=== PATIENT | male | born 1945 | race Caucasian/White ===

== ENCOUNTER 2017-11-26 07:38 | Emergency (ER) | payer MEDICAID, SELFPAY ==
[2017-11-26] VITALS (7 sets, daily range): BP systolic 154–179; BP diastolic 62–77; PULSE 60–69; RESP 18–24; TEMP 36.6; O2SAT 81–97; BMI 25.8
--- NOTE | 2017-11-26 07:47 | EKG12_ITS ---
Test Reason : SOB Blood Pressure : / mmHG Vent. Rate : 060 BPM Atrial Rate : 060 BPM P-R Int : 138 ms QRS Dur : 072 ms QT Int : 428 ms P-R-T Axes : 063 030 056 degrees QTc Int : 428 ms Normal sinus rhythm Poor R wave progression Confirmed by BRIAN SCHULTZ, BASSAM ([id number]), graphics editor GISELL NASH ([id number] on 11/29/2017 2:41:31 PM Referred By: CLEOPATRA Confirmed By:BASSAM TORRES MD
--- NOTE | 2017-11-26 07:47 | RAD_ITS ---
STUDY: X-RAY CHEST REASON FOR EXAM: Male, 72 years old. Shortness of breath TECHNIQUE: AP portable view of the chest. COMPARISON: May 03, 2016 FINDINGS: The lungs are hyperexpanded. There are bilateral lower lobe interstitial and groundglass increased opacities. Blunting of the costophrenic recesses pleural thickening or small effusions Normal size heart. Normal mediastinum and audi. Normal visualized pulmonary arteries. Normal visualized aortic arch and descending thoracic aorta. Normal visualized thoracic spine. Normal visualized ribs, clavicles, and shoulders. There is no demonstrated abnormality of the visualized soft tissue structures of the upper abdomen. RAD/Chest 1 View (Portable) IMPRESSION: COPD with lower lung edema or infiltrates. Electronically Signed: Leland Brantley MD at 8:27 EDT , Service support ,
--- NOTE | 2017-11-26 07:50 | ED.DCSUM_ITS ---
- ER Visit Summary Date of Service: 11/26/17 Chief Complaint: Shortness of breath History of Present Illness: The patient is a 72 M with a history of COPD and heavy tobacco use. Patient complains of shortness of breath that started this morning. He states I cannot catch my breath. He denies chest pain. He has had minimal cough with sputum production. He denies fever or chills. Patient does state he lost his inhaler 3 or 4 days ago. He had been using it 4 times a day. Physical Examination: Blood pressure is 179/77, temperature 98, heart rate 69, respiratory rate 24, pulse ox 81% on room air. At the time of my examination his sat is in the low 90s on 4 L nasal cannula. Head neck examination is grossly unremarkable. Heart is regular rate and rhythm. Lung sounds with in situ and expiratory wheezes throughout. He is speaking 4-5 word sentences. Abdomen is soft nontender. Lower exam examination was no significant calf tenderness or edema. Test Results: EKG is sinus at 60 with no sign of acute ischemia. Portable chest x-ray reveals COPD changes with lower lung edema or infiltrates. CBC was normal white count. Hemoglobin is concentrated at 17.3. Chemistry studies are normal. Troponin is negative. Emergency Department Course and Treatment: Patient was given Solu-Medrol and aerosols. Following aerosols his lungs have very minimal wheeze. His O2 sat is 90-92% on room air. 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 He did slowly return back to 90%. At the time of my repeat examination the patient had just returned from the restroom. After applying the pulse ox his sat was reading 84% after just a minute to allow it to equilibrate and get a good waveform climbed back to 92%. Patient states he feels well. He is refusing hospital admission. He will be given a prescription for albuterol nebulized solution along with prednisone and Levaquin. Treatment Plan: [] Disposition: Discharge Impression: COPD exacerbation This note was generated with [employer] dictation software. It may contain incorrect words, spelling, and punctuation that were not noted in review of the chart prior to signing ED Disposition - Plan for ED Patient: Chief Complaint: Shortness of Breath Referrals: Care Physician,No Primary [Primary Care Provider] -
[2017-11-26] MEDS: Albuterol 2.5 MG/3 ML VIAL.NEB. INHALATION ×2 (07:53)
[2017-11-26] MEDS: Ipratropium/Albuterol Sulfate 3 ML AMPUL.NEB INHALATION (07:53)
[2017-11-26] MEDS: MethylPREDNISolone 125 MG/2 ML Vial IV (07:55)
[2017-11-26 08:13] LABS: Absolute Lymphocyte Count 2.28 X10^3/ul (0.83-4.51); Absolute Neutrophil Count 6.6 X10^3/uL (2.0-7.7); Basophil# 0.04 X10^3/uL; Basophil% 0.4 % (0-1); Hematocrit 49.9 % (40-54); Hemoglobin 17.3 g/dl (13.0-16.5); Lymphocyte # 2.28 X10^3/ul (4.0); Mean Corp Hgb Conc 34.7 g/gl (32-36); Mean Corpuscular Hgb 34.7 pg (27.0-32.0); Mean Corpuscular Volume 100.2 fL (80-94); Mean Platelet Vol. 9.8 fl (6.2-12.0); Monocyte# 0.81 X10^3/uL; Monocyte% 8.2 % (0-10); Neutrophil # 6.59 X10^3/uL (2.7-7.7); Neutrophil % 66.3 % (47-70); Platelet Count 177 K/mm3 (150-450); RBC Distribution Width CV 12.6 % (11.6-14.6); RBC Distribution Width SD 46.2 fl (35.1-43.9); Red Blood Count 4.98 M/mm3 (4.6-6.2); White Blood Count 9.9 K/mm3 (4.4-11.0)
[2017-11-26 08:14] LABS: POSITIVE COUNT NO; POSITIVE DIFFERENTIAL NO; POSITIVE MORPHOLOGY NO
[2017-11-26 08:27] LABS: Anion Gap 4 (5-15); BUN 17 mg/dL (7-18); BUN/Creat Ratio 15.5 RATIO (10-20); Calcium,Total 8.7 mg/dL (8.5-10.1); Chloride 105 mmol/L (98-107); EST Glomerular Filtration Rate 70 mL/min (>60); Est Glom Filt Rate - Afr Amer 84 mL/min (>60); Estimated Creatinine Clearance 58.92 ml/min; Glucose 88 mg/dL (74-106); Potassium 4.6 mmol/L (3.5-5.1); Sodium Level 138 mmol/L (136-145)
--- NOTE | 2017-11-26 10:07 | DCINST.ED_ITS ---
ED Disposition - Plan for ED Patient: Disposition: Home or Assisted Living Chief Complaint: Shortness of Breath Instructions: ED COPD Flare Prescriptions: Albuterol Aerosols [Ventolin Aerosols] 2.5 mg INHALATION Q4H PRN #25 vial Levofloxacin [Levaquin] 750 mg PO DAILY #4 tablet Prednisone 10 mg PO UD #33 tablet Additional Instructions: Follow-up with your physician at [facility].
[2017-11-26] MEDS: levoFLOXacin 750 MG Tablet PO (10:31)
== END 2017-11-26 10:42 | disposition home or self-care (01) ==
PROVIDERS: Emergency Provider Emergency Medicine
DX: J44.1 Chronic obstructive pulmonary disease with (acute) exacerbation (principal); I10 Essential (primary) hypertension; Z72.0 Tobacco use; Z79.82 Long term (current) use of aspirin; Z79.891 Long term (current) use of opiate analgesic; Z79.899 Other long term (current) drug therapy
CPT/HCPCS: 71045; 80048; 84484; 85025; 93005; 94640; 96374; 99285; A4216

== ENCOUNTER 2017-12-31 21:36 | Inpatient (IN) | payer MEDICAID, SELFPAY ==
[2017-12-31 21:36] VITALS: BP 146/67; PULSE 122; RESP 26; TEMP 36.5; O2SAT 89; BMI 25.8
--- NOTE | 2017-12-31 21:49 | RAD_ITS ---
STUDY: X-RAY CHEST REASON FOR EXAM: Male, 72 years old. Dyspnea TECHNIQUE: Single AP portable view of the chest. COMPARISON: None. FINDINGS: There is hyperinflation of the lungs consistent with chronic obstructive lung disease (COPD). There is no demonstrated pleural abnormality. Normal size heart. Normal mediastinum and audi. Normal visualized pulmonary arteries. Normal visualized aortic arch and descending thoracic aorta. Normal visualized thoracic spine. There is degenerative osteoarthritis of the bilateral shoulders. There is no demonstrated abnormality of the visualized soft tissue structures of the upper abdomen. RAD/Chest 1 View (Portable) IMPRESSION: COPD. Electronically Signed: Kory Mike MD at 22:16 EDT Tel , Service support ,
--- NOTE | 2017-12-31 21:50 | EKG12_ITS ---
Test Reason : SOB Blood Pressure : / mmHG Vent. Rate : 109 BPM Atrial Rate : 109 BPM P-R Int : 142 ms QRS Dur : 070 ms QT Int : 326 ms P-R-T Axes : 065 047 080 degrees QTc Int : 439 ms Sinus tachycardia with Premature atrial complexes Otherwise normal ECG Confirmed by JUDE SCHULTZ, SUKUMAR ([id number]), editorial clerk GISELL NASH ([id number]) on 01/04/2018 3:49:52 PM Referred By: BEVERLY Confirmed By:SUKUMAR ROQUE MD
--- NOTE | 2017-12-31 21:50 | ED.VISSUMM ---
- ER Visit Summary Date of Service: 12/31/17 Chief Complaint: Shortness of breath History of Present Illness: The patient is a 72 M presenting with shortness of breath started today. He has been very short of breath at home. His breathing treatments at home were not helping. He does smoke cigarettes and states he has been smoking more cigarettes recently. He denies chest pain. Denies fever. He has a cough. He does not have home O2. Physical Examination: Vitals are stable. Patient is afebrile. 88% on room air HEENT exam is unremarkable. Neck is supple. Lungs are diminished with expiratory wheezing bilaterally. Heart is regular rate and rhythm. Abdomen is soft nontender nondistended. Extremities are unremarkable. Skin is warm and dry. No focal neurologic deficit. Remainder of exam is unremarkable. Emergency Department Course and Treatment: Patient is given albuterol, Atrovent aerosols. CBC, chemistries unremarkable. Troponin is negative. EKG sinus tachycardia rate of 109. Chest x-ray shows COPD. Patient was given Solu-Medrol IV. With ambulation, his pulse ox is 85% on room air. Discussed with the hospitalist for admission. Disposition: Admission Impression: COPD exacerbation, hypoxia This note was generated with [employer] dictation software. It may contain incorrect words, spelling, and punctuation that were not noted in review of the chart prior to signing ED Disposition - Plan for ED Patient: Chief Complaint: Shortness of Breath Referrals: Care Physician,No Primary [Primary Care Provider] -
[2017-12-31 21:59] VITALS: PULSE 110; RESP 26
[2017-12-31] MEDS: Ipratropium/Albuterol Sulfate 3 ML AMPUL.NEB INHALATION (21:59)
[2017-12-31] MEDS: Albuterol 2.5 MG/3 ML VIAL.NEB. INHALATION ×2 (21:59→22:22)
[2017-12-31 22:09] VITALS: O2SAT 92
[2017-12-31 22:22] VITALS: PULSE 116; RESP 26
[2017-12-31 22:22] LABS: Absolute Lymphocyte Count 2.27 X10^3/ul (0.83-4.51); Absolute Neutrophil Count 4.3 X10^3/uL (2.0-7.7); Basophil# 0.04 X10^3/uL; Basophil% 0.5 % (0-1); Eosinophil# 0.21 X10^3/uL; Eosinophils% 2.8 % (0-5); Hematocrit 48.2 % (40-54); Hemoglobin 16.4 g/dl (13.0-16.5); Lymphocyte # 2.27 X10^3/ul (4.0); Lymphocyte % 30.3 % (19-41); Mean Corpuscular Volume 99.8 fL (80-94); Mean Platelet Vol. 9.3 fl (6.2-12.0); Monocyte# 0.62 X10^3/uL; Monocyte% 8.3 % (0-10); Neutrophil # 4.33 X10^3/uL (2.7-7.7); Neutrophil % 57.8 % (47-70); Platelet Count 171 K/mm3 (150-450); RBC Distribution Width CV 12.1 % (11.6-14.6); RBC Distribution Width SD 44.5 fl (35.1-43.9); Red Blood Count 4.83 M/mm3 (4.6-6.2); White Blood Count 7.5 K/mm3 (4.4-11.0)
[2017-12-31 22:27] LABS: POSITIVE COUNT NO; POSITIVE DIFFERENTIAL NO; POSITIVE MORPHOLOGY NO
[2017-12-31 22:29] VITALS: O2SAT 93
[2017-12-31 22:35] LABS: Anion Gap 9 (5-15); BUN 13 mg/dL (7-18); BUN/Creat Ratio 12.1 RATIO (10-20); Calcium,Total 8.5 mg/dL (8.5-10.1); Chloride 103 mmol/L (98-107); Creatinine, Serum 1.07 mg/dL (0.70-1.30); EST Glomerular Filtration Rate 72 mL/min (>60); Est Glom Filt Rate - Afr Amer 87 mL/min (>60); Estimated Creatinine Clearance 60.57 ml/min; Glucose 107 mg/dL (74-106); Potassium 4.2 mmol/L (3.5-5.1); Sodium Level 137 mmol/L (136-145)
--- NOTE | 2017-12-31 23:53 | HP.PCM_ITS ---
Problem List (1) Shortness of breath Status: Acute History of Present Illness Date of Admission: 12/31/17 Chief Complaint: Shortness of breath The patient is a 72 year old M was seen in the emergency room at [facility] with complaints of shortness of breath which started today and worsened over the day. He stated he was short of breath on exertion and at rest. Patient was positive for cough with white sputum production, he denied any fevers or chills. Patient has a history of COPD and uses aerosol treatments as needed at home. He does not he does not have a film spooler. Patient states he smokes to 3 packs of cigarettes a day and has done so for the past 50 years Evaluation in the emergency room showed the patient's pulse ox to be 89% at rest on room air, emergency room physician stated that the patient had diffuse wheezes bilaterally with diminished breath sounds on admission to the ER, he did not appear to be in any respiratory distress however. Patient had a chest x -ray performed which showed COPD, lab work was unremarkable. Patient received 3 aerosol treatments in the emergency room and IV Solu-Medrol, breath sounds remain distant and he was walked on room air and his oxygen saturation was 85%. Patient will be admitted for hypoxia and acute exacerbation of COPD, [facility] Past Medical History Past Medical History (Chronic Problems): Chronic Problems Hypertension (Chronic) Alcohol abuse (Chronic) Tobacco abuse (Chronic) Allergies aspirin Adverse Reaction (Verified 12/31/17 21:38) Other Home Medications: Ambulatory Orders Medication Instructions Recorded Albuterol Aerosols [Ventolin 2.5 mg INHALATION Q4H PRN #25 vial 11/26/17 Aerosols] Albuterol Sulfate [Ventolin Hfa] 2 puff IH 4X/DAY PRN 11/26/17 Amlodipine [Norvasc] 5 mg PO DAILY 11/26/17 Levofloxacin [Levaquin] 750 mg PO DAILY #4 tablet 11/26/17 Lisinopril [Lisinopril] 20 mg PO BID 11/26/17 Metoprolol(XL)Succ [Toprol Xl 50 mg PO DAILY 11/26/17 (Beta Nichole)] Omeprazole [Omeprazole] 40 mg PO DAILY 11/26/17 Oxycodone [Oxyir] 10 mg PO Q6H PRN PRN 11/26/17 Tizanidine HCl [Tizanidine HCl] 2 mg PO BID 11/26/17 Surgical History: no surgical history Psychiatric History: No pertinent psych hx Lives: Spouse/ Significant Other Smoking Status: Heavy Smoker (>10/day) Tobacco Use: Cigarettes Alcohol: Heavy - he drinks anywhere from 6-8 beers per day Drugs: None - *Family History Maternal History Items: No pertinent history Paternal History Items: No pertinent history Review of Systems Constitutional: Denies: Anorexia, Chills, Fever, Night Sweats, Malaise, Weakness , Weight Change, Fatigue Eyes: Denies: Blurred vision, Cataracts, Conjunctivae Inflammation, Double vision, Drainage HEENT: Denies: Difficulty Swallowing, Dysphasia, Ear Pain, Eye Pain, Head Aches , Hearing Changes, Nasal bleeding, Nasal Congestion, Post Nasal Drip Cardiovascular: Denies: Chest Pain, Claudication, Chest Pressure, Chest Tightness, Edema, Heaviness, Light Headedness, Palpitations, Syncope Respiratory: Reports: Cough, Shortness of Breath, Shortness of breath at rest, Shortness of breath upon exertion, Sputum production - white. Denies: Hemoptysis Gastrointestinal: Denies: Abdominal Pain, Constipation, Diarrhea, Hematemesis, Hematochezia, Nausea, Melena, Vomiting Genitourinary: Denies: Dysuria, Frequency, Hematuria, Hesitancy, Incontinence, Nocturia, Retention, Urgency Musculoskeletal: Denies: Foot Pain, Hand Pain, Joint Pain, Joint stiffness, Joint swelling Skin: Denies: Dryness, Jaundice, Pruritis, Rash Neurological: Denies: Blurred vision, Double vision, Change in Speech, Slurred speech, Difficulty swallowing, Focal weakness, Headaches, Incoordination, Numbness, Tingling Psychiatric: Denies: Anxiety, Depression, Homicidal Ideations, Suicidal Ideations Endocrine: Denies: Change in Body Habitus, Heat/ Cold Intolerance, Polydipsia, Polyuria Hematologic/ Lymphatic: Denies: Adenopathy, Anemia, Easy Bruising, Easy Bleeding , Petechiae, Purpura VTE Information - Inpt Only VTE Present on Admission: No VTE Mechan Device Prophylaxis: None VTE Pharm Prophylaxis ordered?: Yes Patient Problems: Active and Suspected Problems Shortness of breath (Acute) - Physical Exam General: Alert, Oriented x3, Cooperative, No apparent distress, Well developed, Well nourished HEENT: Atraumatic, PERRLA, EOMI, Normocephalic Oral: Moist Mucosa Neck: Supple, No JVD, Negative Carotid Bruits, No Nuchal Rigidity, Trachea Midline, Thyroid Normal Size and Texture Lungs: Clear to auscultation, No rhonchi, No wheeze, No rales, Diminished Cardiovascular: Regular Rhythm, Normal S1, No murmurs, No Ectopic Activity, PMI Normal, No rub noted, Tachycardic Abdomen: Bowel Sounds Present, Soft, Non Tender, Non-Distended, No hernias noted Extremities: No clubbing, No cyanosis, No edema, Capillary Refill Less than 3 Seconds Skin: No rashes, No breakdown Musculoskeletal: No Tenderness to Palpation of Joints or Extremities Neurological: Cranial nerves II-XII grossly intact, Neuro grossly intact, Sensory exam intact to light touch and pain, Coordination normal Psych/Mental Status: Normal Affect, Appropriate, Alert and oriented to time, place, person, mood and affect Vital Signs Temp Pulse Resp BP Pulse Ox 97.7 F L 116 H 26 H 146/67 H 92 12/31/17 21:36 12/31/17 22:22 12/31/17 22:22 12/31/17 21:36 12/31/17 22:09 Oxygen Flow Rate (L/min) 3 Oxygen Delivery Method Nasal Cannula Weight: 79.379 kg Body Mass Index (BMI) 25.8 Laboratory Tests Past 24 Hrs 12/31/17 12/31/17 22:07 22:07 WBC 7.5 RBC 4.83 Hgb 16.4 Hct 48.2 MCV 99.8 H MCH 34.0 H MCHC 34.0 RDW 12.1 RDW Differential 44.5 H Plt Count 171 MPV 9.3 Immature Gran % (Auto) 0.300 Neut % (Auto) 57.8 Lymph % (Auto) 30.3 [place] % (Auto) 8.3 Eos % (Auto) 2.8 Baso % (Auto) 0.5 Absolute Neuts (auto) 4.3 Absolute Lymphs (auto) 2.27 Total Counted Not Reportable Sodium 137 Potassium 4.2 Chloride 103 Carbon Dioxide 25.0 Anion Gap 9 BUN 13 Creatinine 1.07 Estim Creat Clear Calc 60.57 Est GFR (MDRD) Af Amer 87 Est GFR (MDRD) Non-Af 72 BUN/Creatinine Ratio 12.1 Glucose 107 H Calcium 8.5 Troponin I < 0.015 Assessment/Plan All Active Problems Shortness of breath (Acute) Pseudomonas pneumonia (Resolved) #1 acute exacerbation of COPD-patient will be admitted to [facility], he will receive aerosol treatments, IV Solu-Medrol, and his pulse ox will be monitored, I do not hear any wheezing at the present time of my examination but the patient has received multiple breathing treatments as well as Solu-Medrol. #2 hypoxia secondary to #1-patient's O2 sat will be monitored, he is currently on 2 L of nasal cannula oxygen #3 probable alcohol abuse-patient states he drinks 6-8 beers per day #4 hypertension #5 GERD Code Visit Inpatient E&M: 56553 Init Hosp L3
[2017-12-31 23:55] VITALS: BP 139/70; PULSE 119; RESP 25; RESP 26; O2SAT 92; O2SAT 95
[2018-01-01] VITALS (14 sets, daily range): BP systolic 137–160; BP diastolic 73–91; PULSE 79–112; RESP 16–24; TEMP 36.5–36.8; O2SAT 91–96; BMI 25.4; BMI 25.5
[2018-01-01] MEDS: MethylPREDNISolone 125 MG/2 ML Vial IV (00:06)
[2018-01-01] MEDS: oxyCODONE 5 MG Tablet PO ×3 (04:26→19:02)
[2018-01-01] MEDS: 0.9% NaCl Peripheral Flush Adult/Peds IV ×2 (06:26→13:59)
[2018-01-01] MEDS: Heparin Injection (Vial) 5,000 UNIT/ML VIAL 5000 UNIT SC ×3 (06:26→21:27)
[2018-01-01] MEDS: Ipratropium/Albuterol Sulfate 3 ML AMPUL.NEB INHALATION ×4 (06:35→18:50)
[2018-01-01] MEDS: Metoprolol(XL)Succ 50 MG Tablet PO (08:22)
[2018-01-01] MEDS: Pantoprazole Sodium 40 MG Tablet PO (08:22)
[2018-01-01] MEDS: Lisinopril 20 MG Tablet PO ×2 (08:22→21:27)
[2018-01-01] MEDS: amLODIPine 5 MG Tablet PO (08:23)
--- NOTE | 2018-01-01 08:30 | NURSING ---
pt states he cannot read menu- assisted with ordering breakfast at this time. pt c/o of headache and states if he doesn't take b/p meds early that happens- requested at this time- same given. Pt states that he was smoking under shade tree yesterday and was smoking a lot in the heat/ humidity and started to feel poorly- came to ER.
--- NOTE | 2018-01-01 09:17 | PCM.PN.HOSP ---
Patient Problems: Active and Suspected Problems Shortness of breath (Acute) Subjective: The patient has long history of smoking, started in the teenage and was smoking 3 pack per day and cut down to about 1 pack per day. Patient is not on home oxygen. Chest x-ray is negative of acute infiltrate. Vitals/I&O's: Vital Signs Temp Pulse Resp BP Pulse Ox 98.3 F 110 H 18 150/91 H 96 01/01/18 08:10 01/01/18 08:22 01/01/18 08:10 01/01/18 08:10 01/01/18 08:10 Oxygen Flow Rate (L/min) 4 Oxygen Delivery Method Nasal Cannula Weight: 172 lb 6.424 oz Body Mass Index (BMI) 25.4 Intake and Output for Last 24 Hours 12/30/17 12/31/17 01/01/18 23:59 23:59 23:59 Intake Total 330 / 330 Balance 330 / 330 General: Alert, Oriented x3, Cooperative HEENT: Atraumatic, PERRLA, EOMI, Normocephalic Neck: Supple, No JVD, Negative Carotid Bruits Lungs: Diminished, Rhonchi, Short of Breath Cardiovascular: Regular rate, Regular Rhythm, Normal S1, Normal S2, No murmurs Abdomen: Bowel Sounds Present, Soft, Non Tender Extremities: No edema, Capillary Refill Less than 3 Seconds Skin: No rashes, No breakdown Musculoskeletal: No Tenderness to Palpation of Joints or Extremities, Muscle Wasting Neurological: Cranial nerves II-XII grossly intact Psych/Mental Status: Normal Affect, Appropriate Current Medications Albuterol Sulfate (Ventolin Aerosols) 2.5 mg INHALATION Q2H PRN PRN PRN Reason: DYSPNEA Albuterol/Ipratropium (Duoneb) 3 ml INHALATION Q6H.RT [facility] Last Admin: 01/01/18 06:35 Dose: 3 ml Amlodipine Besylate (Norvasc) 5 mg PO DAILY [facility] Last Admin: 01/01/18 08:23 Dose: 5 mg Heparin Sodium (Porcine) (Heparin Na) 5,000 unit SC Q8 [facility] Last Admin: 01/01/18 06:26 Dose: 5,000 unit Sodium Chloride () 250 mls @ 15 mls/hr IV .[id number] PRN PRN Reason: SALINE FLUSH Lisinopril (Zestril) 20 mg PO BID [facility] Last Admin: 01/01/18 08:22 Dose: 20 mg Magnesium Hydroxide (Milk Of Magnesia) 30 ml PO DAILY PRN PRN PRN Reason: Constipation Methylprednisolone (Solu-Medrol) 40 mg IV Q8 [facility] Last Admin: 01/01/18 06:26 Dose: 40 mg Metoprolol Succinate (Toprol Xl (Beta Nichole)) 50 mg PO DAILY [facility] Last Admin: 01/01/18 08:22 Dose: 50 mg Nicotine (Nicoderm Cq (Pbkc)) 21 mg TRANSDERM. DAILY [facility] Last Admin: 01/01/18 08:22 Dose: Not Given Oxycodone HCl (Oxyir) 5 - 10 mg PO Q4H PRN PRN PRN Reason: MOD-SEVERE PAIN (4-10/10) Last Admin: 01/01/18 04:26 Dose: 10 mg Pantoprazole Sodium (Protonix) 40 mg PO DAILY [facility] Last Admin: 01/01/18 08:22 Dose: 40 mg Sodium Chloride () 5 - 30 ml IV UD PRN PRN Reason: SALINE FLUSH Last Admin: 01/01/18 06:26 Dose: 10 ml Medical Necessity - Tobacco Use Smoking Status: Heavy Smoker (>10/day) Tobacco Use: Cigarettes Assessment/Plan All Active Problems Shortness of breath (Acute) Pseudomonas pneumonia (Resolved) This is a 72-year-old gentleman with history of about 60 pack years of smoking, COPD was admitted with shortness of breath. Patient has chronic dyspnea on exertion. In ER, his pulse ox recorded was 89% at rest on room air at 85% on ambulation at room air. Chest x-ray does not show any acute infiltrate but was more suggestive of COPD. #1 Acute exacerbation of COPD:-The patient is being admitted to [facility]. continue aerosol treatments, IV Solu-Medrol, and his pulse ox will be monitored. #2 hypoxia secondary to #1-patient's O2 sat will be monitored, he is currently on 2 L of nasal cannula oxygen #3 probable alcohol abuse-patient states he drinks 6-8 beers per day #4 hypertension: Blood pressure 150/91. #5 GERD: On Protonix. DVT prophylaxis: Heparin 500 subcutaneous 3 times daily. Code Visit Inpatient E&M: 50749 Subs Hosp L2
--- NOTE | 2018-01-01 10:55 | CASEMGMT ---
LANDEN ARMENTA Face to Face with patient for initial transition planning/care coordination assessment. RN CM introduced self and role at [facility]. Patient lying in bed, alert and oriented. Patient willing to participate in assessment and is able to answer all questions appropriately. Care providers, pharmacy, and demographics verified. See link attached. Patient wishes to discharge home, denies need for home health at this time. Patient states he has no further needs or concerns at this time. CM to follow for discharge planning needs that may arise. Disposition Plan: Patient to discharge home with family support and follow-up plans in place. LANDEN ARMENTA to monitor for need for home oxygen setup.
[2018-01-01] MEDS: Azithromycin 250 MG Tablet 500 MG PO (13:59)
[2018-01-02 02:05] VITALS: BP 152/73; PULSE 79; RESP 16; TEMP 36.6; O2SAT 95
[2018-01-02] MEDS: 0.9% NaCl Peripheral Flush Adult/Peds IV (05:38)
[2018-01-02] MEDS: Heparin Injection (Vial) 5,000 UNIT/ML VIAL 5000 UNIT SC (05:38)
[2018-01-02] MEDS: oxyCODONE 5 MG Tablet PO ×2 (05:40→10:53)
[2018-01-02 07:07] VITALS: PULSE 70; RESP 16; O2SAT 92
[2018-01-02] MEDS: Ipratropium/Albuterol Sulfate 3 ML AMPUL.NEB INHALATION (07:07)
[2018-01-02 08:05] VITALS: BP 148/75; PULSE 78; RESP 18; TEMP 36.6; O2SAT 93
[2018-01-02 08:38] VITALS: O2SAT 86; O2SAT 88; O2SAT 94
[2018-01-02 08:44] VITALS: O2SAT 93
[2018-01-02 08:49] VITALS: PULSE 88
[2018-01-02] MEDS: Lisinopril 20 MG Tablet PO (08:49)
[2018-01-02] MEDS: amLODIPine 5 MG Tablet PO (08:49)
[2018-01-02] MEDS: Metoprolol(XL)Succ 50 MG Tablet PO (08:49)
[2018-01-02] MEDS: Pantoprazole Sodium 40 MG Tablet PO (08:49)
--- NOTE | 2018-01-02 09:50 | PCM.DC ---
- Discharge Diagnoses Current Active Problems: Current Active and Chronic Problems Shortness of breath (Acute) You will use the following diet at home:: Cardiac Discharge Activity: May Not Drive Allergies/Adverse Reactions: Allergies aspirin Adverse Reaction (Verified 12/31/17 21:38) Other Medications to take at Discharge Albuterol Sulfate [Ventolin Hfa] 2 puff IH 4X/DAY PRN 11/26/17 Amlodipine [Norvasc] 5 mg PO DAILY 11/26/17 Lisinopril 20 mg PO BID 11/26/17 Metoprolol(XL)Succ [Toprol Xl (Beta Nichole)] 50 mg PO DAILY 11/26/17 Omeprazole 40 mg PO DAILY 11/26/17 Oxycodone [Oxyir] 10 mg PO Q6H PRN PRN 11/26/17 Tizanidine HCl 2 mg PO BID PRN PRN 11/26/17 Albuterol Aerosols [Ventolin Aerosols] 2.5 mg INHALATION Q4H PRN PRN 01/01/18 Azithromycin [Zithromax] 500 mg PO Q24 #1 tab 01/02/18 Budesonide/Formoterol 80-4.5 [Symbicort 80-4.5 Mcg Inhaler] 2 puff INHALATION BID #1 inhaler 01/02/18 Nicotine [Nicoderm Cq] 21 mg TRANSDERM. DAILY patch 01/02/18 Prednisone 10 mg PO UD #30 tab 01/02/18 The following prescriptions were given: Azithromycin [Zithromax] 500 mg PO Q24 #1 tab Prednisone 10 mg PO UD #30 tab Budesonide/Formoterol 80-4.5 [Symbicort 80-4.5 Mcg Inhaler] 2 puff INHALATION BID #1 inhaler Primary Care Physician: Care Physician,No Primary [Primary Care Provider] - Please follow up with your Primary Care Physician in: in 1-2 weeks Test Results: Please Follow Up With: Keny Hood DO When: in 3-4 weeks for outpatient PFT
--- NOTE | 2018-01-02 09:53 | DS.PCM_ITS ---
Discharge Date and Diagnosis Date of Admission: 12/31/17 Date of Discharge: 01/02/18 - Primary Discharge Diagnosis Active and Suspected Problems #1 Acute exacerbation of COPD:- Chronic smoker with nicotine dependence #2 Acute hypoxic respiratory failure secondary to COPD exacerbation - Secondary Discharge Diagnosis Chronic Problems Hypertension (Chronic) Alcohol abuse (Chronic) Tobacco abuse (Chronic) Hospital Course and Treatment Summary of Care Provided: [] This is a 72-year-old gentleman with history of about 60 pack years of smoking, COPD was admitted with shortness of breath. Patient has chronic dyspnea on exertion. In ER, his pulse ox recorded was 89% at rest on room air at 85% on ambulation at room air. Chest x-ray does not show any acute infiltrate but was more suggestive of COPD. #1 Acute exacerbation of COPD:-The patient is being admitted to [facility]. continue aerosol treatments, IV Solu-Medrol, and his pulse ox will be monitored. #2 Acute hypoxic respiratory failure secondary to COPD exacerbation patient is still requires 2 L of oxygen. Walking pulse oximetry test performed patient 88 % on room air at rest which dropped to 86% on ambulation. On 2 L of oxygen, pulse ox 94% with ambulation. #3 probable alcohol abuse-patient states he drinks 6-8 beers per day #4 hypertension: Blood pressure 150/91. #5 GERD: On Protonix. DVT prophylaxis: Heparin 500 subcutaneous 3 times daily. Patient does not want to stay further and wants to go home to celebrate January 03 with his grandkids. Patient is discharged on 2 L of oxygen. Patient requires home oxygen at rest and ambulation in home and community. Paperwork for oxygen sign. Discharge medication reconciliation done. Patient given a prescription of Symbicort, tapering dose of prednisone and Zithromax. Patient has albuterol inhaler and nebulization at home. Patient was offered nicotine patch but he refused. He reiterated that he would not to smoke. Discharge follow-up instructions discussed with the patient. Total time spent, exact 35 minutes on discharge meds reconciliation, examination , review of imaging and blood test and discussion with the patient on follow-up instructions. Discharge Activity: May Not Drive Home Medications: Medications to take at Discharge Albuterol Sulfate [Ventolin Hfa] 2 puff IH 4X/DAY PRN 11/26/17 Amlodipine [Norvasc] 5 mg PO DAILY 11/26/17 Lisinopril 20 mg PO BID 11/26/17 Metoprolol(XL)Succ [Toprol Xl (Beta Nichole)] 50 mg PO DAILY 11/26/17 Omeprazole 40 mg PO DAILY 11/26/17 Oxycodone [Oxyir] 10 mg PO Q6H PRN PRN 11/26/17 Tizanidine HCl 2 mg PO BID PRN PRN 11/26/17 Albuterol Aerosols [Ventolin Aerosols] 2.5 mg INHALATION Q4H PRN PRN 01/01/18 Azithromycin [Zithromax] 500 mg PO Q24 #1 tab 01/02/18 Budesonide/Formoterol 80-4.5 [Symbicort 80-4.5 Mcg Inhaler] 2 puff INHALATION BID #1 inhaler 01/02/18 Nicotine [Nicoderm Cq] 21 mg TRANSDERM. DAILY patch 01/02/18 Prednisone 10 mg PO UD #30 tab 01/02/18 Following Prescrptions Were Given to Patient: Azithromycin [Zithromax] 500 mg PO Q24 #1 tab Prednisone 10 mg PO UD #30 tab Budesonide/Formoterol 80-4.5 [Symbicort 80-4.5 Mcg Inhaler] 2 puff INHALATION BID #1 inhaler Primary Care Physician: Care Physician,No Primary [Primary Care Provider] - Please follow up with your Primary Care Physician in: in 1-2 weeks Please Follow Up With: Keny Hood DO When: in 3-4 weeks for outpatient PFT Medical Necessity - Tobacco Use Smoking Status: Heavy Smoker (>10/day) Tobacco Use: Cigarettes Meaningful Use Info Meaningful Use Diagnoses (Choose all that apply): None applicable Code Visit Inpatient E&M: 70774 Disch Hosp
[2018-01-02] MEDS: Azithromycin 250 MG Tablet 500 MG PO (10:53)
[2018-01-02] MEDS: Magnesium Hydroxide 30 ML UDC PO (10:53)
--- NOTE | 2018-01-05 17:02 | CASEMGMT ---
LANDEN ARMENTA Discharge Follow-up Phone Call: MARSHA: Kris Strata: 3 Call Date: 01/05/18 Discharge Date: 01/02/18 Time of Call: 1700 Duration: 5 min Admitting Diagnosis: Exacerbation of COPD LANDEN ARMENTA completed follow-up phone call after recent hospitalization. Patient states that he is doing great. Patient received his home oxygen setup through [employer]. Patient had no questions regarding discharge instructions or medications. Patient was able to get prescriptions without any problems. Patient states that he has a follow-up appt with PCP on Monday. LANDEN ARMENTA provided number for DR. Hood to schedule appt for 3 week for PFT. Patient stated he received great care at [facility].
== END 2018-01-02 11:13 | disposition home or self-care (01) | DRG 87 ==
LOC: ED 01-01 00:09 → MS3 01-01 00:16
PROVIDERS: Admitting Provider Internal Medicine; Emergency Provider Emergency Medicine; Visit Provider Internal Medicine
DX: J96.01 Acute respiratory failure with hypoxia (principal); J44.1 Chronic obstructive pulmonary disease with (acute) exacerbation; F10.10 Alcohol abuse, uncomplicated; F17.210 Nicotine dependence, cigarettes, uncomplicated; I10 Essential (primary) hypertension
CPT/HCPCS: 71045; 80048; 84484; 85025; 93005; 94640; 97802; 99283; 99406; A4216

== ENCOUNTER 2018-02-06 17:17 | Observation (INO) | payer MEDICAID, SELFPAY ==
[2018-02-06] VITALS (9 sets, daily range): BP systolic 120–163; BP diastolic 52–69; PULSE 63–76; RESP 10–30; TEMP 36.4–36.6; O2SAT 90–95; BMI 26.6; BMI 27.1
--- NOTE | 2018-02-06 18:33 | US_ITS ---
STUDY: VENOUS DOPPLER ULTRASOUND - BILATERAL LOWER EXTREMITIES REASON FOR EXAM: Male, 72 years old. Pain and swelling TECHNIQUE: Ultrasound evaluation of the deep vein system to include guerrero-scale imaging and compression was performed. Guerrero-scale imaging and Doppler sonographic evaluation, including duplex spectral analysis and qualitative color flow sonography, was performed. COMPARISON: None. FINDINGS: RIGHT LEG Common Femoral Vein: Normal compression, spontaneity and augmentation. Normal color Doppler. Common Femoral Vein/Greater Saphenous Junction: Normal compression, spontaneity and augmentation. Normal color Doppler. Superficial Femoral Proximal: Normal compression, spontaneity and augmentation. Normal color Doppler. Superficial Femoral Middle: Normal compression, spontaneity and augmentation. Normal color Doppler. Superficial Femoral Distal: Normal compression, spontaneity and augmentation. Normal color Doppler. Popliteal Vein: Normal compression, spontaneity and augmentation. Normal color Doppler. Posterior Tibial Vein: Normal compression, spontaneity and augmentation. Normal color Doppler. Peroneal Vein: Normal compression, spontaneity and augmentation. Normal color Doppler. The visualized soft tissues are unremarkable. LEFT LEG Common Femoral Vein: Normal compression, spontaneity and augmentation. Normal color Doppler. Common Femoral Vein/Greater Saphenous Junction: Normal compression, spontaneity and augmentation. Normal color Doppler. Superficial Femoral Proximal: Normal compression, spontaneity and augmentation. Normal color Doppler. Superficial Femoral Middle: Normal compression, spontaneity and augmentation. Normal color Doppler. Superficial Femoral Distal: Normal compression, spontaneity and augmentation. Normal color Doppler. Popliteal Vein: Normal compression, spontaneity and augmentation. Normal color Doppler. Posterior Tibial Vein: Normal compression, spontaneity and augmentation. Normal color Doppler. Peroneal Vein: Normal compression, spontaneity and augmentation. Normal color Doppler. The visualized soft tissues are unremarkable. US/Venous Duplex Imag/Beau Extrem IMPRESSION: Normal venous Doppler ultrasound of the bilateral lower extremities. Electronically Signed: Jerrell De La Rosa, at 19:51 EDT Tel , Service support ,
--- NOTE | 2018-02-06 18:42 | RAD_ITS ---
STUDY: X-RAY CHEST REASON FOR EXAM: Male, 72 years old. Edema TECHNIQUE: Single AP portable view of the chest. COMPARISON: 12/31/2017. FINDINGS: The lungs are hyper expanded. Basilar opacities right worse than left. There is no demonstrated pleural abnormality. Normal size heart. Normal mediastinum and audi. Normal visualized pulmonary arteries. Normal visualized aortic arch and descending thoracic aorta. Normal visualized thoracic spine. Normal visualized ribs, clavicles, and shoulders. There is no demonstrated abnormality of the visualized soft tissue structures of the upper abdomen. RAD/Chest 1 View (Portable) IMPRESSION: New basilar infiltrates right greater than left. COPD. Electronically Signed: Naveen Perez DO at 19:20 EDT , Service support ,
[2018-02-06 18:50] LABS: Absolute Lymphocyte Count 2.15 X10^3/ul (0.83-4.51); Absolute Neutrophil Count 5.3 X10^3/uL (2.0-7.7); Basophil# 0.03 X10^3/uL; Basophil% 0.3 % (0-1); Eosinophil# 0.34 X10^3/uL; Eosinophils% 3.9 % (0-5); Hematocrit 41.7 % (40-54); Hemoglobin 13.8 g/dl (13.0-16.5); Lymphocyte # 2.15 X10^3/ul (4.0); Lymphocyte % 24.7 % (19-41); Mean Corp Hgb Conc 33.1 g/gl (32-36); Mean Corpuscular Hgb 33.3 pg (27.0-32.0); Mean Corpuscular Volume 100.5 fL (80-94); Mean Platelet Vol. 9.2 fl (6.2-12.0); Monocyte# 0.82 X10^3/uL; Monocyte% 9.4 % (0-10); Neutrophil # 5.33 X10^3/uL (2.7-7.7); Neutrophil % 61.1 % (47-70); Platelet Count 297 K/mm3 (150-450); RBC Distribution Width CV 12.5 % (11.6-14.6); RBC Distribution Width SD 45.5 fl (35.1-43.9); Red Blood Count 4.15 M/mm3 (4.6-6.2); White Blood Count 8.7 K/mm3 (4.4-11.0)
[2018-02-06 18:51] LABS: POSITIVE COUNT NO; POSITIVE DIFFERENTIAL NO; POSITIVE MORPHOLOGY NO
[2018-02-06 19:04] LABS: Anion Gap 5 (5-15); BUN 21 mg/dL (7-18); BUN/Creat Ratio 12.8 RATIO (10-20); Calcium,Total 8.6 mg/dL (8.5-10.1); Chloride 105 mmol/L (98-107); Creatinine, Serum 1.64 mg/dL (0.70-1.30); EST Glomerular Filtration Rate 44 mL/min (>60); Est Glom Filt Rate - Afr Amer 53 mL/min (>60); Estimated Creatinine Clearance 38.23 ml/min; Glucose 98 mg/dL (74-106); Potassium 4.7 mmol/L (3.5-5.1); Sodium Level 138 mmol/L (136-145)
--- NOTE | 2018-02-06 19:59 | ED.VISSUMM ---
- ER Visit Summary Date of Service: 02/06/18 Chief Complaint: [Leg swelling] History of Present Illness: The patient is a 72 M presents to the emergency department complaint leg swelling for about a week and a half. Patient denies any pain in his legs. Patient states that the swelling is usually better when he wakes up in the morning and worsens throughout the day. Patient denies any recent travel or surgery. He denies any chest pain or shortness of breath. Patient presented to the emergency department without his oxygen and O2 saturation was in the 70s. Normally patient is on 2 L home O2. Patient does not have a history of CHF.] Physical Examination: [HEENT-PERRLA, EOMI. Cranial nerves II through XII grossly intact. TMs clear. Mucous membranes moist. No adenopathy. Cardiovascular-regular rate and rhythm without murmur or ectopy Lungs-few rales in bases. Patient has rhonchi and some faint expiratory wheezes as well. Mild tachypnea. No accessory muscle use or retractions. Abdomen-normoactive bowel sounds, soft, nontender, no rebound or rigidity, no peritoneal signs. Extremities-intact ?4, normal range of motion, normal pulses, atraumatic] Test Results: [EKG obtained on arrival shows sinus rhythm with a rate of 58 bpm with occasional PACs. CBC with differential showed a white count of 8.7, hemoglobin 13.8, hematocrit 42, platelets 297. Chemistries unremarkable. Troponin was less than 0.015. BNP was 161. Venous duplex of bilateral lower extremity showed no evidence of DVT. Chest x-ray was read by radiology has bilateral basilar infiltrates although patient has no history of fever or infectious symptoms and I am questioning if these infiltrates are more pulmonary edema. ] Emergency Department Course and Treatment: [At this point I suspect CHF as the patient's cause of symptoms which would be new onset] Treatment Plan: [Admit for further workup and evaluation] Disposition: [Admit] Impression: [CHF new onset COPD] This note was generated with [employer] dictation software. It may contain incorrect words, spelling, and punctuation that were not noted in review of the chart prior to signing ED Disposition - Plan for ED Patient: Chief Complaint: Edema Referrals: Mignon Pa MD [Primary Care Provider] -
[2018-02-06] MEDS: Furosemide 40 MG/4 ML Vial IV (20:46)
--- NOTE | 2018-02-06 20:48 | HP.PCM_ITS ---
Problem List (1) Bilateral leg edema Status: Acute (2) COPD (chronic obstructive pulmonary disease) Status: Chronic Qualifiers: COPD type: emphysema (3) CATHERINE (acute kidney injury) Status: Acute History of Present Illness Date of Admission: 02/06/18 Chief Complaint: Bilateral leg swelling x1 and a half weeks The patient is a 72 year old M with a significant history of COPD on chronic home oxygen use (2 LPM NC) who presents with one and half weeks of bilateral leg edema. Associated with his symptoms is bilateral feet pain. Patient denies any chest pain. He has a chronic cough. He denies PND. He has been using 3 pillows to sleep; and that is his baseline. He denies tiredness. Presentation at emergency department his oxygen saturation was in the 70s but he had no oxygen on. Upon receiving 2 L of oxygen at emergency department his oxygen saturation was above 88%. Past Medical History Past Medical History (Chronic Problems): Chronic Problems COPD (chronic obstructive pulmonary disease) (Chronic) Hypertension (Chronic) Alcohol abuse (Chronic) Tobacco abuse (Chronic) Allergies aspirin Adverse Reaction (Verified 02/06/18 17:22) Other Home Medications: Ambulatory Orders Medication Instructions Recorded Albuterol Sulfate [Ventolin Hfa] 2 puff IH 4X/DAY PRN 11/26/17 Amlodipine [Norvasc] 5 mg PO DAILY 11/26/17 Lisinopril 20 mg PO BID 11/26/17 Metoprolol(XL)Succ [Toprol Xl 50 mg PO DAILY 11/26/17 (Beta Nichole)] Omeprazole 40 mg PO DAILY 11/26/17 Oxycodone [Oxyir] 10 mg PO Q6H PRN PRN 11/26/17 Tizanidine HCl 2 mg PO BID PRN PRN 11/26/17 Surgical History: - - Surgery for stomach ulcers 20-30 years ago. Psychiatric History: No pertinent psych hx Lives: Spouse/ Significant Other Smoking Status: Current every day smoker - 2 cigarettes per day. He is to smoke about 2-3 packs per day. He has smoked for about 15years Alcohol: Occasional Drugs: None - *Family History Maternal History Items: No pertinent history Paternal History Items: No pertinent history Review of Systems Constitutional: Denies: Chills, Fever, Weight Change HEENT: Denies: Head Aches, Sinus Congestion, Sinus Drainage Cardiovascular: Reports: Orthopnea Respiratory: Reports: Cough - Chronic, Shortness of Breath - Chronic Gastrointestinal: Reports: Abdominal Pain Genitourinary: Denies: Dysuria Musculoskeletal: Denies: Joint Pain, Joint Tenderness Skin: Denies: Rash, Wounds Neurological: Denies: Numbness, Tingling, Focal weakness Psychiatric: Denies: Anxiety, Depression, Homicidal Ideations, Suicidal Ideations Hematologic/ Lymphatic: Reports: Adenopathy VTE Information - Inpt Only VTE Present on Admission: No VTE Mechan Device Prophylaxis: None VTE Pharm Prophylaxis ordered?: Yes Patient Problems: Active and Suspected Problems Bilateral leg edema (Acute) CATHERINE (acute kidney injury) (Acute) - Physical Exam General: Alert, Oriented x3, Cooperative HEENT: Atraumatic, PERRLA, EOMI, Normocephalic Neck: Supple Lungs: Wheezes Cardiovascular: Regular rate Abdomen: Bowel Sounds Present, Soft, Non Tender Extremities: Edema - Bilateral feet to knees(3+ bilateral feet; 1+ Legs) Skin: No rashes, No breakdown Neurological: Cranial nerves II-XII grossly intact Psych/Mental Status: Normal Affect, Appropriate Vital Signs Temp Pulse Resp BP Pulse Ox 97.9 F 63 17 141/56 H 92 02/06/18 17:20 02/06/18 18:39 02/06/18 18:39 02/06/18 18:39 02/06/18 18:39 Oxygen Flow Rate (L/min) 2 Oxygen Delivery Method Nasal Cannula Weight: 79.379 kg Body Mass Index (BMI) 26.6 Laboratory Tests Past 24 Hrs 02/06/18 02/06/18 02/06/18 18:24 18:24 18:24 WBC 8.7 RBC 4.15 L Hgb 13.8 Hct 41.7 MCV 100.5 H MCH 33.3 H MCHC 33.1 RDW 12.5 RDW Differential 45.5 H Plt Count 297 MPV 9.2 Immature Gran % (Auto) 0.600 Neut % (Auto) 61.1 Lymph % (Auto) 24.7 [place] % (Auto) 9.4 Eos % (Auto) 3.9 Baso % (Auto) 0.3 Absolute Neuts (auto) 5.3 Absolute Lymphs (auto) 2.15 Total Counted Not Reportable Sodium 138 Potassium 4.7 Chloride 105 Carbon Dioxide 28.0 Anion Gap 5 BUN 21 H Creatinine 1.64 H Estim Creat Clear Calc 38.23 Est GFR (MDRD) Af Amer 53 L Est GFR (MDRD) Non-Af 44 L BUN/Creatinine Ratio 12.8 Glucose 98 Calcium 8.6 Troponin I < 0.015 B-Natriuretic Peptide 161.0 H Assessment/Plan All Active Problems Bilateral leg edema (Acute) CATHERINE (acute kidney injury) (Acute) Shortness of breath (Acute) Pseudomonas pneumonia (Resolved) The patient is a 72 year old M with a significant history of COPD on chronic home oxygen use (2 LPM NC)who presents with one and half weeks of bilateral leg edema concerning for heart failure. Other differential diagnosis includes venostasis or lymphedema. Probable heart failure BNP 161 Lasix 40 mg IV push ?1 at emergency department Lasix 40 mg IV twice daily daily Echocardiogram ordered Leg elevation. Metoprolol continued. Acute kidney injury His creatinine on admission was 1.64. Creatinine on 12/31/2017 was 1.07. This could be due to dehydration all cardiorenal syndrome. We will continue Lasix at this time. We will hold lisinopril pending echocardiogram. COPD Patient does not appear to be in acute flare Scheduled DuoNeb and as needed albuterol as necessary Hypertension Lisinopril held Metoprolol continued Amlodipine continued Hydralazine as needed. Alcoholism Patient has a history of chronic alcohol use in EMR. However, Patient states that he drinks 1-2 beers a day. His MCV is elevated which may be due to alcoholism. Thiamine and folic acid noted. Clinical monitoring. GERD pantoprazole continued DVT prophylaxis subcutaneous heparin. Code Visit OBSV E&M: 96353 Initial observation care L3
--- NOTE | 2018-02-06 22:31 | ECHOD_ITS ---
Reason For Study: RV FAILURE Procedure This was a 2D Doppler, Color Flow transthoracic echocardiogram. The study was technically difficult. Exam performed portable in ICU/CCU. Left Ventricle Mild concentric left ventricular hypertrophy. The estimated ejection fraction is 65 %. Stage 1 diastolic dysfunction. No regional wall motion abnormalities noted. Right Ventricle Mildly dilated right ventricle. Normal systolic function. Atria The left atrium is moderately enlarged. The right atrium is moderately enlarged. Normal atrial septum. Mitral Valve The mitral valve is structurally normal. No prolapse or stenosis seen. Trivial mitral valve insufficiency. Tricuspid Valve Normal tricuspid valve. Trivial tricuspid valve insufficiency. Right ventricular systolic pressure estimated to be 59 mmHg. Moderate pulmonary hypertension. Aortic Valve Trisinus/trileaflet aortic valve. Mild focal aortic valve thickening. Mild diffuse aortic valve thickening. Trivial aortic valve insufficiency. Pulmonic Valve Normal pulmonic valve. Trivial pulmonic valve insufficiency. Great Vessels Normal aortic root. Normal arch. Normal inferior vena cava. Inferior vena cava collapse with sniff. Pericardium/Pleural No pericardial effusion. MMode/2D Measurements & Calculations LVIDd: 4.3 cm IVSd: 1.2 cm Ao root diam: 3.6 cm LVIDs: 3.1 cm LVPWd: 1.3 cm LA dimension: 3.3 cm RVDd: 3.7 cm FS: 27.9 % LAV(MOD-bp): 59.6 ml LVAd ap4: 31.9 cm2 SV(MOD-sp4): 67.0 ml LAV(MOD-bp) Indexed: 30.6 ml/m2 EDV(MOD-sp4): 108.3 ml LAV(MOD-sp2): 45.5 ml EDV(sp4-el): 112.6 ml LAV(MOD-sp4): 64.7 ml LVAs ap4: 16.5 cm2 ESV(MOD-sp4): 41.2 ml ESV(sp4-el): 41.0 ml EF(MOD-sp4): 61.9 % EF(sp4-el): 63.6 % SV(sp4-el): 71.7 ml LA A4 area: 23.5 cm2 RA A4 area: 23.9 cm2 Time Measurements MV dec time: 0.22 sec Doppler Measurements & Calculations MV E max farrukh: 65.0 cm/sec Lat Peak E' Farrukh: 7.5 cm/sec Med Peak E' Farrukh: 7.9 cm/sec MV A max farrukh: 76.3 cm/sec E/E' lat: 8.7 E/E' med: 8.2 MV E/A: 0.85 Ao V2 max: 140.7 cm/sec LV V1 max: 96.7 cm/sec TR max farrukh: 336.6 cm/sec Ao max P.9 mmHg LV V1 max P.7 mmHg TR max P.6 mmHg Interpretation Summary Mild concentric left ventricular hypertrophy. The estimated ejection fraction is 65 %. Stage 1 diastolic dysfunction. Mildly dilated right ventricle. The left atrium is moderately enlarged. The right atrium is moderately enlarged. Trivial mitral valve insufficiency. Trivial tricuspid valve insufficiency. Right ventricular systolic pressure estimated to be 59 mmHg. Moderate pulmonary hypertension. Trivial aortic valve insufficiency. There is no comparison study available. Ordering Physician: Jay Mullins Referring Physician: MARGY HAGEN Performed By: Kenna Cleveland, DARRYN, RVT
[2018-02-06] MEDS: Lisinopril 20 MG Tablet PO (23:09)
[2018-02-06] MEDS: Heparin Injection (Vial) 5,000 UNIT/ML VIAL 5000 UNIT SC (23:09)
[2018-02-06] MEDS: oxyCODONE 5 MG Tablet 10 MG PO (23:15)
[2018-02-06] MEDS: Albuterol 2.5 MG/3 ML VIAL.NEB. INHALATION (23:37)
[2018-02-07] VITALS (18 sets, daily range): BP systolic 114–166; BP diastolic 57–73; PULSE 56–87; RESP 18–22; TEMP 36.2–36.9; O2SAT 90–94
--- NOTE | 2018-02-07 00:10 | NURSING ---
pt noticed to have sleep apena when sleeping . 02 inserted in mouth
[2018-02-07 04:33] LABS: Absolute Lymphocyte Count 2.03 X10^3/ul (0.83-4.51); Absolute Neutrophil Count 5.2 X10^3/uL (2.0-7.7); Basophil# 0.02 X10^3/uL; Basophil% 0.2 % (0-1); Eosinophil# 0.31 X10^3/uL; Eosinophils% 3.6 % (0-5); Hematocrit 39.2 % (40-54); Hemoglobin 12.9 g/dl (13.0-16.5); Lymphocyte # 2.03 X10^3/ul (4.0); Lymphocyte % 23.7 % (19-41); Mean Corp Hgb Conc 32.9 g/gl (32-36); Mean Corpuscular Hgb 32.8 pg (27.0-32.0); Mean Corpuscular Volume 99.7 fL (80-94); Mean Platelet Vol. 8.8 fl (6.2-12.0); Monocyte# 0.96 X10^3/uL; Monocyte% 11.2 % (0-10); Neutrophil % 60.7 % (47-70); Platelet Count 303 K/mm3 (150-450); RBC Distribution Width SD 43.4 fl (35.1-43.9); Red Blood Count 3.93 M/mm3 (4.6-6.2); White Blood Count 8.6 K/mm3 (4.4-11.0)
[2018-02-07 04:37] LABS: POSITIVE COUNT NO; POSITIVE DIFFERENTIAL NO; POSITIVE MORPHOLOGY NO
[2018-02-07 04:49] LABS: Anion Gap 7 (5-15); BUN 20 mg/dL (7-18); BUN/Creat Ratio 15.4 RATIO (10-20); Calcium,Total 8.7 mg/dL (8.5-10.1); Chloride 106 mmol/L (98-107); Cholesterol 118 mg/dL (200); EST Glomerular Filtration Rate 57 mL/min (>60); Est Glom Filt Rate - Afr Amer 69 mL/min (>60); Estimated Creatinine Clearance 48.23 ml/min; Glucose 85 mg/dL (74-106); High Density Lipoprotein 31 mg/dL; Potassium 4.4 mmol/L (3.5-5.1); Sodium Level 143 mmol/L (136-145); Triglycerides 89 mg/dL; Very Low Density Lipoprotein 18 mg/dL (5-40)
[2018-02-07] MEDS: Thiamine Hydrochloride 100 MG Tablet PO (08:12)
[2018-02-07] MEDS: Folic Acid 1 MG Tablet PO (08:12)
[2018-02-07] MEDS: Metoprolol(XL)Succ 50 MG Tablet PO (08:13)
[2018-02-07] MEDS: Pantoprazole Sodium 40 MG Tablet PO (08:13)
[2018-02-07] MEDS: amLODIPine 5 MG Tablet PO (08:13)
[2018-02-07] MEDS: Heparin Injection (Vial) 5,000 UNIT/ML VIAL 5000 UNIT SC ×2 (08:14→22:06)
[2018-02-07] MEDS: Furosemide 40 MG/4 ML Vial IV ×2 (08:15→17:54)
--- NOTE | 2018-02-07 17:16 | PCM.PROGNOTE ---
Patient Problems: Active and Suspected Problems Bilateral leg edema (Acute) CATHERINE (acute kidney injury) (Acute) Subjective: Patient seen and examined today, he appears comfortable, he is currently on nasal cannula at 2 L. Patient's repeat CBC today was normal. I feel the patient most likely has congestive heart failure. - Physical Exam General: Alert, Oriented x3, Cooperative, No apparent distress, Well developed, Well nourished HEENT: Atraumatic, PERRLA, EOMI, Normocephalic Oral: Moist Mucosa Neck: Supple, No JVD, No Nuchal Rigidity, Trachea Midline, Thyroid Normal Size and Texture Lungs: Clear to auscultation, Normal air movement, No rhonchi, No wheeze, No rales Cardiovascular: Regular rate, Regular Rhythm, Normal S1, Normal S2, No murmurs, No Ectopic Activity, PMI Normal, No rub noted, No Gallop Abdomen: Bowel Sounds Present, Soft, Non Tender, Non-Distended, No hernias noted Extremities: No clubbing, No cyanosis, Capillary Refill Less than 3 Seconds Skin: No rashes, No breakdown Musculoskeletal: No Tenderness to Palpation of Joints or Extremities Neurological: Cranial nerves II-XII grossly intact, Neuro grossly intact, Sensory exam intact to light touch and pain, Coordination normal Psych/Mental Status: Normal Affect, Appropriate, Alert and oriented to time, place, person, mood and affect Vital Signs Temp Pulse Resp BP Pulse Ox 97.9 F 61 18 114/57 L 94 02/07/18 16:00 02/07/18 16:00 02/07/18 16:00 02/07/18 16:00 02/07/18 16:00 Oxygen Flow Rate (L/min) 2 Oxygen Delivery Method Nasal Cannula Weight: 78.5 kg Body Mass Index (BMI) 27.1 Intake and Output for Last 24 Hours 02/05/18 02/06/18 02/07/18 23:59 23:59 23:59 Intake Total 120 / 120 200 / 200 Output Total 1450 / 1450 1350 / 1350 Balance -1330 / -1330 -1150 / -1150 Laboratory Tests Past 24 Hrs 02/07/18 02/07/18 04:25 04:25 WBC 8.6 RBC 3.93 L Hgb 12.9 L Hct 39.2 L MCV 99.7 H MCH 32.8 H MCHC 32.9 RDW 12.0 RDW Differential 43.4 Plt Count 303 MPV 8.8 Immature Gran % (Auto) 0.600 Neut % (Auto) 60.7 Lymph % (Auto) 23.7 [place] % (Auto) 11.2 H Eos % (Auto) 3.6 Baso % (Auto) 0.2 Absolute Neuts (auto) 5.2 Absolute Lymphs (auto) 2.03 Total Counted Not Reportable Sodium 143 Potassium 4.4 Chloride 106 Carbon Dioxide 30.0 Anion Gap 7 BUN 20 H Creatinine 1.30 Estim Creat Clear Calc 48.23 Est GFR (MDRD) Af Amer 69 Est GFR (MDRD) Non-Af 57 L BUN/Creatinine Ratio 15.4 Glucose 85 Calcium 8.7 Triglycerides 89 Cholesterol 118 LDL Cholesterol 69 VLDL Cholesterol 18 HDL Cholesterol 31 L Medical Necessity - Tobacco Use Smoking Status: Current every day smoker Assessment/Plan All Active Problems Bilateral leg edema (Acute) CATHERINE (acute kidney injury) (Acute) Shortness of breath (Acute) Pseudomonas pneumonia (Resolved) #1 acute diastolic congestive heart failure-continue IV Lasix, patient stable #2 pulmonary hypertension #3 chronic hypoxic respiratory failure #4 chronic obstructive pulmonary disease #5 acute kidney injury-resolved #6 hypertension Code Visit Inpatient E&M: 23982 Subs Hosp L2
[2018-02-07] MEDS: Ipratropium/Albuterol Sulfate 3 ML AMPUL.NEB INHALATION (19:40)
[2018-02-07] MEDS: Zolpidem Tartrate 5 MG Tablet PO (22:06)
[2018-02-08] VITALS (12 sets, daily range): BP systolic 118–140; BP diastolic 55–75; PULSE 61–95; RESP 16–21; TEMP 36.3–36.8; O2SAT 91–94
--- NOTE | 2018-02-08 04:54 | NURSING ---
Addendum entered by Dorinda Viera 02/08/18 04:56: Correct dates 02/07/18- 02/08/18 Original Note: All charting completed by SN Joanna reviewed by this RN. This RN agrees with all charting 02/06/18- 02/07/18
[2018-02-08] MEDS: Ipratropium/Albuterol Sulfate 3 ML AMPUL.NEB INHALATION ×2 (07:20→13:32)
--- NOTE | 2018-02-08 07:46 | RAD_ITS ---
STUDY: X-RAY CHEST REASON FOR EXAM: Male, 72 years old. Shortness of breath. Possible heart failure. TECHNIQUE: Single AP upright portable view. COMPARISON: 02/06/2018 and 12/31/2017 chest studies. FINDINGS: EKG wires and oxygen tubing overlie the chest. Lungs appear fairly well ventilated but show decreased volume compared to chest 12/31/2017. Similar to chest study 02/06/2018, right greater than left increased interstitial and groundglass opacities are seen most suggestive CHF/fluid overload not seen which chest study 12/31/2017. In addition, heterogeneous opacity is seen in the left hilar and midlung zone, may represent increased congestion, atelectasis or pneumonia. Minimal blunting left CP angle noted, atelectasis versus minimal pleural fluid. Heart size appears upper limits of normal, stable. Stable appearing mediastinum. Moderately enlarged slightly decreased visualized pulmonary arteries suggestive. Stable visualized mildly calcified aortic arch. Stable visualized bones. There is no demonstrated abnormality of the visualized soft tissue structures of the upper abdomen. No subdiaphragmatic free air seen grossly. Question of calcified pleural plaques including right medial supradiaphragmatic region. RAD/Chest 1 View (Portable) IMPRESSION: Persistent possibly mildly increased right greater than left CHF/fluid overload with new left hilar/midlung heterogeneous opacity, may represent congestion, atelectasis or pneumonia. Recommend follow-up chest exam is clinically indicated for clearing, prefer chest two-view upright full inspiratory study if patient tolerates. Electronically Signed: Moises Saw, at 9:24 EDT Tel , Service support ,
[2018-02-08] MEDS: Thiamine Hydrochloride 100 MG Tablet PO (08:45)
[2018-02-08] MEDS: Folic Acid 1 MG Tablet PO (08:45)
[2018-02-08] MEDS: amLODIPine 5 MG Tablet PO (10:09)
[2018-02-08] MEDS: Furosemide 40 MG/4 ML Vial IV (10:10)
[2018-02-08] MEDS: 0.9% NaCl Peripheral Flush Adult/Peds IV (10:10)
[2018-02-08] MEDS: Metoprolol(XL)Succ 50 MG Tablet PO (10:10)
[2018-02-08] MEDS: Pantoprazole Sodium 40 MG Tablet PO (10:10)
--- NOTE | 2018-02-08 16:29 | DCINST_ITS ---
- Discharge Diagnoses Current Active Problems: Current Active and Chronic Problems Bilateral leg edema (Acute) COPD (chronic obstructive pulmonary disease) (Chronic) CATHERINE (acute kidney injury) (Acute) You will use the following diet at home:: No restrictions Your food should be the consistency of: Regular Your liquids should be the consistency of: Regular/Thin Discharge Activity: Return to Normal Activity Weight Bearing Status: Full weight bearing Allergies/Adverse Reactions: Allergies aspirin Adverse Reaction (Verified 02/06/18 17:22) Other Medications to take at Discharge Albuterol Sulfate [Ventolin Hfa] 2 puff IH 4X/DAY PRN 11/26/17 Amlodipine [Norvasc] 5 mg PO DAILY 11/26/17 Metoprolol(XL)Succ [Toprol Xl (Beta Nichole)] 50 mg PO DAILY 11/26/17 Omeprazole 40 mg PO DAILY 11/26/17 Oxycodone [Oxyir] 10 mg PO Q6H PRN PRN 11/26/17 Tizanidine HCl 2 mg PO BID PRN PRN 11/26/17 Furosemide [Lasix] 40 mg PO DAILY #30 tab 02/08/18 Lisinopril 20 mg PO DAILY #1 tablet 02/08/18 The following prescriptions were given: Furosemide [Lasix] 40 mg PO DAILY #30 tab Lisinopril 20 mg PO DAILY #1 tablet Primary Care Physician: Mignon Pa MD [Primary Care Provider] - Please follow up with your Primary Care Physician in: next week Test Results: Test results from this visit will be discussed in further detail at your follow- up appointment, if applicable.
--- NOTE | 2018-02-09 09:16 | PCM.DC.SUM ---
Discharge Date and Diagnosis Date of Admission: 02/06/18 Date of Discharge: 02/08/18 - Primary Discharge Diagnosis #1 acute diastolic congestive heart failure- #2 pulmonary hypertension #3 chronic hypoxic respiratory failure #4 chronic obstructive pulmonary disease #5 acute kidney injury #6 hypertension - Secondary Discharge Diagnosis Chronic Problems COPD (chronic obstructive pulmonary disease) (Chronic) Hypertension (Chronic) Alcohol abuse (Chronic) Tobacco abuse (Chronic) Hospital Course and Treatment Operations: None Procedures: 2-D Echocardiogram Summary of Care Provided: The patient is a 72 year old M seen in the emergency room at [facility] with a chief complaint of shortness of breath. Patient is on chronic oxygen at home for chronic hypoxic respiratory failure. Workup in the emergency room included a chest x-ray which showed basilar infiltrates right greater than left and COPD. Patient's lab was remarkable for an elevated creatinine 1.64, beta natruretic peptide was elevated 161. Patient was placed in observation status on PCU, he was felt to be in diastolic congestive heart failure, echocardiogram was obtained which showed a preserved EF with moderate pulmonary hypertension. Patient was given IV Lasix and monitored, his breathing improved, on 02/08/18, patient was seen and examined felt to be in stable condition for discharge home. Discharge Activity: Return to Normal Activity Weight Bearing Status: Full weight bearing Home Medications: Medications to take at Discharge Albuterol Sulfate [Ventolin Hfa] 2 puff IH 4X/DAY PRN 11/26/17 Amlodipine [Norvasc] 5 mg PO DAILY 11/26/17 Metoprolol(XL)Succ [Toprol Xl (Beta Nichole)] 50 mg PO DAILY 11/26/17 Omeprazole 40 mg PO DAILY 11/26/17 Oxycodone [Oxyir] 10 mg PO Q6H PRN PRN 11/26/17 Tizanidine HCl 2 mg PO BID PRN PRN 11/26/17 Furosemide [Lasix] 40 mg PO DAILY #30 tab 02/08/18 Lisinopril 20 mg PO DAILY #1 tablet 02/08/18 Following Prescrptions Were Given to Patient: Furosemide [Lasix] 40 mg PO DAILY #30 tab Lisinopril 20 mg PO DAILY #1 tablet Primary Care Physician: Mignon Pa MD [Primary Care Provider] - Please follow up with your Primary Care Physician in: next week Disposition: Home Minutes spent on discharge:: 27 Patient Condition:: Stable Medical Necessity - Tobacco Use Smoking Status: Current every day smoker Meaningful Use Info Meaningful Use Diagnoses (Choose all that apply): CHF - CHF VAISHNAVI/ARB ordered at discharge?: Yes Documented LVEF (%): 65 Code Visit OBSV E&M: 41908 Observation care discharge
== END 2018-02-08 17:20 | disposition home or self-care (01) ==
LOC: ED 20:24 → ICU 21:52
PROVIDERS: Admitting Provider Hospitalist; Emergency Provider Emergency Medicine; Family Provider Internal Medicine; PCP Internal Medicine; Visit Provider Internal Medicine
DX: I11.0 Hypertensive heart disease with heart failure (principal); I50.31 Acute diastolic (congestive) heart failure; J44.9 Chronic obstructive pulmonary disease, unspecified; J96.11 Chronic respiratory failure with hypoxia; I27.20 Pulmonary hypertension, unspecified; N17.9 Acute kidney failure, unspecified; Z99.81 Dependence on supplemental oxygen; Z79.899 Other long term (current) drug therapy; F17.210 Nicotine dependence, cigarettes, uncomplicated; F10.20 Alcohol dependence, uncomplicated; K21.9 Gastro-esophageal reflux disease without esophagitis
CPT/HCPCS: 71045; 80048; 80061; 83880; 84484; 85025; 93005; 93306; 93970; 94640; 94667; 94668; 96372; 96374; 96376; 97110; 97116; 97162; 97165; 97530; 99218; 99251; 99285; A4216; G0378; G0463; J1940

== ENCOUNTER → 2018-03-27 10:22 | Outpatient (CLI) | payer MEDICAID, SELFPAY ==
--- NOTE | 2018-03-27 15:14 | PFTCOMP_ITS ---
COMPLETE PULMONARY FUNCTION TEST INTERPRETATION Brief HPI: Patient is a 72 year old male, currently under the care of Dr. Hood, who presents to [facility] for complete pulmonary function tests secondary to diagnosis of COPD. Respiratory therapist reports good effort and reproducible results. Interpretation: Forced expiration spirometry shows a very severe large airways obstructive ventilatory defect with an FEV1 of 33% predicted. There is a significant bronchodilator response in FEV1 by ATS criteria. Spirograms are of good quality and plateau slowly, indicating slowly emptying areas of the lungs. The respiratory flow volume loop shows decreased expiratory flow rates at all lung volumes consistent with airway obstruction. Lung volumes by body plethysmography show a normal total lung capacity at 6.82 L, 110% predicted. FRC and RV are elevated out of proportion. Lung volume measurements are consistent with air-trapping. Diffusion capacity by carbon monoxide is decreased at 34% predicted. The airway resistance is elevated. No previous pulmonary function tests were available for review. Impression: Partially reversible very severe large airways obstructive ventilatory defect resulting in air trapping and a symmetric reduction in DLCO, consistent with the diagnosis of advanced COPD.
== END ==
PROVIDERS: Family Provider Internal Medicine; PCP Internal Medicine; Visit Provider Internal Medicine Critical Care Medicine
DX: J44.9 Chronic obstructive pulmonary disease, unspecified (principal); F17.200 Nicotine dependence, unspecified, uncomplicated
CPT/HCPCS: 94060; 94726; 94729

== ENCOUNTER 2018-05-23 02:06 | Emergency (ER) | payer MEDICAID, SELFPAY ==
[2018-05-23 02:07] VITALS: BP 179/95; PULSE 69; RESP 24; TEMP 37.1; O2SAT 93; BMI 26.5
--- NOTE | 2018-05-23 02:18 | RAD_ITS ---
STUDY: X-RAY CHEST REASON FOR EXAM: Male, 72 years old. Increased shortness of breath. History of COPD. TECHNIQUE: Frontal and lateral views of the chest. COMPARISON: 02/08/2018. 05/29/2013. FINDINGS: There is diffuse chronic interstitial prominence. The lungs are hyperexpanded, consistent with COPD. There is no demonstrated acute pulmonary infiltrate. There is no demonstrated pleural abnormality. Normal size heart. Normal mediastinum and audi. Normal visualized pulmonary arteries. There is atherosclerotic calcification of the aortic arch with tortuosity. There are diffuse degenerative changes of the visualized thoracic spine. Normal visualized ribs, clavicles, and shoulders. There is no demonstrated abnormality of the visualized soft tissue structures of the upper abdomen. RAD/Chest PA and Lateral IMPRESSION: Chronic interstitial lung disease with COPD. No evidence for acute cardiopulmonary pathology. Electronically Signed: Girish Evans MD at 3:10 EST , Service support ,
--- NOTE | 2018-05-23 02:18 | RAD_ITS ---
STUDY: X-RAY - SOFT TISSUE NECK REASON FOR EXAM: Male, 72 years old. Patient states that his throat feels swollen. TECHNIQUE: 2 view(s) of the neck were obtained. COMPARISON: None. FINDINGS: There are some soft tissue prominence at the base the tongue which probably represents lymphoid hyperplasia. Direct visual inspection is suggested to ensure against a mass lesion. Otherwise normal visualized nasopharynx, oropharynx, hypopharynx. Normal epiglottis. Normal visualized subglottic tracheal air column. Normal prevertebral soft tissue structures. Normal visualized osseous structures. The soft tissue structures are unremarkable. RAD/Neck for Soft Tissue IMPRESSION: Soft tissue prominence at the base of the tongue, which probably represents benign lymphoid hyperplasia. Suggest direct visual inspection for confirmation. Otherwise, normal exam. Electronically Signed: Girish Evans MD at 3:05 EST , Service support ,
[2018-05-23 02:39] LABS: Absolute Lymphocyte Count 1.64 X10^3/ul (0.83-4.51); Absolute Neutrophil Count 4.3 X10^3/uL (2.0-7.7); Basophil# 0.02 X10^3/uL; Basophil% 0.3 % (0-1); Eosinophil# 0.15 X10^3/uL; Eosinophils% 2.2 % (0-5); Hematocrit 41.7 % (40-54); Hemoglobin 14.2 g/dl (13.0-16.5); Lymphocyte # 1.64 X10^3/ul (4.0); Lymphocyte % 24.4 % (19-41); Mean Corp Hgb Conc 34.1 g/gl (32-36); Mean Corpuscular Hgb 32.4 pg (27.0-32.0); Mean Corpuscular Volume 95.2 fL (80-94); Mean Platelet Vol. 9.2 fl (6.2-12.0); Monocyte# 0.59 X10^3/uL; Monocyte% 8.8 % (0-10); Neutrophil # 4.31 X10^3/uL (2.7-7.7); Neutrophil % 64.2 % (47-70); Platelet Count 190 K/mm3 (150-450); RBC Distribution Width CV 11.5 % (11.6-14.6); RBC Distribution Width SD 39.2 fl (35.1-43.9); Red Blood Count 4.38 M/mm3 (4.6-6.2); White Blood Count 6.7 K/mm3 (4.4-11.0)
[2018-05-23 02:40] LABS: POSITIVE COUNT NO; POSITIVE DIFFERENTIAL NO; POSITIVE MORPHOLOGY NO
[2018-05-23] MEDS: MethylPREDNISolone 125 MG/2 ML Vial IV (02:41)
[2018-05-23 02:43] VITALS: PULSE 71; RESP 24; O2SAT 98
[2018-05-23 02:51] LABS: ALB/GLOB Ratio 1.1 RATIO (0.9-2.4); AST(SGOT) 20 U/L (15-37); Alanine Aminotransfer ALT/SGPT 18 U/L (16-61); Albumin, Serum 3.8 g/dL (3.2-5.0); Alkaline Phosphatase 69 U/L (45-117); Anion Gap 2 (5-15); BUN 17 mg/dL (7-18); Calcium,Total 8.6 mg/dL (8.5-10.1); Chloride 101 mmol/L (98-107); Creatinine, Serum 1.21 mg/dL (0.70-1.30); EST Glomerular Filtration Rate 62 mL/min (>60); Est Glom Filt Rate - Afr Amer 75 mL/min (>60); Estimated Creatinine Clearance 53.56 ml/min; Globulin 3.5 g/dL (2.2-4.2); Glucose 105 mg/dL (74-106); Potassium 3.8 mmol/L (3.5-5.1); Protein, Total 7.3 g/dL (6.4-8.2); Sodium Level 139 mmol/L (136-145)
[2018-05-23 03:25] VITALS: PULSE 60; RESP 20
[2018-05-23] MEDS: Albuterol 2.5 MG/3 ML VIAL.NEB. INHALATION ×2 (03:25)
[2018-05-23] MEDS: Ipratropium/Albuterol Sulfate 3 ML AMPUL.NEB INHALATION (03:25)
--- NOTE | 2018-05-23 03:40 | CT_ITS ---
STUDY: CT SOFT TISSUE NECK WITH CONTRAST REASON FOR EXAM: Male, 72 years old. Shortness of breath. Elevated blood pressure. Feels like throat is swollen. RADIATION DOSAGE (If Supplied By Facility): CTDIvol = ( 22.35 ) mGy, DLP = ( 669.87 ) mGycm TECHNIQUE: The patient was scanned in a multi-detector CT scanner. High resolution transaxial imaging was performed following intravenous administration of 75ML ml of Isovue 370 contrast material. Sagittal and coronal images were reconstructed. The exam is limited by motion artifacts, which are seen throughout the study, possibly due to swallowing or talking during exam. Individualized dose optimization techniques were used for this CT. COMPARISON: X-ray soft tissue neck. Chest x-ray. FINDINGS: Normal bilateral parotid glands. Normal bilateral auctioneer art spaces. Normal bilateral parapharyngeal spaces. Normal bilateral carotid spaces. Normal bilateral sublingual and submandibular glands and spaces. Normal visualized nasopharynx. Normal retropharyngeal space. Normal perivertebral space. Normal visualized bilateral faucial tonsils. The visualized tongue, tongue base and oropharynx are normal. The visualized cervical lymph nodes (levels I-) are within normal size limits, and maintain normal morphology. There is no demonstrated solid or cystic mass lesion. There is no abnormal contrast enhancement. Normal epiglottis, bilateral vallecula and hypopharynx. The pre-epiglottic and paraglottic adipose spaces are normal. Normal visualized bilateral piriform sinuses, aryepiglottic folds, vocal cords, and arytenoid-cricoid articulations. Normal subglottic trachea. Normal bilateral lobes of the thyroid gland. There are prominent fibrotic and emphysematous changes in the visualized lung apices. There is a calcified granuloma in the visualized right paratracheal mediastinum. Normal visualized paranasal sinuses. There are multilevel degenerative changes of the cervical spine. CT/Soft Tissue Neck WITH Contrast IMPRESSION: Limited exam due to motion artifacts throughout the study. Exam is grossly normal. Airway is widely patent. No visualized large masses. No demonstrated abscess is more or lymphadenopathy. If there is persistent clinical concern, repeat study should be considered when and if the patient can cooperate. Electronically Signed: Girish Evans MD at 4:59 EST , Service support ,
--- NOTE | 2018-05-23 03:53 | EKG12_ITS ---
Test Reason : Blood Pressure : / mmHG Vent. Rate : 070 BPM Atrial Rate : 070 BPM P-R Int : 138 ms QRS Dur : 068 ms QT Int : 418 ms P-R-T Axes : 076 029 047 degrees QTc Int : 451 ms Sinus rhythm with Premature atrial complexes with Aberrant conduction Otherwise normal ECG Confirmed by JUDE SCHULTZ, SUKUMAR ([id number]), fashion editor GSIELL NASH ([id number]) on 05/25/2018 1:36:45 PM Referred By: CRISTEL Confirmed By:SUKUMAR ROQUE MD
--- NOTE | 2018-05-23 03:58 | ED.DCSUM_ITS ---
- ER Visit Summary Date of Service: 05/23/18 Chief Complaint: Swelling of throat History of Present Illness: The patient is a 72 M who reports that he feels like his throat is swelling. He states symptoms began about 3 days ago. He states he has been able to swallow liquids but not food. He states he cannot lay down flat. He denies feeling short of breath. No fevers. He has a history of COPD and wears home oxygen. He also notes a previous history of gastric ulcers and a possible history of failure. He is an avid connoisseur of tobacco products Physical Examination: Afebrile noted tachypnea Gen: Well-nourished well-developed Head: Normocephalic atraumatic Eyes: Perrl EOMI ENT: TMs clear no rhinorrhea moist mucous membranes there is no drooling. No stridor. His voice appears normal. Neck: Supple no lymphadenopathy no JVD nontender CVS: Regular rate rhythm no murmurs normal S1-S2 Respiratory: Patient is tachypneic. He has expiratory wheezing bilaterally. Chest nontender Abdomen: Soft nontender nondistended normal bowel sounds no masses Back: Nontender Extremity: Nontender no edema Skin: Normal color no rash Neuro: alert orientated ?3 CN II-XII intact normal strength sensation reflexes gait cerebellar Psych: Normal affect normal mood Test Results: CBC CMP essentially normal. Chest x-ray negative. Soft tissue neck x-ray demonstrate prominence base of the tongue. CT of the neck with IV contrast was obtained which does not demonstrate any abnormal lymph nodes. No obvious mass or abscess. Emergency Department Course and Treatment: Patient received Solu-Medrol and breathing treatments. His lung sounds are now clear. Repeat examination shows the patient to be sleeping. Laying back. There is no drooling. He was given p.o. challenge. He has had an ICD. He has had liquids. And he has had yogurt. None of this is resulted in coughing or choking. Therefore I do not think he has a dysphasia.. He refuses to eat a soft cookie stating he will choke on it. I do not see acute airway occlusion. He has no stridor he is not drooling. His CT is essentially negative. We will place him on low-dose prednisone and have him follow-up. Return if worsening or concerns Impression: 1. Dyspnea 2. Choking This note was generated with [employer] dictation software. It may contain incorrect words, spelling, and punctuation that were not noted in review of the chart prior to signing ED Disposition - Plan for ED Patient: Disposition: Home or Assisted Living Chief Complaint: Shortness of Breath Instructions: What is COPD? Prescriptions: Prednisone [Deltasone] 40 mg PO DAILY #10 tab Referrals: Mignon Pa MD [Primary Care Provider] - 3-5 Days if not improving
[2018-05-23 04:09] VITALS: PULSE 71; RESP 20
[2018-05-23 05:31] VITALS: BP 137/71; PULSE 70; RESP 22; O2SAT 94
--- NOTE | 2018-05-23 05:32 | ED.RN ---
PT GIVEN YOGURT AND AN ICEE TO SEE HOW HE TOLERATES PO INTAKE. PT REFUSED TO TRY SOLID FOOD SUCH COOKIES AND PT REFUSED
[2018-05-23 05:36] VITALS: BP 141/85; PULSE 72; RESP 21; O2SAT 94
== END 2018-05-23 06:06 | disposition home or self-care (01) ==
PROVIDERS: Emergency Provider Emergency Medicine; Family Provider Internal Medicine; PCP Internal Medicine
DX: R06.00 Dyspnea, unspecified (principal); J44.9 Chronic obstructive pulmonary disease, unspecified; R06.82 Tachypnea, not elsewhere classified; T17.928A Food in respiratory tract, part unspecified causing other injury, initial encounter; X58.XXXA Exposure to other specified factors, initial encounter; Y93.9 Activity, unspecified; Y92.9 Unspecified place or not applicable; Y99.9 Unspecified external cause status; I10 Essential (primary) hypertension; Z72.0 Tobacco use; Z99.81 Dependence on supplemental oxygen; Z79.899 Other long term (current) drug therapy; Z87.11 Personal history of peptic ulcer disease
CPT/HCPCS: 70360; 70491; 71046; 80053; 84484; 85025; 87040; 93005; 94640; 96374; 99285; Q9967; A4216

== ENCOUNTER 2018-08-11 17:35 | Inpatient (IN) | payer MEDICAID, SELFPAY ==
[2018-08-11] VITALS (21 sets, daily range): BP systolic 101–150; BP diastolic 54–74; PULSE 82–98; RESP 12–37; TEMP 36.3–37.2; O2SAT 63–98; BMI 24.3; BMI 25.7
--- NOTE | 2018-08-11 17:41 | EKG12_ITS ---
Test Reason : SOB/CP Blood Pressure : / mmHG Vent. Rate : 080 BPM Atrial Rate : 080 BPM P-R Int : 132 ms QRS Dur : 064 ms QT Int : 370 ms P-R-T Axes : 068 054 071 degrees QTc Int : 426 ms Sinus rhythm with Premature atrial complexes with Aberrant conduction Borderline ECG Confirmed by JUDE SCHULTZ, SUKUMAR ([id number]), website/blog editor GISELL NASH ([id number]) on 08/14/2018 8:28:12 AM Referred By: Carlos Garcia Confirmed By:SUKUMAR ROQUE MD
--- NOTE | 2018-08-11 17:42 | RAD_ITS ---
STUDY: X-RAY CHEST REASON FOR EXAM: Male, 72 years old. Shortness of breath, COPD TECHNIQUE: AP COMPARISON: 05/23/2018 FINDINGS: EKG leads project over the chest. Lungs and continue to be hyperinflated with new reticular nodular opacities throughout the right lung. Mild blunting of the bilateral costophrenic angle similar. Reticular scarring left lung base is stable. Normal size heart. Normal mediastinum and audi. Normal visualized pulmonary arteries. There is atherosclerotic calcification of the aortic arch with tortuosity. No acute bony process. There is no demonstrated abnormality of the visualized soft tissue structures of the upper abdomen. RAD/Chest 1 View (Portable) IMPRESSION: Multilobar right pulmonary infiltrates worrisome for pneumonia, new. Follow-up recommended. Electronically Signed: Tristin Chopra MD at 17:59 EST , Service support ,
--- NOTE | 2018-08-11 17:44 | ED.DCSUM_ITS ---
- ER Visit Summary Date of Service: 08/11/18 Chief Complaint: Shortness of breath History of Present Illness: The patient is a 72 M who presents with shortness of breath. Started a week ago. He states he has dyspnea with exertion. It better with rest and oxygen. He does wear home oxygen at 4 L at home. It is not been helping. He has been coughing up brown sputum. He also has tightness on the left side of his chest. He states that he quit smoking 3 months ago. Physical Examination: Vital signs reviewed. Patient is tachypneic. He is 63% on room air. HEENT exam is unremarkable. Heart is regular rate and rhythm without murmurs. Lungs have crackles on the right with wheezing on the left. Abdomen soft and nontender. Extremities reveal no edema. His neurologic exam is normal. Test Results: Chest x-ray reveals multilobar pneumonia on the right. EKG is sinus rhythm with no significant ST changes. White blood cell count 12.7. Troponin normal. ABG is 7.2 /70/26. Lactate normal Emergency Department Course and Treatment: The patient has significant pneumonia on the right-hand side. I initially placed him on a 40% Ventimask but he was still slightly hypoxic on the ABG. I then placed him on BiPAP and he feels much better. He was given aerosol treatments as well as Solu-Medrol. I will start him on Rocephin and azithromycin. I discussed with the hospitalist and the patient will be admitted to the ICU overnight for close monitoring. Treatment Plan: [] Disposition: Admit Impression: Acute respiratory failure Community-acquired pneumonia, Hypoxia Sepsis Critical care time 35 minutes This note was generated with [employer] dictation software. It may contain incorrect words, spelling, and punctuation that were not noted in review of the chart prior to signing ED Disposition - Plan for ED Patient: Referrals: Mignon Pa MD [Primary Care Provider] -
[2018-08-11] MEDS: MethylPREDNISolone 125 MG/2 ML Vial IV (17:51)
[2018-08-11] MEDS: Albuterol 2.5 MG/3 ML VIAL.NEB. INHALATION ×3 (17:58→18:15)
[2018-08-11] MEDS: Ipratropium/Albuterol Sulfate 3 ML AMPUL.NEB INHALATION ×2 (17:58→22:50)
[2018-08-11 18:00] LABS: Absolute Lymphocyte Count 2.48 X10^3/ul (0.83-4.51); Absolute Neutrophil Count 9.1 X10^3/uL (2.0-7.7); Basophil# 0.06 X10^3/uL; Basophil% 0.5 % (0-1); Eosinophil# 0.14 X10^3/uL; Eosinophils% 1.1 % (0-5); Hematocrit 44.5 % (40-54); Hemoglobin 14.5 g/dl (13.0-16.5); Lymphocyte # 2.48 X10^3/ul (4.0); Lymphocyte % 19.5 % (19-41); Mean Corp Hgb Conc 32.6 g/gl (32-36); Mean Corpuscular Hgb 32.1 pg (27.0-32.0); Mean Corpuscular Volume 98.5 fL (80-94); Mean Platelet Vol. 9.3 fl (6.2-12.0); Monocyte# 0.96 X10^3/uL; Monocyte% 7.5 % (0-10); Neutrophil # 9.06 X10^3/uL (2.7-7.7); Neutrophil % 71.2 % (47-70); Platelet Count 307 K/mm3 (150-450); RBC Distribution Width CV 14.4 % (11.6-14.6); RBC Distribution Width SD 51.9 fl (35.1-43.9); Red Blood Count 4.52 M/mm3 (4.6-6.2); White Blood Count 12.7 K/mm3 (4.4-11.0)
[2018-08-11 18:01] LABS: POSITIVE COUNT NO; POSITIVE DIFFERENTIAL NO; POSITIVE MORPHOLOGY NO
[2018-08-11 18:16] LABS: Anion Gap 8 (5-15); BUN 31 mg/dL (7-18); Chloride 106 mmol/L (98-107); Creatinine, Serum 1.35 mg/dL (0.70-1.30); EST Glomerular Filtration Rate 55 mL/min (>60); Est Glom Filt Rate - Afr Amer 66 mL/min (>60); Estimated Creatinine Clearance 48.01 ml/min; Glucose 110 mg/dL (74-106); Potassium 4.3 mmol/L (3.5-5.1); Sodium Level 138 mmol/L (136-145)
[2018-08-11 18:17] LABS: Allen Test POS; Base Excess -1 mmol/L (-2 to +2); Bicarbonate 26.9 mmol/L (22-26); Blood Gas Specimen Type ART; FI02 40; PO2 70 mmHG (75-100); SITE R Radial; SO2 89 % (95-99); Time Given 1809; Total Carbon Dioxide 29 mmol/L; pH 7.21 (7.35-7.45)
[2018-08-11 18:24] LABS: Lactic Acid 1.8 mmol/L (0.4-2.0)
--- NOTE | 2018-08-11 18:30 | CPS ---
pt tolerated bipap 10/4 the best
[2018-08-11] MEDS: Ceftriaxone 1 GM/50 ML BAG IV (18:58)
--- NOTE | 2018-08-11 19:35 | HP.PCM_ITS ---
Problem List (1) COPD exacerbation Status: Chronic (2) Pneumococcal pneumonia Status: Acute Qualifiers: Laterality: right Lung location: unspecified part of lung Qualified Code(s): J13 - Pneumonia due to Streptococcus pneumoniae (3) Acute respiratory failure with hypoxia and hypercapnia Status: Acute (4) Sepsis Status: Acute Qualifiers: Sepsis type: sepsis due to unspecified organism Qualified Code(s): A41.9 - Sepsis, unspecified organism History of Present Illness Date of Admission: 08/11/18 Chief Complaint: shortness of breath and cough. The patient is a 72 year old M who was in his normal state of health up until about a week ago where he has become progressively short of breath. Patient has just become progressively short of breath but also having cough. Cough is prod uctive of brown phlegm. Patient presented to the emergency room as he was not getting any better and was hypoxic at 63% on room air. Patient was put on BiPAP. Chest x-ray showed a right lung infiltrate. Patient was started on Rocephin and azithromycin. Patient is feeling better at this time. Patient denies any recent illness nor pneumonia. [] Past Medical History Past Medical History (Chronic Problems): Chronic Problems (Last Reviewed 05/08/18 @ 13:49 by Nona Newell, MARITZA-C) COPD exacerbation (Chronic) COPD (chronic obstructive pulmonary disease) (Chronic) Hypertension (Chronic) Alcohol abuse (Chronic) Tobacco abuse (Chronic) Medical History: Medical History (Last Reviewed 08/11/18 @ 19:33 by Carlos Garcia DO) Bilateral leg edema (Acute) R60.0 COPD (chronic obstructive pulmonary disease) (Chronic) J44.9 CATHERINE (acute kidney injury) (Acute) N17.9 Shortness of breath (Acute) R06.02 Pseudomonas pneumonia (Resolved) J15.1 Hypertension (Chronic) I10 Alcohol abuse (Chronic) F10.10 Tobacco abuse (Chronic) F17.200 Allergies aspirin Adverse Reaction (Verified 08/11/18 17:43) Other Home Medications: Ambulatory Orders Medication Instructions Recorded Albuterol Sulfate [Ventolin Hfa] 2 puff IH 4X/DAY PRN 11/26/17 Amlodipine [Norvasc] 5 mg PO DAILY 11/26/17 Metoprolol(XL)Succ [Toprol Xl 50 mg PO DAILY 11/26/17 (Beta Nichole)] Omeprazole 40 mg PO DAILY 11/26/17 Oxycodone [Oxyir] 10 mg PO Q6H PRN PRN 11/26/17 Tizanidine HCl 2 mg PO BID PRN PRN 11/26/17 Furosemide [Lasix] 40 mg PO DAILY #30 tab 02/08/18 Lisinopril 20 mg PO DAILY #1 tab 02/08/18 fluticasone 100 mcg-umeclid 62.5 1 inh INHALATION QDAY #3 device 04/09/18 mcg-vilant 25 mcg powd for inhalation mometasone-formoterol HFA 200 2 puff INHALATION BID #13 g 05/30/18 mcg-5 mcg/actuation aerosol inhaler tiotropium bromide 2.5 2 puff INHALATION QDAY #1 ea 05/30/18 mcg/actuation mist for inhalation albuterol sulfate 2.5 mg/3 mL 2.5 mg INHALATION Q4H PRN #180 ml 06/01/18 (0.083 %) solution for nebulization Surgical History: - - Surgery for stomach ulcers 20-30 years ago. Psychiatric History: No pertinent psych hx Smoking Status: Former smoker - Quit 3 months ago Alcohol: Rare Drugs: None - *Family History Maternal History Items: No pertinent history, - - No COPD Paternal History Items: No pertinent history Review of Systems Constitutional: Denies: Anorexia, Chills, Fever Eyes: Denies: Blurred vision, Double vision HEENT: Denies: Head Aches, Sinus Congestion, Sinus Drainage Cardiovascular: Denies: Chest Pain, Palpitations Respiratory: Reports: Cough, Shortness of Breath, Sputum production Gastrointestinal: Denies: Abdominal Pain, Nausea, Vomiting Genitourinary: Denies: Dysuria Musculoskeletal: Denies: Joint Pain, Joint Tenderness Skin: Denies: Rash, Wounds Neurological: Denies: Numbness, Tingling, Focal weakness Psychiatric: Denies: Anxiety, Depression Endocrine: Denies: Change in Body Habitus, Heat/ Cold Intolerance Hematologic/ Lymphatic: Denies: Easy Bruising, Easy Bleeding, Hx of blood clot Comment: A 10 point review of systems were negative except as mentioned in the history of present illness and the other review of systems. VTE Information - Inpt Only VTE Present on Admission: No VTE Mechan Device Prophylaxis: None VTE Pharm Prophylaxis ordered?: Yes Patient Problems: Active and Suspected Problems (Last Reviewed 05/08/18 @ 13:49 by Nona Newell, SURGICAL ONCOLOGIST-C) Pneumococcal pneumonia (Acute) Acute respiratory failure with hypoxia and hypercapnia (Acute) Sepsis (Acute) - Physical Exam General: Alert, No apparent distress, - - No conversational dyspnea. No respiratory distress, while he is on BiPAP. HEENT: Atraumatic, Normocephalic Oral: Moist Mucosa, No Gingival or Mucosal Lesions/ Ulcerations Neck: No Nodes, Thyroid Normal Size and Texture Lungs: Diminished, - - Crackles on right side Cardiovascular: Regular rate, Regular Rhythm, Normal S1, Normal S2, No murmurs Abdomen: Bowel Sounds Present, Soft, Non Tender, Non-Distended, No Hepato- splenomegaly Extremities: No edema, No Calf Tenderness Skin: - - Some telangiectasias on his cheeks. Numerous faded tattoos and tattoo which I think says IAB on his forehead. Musculoskeletal: Cachexia, Muscle Wasting Neurological: Neuro grossly intact, Muscle tone normal Psych/Mental Status: Normal Affect, Appropriate Vital Signs Temp Pulse Resp BP Pulse Ox 36.4 C L 86 26 H 101/74 96 08/11/18 19:21 08/11/18 19:21 08/11/18 19:21 08/11/18 19:21 08/11/18 19:21 Oxygen Flow Rate (L/min) 6 Oxygen Delivery Method Bi-pap Weight: 74.8 kg Body Mass Index (BMI) 24.3 Laboratory Tests Past 24 Hrs 08/11/18 08/11/18 08/11/18 17:45 17:45 17:45 WBC 12.7 H RBC 4.52 L Hgb 14.5 Hct 44.5 MCV 98.5 H MCH 32.1 H MCHC 32.6 RDW 14.4 RDW Differential 51.9 H Plt Count 307 MPV 9.3 Immature Gran % (Auto) 0.200 Neut % (Auto) 71.2 H Lymph % (Auto) 19.5 Lipscomb % (Auto) 7.5 Eos % (Auto) 1.1 Baso % (Auto) 0.5 Absolute Neuts (auto) 9.1 H Absolute Lymphs (auto) 2.48 Total Counted Not Reportable Specimen Type Sample Site pH Bicarbonate Actual POC Total CO2 Base Excess O2 Saturation O2 % ABG pCO2 ABG pO2 Leonardo Test O2 Delivery Device Blood Gas Notified Whom Blood Gas Notified Time Sodium 138 Potassium 4.3 Chloride 106 Carbon Dioxide 24.0 Anion Gap 8 BUN 31 H Creatinine 1.35 H Estim Creat Clear Calc 48.01 Est GFR (MDRD) Af Amer 66 Est GFR (MDRD) Non-Af 55 L BUN/Creatinine Ratio 23.0 H Glucose 110 H Lactic Acid 1.8 Calcium 9.0 Troponin I < 0.015 08/11/18 18:09 WBC RBC Hgb Hct MCV MCH MCHC RDW RDW Differential Plt Count MPV Immature Gran % (Auto) Neut % (Auto) Lymph % (Auto) Lipscomb % (Auto) Eos % (Auto) Baso % (Auto) Absolute Neuts (auto) Absolute Lymphs (auto) Total Counted Specimen Type ART Sample Site R Radial pH 7.21 L Bicarbonate Actual 26.9 H POC Total CO2 29 Base Excess -1 O2 Saturation 89 L O2 % 40 ABG pCO2 68.0 H* ABG pO2 70 L Leonardo Test POS O2 Delivery Device Vent Mask Blood Gas Notified Whom ED MD Blood Gas Notified Time 1809 Sodium Potassium Chloride Carbon Dioxide Anion Gap BUN Creatinine Estim Creat Clear Calc Est GFR (MDRD) Af Amer Est GFR (MDRD) Non-Af BUN/Creatinine Ratio Glucose Lactic Acid Calcium Troponin I Chest x-ray reviewed and right-sided patchy infiltrates throughout the right lung field. Assessment/Plan All Active Problems (Last Reviewed 05/08/18 @ 13:49 by Nona Newell, SURGICAL ONCOLOGIST-C) Pneumococcal pneumonia (Acute) Acute respiratory failure with hypoxia and hypercapnia (Acute) Sepsis (Acute) Stage 4 very severe COPD by GOLD classification (Acute) Bilateral leg edema (Acute) CATHERINE (acute kidney injury) (Acute) Shortness of breath (Acute) Pseudomonas pneumonia (Resolved) 1. Acute hypoxic and hypercapnic respiratory failure I suspect multifactorial due to his COPD exacerbations as well as Currently stable on BiPAP. Wean BiPAP as tolerated. Patient will be admitted to the ICU critical care medicine evaluate and facilitate further weaning of the BiPAP. 2. Suspected pneumococcal pneumonia Patchy infiltrate on the right side Patient will be on antibiotics with Rocephin and azithromycin Pulmonary toilet Check urinary antigens for Streptococcus and Legionella Check sputum culture 3. Acute exacerbation of COPD Will continue with Solu-Medrol at 40 mg 3 times daily plus bronchodilators 4. Chronic kidney disease stage III Creatinine up slightly from his baseline at 1.35. Patient's baseline appears to be around 1.2. Will hold Lasix and give some fluid Reevaluate with a.m. labs 5. Hypertension Normotensive at this time For now hold off on amlodipine and lisinopril Will continue with metoprolol succinate to the patient patient does not have any rebound tachycardia 6. DVT prophylaxis with Lovenox 7. Advanced care planning: Discussed CODE STATUS and patient with the patient. Patient does not want to be intubated for his respiratory distress does get worse. He however, would want to have CPR in the event of cardiac arrest. I informed the patient that many times people that survive cardiac arrest have to be intubated. He still insists on being full code but no intubation. Code Visit Inpatient E&M: 31450 Init Hosp L3
--- NOTE | 2018-08-11 19:52 | ED.RN ---
ATTEMPTED TO CALL REPORT TO ICU. ICU WAITING FOR STAFF STATED THEY WOULD CALL BACK WHEN STAFF IS THERE.
--- NOTE | 2018-08-11 21:37 | NURSING ---
Pt triggers sepsis protocol, which is being addressed in patient care with Zithromax and Rocephin IV. Physician previously aware.
[2018-08-11] MEDS: guaiFENesin 1,200 MG Tablet 1200 MG PO (21:51)
[2018-08-11] MEDS: Dext 5%-0.45% NS 1,000 ML 150 ML IV (21:51)
[2018-08-12] VITALS (40 sets, daily range): BP systolic 105–147; BP diastolic 53–72; PULSE 78–106; RESP 12–38; TEMP 36.1–36.6; O2SAT 30–97
[2018-08-12] MEDS: oxyCODONE 5 MG Tablet 10 MG PO (01:10)
[2018-08-12] MEDS: Acetaminophen 325 MG Tablet 650 MG PO ×3 (02:24→22:02)
[2018-08-12] MEDS: Ipratropium/Albuterol Sulfate 3 ML AMPUL.NEB INHALATION ×6 (03:34→23:35)
[2018-08-12] MEDS: 0.9% NaCl Peripheral Flush Adult/Peds IV ×2 (04:00→05:34)
[2018-08-12 04:55] LABS: Absolute Neutrophil Count 4.8 X10^3/uL (2.0-7.7); Basophil# 0.01 X10^3/uL; Basophil% 0.2 % (0-1); Hematocrit 38.1 % (40-54); Hemoglobin 12.4 g/dl (13.0-16.5); Lymphocyte % 7.7 % (19-41); Mean Corp Hgb Conc 32.5 g/gl (32-36); Mean Corpuscular Hgb 31.5 pg (27.0-32.0); Mean Corpuscular Volume 96.7 fL (80-94); Mean Platelet Vol. 9.6 fl (6.2-12.0); Monocyte# 0.05 X10^3/uL; Neutrophil # 4.75 X10^3/uL (2.7-7.7); Neutrophil % 90.9 % (47-70); Platelet Count 254 K/mm3 (150-450); RBC Distribution Width CV 14.1 % (11.6-14.6); RBC Distribution Width SD 49.6 fl (35.1-43.9); Red Blood Count 3.94 M/mm3 (4.6-6.2); White Blood Count 5.2 K/mm3 (4.4-11.0)
[2018-08-12 04:59] LABS: Differential Indicated SCAN CRITERIA MET; POSITIVE COUNT NO; POSITIVE DIFFERENTIAL YES; POSITIVE MORPHOLOGY NO
[2018-08-12 05:16] LABS: Anion Gap 11 (5-15); BUN 28 mg/dL (7-18); BUN/Creat Ratio 22.6 RATIO (10-20); Calcium,Total 8.3 mg/dL (8.5-10.1); Chloride 104 mmol/L (98-107); Creatinine, Serum 1.24 mg/dL (0.70-1.30); EST Glomerular Filtration Rate 60 mL/min (>60); Est Glom Filt Rate - Afr Amer 73 mL/min (>60); Estimated Creatinine Clearance 48.86 ml/min; Glucose 175 mg/dL (74-106); Sodium Level 139 mmol/L (136-145)
[2018-08-12 05:48] LABS: Allen Test POS; Base Excess -2 mmol/L (-2 to +2); Bicarbonate 24.6 mmol/L (22-26); Blood Gas Specimen Type ART; EPAP 4; FI02 40; IPAP 10; PO2 60 mmHG (75-100); SITE L Radial; SO2 87 % (95-99); Time Given 535; Total Carbon Dioxide 26 mmol/L; pCO2 53.7 mmHg (35-45); pH 7.27 (7.35-7.45)
--- NOTE | 2018-08-12 07:25 | PCM.PN.HOSP ---
Patient Problems: Active and Suspected Problems (Last Reviewed 08/11/18 @ 19:33 by Carlos Garcia DO) COPD exacerbation (Acute) Pneumococcal pneumonia (Acute) Acute respiratory failure with hypoxia and hypercapnia (Acute) Sepsis (Acute) Subjective: Patient was seen and examined. Admitted yesterday with 1 week history of SOB and cough, being managed as acute respiratory failure secondary to pneumonia. Patient had remained on BiPAP throughout the night. He could tolerate being off BiPAP only for a short time. He denied any chest pain or worsening shortness of breath. He is eager to be off Bipap.He had earlier on expressed desire to be full code but no intubation. Vitals have remained stable except for oxygenation. Labs show resolved leukocytosis, PCO2 improved from 68 to 53.7 Vitals/I&O's: Vital Signs Temp Pulse Resp BP Pulse Ox 97.0 F L 88 26 H 129/64 H 95 08/12/18 04:00 08/12/18 07:16 08/12/18 07:16 08/12/18 07:00 08/12/18 07:16 Oxygen Flow Rate (L/min) 4 Oxygen Delivery Method Bi-pap Weight: 75.2 kg Body Mass Index (BMI) 25.7 Intake and Output for Last 24 Hours 08/10/18 08/11/18 08/12/18 23:59 23:59 23:59 Intake Total 641 / 641 890 / 890 Output Total 250 / 250 200 / 200 Balance 391 / 391 690 / 690 General: Alert, Oriented x3, Cooperative, - - on Bipap HEENT: Atraumatic, PERRLA, EOMI, Normocephalic Oral: Dry Mucosa Neck: Supple, No JVD, Negative Carotid Bruits Lungs: Normal air movement, Diminished Cardiovascular: Regular rate, Regular Rhythm, Normal S1, Normal S2, No murmurs Abdomen: Bowel Sounds Present, Soft, Non Tender, Non-Distended, No Hepato-splenomegaly, Obese Extremities: No edema Skin: No rashes, No breakdown Musculoskeletal: No Tenderness to Palpation of Joints or Extremities Lymphatic: No Cervical, Supraclavicular, or Inguinal Adenopathy Neurological: Cranial nerves II-XII grossly intact, Neuro grossly intact Psych/Mental Status: Normal Affect, Appropriate Microbiology Past 72 Hours 08/11/18 23:05 Urine, Random Streptococcus pneumoniae Antigen (M - Final 08/11/18 23:05 Urine, Random Legionella Antigen - Final 08/11/18 21:50 Sputum, Expectorated/Coughed Gram Stain - Preliminary Laboratory Results 08/11/18 17:45: WBC 12.7 H, RBC 4.52 L, Hgb 14.5, Hct 44.5, MCV 98.5 H, MCH 32.1 H, MCHC 32.6, RDW 14.4, RDW Differential 51.9 H, Plt Count 307, MPV 9.3, Immature Gran % (Auto) 0.200, Neut % (Auto) 71.2 H, Lymph % (Auto) 19.5, [place] % (Auto) 7.5, Eos % (Auto) 1.1, Baso % (Auto) 0.5, Absolute Neuts (auto) 9.1 H, Absolute Lymphs (auto) 2.48, Total Counted Not Reportable 08/11/18 17:45: Sodium 138, Potassium 4.3, Chloride 106, Carbon Dioxide 24.0, Anion Gap 8, BUN 31 H, Creatinine 1.35 H, Estim Creat Clear Calc 48.01, Est GFR (MDRD) Af Amer 66, Est GFR (MDRD) Non-Af 55 L, BUN/Creatinine Ratio 23.0 H, Glucose 110 H, Calcium 9.0, Troponin I < 0.015 08/11/18 17:45: Lactic Acid 1.8 08/11/18 18:09: Specimen Type ART, Sample Site R Radial, pH 7.21 L, Bicarbonate Actual 26.9 H, POC Total CO2 29, Base Excess -1, O2 Saturation 89 L, O2 % 40, ABG pCO2 68.0 H*, ABG pO2 70 L, Leonardo Test POS, O2 Delivery Device Vent Mask, Blood Gas Notified Whom ED , Blood Gas Notified Time 1804 08/12/18 04:00: WBC 5.2, RBC 3.94 L, Hgb 12.4 L, Hct 38.1 L, MCV 96.7 H, MCH 31.5, MCHC 32.5, RDW 14.1, RDW Differential 49.6 H, Plt Count 254, MPV 9.6, Immature Gran % (Auto) 0.200, Neut % (Auto) 90.9 H, Lymph % (Auto) 7.7 L, [place] % (Auto) 1.0, Eos % (Auto) 0.0, Baso % (Auto) 0.2, Absolute Neuts (auto) 4.8, Absolute Lymphs (auto) 0.40 L, Total Counted Not Reportable, Differential Comment 08/12/18 04:00: Sodium 139, Potassium 5.0, Chloride 104, Carbon Dioxide 24.0, Anion Gap 11, BUN 28 H, Creatinine 1.24, Estim Creat Clear Calc 48.86, Est GFR (MDRD) Af Amer 73, Est GFR (MDRD) Non-Af 60, BUN/Creatinine Ratio 22.6 H, Glucose 175 H, Calcium 8.3 L 08/12/18 05:42: Specimen Type ART, Sample Site L Radial, pH 7.27 L, Bicarbonate Actual 24.6, POC Total CO2 26, Base Excess -2, O2 Saturation 87 L, O2 % 40, ABG pCO2 53.7 H, ABG pO2 60 L, Leonardo Test POS, O2 Delivery Device Bi / C PAP, EPAP 4, IPAP 10, Blood Gas Notified Whom HOSP MD, Blood Gas Notified Time 535 Current Medications Acetaminophen (Tylenol) 650 mg PO Q6H PRN PRN PRN Reason: Mild Pain (1-3)/Temp > 100.7 F Last Admin: 08/12/18 02:24 Dose: 325 mg Albuterol Sulfate (Ventolin Aerosols) 2.5 mg INHALATION Q2H PRN PRN PRN Reason: SHORTNESS OF BREATH Albuterol/Ipratropium (Duoneb) 3 ml INHALATION Q4H.RT [facility] Last Admin: 08/12/18 07:16 Dose: 3 ml Amlodipine Besylate (Norvasc) 5 mg PO DAILY [facility] Enoxaparin Sodium (Lovenox) 40 mg SC DAILY@1000 [facility] Guaifenesin (Mucinex) 1,200 mg PO BID [facility] Last Admin: 08/11/18 21:51 Dose: 1,200 mg Sodium Chloride () 250 mls @ 15 mls/hr IV .[id number] PRN PRN Reason: SALINE FLUSH Azithromycin 500 mg/ Dextrose 255 mls @ 250 mls/hr IV Q24@2200 [facility] Stop: 08/14/18 23:02 Ceftriaxone Sodium (Rocephin) 1 gm in 50 mls @ 100 mls/hr IV Q24@2200 [facility] Magnesium Hydroxide (Milk Of Magnesia) 30 ml PO DAILY PRN PRN PRN Reason: Constipation Methylprednisolone (Solu-Medrol) 40 mg IV Q8 [facility] Last Admin: 08/12/18 05:34 Dose: 40 mg Metoprolol Succinate (Toprol Xl (Beta Nichole)) 50 mg PO DAILY [facility] Morphine Sulfate () 2 - 4 mg IV Q4H PRN PRN PRN Reason: MOD-SEVERE PAIN (4-10) Morphine Sulfate () 2 - 4 mg IV Q4H PRN PRN PRN Reason: MOD-SEVERE PAIN (4-1010) Non-Formulary Medication (Fluticasone/Umeclidin/Vilanter [Trelegy Ellipta 100-62.5-25]) 1 inh Inhalation QDAY [facility] Non-Formulary Medication (Mometasone/Formoterol) 2 puff Inhalation BID [facility] Non-Formulary Medication (Tiotropium [place]) 2 puff Inhalation QDAY [facility] Ondansetron HCl (Zofran) 4 mg IV Q8H PRN PRN PRN Reason: NAUSEA Oxycodone HCl (Oxyir) 10 mg PO Q6H PRN PRN PRN Reason: PAIN Last Admin: 08/12/18 01:10 Dose: 10 mg Pantoprazole Sodium (Protonix) 40 mg PO DAILY [facility] Sodium Chloride () 5 - 15 ml IV UD PRN PRN Reason: SALINE FLUSH Last Admin: 08/12/18 05:34 Dose: 10 ml Medical Necessity - Tobacco Use Smoking Status: Former smoker Tobacco Use: Cigarettes Assessment/Plan All Active Problems (Last Reviewed 08/11/18 @ 19:33 by Carlos Garcia DO) COPD exacerbation (Acute) Pneumococcal pneumonia (Acute) Acute respiratory failure with hypoxia and hypercapnia (Acute) Sepsis (Acute) CATHERINE (acute kidney injury) (Acute) Shortness of breath (Acute) Pseudomonas pneumonia (Resolved) 82-year-old with past medical history of COPD on 2-3 L home oxygen, hypertension, nicotine dependence, alcohol abuse comes in with progressive shortness of breath as well as cough 1. Acute respiratory failure secondary to CAP/Acute COPD exacerbation, on Bipap Plan: Continue on breathing treatments, IV antibiotics, IV steroids, will check for respiratory viruses, put in droplet precaution for now 2. Community-acquired pneumonia, likely secondary to gram-positive organisms, urine surgical collection L antigen negative, sputum cultures pending, continue on IV antibiotics, breathing treatments, supportive care. 3. Acute COPD exacerbation, will continue breathing treatment and IV steroids 4. CKD stage III, creatinine improved to his baseline, Lasix on hold, will continue to trend labs 5. Hypertension, controlled, pressure remains controlled, almost low, will hold off amlodipine and metoprolol for now 6. Chronic diastolic CHF, not in acute exacerbation, will check BMP F, Lasix on hold, give gentle fluids for kidneys, will continue to monitor for exacerbation 7. DVT PPx- Lovenox SC 8. CODE STATUS: Full code, no intubation 9. GI PPx- Famotidine IV BID Code Visit Inpatient E&M: 44308 Init Hosp L3
--- NOTE | 2018-08-12 08:35 | CON.PCM_ITS ---
Problem List (1) COPD exacerbation Status: Acute (2) Acute respiratory failure with hypoxia and hypercapnia Status: Acute (3) Stage 4 very severe COPD by GOLD classification Status: Chronic Comment: FEV1 33% (4) Bilateral leg edema Status: Chronic (5) CATHERINE (acute kidney injury) Status: Acute (6) Hypertension Status: Chronic (7) Alcohol abuse Status: Chronic (8) Tobacco abuse Status: Chronic Reason for Consult Date of Consultation: 08/12/18 Reason for Consultation: Acute respiratory failure History of Present Illness: The patient is a 72 year old M, with past medical history listed below, who presented to [facility] on 08/11/2018 secondary to progressive shortness of breath. Patient reports he has had steady decline over the last week and has been attempting to use supplemental oxygen and rest to compensate. Patient is on 4 L nasal cannula at home, but states that it is gotten to the point where it was not helping. Patient states he is been coughing up brown sputum and is also noted tightness in his chest, left greater than right. Patient states that he did quit smoking approximately 3 months ago. On presentation to the emergency room, patient was noted to be 63% on room air. Patient was noted to have adventitial sounds on lung exam. Laboratory workup showed an elevated white blood cell count of 12.7, with a respiratory acidosis on ABG. Patient was initially tried on Ventimask, but then placed on BiPAP therapy. Patient given aerosols, Solu-Medrol, Rocephin and azithromycin. Patient was transferred to the intensive care unit for further monitoring. Since being in the intensive care unit, patient has been relatively dependent on BiPAP therapy. Attempt for BiPAP breaks have lasted approximately 1 hour. Patient reports subjective improvement in overall condition, but states I hate this mask. Patient states he did not attempt to call our office for eval uation. Patient denies any sinus congestion, fever, chills, nausea or vomiting associated with his shortness of breath. Patient is typically seen by Dr. Hood in our office. Patient does have a his tory of advanced lung disease with an FEV1 of 33% of predicted, air trapping and a symmetric reduction diffusing capacity. Patient is currently on triple therapy. Patient does have a history of drinking 6-8 beers daily. Patient also has a documented [id number] smoking history and has been treated in the past in the hospital for diastolic congestive heart failure. Pulmonary artery pressures have been elevated to 59 mmHg previously. Review of systems otherwise negative x10 systems. Past Medical History Past Medical History (Chronic Problems): Chronic Problems (Last Reviewed 08/11/18 @ 19:33 by Carlos Garcia DO) Stage 4 very severe COPD by GOLD classification (Chronic) FEV1 33% Bilateral leg edema (Chronic) COPD (chronic obstructive pulmonary disease) (Chronic) Hypertension (Chronic) Alcohol abuse (Chronic) Tobacco abuse (Chronic) Medical History: Medical History (Last Reviewed 08/11/18 @ 19:33 by Carlos Garcia DO) Bilateral leg edema (Acute) R60.0 COPD (chronic obstructive pulmonary disease) (Chronic) J44.9 CATHERINE (acute kidney injury) (Acute) N17.9 Shortness of breath (Acute) R06.02 Pseudomonas pneumonia (Resolved) J15.1 Hypertension (Chronic) I10 Alcohol abuse (Chronic) F10.10 Tobacco abuse (Chronic) F17.200 Allergies aspirin Adverse Reaction (Verified 08/11/18 17:43) Other Home Medications: Ambulatory Orders Medication Instructions Recorded Albuterol Sulfate [Ventolin Hfa] 2 puff IH 4X/DAY PRN 11/26/17 Amlodipine [Norvasc] 5 mg PO DAILY 11/26/17 Metoprolol(XL)Succ [Toprol Xl 50 mg PO DAILY 11/26/17 (Beta Nichole)] Omeprazole 40 mg PO DAILY 11/26/17 Oxycodone [Oxyir] 10 mg PO Q6H PRN PRN 11/26/17 Tizanidine HCl 2 mg PO BID PRN PRN 11/26/17 Furosemide [Lasix] 40 mg PO DAILY #30 tab 02/08/18 Lisinopril 20 mg PO DAILY #1 tab 02/08/18 fluticasone 100 mcg-umeclid 62.5 1 inh INHALATION QDAY #3 device 04/09/18 mcg-vilant 25 mcg powd for inhalation mometasone-formoterol HFA 200 2 puff INHALATION BID #13 g 05/30/18 mcg-5 mcg/actuation aerosol inhaler tiotropium bromide 2.5 2 puff INHALATION QDAY #1 ea 05/30/18 mcg/actuation mist for inhalation albuterol sulfate 2.5 mg/3 mL 2.5 mg INHALATION Q4H PRN #180 ml 06/01/18 (0.083 %) solution for nebulization Surgical History: - - Surgery for stomach ulcers 20-30 years ago. Psychiatric History: No pertinent psych hx Smoking Status: Former smoker Tobacco Use: Cigarettes Alcohol: Rare Drugs: None - *Family History Maternal History Items: No pertinent history, - - No COPD Paternal History Items: No pertinent history Review of Systems Comment: See HPI Patient Problems: Active and Suspected Problems (Last Reviewed 08/11/18 @ 19:33 by Carlos Garcia DO) COPD exacerbation (Acute) Pneumococcal pneumonia (Acute) Acute respiratory failure with hypoxia and hypercapnia (Acute) Sepsis (Acute) Objective: PFT, echocardiogram in Dr. Hood's last note were all personally reviewed and discussed in the HPI. Chest x-ray from the ER was personally reviewed showing significant right-sided infiltrates with an interstitial type pattern. - Physical Exam General: Alert, Oriented x3, Cooperative, No apparent distress - On BiPAP therapy, - - Good BiPAP synchrony noted. Appears stated age. HEENT: Atraumatic, PERRLA, EOMI, Normocephalic, - - Slight scleral injection. Oral: No Gingival or Mucosal Lesions/ Ulcerations, Dry Mucosa Neck: Supple, No JVD, No Nodes, Trachea Midline Lungs: No wheeze, Diminished, Rales - Right chest, - - Symmetric expansion. No dullness to percussion. Cardiovascular: Regular rate, Regular Rhythm, Normal S1, Normal S2, No murmurs, No rub noted, No Gallop Abdomen: Bowel Sounds Present, Soft, Non Tender, Non-Distended Extremities: No cyanosis, Capillary Refill Less than 3 Seconds, Clubbing, Edema - Trace to 1+ lower extremity Skin: No rashes, No breakdown, - - Dermal atrophy noted Musculoskeletal: No Tenderness to Palpation of Joints or Extremities Lymphatic: No Cervical, Supraclavicular, or Inguinal Adenopathy Neurological: Cranial nerves II-XII grossly intact, Neuro grossly intact, Motor Exam 5/5 strength throughout Psych/Mental Status: Alert and oriented to time, place, person, mood and affect Vital Signs Temp Pulse Resp BP Pulse Ox 36.1 C L 83 30 H 129/64 H 90 08/12/18 04:00 08/12/18 07:16 08/12/18 07:16 08/12/18 07:00 08/12/18 07:31 Oxygen Flow Rate (L/min) 3 Oxygen Delivery Method Nasal Cannula Weight: 75.2 kg Body Mass Index (BMI) 25.7 Intake and Output for Last 24 Hours 08/10/18 08/11/18 08/12/18 23:59 23:59 23:59 Intake Total 641 / 641 890 / 890 Output Total 250 / 250 200 / 200 Balance 391 / 391 690 / 690 Microbiology Past 72 Hours 08/11/18 23:05 Streptococcus pneumoniae Antigen (M - Final Urine, Random 08/11/18 23:05 Legionella Antigen - Final Urine, Random 08/11/18 21:50 Gram Stain - Preliminary Sputum, Expectorated/Coughed Laboratory Tests Past 24 Hrs 08/11/18 08/11/18 08/11/18 17:45 17:45 17:45 WBC 12.7 H RBC 4.52 L Hgb 14.5 Hct 44.5 MCV 98.5 H MCH 32.1 H MCHC 32.6 RDW 14.4 RDW Differential 51.9 H Plt Count 307 MPV 9.3 Immature Gran % (Auto) 0.200 Neut % (Auto) 71.2 H Lymph % (Auto) 19.5 [place] % (Auto) 7.5 Eos % (Auto) 1.1 Baso % (Auto) 0.5 Absolute Neuts (auto) 9.1 H Absolute Lymphs (auto) 2.48 Total Counted Not Reportable Differential Comment Specimen Type Sample Site pH Bicarbonate Actual POC Total CO2 Base Excess O2 Saturation O2 % ABG pCO2 ABG pO2 Leonardo Test O2 Delivery Device EPAP IPAP Blood Gas Notified Whom Blood Gas Notified Time Sodium 138 Potassium 4.3 Chloride 106 Carbon Dioxide 24.0 Anion Gap 8 BUN 31 H Creatinine 1.35 H Estim Creat Clear Calc 48.01 Est GFR (MDRD) Af Amer 66 Est GFR (MDRD) Non-Af 55 L BUN/Creatinine Ratio 23.0 H Glucose 110 H Lactic Acid 1.8 Calcium 9.0 Troponin I < 0.015 08/11/18 08/12/18 08/12/18 18:09 04:00 04:00 WBC 5.2 RBC 3.94 L Hgb 12.4 L Hct 38.1 L MCV 96.7 H MCH 31.5 MCHC 32.5 RDW 14.1 RDW Differential 49.6 H Plt Count 254 MPV 9.6 Immature Gran % (Auto) 0.200 Neut % (Auto) 90.9 H Lymph % (Auto) 7.7 L [place] % (Auto) 1.0 Eos % (Auto) 0.0 Baso % (Auto) 0.2 Absolute Neuts (auto) 4.8 Absolute Lymphs (auto) 0.40 L Total Counted Not Reportable Differential Comment Specimen Type ART Sample Site R Radial pH 7.21 L Bicarbonate Actual 26.9 H POC Total CO2 29 Base Excess -1 O2 Saturation 89 L O2 % 40 ABG pCO2 68.0 H* ABG pO2 70 L Leonardo Test POS O2 Delivery Device Vent Mask EPAP IPAP Blood Gas Notified Whom ED MD Blood Gas Notified Time 1809 Sodium 139 Potassium 5.0 Chloride 104 Carbon Dioxide 24.0 Anion Gap 11 BUN 28 H Creatinine 1.24 Estim Creat Clear Calc 48.86 Est GFR (MDRD) Af Amer 73 Est GFR (MDRD) Non-Af 60 BUN/Creatinine Ratio 22.6 H Glucose 175 H Lactic Acid Calcium 8.3 L Troponin I 08/12/18 05:42 WBC RBC Hgb Hct MCV MCH MCHC RDW RDW Differential Plt Count MPV Immature Gran % (Auto) Neut % (Auto) Lymph % (Auto) [place] % (Auto) Eos % (Auto) Baso % (Auto) Absolute Neuts (auto) Absolute Lymphs (auto) Total Counted Differential Comment Specimen Type ART Sample Site L Radial pH 7.27 L Bicarbonate Actual 24.6 POC Total CO2 26 Base Excess -2 O2 Saturation 87 L O2 % 40 ABG pCO2 53.7 H ABG pO2 60 L Leonardo Test POS O2 Delivery Device Bi / C PAP EPAP 4 IPAP 10 Blood Gas Notified Whom HOSP Blood Gas Notified Time 535 Sodium Potassium Chloride Carbon Dioxide Anion Gap BUN Creatinine Estim Creat Clear Calc Est GFR (MDRD) Af Amer Est GFR (MDRD) Non-Af BUN/Creatinine Ratio Glucose Lactic Acid Calcium Troponin I Clinical Impression(s) from Imaging Studies Chest X-Ray 08/11/18 17:42 IMPRESSION: Multilobar right pulmonary infiltrates worrisome for pneumonia, new. Follow-up recommended. Electronically Signed: Tristin Chopra MD at 17:59 EST , Service support , Assessment/Plan Active and Suspected Problems (Last Reviewed 08/11/18 @ 19:33 by Carlos Garcia DO) COPD exacerbation (Acute) Pneumococcal pneumonia (Acute) Acute respiratory failure with hypoxia and hypercapnia (Acute) Sepsis (Acute) RECOMMENDATIONS: 1. Continue antibiotics, steroids and bronchodilators 2. Wean oxygen and BiPAP breaks as tolerated 3. Clarification of CODE STATUS with patient's 4. Attempt neutral fluid balance, possible Lasix if necessary IMPRESSIONS: 1. Acute combined respiratory failure secondary to suspected pneumonia Patient has a baseline FEV1 of 33% of predicted with air trapping and a symmetric reduction in diffusing capacity. However, patient has significant right-sided infiltrates on chest x-ray. Differential diagnosis would include diastolic congestive heart failure versus community-acquired pneumonia versus embolic pneumonia. Patient did have a leukocytosis on presentation. Patient is currently on BiPAP therapy. Patient will be given breaks as tolerated, but cannot exclude progression of disease and should be monitored in the intensive care unit. 2. Acute on chronic kidney disease stage III Patient has a baseline creatinine of approximately 1.2. Patient has been given some fluids initially and Lasix has been held. This appears to be improving. Some clinical suspicion that elevation may be secondary to pronounced hypoxemia. Continue to monitor and will replace electrolytes as necessary. 3. Hypertension/advanced age/history of alcohol and tobacco abuse/poor follow-up Complicates care, management, recovery and prognosis. Okay to continue with baseline medications for hypertension from my perspective. PPI indicated given high dose steroids. 4. CODE STATUS Patient currently reporting to me that he does not want to be intubated. Patient does not appear to have a firm grasp on the appropriateness of receiving CPR without respiratory support. Will need to have a conversation with patient's as he is deferring to her at this time. Patient is aware that given current situation, need for intubation is a possibility. Patient will remain a full code for now until this can be further clarified. TIME: 35 minutes critical care time spent addressing patient's acute on chronic respiratory failure, CKD, review of CODE STATUS, review of all data and collaboration with care team (7:30 AM to 8:45 AM) Code Visit 9xxxx: [id number] Critical care first hour
[2018-08-12 10:21] LABS: BNP,B-Type NATRIURETIC PEPTIDE 79.6 pg/mL (0-100)
[2018-08-12] MEDS: Enoxaparin 40 MG/0.4 ML Syringe SC (10:39)
[2018-08-12] MEDS: guaiFENesin 1,200 MG Tablet 1200 MG PO ×2 (10:39→22:03)
[2018-08-12] MEDS: Pantoprazole Sodium 40 MG Tablet PO (10:39)
[2018-08-12] MEDS: 0.9% Normal Saline 1,000 ML 75 ML IV ×2 (10:49→22:10)
[2018-08-12] MEDS: Ondansetron 4 MG/2 ML Vial IV (17:29)
--- NOTE | 2018-08-12 19:03 | CPS ---
Blood gas from 08/11/2018 Critical Value given to Dr Rubio.
[2018-08-12] MEDS: Ceftriaxone 1 GM/50 ML BAG IV (22:01)
[2018-08-13] VITALS (37 sets, daily range): BP systolic 104–140; BP diastolic 26–80; PULSE 79–114; RESP 12–39; TEMP 36.4–36.9; O2SAT 88–97
[2018-08-13] MEDS: Ipratropium/Albuterol Sulfate 3 ML AMPUL.NEB INHALATION ×4 (03:20→14:56)
[2018-08-13 04:38] LABS: Absolute Lymphocyte Count 0.52 X10^3/ul (0.83-4.51); Absolute Neutrophil Count 13.5 X10^3/uL (2.0-7.7); Differential Indicated SCAN CRITERIA MET; Hematocrit 38.1 % (40-54); Hemoglobin 12.3 g/dl (13.0-16.5); Lymphocyte # 0.52 X10^3/ul (4.0); Lymphocyte % 3.6 % (19-41); Mean Corp Hgb Conc 32.3 g/gl (32-36); Mean Corpuscular Hgb 31.9 pg (27.0-32.0); Mean Platelet Vol. 9.5 fl (6.2-12.0); Monocyte# 0.34 X10^3/uL; Monocyte% 2.4 % (0-10); Neutrophil # 13.54 X10^3/uL (2.7-7.7); Neutrophil % 93.8 % (47-70); POSITIVE COUNT NO; POSITIVE DIFFERENTIAL YES; POSITIVE MORPHOLOGY NO; Platelet Count 273 K/mm3 (150-450); RBC Distribution Width CV 13.9 % (11.6-14.6); Red Blood Count 3.85 M/mm3 (4.6-6.2); White Blood Count 14.4 K/mm3 (4.4-11.0)
[2018-08-13 04:47] LABS: Anion Gap 8 (5-15); BUN 34 mg/dL (7-18); BUN/Creat Ratio 27.2 RATIO (10-20); Calcium,Total 8.8 mg/dL (8.5-10.1); Chloride 107 mmol/L (98-107); Creatinine, Serum 1.25 mg/dL (0.70-1.30); EST Glomerular Filtration Rate 60 mL/min (>60); Est Glom Filt Rate - Afr Amer 72 mL/min (>60); Estimated Creatinine Clearance 48.47 ml/min; Glucose 130 mg/dL (74-106); Potassium 4.9 mmol/L (3.5-5.1); Sodium Level 141 mmol/L (136-145)
--- NOTE | 2018-08-13 07:39 | PCM.PN.HOSP ---
Patient Problems: Active and Suspected Problems (Last Reviewed 08/11/18 @ 19:33 by Carlos Garcia DO) COPD exacerbation (Acute) Pneumococcal pneumonia (Acute) Acute respiratory failure with hypoxia and hypercapnia (Acute) Sepsis (Acute) Subjective: Patient was seen and examined. He is currently off BiPAP less than an hour to have his breakfast. He denied any worsening shortness of breath. Denies any fever or chills. He has a productive cough, brownish in color. Vitals are stable except for oxygenation. Slight elevation in leukocytosis today. Blood cultures, sputum cultures are pending. Urine for Legionella and streptococcal antigen are negative. Objective: Physical exam: General: Alert, Oriented x3, Cooperative, off Bipap at the time of exam, on 6L, slight use of accessory muscles of respiration. HEENT: Atraumatic, PERRLA, EOMI, Normocephalic Oral: Dry Mucosa Neck: Supple, No JVD, Negative Carotid Bruits Lungs: Normal air movement, Diminished, no wheezes heard Cardiovascular: Regular rate, Regular Rhythm, Normal S1, Normal S2, No murmurs Abdomen: Bowel Sounds Present, Soft, Non Tender, Non-Distended, No Hepato-splenomegaly, Obese Extremities: No edema Skin: No rashes, No breakdown Musculoskeletal: No Tenderness to Palpation of Joints or Extremities Lymphatic: No Cervical, Supraclavicular, or Inguinal Adenopathy Neurological: Cranial nerves II-XII grossly intact, Neuro grossly intact Psych/Mental Status: Normal Affect, Appropriate Vitals/I&O's: Vital Signs Temp Pulse Resp BP Pulse Ox 97.7 F L 92 26 H 126/60 H 89 08/13/18 04:00 08/13/18 07:17 08/13/18 07:17 08/13/18 06:00 08/13/18 07:17 Oxygen Flow Rate (L/min) 6 Oxygen Delivery Method Nasal Cannula Weight: 76.6 kg Body Mass Index (BMI) 25.7 Intake and Output for Last 24 Hours 08/11/18 08/12/18 08/13/18 23:59 23:59 23:59 Intake Total 641 / 641 1852 / 1852 1214 / 1214 Output Total 250 / 250 350 / 350 300 / 300 Balance 391 / 391 1502 / 1502 914 / 914 Microbiology Past 72 Hours 08/12/18 11:37 Mucosa - Nasopharyngeal Respiratory Panel (PCR) - Final 08/11/18 21:50 Sputum, Expectorated/Coughed Gram Stain - Final 08/11/18 23:05 Urine, Random Streptococcus pneumoniae Antigen (M - Final 08/11/18 23:05 Urine, Random Legionella Antigen - Final Laboratory Results 08/12/18 04:00: B-Natriuretic Peptide 79.6 08/13/18 04:24: WBC 14.4 H, RBC 3.85 L, Hgb 12.3 L, Hct 38.1 L, MCV 99.0 H, MCH 31.9, MCHC 32.3, RDW 13.9, RDW Differential 49.0 H, Plt Count 273, MPV 9.5, Immature Gran % (Auto) 0.200, Neut % (Auto) 93.8 H, Lymph % (Auto) 3.6 L, [place] % (Auto) 2.4, Eos % (Auto) 0.0, Baso % (Auto) 0.0, Absolute Neuts (auto) 13.5 H, Absolute Lymphs (auto) 0.52 L, Total Counted Not Reportable 08/13/18 04:24: Sodium 141, Potassium 4.9, Chloride 107, Carbon Dioxide 26.0, Anion Gap 8, BUN 34 H, Creatinine 1.25, Estim Creat Clear Calc 48.47, Est GFR (MDRD) Af Amer 72, Est GFR (MDRD) Non-Af 60, BUN/Creatinine Ratio 27.2 H, Glucose 130 H, Calcium 8.8 Current Medications Acetaminophen (Tylenol) 650 mg PO Q6H PRN PRN PRN Reason: Mild Pain (1-3)/Temp > 100.7 F Last Admin: 08/12/18 22:02 Dose: 325 mg Albuterol Sulfate (Ventolin Aerosols) 2.5 mg INHALATION Q2H PRN PRN PRN Reason: SHORTNESS OF BREATH Albuterol/Ipratropium (Duoneb) 3 ml INHALATION Q4H.RT [facility] Last Admin: 08/13/18 07:17 Dose: 3 ml Enoxaparin Sodium (Lovenox) 40 mg SC DAILY@1000 [facility] Last Admin: 08/12/18 10:39 Dose: 40 mg Guaifenesin (Mucinex) 1,200 mg PO BID [facility] Last Admin: 08/12/18 22:03 Dose: 1,200 mg Sodium Chloride () 250 mls @ 15 mls/hr IV .[id number] PRN PRN Reason: SALINE FLUSH Azithromycin 500 mg/ Dextrose 255 mls @ 250 mls/hr IV Q24@2200 [facility] Stop: 08/14/18 23:02 Last Admin: 08/12/18 22:02 Dose: 250 mls/hr Ceftriaxone Sodium (Rocephin) 1 gm in 50 mls @ 100 mls/hr IV Q24@2200 [facility] Last Admin: 08/12/18 22:01 Dose: 100 mls/hr Magnesium Hydroxide (Milk Of Magnesia) 30 ml PO DAILY PRN PRN PRN Reason: Constipation Methylprednisolone (Solu-Medrol) 40 mg IV Q8 [facility] Last Admin: 08/13/18 05:29 Dose: 40 mg Morphine Sulfate () 2 - 4 mg IV Q4H PRN PRN PRN Reason: MOD-SEVERE PAIN (4-1010) Morphine Sulfate () 2 - 4 mg IV Q4H PRN PRN PRN Reason: MOD-SEVERE PAIN (4-10/10) Nutritional Formula (Lactose Free) (Ensure Enlive) 120 ml PO 4X/DAY [facility] Last Admin: 08/12/18 22:02 Dose: Not Given Ondansetron HCl (Zofran) 4 mg IV Q8H PRN PRN PRN Reason: NAUSEA Last Admin: 08/12/18 17:29 Dose: 4 mg Oxycodone HCl (Oxyir) 10 mg PO Q6H PRN PRN PRN Reason: PAIN Last Admin: 08/12/18 01:10 Dose: 10 mg Pantoprazole Sodium (Protonix) 40 mg PO DAILY [facility] Last Admin: 08/12/18 10:39 Dose: 40 mg Sodium Chloride () 5 - 15 ml IV UD PRN PRN Reason: SALINE FLUSH Last Admin: 08/12/18 05:34 Dose: 10 ml Medical Necessity - Tobacco Use Smoking Status: Former smoker Tobacco Use: Cigarettes Assessment/Plan All Active Problems (Last Reviewed 08/11/18 @ 19:33 by Carlos Garcia DO) COPD exacerbation (Acute) Pneumococcal pneumonia (Acute) Acute respiratory failure with hypoxia and hypercapnia (Acute) Sepsis (Acute) CATHERINE (acute kidney injury) (Acute) Shortness of breath (Acute) Pseudomonas pneumonia (Resolved) 82-year-old with past medical history of COPD on 2-3 L home oxygen, hypertension, nicotine dependence, alcohol abuse comes in with progressive shortness of breath as well as cough and found to have severe respiratory failure secondary to severe community-acquired pneumonia, COPD exacerbation. 1. Acute respiratory failure secondary to CAP/Acute COPD exacerbation, not much improvement since been admitted Cannot tolerate being off BiPAP for long, on IV Solu-Medrol, IV ceftriaxone, azithromycin, continue with breathing treatments. 2. Community-acquired pneumonia, likely secondary to gram-positive organisms, Urine Legionella and streptococcal antigen negative, blood and sputum cultures pending, continue on IV antibiotics, breathing treatments, supportive care. 3. Acute COPD exacerbation, continue on breathing treatment and IV steroids 4. CKD stage III, creatinine remains at baseline, Lasix on hold, will continue to trend labs 5. Hypertension, controlled, pressure remains controlled, almost low, will continue to hold off amlodipine and metoprolol for now 6. Chronic diastolic CHF, not in acute exacerbation, Lasix on hold, will continue to monitor 7. DVT PPx- Lovenox SC 8. CODE STATUS: Full code, no intubation 9. GI PPx- on pantoprazole Code Visit Inpatient E&M: 61898 Subs Hosp L3
--- NOTE | 2018-08-13 07:46 | PN_ITS ---
Subjective: The patient was seen and examined at the bedside this morning. Events from the last 24 hours have been reviewed. The patient is currently afebrile, hemodynamically stable and maintaining appropriate oxygen saturations on BiPAP with an FiO2 requirement of 40%. The patient is currently documented to be overall net +2.8 L for the admission. While the patient does report interval improvement in his breathing quality, he is still requiring a significant amount of supplemental oxygen. He does report the presence of a cough, which has been productive of sputum. The patient currently follows in the pulmonary medicine clinic and was last seen in May 2018. He has a documented smoking history of 120 pack years. He is currently prescribed Trelegy along with an albuterol rescue inhaler. During his last office visit, he was noted to have a 3 L/min baseline supplemental oxygen requirement. Pulmonary function studies completed in March 2018 revealed evidence of a partially reversible very severe large airways obstructive ventilatory defect with associated air trapping and symmetric reduction in diffusing capacity. Objective: The patient's most recent lab work, culture data and imaging studies have all been personally reviewed. Respiratory viral panel was negative. Strep and urine Legionella antigens were both negative. Blood cultures have shown no growth to date. Sputum culture is currently pending. Plain film chest x-ray revealed diffuse infiltrates throughout the right hemithorax. Surface echocardiogram dated January 2018 revealed evidence of stage I diastolic dysfunction with an ejection fraction of 65%. The RV was noted to be mildly dilated. Right ventricular systolic pressure was estimated to be 59 mmHg. General: Alert, Cooperative, - - Currently sitting upright in bed. HEENT: Atraumatic, PERRLA, Normocephalic Oral: No Gingival or Mucosal Lesions/ Ulcerations Neck: Supple, No Nodes, Trachea Midline Lungs: No rhonchi, No rales, Diminished, Tachypneic, Wheezes Cardiovascular: Regular rate, Regular Rhythm, Normal S1, Normal S2, No murmurs Abdomen: Bowel Sounds Present, Soft, Non Tender Extremities: No cyanosis, Clubbing, Edema Skin: No breakdown Musculoskeletal: No Tenderness to Palpation of Joints or Extremities, No Muscle Wasting Lymphatic: No Cervical, Supraclavicular, or Inguinal Adenopathy Neurological: Cranial nerves II-XII grossly intact, Neuro grossly intact Psych/Mental Status: Normal Affect, Appropriate Vital Signs Temp Pulse Resp BP Pulse Ox 36.5 C L 92 26 H 126/60 H 89 02/11/19 04:00 08/13/18 07:17 08/13/18 07:17 08/13/18 06:00 08/13/18 07:17 Oxygen Flow Rate (L/min) 6 Oxygen Delivery Method Nasal Cannula Weight: 168 lb 13.985 oz Body Mass Index (BMI) 25.7 Intake and Output for Last 24 Hours 08/11/18 08/12/18 08/13/18 23:59 23:59 23:59 Intake Total 641 / 641 1852 / 1852 1214 / 1214 Output Total 250 / 250 350 / 350 300 / 300 Balance 391 / 391 1502 / 1502 914 / 914 Labs (Last 48 Hours) 08/11/18 08/11/18 08/11/18 17:45 17:45 17:45 WBC 12.7 H RBC 4.52 L Hgb 14.5 Hct 44.5 MCV 98.5 H MCH 32.1 H MCHC 32.6 RDW 14.4 RDW Differential 51.9 H Plt Count 307 MPV 9.3 Immature Gran % (Auto) 0.200 Neut % (Auto) 71.2 H Lymph % (Auto) 19.5 Cochran % (Auto) 7.5 Eos % (Auto) 1.1 Baso % (Auto) 0.5 Absolute Neuts (auto) 9.1 H Absolute Lymphs (auto) 2.48 Total Counted Not Reportable Differential Comment Specimen Type Sample Site pH Bicarbonate Actual POC Total CO2 Base Excess O2 Saturation O2 % ABG pCO2 ABG pO2 Leonardo Test O2 Delivery Device EPAP IPAP Blood Gas Notified Whom Blood Gas Notified Time Sodium 138 Potassium 4.3 Chloride 106 Carbon Dioxide 24.0 Anion Gap 8 BUN 31 H Creatinine 1.35 H Estim Creat Clear Calc 48.01 Est GFR (MDRD) Af Amer 66 Est GFR (MDRD) Non-Af 55 L BUN/Creatinine Ratio 23.0 H Glucose 110 H Lactic Acid 1.8 Calcium 9.0 Troponin I < 0.015 B-Natriuretic Peptide 08/11/18 08/12/18 08/12/18 18:09 04:00 04:00 WBC 5.2 RBC 3.94 L Hgb 12.4 L Hct 38.1 L MCV 96.7 H MCH 31.5 MCHC 32.5 RDW 14.1 RDW Differential 49.6 H Plt Count 254 MPV 9.6 Immature Gran % (Auto) 0.200 Neut % (Auto) 90.9 H Lymph % (Auto) 7.7 L Cochran % (Auto) 1.0 Eos % (Auto) 0.0 Baso % (Auto) 0.2 Absolute Neuts (auto) 4.8 Absolute Lymphs (auto) 0.40 L Total Counted Not Reportable Differential Comment Specimen Type ART Sample Site R Radial pH 7.21 L Bicarbonate Actual 26.9 H POC Total CO2 29 Base Excess -1 O2 Saturation 89 L O2 % 40 ABG pCO2 68.0 H* ABG pO2 70 L Leonardo Test POS O2 Delivery Device Vent Mask EPAP IPAP Blood Gas Notified Whom ED MD Blood Gas Notified Time 1809 Sodium 139 Potassium 5.0 Chloride 104 Carbon Dioxide 24.0 Anion Gap 11 BUN 28 H Creatinine 1.24 Estim Creat Clear Calc 48.86 Est GFR (MDRD) Af Amer 73 Est GFR (MDRD) Non-Af 60 BUN/Creatinine Ratio 22.6 H Glucose 175 H Lactic Acid Calcium 8.3 L Troponin I B-Natriuretic Peptide 08/12/18 08/12/18 08/13/18 04:00 05:42 04:24 WBC 14.4 H RBC 3.85 L Hgb 12.3 L Hct 38.1 L MCV 99.0 H MCH 31.9 MCHC 32.3 RDW 13.9 RDW Differential 49.0 H Plt Count 273 MPV 9.5 Immature Gran % (Auto) 0.200 Neut % (Auto) 93.8 H Lymph % (Auto) 3.6 L Cochran % (Auto) 2.4 Eos % (Auto) 0.0 Baso % (Auto) 0.0 Absolute Neuts (auto) 13.5 H Absolute Lymphs (auto) 0.52 L Total Counted Not Reportable Differential Comment Specimen Type ART Sample Site L Radial pH 7.27 L Bicarbonate Actual 24.6 POC Total CO2 26 Base Excess -2 O2 Saturation 87 L O2 % 40 ABG pCO2 53.7 H ABG pO2 60 L Leonardo Test POS O2 Delivery Device Bi / C PAP EPAP 4 IPAP 10 Blood Gas Notified Whom HOSP Blood Gas Notified Time 535 Sodium Potassium Chloride Carbon Dioxide Anion Gap BUN Creatinine Estim Creat Clear Calc Est GFR (MDRD) Af Amer Est GFR (MDRD) Non-Af BUN/Creatinine Ratio Glucose Lactic Acid Calcium Troponin I B-Natriuretic Peptide 79.6 08/13/18 04:24 WBC RBC Hgb Hct MCV MCH MCHC RDW RDW Differential Plt Count MPV Immature Gran % (Auto) Neut % (Auto) Lymph % (Auto) Cochran % (Auto) Eos % (Auto) Baso % (Auto) Absolute Neuts (auto) Absolute Lymphs (auto) Total Counted Differential Comment Specimen Type Sample Site pH Bicarbonate Actual POC Total CO2 Base Excess O2 Saturation O2 % ABG pCO2 ABG pO2 Leonardo Test O2 Delivery Device EPAP IPAP Blood Gas Notified Whom Blood Gas Notified Time Sodium 141 Potassium 4.9 Chloride 107 Carbon Dioxide 26.0 Anion Gap 8 BUN 34 H Creatinine 1.25 Estim Creat Clear Calc 48.47 Est GFR (MDRD) Af Amer 72 Est GFR (MDRD) Non-Af 60 BUN/Creatinine Ratio 27.2 H Glucose 130 H Lactic Acid Calcium 8.8 Troponin I B-Natriuretic Peptide Microbiology 08/12/18 11:37 Mucosa - Nasopharyngeal Respiratory Panel (PCR) - Final 08/11/18 21:50 Sputum, Expectorated/Coughed Gram Stain - Final 08/11/18 23:05 Urine, Random Streptococcus pneumoniae Antigen (M - Final 08/11/18 23:05 Urine, Random Legionella Antigen - Final Clinical Impression(s) from Imaging Studies Chest X-Ray 08/11/18 17:42 IMPRESSION: Multilobar right pulmonary infiltrates worrisome for pneumonia, new. Follow-up recommended. Electronically Signed: Tristin Chopra MD at 17:59 EST , Service support , Medical Necessity - Tobacco Use Smoking Status: Former smoker Tobacco Use: Cigarettes Assessment/Plan All Active Problems (Last Reviewed 08/11/18 @ 19:33 by Carlos Garcia DO) COPD exacerbation (Acute) Pneumococcal pneumonia (Acute) Acute respiratory failure with hypoxia and hypercapnia (Acute) Sepsis (Acute) CATHERINE (acute kidney injury) (Acute) Shortness of breath (Acute) Pseudomonas pneumonia (Resolved) RECOMMENDATIONS: 1. Continue scheduled bronchodilators, antibiotics and steroids as ordered. 2. Continue supplemental oxygen with a goal to maintain a saturation at or above 88%. 3. Continue BiPAP utilization as needed. 4. Give IV Lasix 40 mg x1 today. 5. Discontinue morphine sulfate. 6. Encourage incentive spirometer use and mobilize patient as tolerated. 7. Obtain repeat plain film chest x-ray tomorrow. IMPRESSIONS: 1. Acute on chronic combined respiratory failure secondary to severe community- acquired pneumonia The patient has known end-stage COPD along with a 4 L/min baseline supplemental oxygen requirement. He does have radiographic evidence of severe community- acquired pneumonia with diffuse right-sided infiltrates. He will be continued on scheduled bronchodilators, IV steroids and antibiotics as ordered. Infectious workup is currently being undertaken. Supplemental oxygen will be weaned as tolerated. Continue BiPAP as needed. 2. End-stage COPD with exacerbation secondary to #1 Continue current supportive measures with bronchodilators, steroids and antibiotics as noted above. 3. Heart failure with preserved ejection fraction/pulmonary hypertension The patient is currently overall net +2.8 L for the admission. He is still requiring a significant amount of supplemental oxygen. Therefore, he will receive a one-time dose of IV Lasix 40 mg today. Continue to wean supplemental oxygen as tolerated. 4. Tobacco dependency currently in remission/hypertension/GERD/chronic pain syndrome Complicates care, management, recovery and prognosis. Continue as needed oxycodone for pain. Discontinue morphine. Physical therapy to evaluate patient. TIME: 35 minutes of critical care time, independent of procedures, was spent addressing the patient's acute on chronic combined respiratory failure, community-acquired pneumonia, end-stage COPD with exacerbation, heart failure with preserved ejection fraction, pulmonary hypertension, review of all data and collaboration with the care team. ([id number]) Code Visit 9xxxx: [id number] Critical care first hour
--- NOTE | 2018-08-13 08:56 | CASEMGMT ---
RN CM Assessment Presentation: CAP, hypoxia, COPD exacerbation. Required Bipap overnight, now on Bipap intermittently, 4-6L NC when off Bipap. pH 7.21, CO2 68 on admission, WBC to 14.4 today, Intro role of CM and purpose of RN CM assessment. PCP: Dr. Pa Specialists: Dr. Hood Preferred Pharmacy: [facility] Insurance: [employer] Prescription Benefit: prescriptions covered through ins. States no difficulty getting prescriptions. LNOK: , Yaneth Mccollum Living Arrangements: One story home with . Nephew lives nearby and assists if needed. Pt states he is generally independent in ADL's. Uses cane only. Transportation: nephew drives, pt states he does not drive anymore. DME: cane, Home Oxygen through [facility]: concentrator, portable tank, nebulizer. HHC: no DC PLAN: undetermined as pt remains in ICU. Anticipate Home on discharge. PT/OT evaluations pending. Pt has home oxygen. May need to evaluate for Home Health. Rosanna FUENTESN RN ACM
--- NOTE | 2018-08-13 09:22 | CPS ---
Pt placed on 10L HFNC
[2018-08-13] MEDS: Furosemide 40 MG/4 ML Vial IV (09:57)
[2018-08-13] MEDS: Acetaminophen 325 MG Tablet 650 MG PO ×2 (09:58→19:18)
[2018-08-13] MEDS: Enoxaparin 40 MG/0.4 ML Syringe SC (10:01)
[2018-08-13] MEDS: Pantoprazole Sodium 40 MG Tablet PO (10:02)
[2018-08-13] MEDS: guaiFENesin 1,200 MG Tablet 1200 MG PO ×2 (10:02→22:47)
[2018-08-13] MEDS: oxyCODONE 5 MG Tablet 10 MG PO (13:59)
--- NOTE | 2018-08-13 21:45 | NURSING ---
Pt was up with Another nurse to try and use the restroom to have a BM was unsuccessful at this time.
[2018-08-13] MEDS: Ceftriaxone 1 GM/50 ML BAG IV (22:46)
[2018-08-14] VITALS (37 sets, daily range): BP systolic 111–145; BP diastolic 51–98; PULSE 93–129; RESP 12–41; TEMP 36.5–36.9; O2SAT 87–97
[2018-08-14] MEDS: Ipratropium/Albuterol Sulfate 3 ML AMPUL.NEB INHALATION ×6 (02:45→23:45)
[2018-08-14 04:13] LABS: Anion Gap 9 (5-15); BUN 45 mg/dL (7-18); BUN/Creat Ratio 32.8 RATIO (10-20); Chloride 109 mmol/L (98-107); Creatinine, Serum 1.37 mg/dL (0.70-1.30); EST Glomerular Filtration Rate 54 mL/min (>60); Est Glom Filt Rate - Afr Amer 65 mL/min (>60); Estimated Creatinine Clearance 44.23 ml/min; Glucose 132 mg/dL (74-106); Potassium 4.5 mmol/L (3.5-5.1); Sodium Level 144 mmol/L (136-145)
[2018-08-14 04:16] LABS: Absolute Lymphocyte Count 0.45 X10^3/ul (0.83-4.51); Absolute Neutrophil Count 15.6 X10^3/uL (2.0-7.7); Basophil# 0.01 X10^3/uL; Basophil% 0.1 % (0-1); Hematocrit 42.2 % (40-54); Hemoglobin 13.2 g/dl (13.0-16.5); Lymphocyte # 0.45 X10^3/ul (4.0); Lymphocyte % 2.7 % (19-41); Mean Corp Hgb Conc 31.3 g/gl (32-36); Mean Corpuscular Hgb 31.2 pg (27.0-32.0); Mean Corpuscular Volume 99.8 fL (80-94); Mean Platelet Vol. 9.5 fl (6.2-12.0); Monocyte# 0.36 X10^3/uL; Monocyte% 2.2 % (0-10); Neutrophil # 15.56 X10^3/uL (2.7-7.7); Neutrophil % 94.7 % (47-70); Platelet Count 312 K/mm3 (150-450); RBC Distribution Width CV 14.2 % (11.6-14.6); Red Blood Count 4.23 M/mm3 (4.6-6.2); White Blood Count 16.4 K/mm3 (4.4-11.0)
[2018-08-14 04:18] LABS: Differential Indicated SCAN CRITERIA MET; POSITIVE COUNT NO; POSITIVE DIFFERENTIAL YES; POSITIVE MORPHOLOGY NO
--- NOTE | 2018-08-14 06:09 | PCM.PROGNOTE ---
Patient Problems: Active and Suspected Problems (Last Reviewed 08/11/18 @ 19:33 by Carlos Garcia DO) COPD exacerbation (Acute) Pneumococcal pneumonia (Acute) Acute respiratory failure with hypoxia and hypercapnia (Acute) Sepsis (Acute) Subjective: Mr. Mccollum is a 72-year-old male with a past medical history of chronic respiratory failure with hypoxemia on 3-4 L of oxygen chronically, COPD, hypertension, alcohol abuse, nicotine dependence, chronic renal failure stage III and chronic diastolic congestive heart failure presented to the emergency room at [facility] on 08/11/2018 complaining of shortness of breath and cough productive of brown sputum. Pulse ox on room air was 63% however the patient does wear 3-4 L of oxygen at home. On 6 L by nasal cannula with a pulse ox was 81%. Vital signs at admission were pulse 86, respiratory rate 26, BP 141/68 and temperature 98.9. White blood cell count was elevated at 12.7 with 71% neutrophils. Hemoglobin was 14.5 and the platelet count was normal at 307,000. ABG done on a 40% Ventimask had pH of 7.21, PCO2 of 68 and a PO2 of 70 with a saturation of 89%. BMP was remarkable for an elevated BUN at 31 and an elevated creatinine at 1.35. Lactic acid was 1.8. Troponin was less than 0.015. Chest x-ray showed multilobar right pulmonary infiltrates. He was admitted to the hospital with a diagnosis of acute hypoxic and hypercapnic respiratory failure on chronic respiratory failure with hypoxemia, acute exacerbation of COPD and suspected CAP. He was started on Rocephin and azithromycin. He was started on BiPAP therapy. Sputum culture had normal respiratory karla. Respiratory viral panel was negative. Streptococcal and Legionella antigens in the urine were negative. Day #4 Rocephin and azithromycin Afebrile since admission. Continues to require BiPAP at night with a 40% FiO2. Current pulse ox is 96% on BiPAP. Heart rates have been elevated in the high 90s and low 100s. Blood pressure is stable and within normal limits. All lab was personally reviewed. White blood cell count today is 16.4 however, the patient is on high-dose steroids. Hemoglobin is stable at 13.2 and the platelet count is 312,000. Serum bicarb is 26 and the BUN is 45 with a creatinine of 1.37(He received 1 dose of Lasix 40 mg IV on 08/13/2018). Blood sugars have been mildly elevated, likely due to steroids. Tells me his breathing has improved since admission. Continues to cough up thick yellow aguilar sputum. He is complaining he has not had a bowel movement since admission. At home he takes his 's stool softeners, does not recall the name but takes 6 a day. He denies chest pain, nausea, vomiting, abdominal pain. He is complaining of being thirsty. - Physical Exam General: Alert, Oriented x3, Cooperative HEENT: PERRLA, EOMI Oral: No Gingival or Mucosal Lesions/ Ulcerations, Dry Mucosa Neck: No JVD, No Nuchal Rigidity, Trachea Midline Lungs: No rhonchi, No wheeze, Diminished, Rales - coarse crackles in the left base...minimal, - - mildly tachypneic at rest today on a NC. Still requiring BIPAP. No CPAP or BIPAP at home Cardiovascular: Regular Rhythm, Normal S1, Normal S2, No murmurs, No Gallop, Tachycardic Abdomen: Bowel Sounds Present, Soft, Non Tender, Non-Distended Skin: No rashes, No breakdown Psych/Mental Status: Normal Affect, Appropriate Vital Signs Temp Pulse Resp BP Pulse Ox 97.7 F L 97 19 H 130/76 H 96 08/14/18 04:00 08/14/18 06:00 08/14/18 06:00 08/14/18 06:00 08/14/18 06:00 Oxygen Flow Rate (L/min) 8 Oxygen Delivery Method Bi-pap Weight: 167 lb 5.294 oz Body Mass Index (BMI) 25.7 Intake and Output for Last 24 Hours 08/12/18 08/13/18 08/14/18 23:59 23:59 23:59 Intake Total 1852 / 1852 2262 / 2262 236 / 236 Output Total 350 / 350 1475 / 1475 Balance 1502 / 1502 787 / 787 236 / 236 Microbiology Past 72 Hours 08/12/18 11:37 Gram Stain - Final Sputum, Expectorated/Coughed Respiratory Culture - Preliminary Appears to be normal respiratory karla. Further studies to follow. 08/11/18 21:50 Gram Stain - Final Sputum, Expectorated/Coughed Respiratory Culture - Preliminary Appears to be normal respiratory karla. Further studies to follow. 08/12/18 11:37 Respiratory Panel (PCR) - Final Mucosa - Nasopharyngeal 08/11/18 23:05 Streptococcus pneumoniae Antigen (M - Final Urine, Random 08/11/18 23:05 Legionella Antigen - Final Urine, Random Laboratory Tests Past 24 Hrs 08/14/18 08/14/18 03:45 03:45 WBC 16.4 H RBC 4.23 L Hgb 13.2 Hct 42.2 MCV 99.8 H MCH 31.2 MCHC 31.3 L RDW 14.2 RDW Differential 51.0 H Plt Count 312 MPV 9.5 Immature Gran % (Auto) 0.300 Neut % (Auto) 94.7 H Lymph % (Auto) 2.7 L Wilkin % (Auto) 2.2 Eos % (Auto) 0.0 Baso % (Auto) 0.1 Absolute Neuts (auto) 15.6 H Absolute Lymphs (auto) 0.45 L Total Counted Not Reportable Sodium 144 Potassium 4.5 Chloride 109 H Carbon Dioxide 26.0 Anion Gap 9 BUN 45 H Creatinine 1.37 H Estim Creat Clear Calc 44.23 Est GFR (MDRD) Af Amer 65 Est GFR (MDRD) Non-Af 54 L BUN/Creatinine Ratio 32.8 H Glucose 132 H Calcium 9.0 Medical Necessity - Tobacco Use Smoking Status: Former smoker Tobacco Use: Cigarettes Assessment/Plan All Active Problems (Last Reviewed 08/11/18 @ 19:33 by Carlos Garcia DO) COPD exacerbation (Acute) Pneumococcal pneumonia (Acute) Acute respiratory failure with hypoxia and hypercapnia (Acute) Sepsis (Acute) CATHERINE (acute kidney injury) (Acute) Shortness of breath (Acute) Pseudomonas pneumonia (Resolved) Impressions 1. severe sepsis secondary to CAP with tachycardia and acute on chronic respiratory failure requiring BIPAP 2. Community-acquired pneumonia -sputum culture had mixed normal respiratory karla with 3+ white blood cells 3. Acute combined respiratory failure on chronic respiratory failure with hypoxia 4. Acute exacerbation of COPD 5. Chronic kidney failure stage III 6. Hypertension 7. Chronic diastolic congestive heart failure 8. Constipation 9. Hyperglycemia with no history of diabetes mellitus-likely secondary to high-dose intravenous steroids Dulcolax PO 10 mg Start Miralax Maintain in the ICU Follows with Dr. Hood as an OP Discussed with Dr. Hood. We will continue aerosols and aggressive pulmonary toilet and BiPAP rescue as needed Recheck CBC and basic metabolic profile in the a.m. Code Visit Inpatient E&M: 05130 Subs Hosp L3
--- NOTE | 2018-08-14 06:24 | RAD_ITS ---
STUDY: X-RAY CHEST REASON FOR EXAM: Male, 72 years old. Shortness of breath/dyspnea. TECHNIQUE: Single AP portable view of the chest. COMPARISON: Comparison is made with prior study dated August 11, 2018. FINDINGS: EKG electrodes are seen. Persistent dense reticular nodular infiltrates in the right lung worse in the right upper lobe. Since prior study, there has been mild improved aeration of the right lung base. Stable mild increased markings at the left lung base. Stable blunting of both costophrenic angles. Normal size heart. Normal mediastinum and audi. Normal visualized pulmonary arteries. There is atherosclerotic calcification of the aortic arch with tortuosity. There are diffuse degenerative changes of the visualized thoracic spine. Normal visualized ribs, clavicles, and shoulders. There is no demonstrated abnormality of the visualized soft tissue structures of the upper abdomen. RAD/Chest 1 View (Portable) IMPRESSION: Since prior study, there has been mild improved aeration at the right lung base. The remainder of the examination is unchanged. Electronically Signed: Irwin Hong MD at 9:23 EST , Service support ,
--- NOTE | 2018-08-14 06:41 | PCM.PN.INT ---
Subjective: The patient was seen and examined at the bedside this morning. Events from the last 24 hours have been reviewed. The patient is currently afebrile, hemodynamically stable and maintaining appropriate oxygen saturations on 8 L/min high flow nasal cannula. The patient was tolerant of BiPAP overnight. He does report interval improvement in his breathing quality, including improving cough. However, the patient's plain film chest x-ray from this morning again demonstrated significant right-sided interstitial infiltrates, largely unchanged from previous. The patient is currently overall net +2.9 L for the admission. Objective: The patient's most recent lab work, culture data and imaging studies have all been personally reviewed. Respiratory viral panel was negative. Strep and urine Legionella antigens were both negative. Blood cultures have shown no growth to date. Sputum culture appears to be normal respiratory karla. Plain film chest x-ray revealed diffuse infiltrates throughout the right hemithorax. Surface echocardiogram dated January 2018 revealed evidence of stage I diastolic dysfunction with an ejection fraction of 65%. The RV was noted to be mildly dilated. Right ventricular systolic pressure was estimated to be 59 mmHg. Pulmonary function studies completed in March 2018 revealed evidence of a partially reversible very severe large airways obstructive ventilatory defect with associated air trapping and symmetric reduction in diffusing capacity. General: Alert, Cooperative, No apparent distress HEENT: Atraumatic, PERRLA, Normocephalic Oral: No Gingival or Mucosal Lesions/ Ulcerations Neck: Supple, No Nodes, Trachea Midline Lungs: No rhonchi, No wheeze, Diminished, Wheezes Cardiovascular: Regular rate, Regular Rhythm, Normal S1, Normal S2, No murmurs Abdomen: Bowel Sounds Present, Soft, Non Tender Extremities: No cyanosis, Clubbing, Edema - Trace Skin: No breakdown Musculoskeletal: No Tenderness to Palpation of Joints or Extremities Lymphatic: No Cervical, Supraclavicular, or Inguinal Adenopathy Neurological: Cranial nerves II-XII grossly intact, Neuro grossly intact Psych/Mental Status: Alert and oriented to time, place, person, mood and affect Vital Signs Temp Pulse Resp BP Pulse Ox 36.5 C L 97 19 H 130/76 H 96 08/14/18 04:00 08/14/18 06:00 08/14/18 06:00 08/14/18 06:00 08/14/18 06:00 Oxygen Flow Rate (L/min) 8 Oxygen Delivery Method Bi-pap Weight: 167 lb 5.294 oz Body Mass Index (BMI) 25.7 Intake and Output for Last 24 Hours 08/12/18 08/13/18 08/14/18 23:59 23:59 23:59 Intake Total 1852 / 1852 2262 / 2262 236 / 236 Output Total 350 / 350 1475 / 1475 Balance 1502 / 1502 787 / 787 236 / 236 Labs (Last 48 Hours) 08/12/18 08/13/18 08/13/18 04:00 04:24 04:24 WBC 14.4 H RBC 3.85 L Hgb 12.3 L Hct 38.1 L MCV 99.0 H MCH 31.9 MCHC 32.3 RDW 13.9 RDW Differential 49.0 H Plt Count 273 MPV 9.5 Immature Gran % (Auto) 0.200 Neut % (Auto) 93.8 H Lymph % (Auto) 3.6 L [place] % (Auto) 2.4 Eos % (Auto) 0.0 Baso % (Auto) 0.0 Absolute Neuts (auto) 13.5 H Absolute Lymphs (auto) 0.52 L Total Counted Not Reportable Sodium 141 Potassium 4.9 Chloride 107 Carbon Dioxide 26.0 Anion Gap 8 BUN 34 H Creatinine 1.25 Estim Creat Clear Calc 48.47 Est GFR (MDRD) Af Amer 72 Est GFR (MDRD) Non-Af 60 BUN/Creatinine Ratio 27.2 H Glucose 130 H Calcium 8.8 B-Natriuretic Peptide 79.6 08/14/18 08/14/18 03:45 03:45 WBC 16.4 H RBC 4.23 L Hgb 13.2 Hct 42.2 MCV 99.8 H MCH 31.2 MCHC 31.3 L RDW 14.2 RDW Differential 51.0 H Plt Count 312 MPV 9.5 Immature Gran % (Auto) 0.300 Neut % (Auto) 94.7 H Lymph % (Auto) 2.7 L [place] % (Auto) 2.2 Eos % (Auto) 0.0 Baso % (Auto) 0.1 Absolute Neuts (auto) 15.6 H Absolute Lymphs (auto) 0.45 L Total Counted Not Reportable Sodium 144 Potassium 4.5 Chloride 109 H Carbon Dioxide 26.0 Anion Gap 9 BUN 45 H Creatinine 1.37 H Estim Creat Clear Calc 44.23 Est GFR (MDRD) Af Amer 65 Est GFR (MDRD) Non-Af 54 L BUN/Creatinine Ratio 32.8 H Glucose 132 H Calcium 9.0 B-Natriuretic Peptide Microbiology 08/12/18 11:37 Sputum, Expectorated/Coughed Gram Stain - Final 08/12/18 11:37 Sputum, Expectorated/Coughed Respiratory Culture - Preliminary Appears to be normal respiratory karla. Further studies to follow. 08/11/18 21:50 Sputum, Expectorated/Coughed Gram Stain - Final 08/11/18 21:50 Sputum, Expectorated/Coughed Respiratory Culture - Preliminary Appears to be normal respiratory karla. Further studies to follow. 08/12/18 11:37 Mucosa - Nasopharyngeal Respiratory Panel (PCR) - Final Clinical Impression(s) from Imaging Studies Chest X-Ray 08/11/18 17:42 IMPRESSION: Multilobar right pulmonary infiltrates worrisome for pneumonia, new. Follow-up recommended. Electronically Signed: Tristin Chopra MD at 17:59 EST , Service support , Medical Necessity - Tobacco Use Smoking Status: Former smoker Tobacco Use: Cigarettes Assessment/Plan All Active Problems (Last Reviewed 08/11/18 @ 19:33 by Carlos Garcia DO) COPD exacerbation (Acute) Pneumococcal pneumonia (Acute) Acute respiratory failure with hypoxia and hypercapnia (Acute) Sepsis (Acute) CATHERINE (acute kidney injury) (Acute) Shortness of breath (Acute) Pseudomonas pneumonia (Resolved) RECOMMENDATIONS: 1. Continue scheduled bronchodilators, antibiotics and steroids as ordered. Antibiotics will be broadened from ceftriaxone and azithromycin to Zosyn. 2. Continue supplemental oxygen with a goal to maintain a saturation at or above 88%. 3. Continue BiPAP utilization as needed. 4. Give IV Lasix 40 mg x1 today. 5. Encourage incentive spirometer use and mobilize patient as tolerated. 6. Continue to monitor patient in ICU setting. IMPRESSIONS: 1. Acute on chronic combined respiratory failure secondary to severe community-acquired pneumonia The patient has known end-stage COPD along with a 4 L/min baseline supplemental oxygen requirement. He does have radiographic evidence of severe community-acquired pneumonia with diffuse right-sided infiltrates. He will be continued on scheduled bronchodilators, IV steroids and antibiotics as ordered. Infectious workup has unfortunately been unrevealing to date. Given the severity of the patient's pneumonia, his antibiotics will be broadened to Zosyn. Supplemental oxygen will be weaned as tolerated. Continue BiPAP as needed. 2. End-stage COPD with exacerbation secondary to #1 Continue current supportive measures with bronchodilators, steroids and antibiotics as noted above. 3. Heart failure with preserved ejection fraction/pulmonary hypertension The patient is currently overall net +2.9 L for the admission. He is still requiring a significant amount of supplemental oxygen. Therefore, he will receive a one-time dose of IV Lasix 40 mg again today. Continue to wean supplemental oxygen as tolerated. 4. Tobacco dependency currently in remission/hypertension/GERD/chronic pain syndrome Complicates care, management, recovery and prognosis. Continue as needed oxycodone for pain. Physical therapy to continue to work with patient. This note was generated with [employer] dictation software. It may contain incorrect words, spelling, and punctuation that were not noted in checking the note before signing. Code Visit Inpatient E&M: 95144 Subs Hosp L3
[2018-08-14] MEDS: Furosemide 40 MG/4 ML Vial IV (09:57)
[2018-08-14] MEDS: 0.9% NaCl Peripheral Flush Adult/Peds IV ×2 (09:57→12:04)
[2018-08-14] MEDS: Pantoprazole Sodium 40 MG Tablet PO (09:58)
[2018-08-14] MEDS: guaiFENesin 1,200 MG Tablet 1200 MG PO ×2 (09:58→21:25)
[2018-08-14] MEDS: Enoxaparin 40 MG/0.4 ML Syringe SC (10:03)
--- NOTE | 2018-08-14 10:16 | CASEMGMT ---
RN GEOVANY Note: Pt to remain in ICU today, intermittent Bipap and 8L NC. RN CM discussed dc options with pt including SNF and HHS. Pt is not agreeable to SNF at this time, but is agreeable to Home Health. No preference for HH agency. -Will continue to follow PT/OT recommendations. Pt was ambulatory, but has significant oxygen desaturation with activity. -Call to Shira @ [facility]. Message left requesting they evaluate referral; pt is [facility]. -Will continue to follow. DC PLAN: Continues to be undetermined @ this time. Rosanna AMEZCUA RN ACM
[2018-08-14] MEDS: Bisacodyl 5 MG Tablet 10 MG PO (10:23)
[2018-08-14] MEDS: Polyethylene Glycol 3350 17 GM PACKET PO (10:23)
--- NOTE | 2018-08-14 10:29 | CASEMGMT ---
RN GEOVANY Note: Pt to remain in ICU today, intermittent Bipap and 8L NC. RN GEOVANY discussed dc options with pt including SNF and HHS. Pt is not agreeable to SNF at this time, but is agreeable to Home Health. No preference for HH agency. -Will continue to follow PT/OT recommendations. Pt was ambulatory, but has significant oxygen desaturation with activity. -Call to Shira @ [facility]. Message left requesting they evaluate referral; pt is [facility]. -Will continue to follow. DC PLAN: Continues to be undetermined given current clinical presentation. Anticipate pt will need additional therapy. Rosanna AMEZCUA RN ACM
[2018-08-14] MEDS: oxyCODONE 5 MG Tablet 10 MG PO (11:56)
--- NOTE | 2018-08-14 14:00 | CASEMGMT ---
RN CM Note: Per Shira @ [facility], they cannot accept referral if Home Care is needed. Rosanna FUENTESN RN ACM
[2018-08-14] MEDS: Acetaminophen 325 MG Tablet 650 MG PO (20:03)
[2018-08-15] VITALS (37 sets, daily range): BP systolic 107–173; BP diastolic 57–115; PULSE 88–138; RESP 12–43; TEMP 36.3–36.7; O2SAT 88–96
[2018-08-15] MEDS: Ipratropium/Albuterol Sulfate 3 ML AMPUL.NEB INHALATION ×5 (02:44→18:55)
[2018-08-15 04:41] LABS: AST(SGOT) 26 U/L (15-37); Absolute Lymphocyte Count 0.36 X10^3/ul (0.83-4.51); Absolute Neutrophil Count 10.3 X10^3/uL (2.0-7.7); Alanine Aminotransfer ALT/SGPT 25 U/L (16-61); Albumin, Serum 2.8 g/dL (3.2-5.0); Alkaline Phosphatase 65 U/L (45-117); Anion Gap 8 (5-15); BUN 47 mg/dL (7-18); BUN/Creat Ratio 32.6 RATIO (10-20); Bilirubin, Direct 0.08 mg/dL (0.00-0.30); Calcium,Total 8.7 mg/dL (8.5-10.1); Chloride 109 mmol/L (98-107); Creatinine, Serum 1.44 mg/dL (0.70-1.30); Differential Indicated SCAN CRITERIA MET; EST Glomerular Filtration Rate 51 mL/min (>60); Est Glom Filt Rate - Afr Amer 62 mL/min (>60); Estimated Creatinine Clearance 42.08 ml/min; Globulin 3.5 g/dL (2.2-4.2); Glucose 154 mg/dL (74-106); Hemoglobin 12.3 g/dl (13.0-16.5); Lymphocyte # 0.36 X10^3/ul (4.0); Lymphocyte % 3.3 % (19-41); Magnesium 2.5 mg/dL (1.6-2.6); Mean Corp Hgb Conc 31.5 g/gl (32-36); Mean Corpuscular Hgb 31.5 pg (27.0-32.0); Mean Platelet Vol. 9.6 fl (6.2-12.0); Monocyte# 0.32 X10^3/uL; Monocyte% 2.9 % (0-10); Neutrophil # 10.31 X10^3/uL (2.7-7.7); Neutrophil % 93.4 % (47-70); POSITIVE COUNT NO; POSITIVE DIFFERENTIAL YES; POSITIVE MORPHOLOGY NO; Phosphorus 2.7 mg/dL (2.5-4.9); Platelet Count 259 K/mm3 (150-450); Potassium 4.7 mmol/L (3.5-5.1); Protein, Total 6.3 g/dL (6.4-8.2); RBC Distribution Width CV 14.2 % (11.6-14.6); RBC Distribution Width SD 51.1 fl (35.1-43.9); Sodium Level 146 mmol/L (136-145)
[2018-08-15] MEDS: 0.9% NaCl Peripheral Flush Adult/Peds IV (05:44)
[2018-08-15] MEDS: Acetaminophen 325 MG Tablet 650 MG PO ×2 (06:47→19:26)
--- NOTE | 2018-08-15 06:47 | PN_ITS ---
Subjective: The patient was seen and examined at the bedside this morning. Events from the last 24 hours have been reviewed. The patient is currently afebrile, hemodynamically stable and maintaining appropriate oxygen saturations on 7 L/min via nasal cannula. The patient has utilized BiPAP intermittently. Despite his continued high supplemental oxygen need, the patient continues to report daily improvement in his breathing quality. His only complaint this morning is for that of needing to have a bowel movement. The patient is currently overall net +3.1 L for the admission. Objective: The patient's most recent lab work, culture data and imaging studies have all been personally reviewed. Respiratory viral panel was negative. Strep and urine Legionella antigens were both negative. Blood cultures have shown no growth to date. Sputum culture is currently pending. Plain film chest x-ray revealed diffuse infiltrates throughout the right hemithorax. Surface echocardiogram dated January 2018 revealed evidence of stage I diastolic dysfunction with an ejection fraction of 65%. The RV was noted to be mildly dilated. Right ventricular systolic pressure was estimated to be 59 mmHg. General: Alert, Oriented x3, Cooperative, No apparent distress HEENT: Atraumatic, PERRLA, Normocephalic Oral: No Gingival or Mucosal Lesions/ Ulcerations Neck: Supple, No Nodes, Trachea Midline Lungs: - - Globally diminished air movement bilaterally without appreciable wheezes this morning. Cardiovascular: Normal S1, Normal S2, No murmurs, Tachycardic Abdomen: Bowel Sounds Present, Soft, Non Tender, Non-Distended Extremities: No cyanosis, No edema, Clubbing Skin: No breakdown Musculoskeletal: No Tenderness to Palpation of Joints or Extremities Lymphatic: No Cervical, Supraclavicular, or Inguinal Adenopathy Neurological: Cranial nerves II-XII grossly intact, Neuro grossly intact Psych/Mental Status: Alert and oriented to time, place, person, mood and affect Vital Signs Temp Pulse Resp BP Pulse Ox 36.5 C L 108 H 31 H 146/76 H 88 08/15/18 04:00 08/15/18 06:00 08/15/18 06:00 08/15/18 06:00 08/15/18 06:00 Oxygen Flow Rate (L/min) 7 Oxygen Delivery Method Nasal Cannula Weight: 166 lb 0.129 oz Body Mass Index (BMI) 25.7 Intake and Output for Last 24 Hours 08/13/18 08/14/18 08/15/18 23:59 23:59 23:59 Intake Total 2262 / 2262 1557 / 1557 243 / 243 Output Total 1475 / 1475 1025 / 1025 300 / 300 Balance 787 / 787 532 / 532 -57 / -57 Labs (Last 48 Hours) 08/14/18 08/14/18 08/15/18 03:45 03:45 04:15 WBC 16.4 H 11.0 RBC 4.23 L 3.90 L Hgb 13.2 12.3 L Hct 42.2 39.0 L MCV 99.8 H 100.0 H MCH 31.2 31.5 MCHC 31.3 L 31.5 L RDW 14.2 14.2 RDW Differential 51.0 H 51.1 H Plt Count 312 259 MPV 9.5 9.6 Immature Gran % (Auto) 0.300 0.400 Neut % (Auto) 94.7 H 93.4 H Lymph % (Auto) 2.7 L 3.3 L [place] % (Auto) 2.2 2.9 Eos % (Auto) 0.0 0.0 Baso % (Auto) 0.1 0.0 Absolute Neuts (auto) 15.6 H 10.3 H Absolute Lymphs (auto) 0.45 L 0.36 L Total Counted Not Reportable Not Reportable Sodium 144 Potassium 4.5 Chloride 109 H Carbon Dioxide 26.0 Anion Gap 9 BUN 45 H Creatinine 1.37 H Estim Creat Clear Calc 44.23 Est GFR (MDRD) Af Amer 65 Est GFR (MDRD) Non-Af 54 L BUN/Creatinine Ratio 32.8 H Glucose 132 H Calcium 9.0 Phosphorus Magnesium Total Bilirubin Direct Bilirubin AST ALT Alkaline Phosphatase Total Protein Albumin Globulin 08/15/18 08/15/18 04:15 04:15 WBC RBC Hgb Hct MCV MCH MCHC RDW RDW Differential Plt Count MPV Immature Gran % (Auto) Neut % (Auto) Lymph % (Auto) [place] % (Auto) Eos % (Auto) Baso % (Auto) Absolute Neuts (auto) Absolute Lymphs (auto) Total Counted Sodium 146 H Potassium 4.7 Chloride 109 H Carbon Dioxide 29.0 Anion Gap 8 BUN 47 H Creatinine 1.44 H Estim Creat Clear Calc 42.08 Est GFR (MDRD) Af Amer 62 Est GFR (MDRD) Non-Af 51 L BUN/Creatinine Ratio 32.6 H Glucose 154 H Calcium 8.7 Phosphorus 2.7 Cancelled Magnesium 2.5 Total Bilirubin 0.30 Direct Bilirubin 0.08 AST 26 ALT 25 Alkaline Phosphatase 65 Total Protein 6.3 L Albumin 2.8 L Globulin 3.5 Microbiology 08/11/18 17:55 Blood Culture (Wb) #2 - Right Hand Blood Culture - Preliminary No growth in 48 hours. 08/11/18 17:45 Blood Culture (Wb) - Anticubital Right Blood Culture - Preliminary No growth in 48 hours. 08/11/18 21:50 Sputum, Expectorated/Coughed Gram Stain - Final 08/11/18 21:50 Sputum, Expectorated/Coughed Respiratory Culture - Final 08/12/18 11:37 Sputum, Expectorated/Coughed Gram Stain - Final 08/12/18 11:37 Sputum, Expectorated/Coughed Respiratory Culture - Final Clinical Impression(s) from Imaging Studies Chest X-Ray 08/11/18 17:42 IMPRESSION: Multilobar right pulmonary infiltrates worrisome for pneumonia, new. Follow-up recommended. Electronically Signed: Tristin Chopra MD at 17:59 EST , Service support , Chest X-Ray 08/14/18 06:24 IMPRESSION: Since prior study, there has been mild improved aeration at the right lung base. The remainder of the examination is unchanged. Electronically Signed: Irwin Hong MD at 9:23 EST , Service support , Medical Necessity - Tobacco Use Smoking Status: Former smoker Tobacco Use: Cigarettes Assessment/Plan All Active Problems (Last Reviewed 08/11/18 @ 19:33 by Carlos Garcia DO) Community acquired pneumonia (Acute) COPD exacerbation (Acute) Pneumococcal pneumonia (Ruled-out) Acute respiratory failure with hypoxia and hypercapnia (Acute) Sepsis (Acute) CATHERINE (acute kidney injury) (Acute) Shortness of breath (Acute) Pseudomonas pneumonia (Resolved) RECOMMENDATIONS: 1. Continue scheduled bronchodilators, antibiotics and steroids as ordered. 2. Continue supplemental oxygen with a goal to maintain a saturation at or above 88%. 3. Continue BiPAP utilization as needed. 4. Encourage incentive spirometer use and mobilize patient as tolerated. IMPRESSIONS: 1. Acute on chronic combined respiratory failure secondary to severe community- acquired pneumonia The patient has known end-stage COPD along with a 4 L/min baseline supplemental oxygen requirement. He does have radiographic evidence of severe community-acqu ired pneumonia with diffuse right-sided infiltrates. He will be continued on scheduled bronchodilators, IV steroids and antibiotics as ordered. Infectious workup has unfortunately been unrevealing to date. Supplemental oxygen will be weaned as tolerated. Continue BiPAP as needed. Given the advanced age of the patient's underlying pulmonary disease, anticipated prolonged recovery period. Additionally, I would recommend repeat chest imaging in approximately 4-6 weeks to document resolution of the patient's infiltrates. 2. End-stage COPD with exacerbation secondary to #1 Continue current supportive measures with bronchodilators, steroids and antibiotics as noted above. 3. Heart failure with preserved ejection fraction/pulmonary hypertension The patient does not appear to be overtly volume overloaded at this time. We will continue to monitor volume status closely. No indication for any additional diuretics at this time. 4. Tobacco dependency currently in remission/hypertension/GERD/chronic pain syndrome Complicates care, management, recovery and prognosis. Continue as needed oxycodone for pain. Physical therapy to continue to work with patient. This note was generated with [employer] dictation software. It may contain incorrect words, spelling, and punctuation that were not noted in checking the note before signing. Code Visit Inpatient E&M: 09124 [facility] Hosp L3
[2018-08-15] MEDS: Metoprolol(XL)Succ 50 MG Tablet PO (09:44)
[2018-08-15] MEDS: Senna/Docusate Sodium 1 Tablet 2 TABLET PO ×2 (09:44→22:04)
[2018-08-15] MEDS: Pantoprazole Sodium 40 MG Tablet PO (09:45)
[2018-08-15] MEDS: Polyethylene Glycol 3350 17 GM PACKET PO (09:45)
[2018-08-15] MEDS: Enoxaparin 40 MG/0.4 ML Syringe SC (09:45)
[2018-08-15] MEDS: guaiFENesin 1,200 MG Tablet 1200 MG PO ×2 (09:45→22:04)
--- NOTE | 2018-08-15 10:48 | PN_ITS ---
Patient Problems: Active and Suspected Problems (Last Reviewed 08/11/18 @ 19:33 by Carlos Garcia DO) COPD exacerbation (Acute) Pneumococcal pneumonia (Acute) Acute respiratory failure with hypoxia and hypercapnia (Acute) Sepsis (Acute) Subjective: Day #5 antibiotics-and 2 Zosyn on 08/14/2018 from Rocephin and vancomycin All events of the past 24 hours of been reviewed. Afebrile since admission. He is persistently tachycardic with heart rates as high as 121 bpm. Respiratory rate was increased into the 40s on 10 L nasal cannula and he is now back on BiPAP. On BiPAP with a 40% FiO2 his oxygen saturation is currently 95%. Pressures are stable. Fluid balance on 08/14/2018 was +532. Fluid balance since admission is +3155. All lab was personally reviewed. The white blood cell count today is 11,000, down from 16,400 on 08/14/2018. Persistent left shift. Hemoglobin is stable at 12.3 and platelets are normal. Sodium is 146 today with a chloride of 109. BUN is 47 and the creatinine is 1.44. Magnesium and phosphorus are within normal limits today. Albumin is 2.8. Telemetry with ST and PAC's, PVC's and NSVT - restarted on metoprolol today. He thinks that he is feeling better but this AM he is requiring BIPAP and is still tachypneic on BIPAP.......on 10 LPM NC the pulse ox is borderline at 90% and respirations were labored. Did not have a BM after Dulcolax yesterday. He was started on meng-colace by Dr. Hood this AM....he is also on Miralax. No mouth sores or painful swallowing. No chest pain. Objective: Physical Exam General: Alert, Oriented x3, Cooperative, on BIPAP at the time of my exam HEENT: PERRLA, EOMI Oral: No Gingival or Mucosal Lesions/ Ulcerations, Dry Mucosa Neck: No JVD, No Nuchal Rigidity, Trachea Midline Lungs: No rhonchi, No wheeze, Diminished, Rales - coarse crackles in the left base...minimal, he is tachypneic even on the BIPAP today. Cardiovascular: Regular Rhythm, Normal S1, Normal S2, No murmurs, No Gallop, Tachycardic Abdomen: Bowel Sounds Present, Soft, Non Tender, Non-Distended Skin: No rashes, No breakdown Psych/Mental Status: Normal Affect, Appropriate - Physical Exam Vital Signs Temp Pulse Resp BP Pulse Ox 97.6 F L 121 H 41 H 127/66 H 95 08/15/18 10:00 08/15/18 10:33 08/15/18 10:33 08/15/18 10:00 08/15/18 10:33 Oxygen Flow Rate (L/min) 10 Oxygen Delivery Method Bi-pap Weight: 166 lb 0.129 oz Body Mass Index (BMI) 25.7 Intake and Output for Last 24 Hours 08/13/18 08/14/18 08/15/18 23:59 23:59 23:59 Intake Total 2262 / 2262 1557 / 1557 243 / 243 Output Total 1475 / 1475 1025 / 1025 300 / 300 Balance 787 / 787 532 / 532 -57 / -57 Microbiology Past 72 Hours 08/11/18 17:55 Blood Culture - Preliminary Blood Culture (Wb) #2 - Right Hand No growth in 48 hours. 08/11/18 17:45 Blood Culture - Preliminary Blood Culture (Wb) - Anticubital Right No growth in 48 hours. 08/11/18 21:50 Gram Stain - Final Sputum, Expectorated/Coughed Respiratory Culture - Final 08/12/18 11:37 Gram Stain - Final Sputum, Expectorated/Coughed Respiratory Culture - Final 08/12/18 11:37 Respiratory Panel (PCR) - Final Mucosa - Nasopharyngeal Laboratory Tests Past 24 Hrs 08/15/18 08/15/18 08/15/18 04:15 04:15 04:15 WBC 11.0 RBC 3.90 L Hgb 12.3 L Hct 39.0 L MCV 100.0 H MCH 31.5 MCHC 31.5 L RDW 14.2 RDW Differential 51.1 H Plt Count 259 MPV 9.6 Immature Gran % (Auto) 0.400 Neut % (Auto) 93.4 H Lymph % (Auto) 3.3 L [place] % (Auto) 2.9 Eos % (Auto) 0.0 Baso % (Auto) 0.0 Absolute Neuts (auto) 10.3 H Absolute Lymphs (auto) 0.36 L Total Counted Not Reportable Sodium 146 H Potassium 4.7 Chloride 109 H Carbon Dioxide 29.0 Anion Gap 8 BUN 47 H Creatinine 1.44 H Estim Creat Clear Calc 42.08 Est GFR (MDRD) Af Amer 62 Est GFR (MDRD) Non-Af 51 L BUN/Creatinine Ratio 32.6 H Glucose 154 H Calcium 8.7 Phosphorus 2.7 Cancelled Magnesium 2.5 Total Bilirubin 0.30 Direct Bilirubin 0.08 AST 26 ALT 25 Alkaline Phosphatase 65 Total Protein 6.3 L Albumin 2.8 L Globulin 3.5 Medical Necessity - Tobacco Use Smoking Status: Former smoker Tobacco Use: Cigarettes Assessment/Plan All Active Problems (Last Reviewed 08/11/18 @ 19:33 by Carlos Garcia DO) COPD exacerbation (Acute) Pneumococcal pneumonia (Acute) Acute respiratory failure with hypoxia and hypercapnia (Acute) Sepsis (Acute) CATHERINE (acute kidney injury) (Acute) Shortness of breath (Acute) Pseudomonas pneumonia (Resolved) Impressions 1. severe sepsis secondary to CAP with tachycardia and acute on chronic respiratory failure requiring BIPAP 2. Community-acquired pneumonia -sputum culture had mixed normal respiratory karla with 3+ white blood cells 3. Acute combined respiratory failure on chronic respiratory failure with hypoxia 4. Acute exacerbation of COPD 5. Chronic kidney failure stage III 6. Hypertension 7. Chronic diastolic congestive heart failure 8. Constipation 9. Hyperglycemia with no history of diabetes mellitus-likely secondary to high- dose intravenous steroids Continue Zosyn Continue high-dose intravenous Solu-Medrol Still requiring BiPAP and is tachypneic even on BiPAP so will maintain in the ICU today BMP in the a.m. W/U for the cause of the PNA is negative so far and the CXR yesterday is not improved. Will discuss with Dr. Hood whether this could be fungal since he is chronically on inhaled steroids. Consider ID consult if Dr. Hood is in agreement. Code Visit Inpatient E&M: 18791 Subs Hosp L3
--- NOTE | 2018-08-15 14:59 | PCM.HP.ID ---
Problem List (1) Acute respiratory failure with hypoxia and hypercapnia Status: Acute Reason for Consult: resp failure Consulted by: Dr. Johnson History of Present Illness: The patient is a 72 year old M with severe copd, former heavy smoker and heavy drinker, who presented 08/11 with 1-2 weeks of progressive cough, SOB, not feeling well. No fever or chills. Some chest pain. Coughing up brown sputum. No sick contacts. No recent abx. Came to ED, sat was 63%, admitted on azithro/ceftriaxone to icu, did not require intubation. Getting steroids, feeling better. Still with sputum. Changed to zosyn 08/14. Cxs remain negative. Has cats at home, does not change litter basket. 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 No travel outside the country or to the [facility]. Neg PPDs in the past. No h/o recent large soil/dust exposures. No exposures to other animals, livestock, birds, bats. Full ROS Performed and neg except as noted above. - Medical History Past Medical History (Chronic Problems): Chronic Problems (Last Reviewed 08/11/18 @ 19:33 by Carlos Garcia DO) Stage 4 very severe COPD by GOLD classification (Chronic) FEV1 33% Bilateral leg edema (Chronic) COPD (chronic obstructive pulmonary disease) (Chronic) Hypertension (Chronic) Alcohol abuse (Chronic) Tobacco abuse (Chronic) Allergies/Adverse Reactions: Allergies aspirin Adverse Reaction (Verified 08/11/18 17:43) Other Home Medications: Ambulatory Orders Medication Instructions Recorded Albuterol Sulfate [Ventolin Hfa] 2 puff IH 4X/DAY PRN 11/26/17 Amlodipine [Norvasc] 5 mg PO DAILY 11/26/17 Metoprolol(XL)Succ [Toprol Xl 50 mg PO DAILY 11/26/17 (Beta Nichole)] Omeprazole 40 mg PO DAILY 11/26/17 Oxycodone [Oxyir] 10 mg PO Q6H PRN PRN 11/26/17 Tizanidine HCl 2 mg PO BID PRN PRN 11/26/17 Furosemide [Lasix] 40 mg PO DAILY #30 tab 02/08/18 Lisinopril 20 mg PO DAILY #1 tab 02/08/18 fluticasone 100 mcg-umeclid 62.5 1 inh INHALATION QDAY #3 device 04/09/18 mcg-vilant 25 mcg powd for inhalation mometasone-formoterol HFA 200 2 puff INHALATION BID #13 g 05/30/18 mcg-5 mcg/actuation aerosol inhaler tiotropium bromide 2.5 2 puff INHALATION QDAY #1 ea 05/30/18 mcg/actuation mist for inhalation albuterol sulfate 2.5 mg/3 mL 2.5 mg INHALATION Q4H PRN #180 ml 06/01/18 (0.083 %) solution for nebulization - Social History SMOKING STATUS:: Former smoker Alcohol Use: occasionally Vital Signs Temp Pulse Resp BP Pulse Ox 97.8 F 105 H 28 H 121/67 H 93 08/15/18 14:00 08/15/18 14:00 08/15/18 14:00 08/15/18 14:00 08/15/18 14:00 Oxygen Flow Rate (L/min) 8 Oxygen Delivery Method Bi-pap Weight: 75.3 kg Body Mass Index (BMI) 25.7 Microbiology Past 72 Hours 08/11/18 17:55 Blood Culture - Preliminary Blood Culture (Wb) #2 - Right Hand No growth in 48 hours. 08/11/18 17:45 Blood Culture - Preliminary Blood Culture (Wb) - Anticubital Right No growth in 48 hours. 08/11/18 21:50 Gram Stain - Final Sputum, Expectorated/Coughed Respiratory Culture - Final 08/12/18 11:37 Gram Stain - Final Sputum, Expectorated/Coughed Respiratory Culture - Final 08/12/18 11:37 Respiratory Panel (PCR) - Final Mucosa - Nasopharyngeal Laboratory Tests Past 24 Hrs 08/15/18 08/15/18 08/15/18 04:15 04:15 04:15 WBC 11.0 RBC 3.90 L Hgb 12.3 L Hct 39.0 L MCV 100.0 H MCH 31.5 MCHC 31.5 L RDW 14.2 RDW Differential 51.1 H Plt Count 259 MPV 9.6 Immature Gran % (Auto) 0.400 Neut % (Auto) 93.4 H Lymph % (Auto) 3.3 L [place] % (Auto) 2.9 Eos % (Auto) 0.0 Baso % (Auto) 0.0 Absolute Neuts (auto) 10.3 H Absolute Lymphs (auto) 0.36 L Total Counted Not Reportable Sodium 146 H Potassium 4.7 Chloride 109 H Carbon Dioxide 29.0 Anion Gap 8 BUN 47 H Creatinine 1.44 H Estim Creat Clear Calc 42.08 Est GFR (MDRD) Af Amer 62 Est GFR (MDRD) Non-Af 51 L BUN/Creatinine Ratio 32.6 H Glucose 154 H Calcium 8.7 Phosphorus 2.7 Cancelled Magnesium 2.5 Total Bilirubin 0.30 Direct Bilirubin 0.08 AST 26 ALT 25 Alkaline Phosphatase 65 Total Protein 6.3 L Albumin 2.8 L Globulin 3.5 - Other Studies Radiology: [] reviewed cxr images Other Studies: [] Route of nutrition/ use of supplements: [] Nutritional Intake: [] IV Site: [] Mcclure Catheter: [] - Physical Exam General: Alert, Oriented x3, Cooperative, - - ill appearing HEENT: Atraumatic, PERRLA, EOMI Neck: Supple, No Nodes Lungs: Diminished, Rales, Rhonchi, Wheezes Cardiovascular: Tachycardic Abdomen: Soft, Non Tender, Non-Distended Extremities: No edema Skin: No rashes IV Site: Peripheral, without redness Musculoskeletal: No Tenderness to Palpation of Joints or Extremities Neurological: Cranial nerves II-XII grossly intact - Assessment/Plan Antibiotics: [] Assessment/Plan: [] Active and Suspected Problems (Last Reviewed 08/11/18 @ 19:33 by Carlos Garcia DO) COPD exacerbation (Acute) Pneumococcal pneumonia (Acute) Acute respiratory failure with hypoxia and hypercapnia (Acute) Sepsis (Acute) CAP with hypoxic resp failure - resp viral panel neg. Sputum cx, bcx, and UAgs neg. Feeling better since admission. No fever, wbc stable. On zosyn. No clear exposure risk for atypical/fungal infections. Would send fungal sputum cx. Will follow, thank you, d/w Dr. Johnson.
[2018-08-16] VITALS (28 sets, daily range): BP systolic 133–166; BP diastolic 52–117; PULSE 61–119; RESP 12–39; TEMP 36.5–36.8; O2SAT 88–97
[2018-08-16 04:15] LABS: Anion Gap 5 (5-15); BUN 42 mg/dL (7-18); BUN/Creat Ratio 36.2 RATIO (10-20); Calcium,Total 9.2 mg/dL (8.5-10.1); Chloride 109 mmol/L (98-107); Creatinine, Serum 1.16 mg/dL (0.70-1.30); EST Glomerular Filtration Rate 65 mL/min (>60); Est Glom Filt Rate - Afr Amer 79 mL/min (>60); Estimated Creatinine Clearance 52.23 ml/min; Glucose 125 mg/dL (74-106); Potassium 5.4 mmol/L (3.5-5.1); Sodium Level 146 mmol/L (136-145)
[2018-08-16] MEDS: 0.9% NaCl Peripheral Flush Adult/Peds IV ×2 (05:31→12:59)
--- NOTE | 2018-08-16 06:59 | PCM.PN.INT ---
Subjective: The patient was seen and examined at the bedside this morning. Events from the last 24 hours have been reviewed. The patient is currently afebrile, hemodynamically stable and maintaining appropriate oxygen saturations on 8 L/min via nasal cannula. The patient did utilize BiPAP overnight for most of the evening. As noted previously, despite the patient's subjective reports of improvement in his breathing quality, he continues to require a significant amount of supplemental oxygen. The patient was evaluated by infectious disease yesterday who did not voice concern over the possibility of an atypical/fungal infection. Objective: The patient's most recent lab work, culture data and imaging studies have all been personally reviewed. Respiratory viral panel was negative. Strep and urine Legionella antigens were both negative. Blood cultures have shown no growth to date. Sputum culture is currently pending. Plain film chest x-ray revealed diffuse infiltrates throughout the right hemithorax. Surface echocardiogram dated January 2018 revealed evidence of stage I diastolic dysfunction with an ejection fraction of 65%. The RV was noted to be mildly dilated. Right ventricular systolic pressure was estimated to be 59 mmHg. General: Alert, Cooperative, No apparent distress HEENT: Atraumatic, PERRLA, Normocephalic Oral: No Gingival or Mucosal Lesions/ Ulcerations Neck: Supple, No Nodes, Trachea Midline Lungs: No rhonchi, No rales, Diminished, Wheezes Cardiovascular: Regular rate, Regular Rhythm, Normal S1, Normal S2, No murmurs Abdomen: Bowel Sounds Present, Soft, Non Tender Extremities: No cyanosis, No edema, Clubbing Skin: - - No significant change from previous. Musculoskeletal: No Tenderness to Palpation of Joints or Extremities Lymphatic: No Cervical, Supraclavicular, or Inguinal Adenopathy Neurological: Cranial nerves II-XII grossly intact, Neuro grossly intact Psych/Mental Status: Alert and oriented to time, place, person, mood and affect Vital Signs Temp Pulse Resp BP Pulse Ox 36.8 C 77 26 H 159/59 H 96 08/16/18 04:00 08/16/18 06:10 08/16/18 06:10 08/16/18 06:00 08/16/18 06:10 Oxygen Flow Rate (L/min) 8 Oxygen Delivery Method Bi-pap Weight: 164 lb 14.492 oz Body Mass Index (BMI) 25.7 Intake and Output for Last 24 Hours 08/14/18 08/15/1808/16/19 23:59 23:59 23:59 Intake Total 1557 / 1557 1259 / 1259 509 / 509 Output Total 1025 / 1025 1150 / 1150 750 / 750 Balance 532 / 532 109 / 109 -241 / -241 Labs (Last 48 Hours) 08/15/18 08/15/18 08/15/18 04:15 04:15 04:15 WBC 11.0 RBC 3.90 L Hgb 12.3 L Hct 39.0 L MCV 100.0 H MCH 31.5 MCHC 31.5 L RDW 14.2 RDW Differential 51.1 H Plt Count 259 MPV 9.6 Immature Gran % (Auto) 0.400 Neut % (Auto) 93.4 H Lymph % (Auto) 3.3 L [place] % (Auto) 2.9 Eos % (Auto) 0.0 Baso % (Auto) 0.0 Absolute Neuts (auto) 10.3 H Absolute Lymphs (auto) 0.36 L Total Counted Not Reportable Sodium 146 H Potassium 4.7 Chloride 109 H Carbon Dioxide 29.0 Anion Gap 8 BUN 47 H Creatinine 1.44 H Estim Creat Clear Calc 42.08 Est GFR (MDRD) Af Amer 62 Est GFR (MDRD) Non-Af 51 L BUN/Creatinine Ratio 32.6 H Glucose 154 H Calcium 8.7 Phosphorus 2.7 Cancelled Magnesium 2.5 Total Bilirubin 0.30 Direct Bilirubin 0.08 AST 26 ALT 25 Alkaline Phosphatase 65 Total Protein 6.3 L Albumin 2.8 L Globulin 3.5 08/16/18 03:45 WBC RBC Hgb Hct MCV MCH MCHC RDW RDW Differential Plt Count MPV Immature Gran % (Auto) Neut % (Auto) Lymph % (Auto) [place] % (Auto) Eos % (Auto) Baso % (Auto) Absolute Neuts (auto) Absolute Lymphs (auto) Total Counted Sodium 146 H Potassium 5.4 H Chloride 109 H Carbon Dioxide 32.0 Anion Gap 5 BUN 42 H Creatinine 1.16 Estim Creat Clear Calc 52.23 Est GFR (MDRD) Af Amer 79 Est GFR (MDRD) Non-Af 65 BUN/Creatinine Ratio 36.2 H Glucose 125 H Calcium 9.2 Phosphorus Magnesium Total Bilirubin Direct Bilirubin AST ALT Alkaline Phosphatase Total Protein Albumin Globulin Microbiology 08/11/18 17:55 Blood Culture (Wb) #2 - Right Hand Blood Culture - Preliminary No growth in 48 hours. 08/11/18 17:45 Blood Culture (Wb) - Anticubital Right Blood Culture - Preliminary No growth in 48 hours. 08/11/18 21:50 Sputum, Expectorated/Coughed Gram Stain - Final 08/11/18 21:50 Sputum, Expectorated/Coughed Respiratory Culture - Final 08/12/18 11:37 Sputum, Expectorated/Coughed Gram Stain - Final 08/12/18 11:37 Sputum, Expectorated/Coughed Respiratory Culture - Final Clinical Impression(s) from Imaging Studies Chest X-Ray 08/11/18 17:42 IMPRESSION: Multilobar right pulmonary infiltrates worrisome for pneumonia, new. Follow-up recommended. Electronically Signed: Tristin Chopra MD at 17:59 EST , Service support , Chest X-Ray 08/14/18 06:24 IMPRESSION: Since prior study, there has been mild improved aeration at the right lung base. The remainder of the examination is unchanged. Electronically Signed: Irwin Hong MD at 9:23 EST , Service support , Medical Necessity - Tobacco Use Smoking Status: Former smoker Tobacco Use: Cigarettes Assessment/Plan All Active Problems (Last Reviewed 08/11/18 @ 19:33 by Carlos Garcia DO) Community acquired pneumonia (Acute) COPD exacerbation (Acute) Pneumococcal pneumonia (Ruled-out) Acute respiratory failure with hypoxia and hypercapnia (Acute) Sepsis (Acute) CATHERINE (acute kidney injury) (Acute) Shortness of breath (Acute) Pseudomonas pneumonia (Resolved) RECOMMENDATIONS: 1. Continue scheduled bronchodilators, antibiotics and steroids as ordered. 2. Continue supplemental oxygen with a goal to maintain a saturation at or above 88%. 3. Continue BiPAP utilization as needed. 4. Encourage incentive spirometer use and mobilize patient as tolerated. 5. The patient can be transferred to the PCU from my perspective. IMPRESSIONS: 1. Acute on chronic combined respiratory failure secondary to severe community-acquired pneumonia The patient has known end-stage COPD along with a 4 L/min baseline supplemental oxygen requirement. He does have radiographic evidence of severe community-acquired pneumonia with diffuse right-sided infiltrates. He will be continued on scheduled bronchodilators, IV steroids and antibiotics as ordered. Infectious workup has unfortunately been unrevealing to date. Supplemental oxygen will be weaned as tolerated. Continue BiPAP as needed. Given the advanced age of the patient's underlying pulmonary disease, anticipated prolonged recovery period. Additionally, I would recommend repeat chest imaging in approximately 4-6 weeks to document resolution of the patient's infiltrates. 2. End-stage COPD with exacerbation secondary to #1 Continue current supportive measures with bronchodilators, steroids and antibiotics as noted above. 3. Heart failure with preserved ejection fraction/pulmonary hypertension The patient does not appear to be overtly volume overloaded at this time. We will continue to monitor volume status closely. No indication for any additional diuretics at this time. 4. Tobacco dependency currently in remission/hypertension/GERD/chronic pain syndrome Complicates care, management, recovery and prognosis. Continue as needed oxycodone for pain. Physical therapy to continue to work with patient. This note was generated with Beem dictation software. It may contain incorrect words, spelling, and punctuation that were not noted in checking the note before signing. Code Visit Inpatient E&M: 80526 Subs Hosp L2
[2018-08-16] MEDS: Ipratropium/Albuterol Sulfate 3 ML AMPUL.NEB INHALATION ×5 (07:08→22:53)
--- NOTE | 2018-08-16 07:20 | PN_ITS ---
Patient Problems: Active and Suspected Problems (Last Reviewed 08/11/18 @ 19:33 by Carlos Garcia DO) COPD exacerbation (Acute) Acute respiratory failure with hypoxia and hypercapnia (Acute) Sepsis (Acute) Subjective: Day number 6 antibiotics-Zosyn day #3 All events of the past 24 hours of been reviewed. Afebrile since admission. Blood pressures are stable and the systolic blood pressure is mildly elevated. He was restarted on a beta-steven yesterday. Has been on BiPAP for the majority of the night. FiO2 is now been increased to 45% and he is 96% saturated with a respiratory rate of 26-27. Fluid balance since admission is +3321. All lab was personally reviewed. Sodium is stable at 146 but the potassium is increased at 5.4 today. He is not on a potassium supplement. The specimen may be hemolyzed. Creatinine has improved and is 1.16, down from 1.44 on 08/15/2018. He states he is doing better and he now wants to wear the BIPAP all the time at night. He was able to get some rest last night. Denies CP, cough is less. Finally had a BM. Objective: General: Alert, oriented ?3, cooperative, pleasant and appropriate Neck: Supple, trachea midline, no enlarged cervical nodes, no enlarged supraclavicular nodes Lungs: diminished BS's, expiratory wheezing in the R lung only, the left side is CTA, symmetric chest expansion, tachypneic, no conversational dyspnea, no accessory muscle use Heart: Regular rate and rhythm, normal S1, normal S2, no murmur, no gallop, no rub Telemetry: NSR with PAC's PAT, PVC's and short runs NSVT Abdomen: Soft, NT, ND, bowel sounds present Extremities: clubbing, no peripheral edema, no cyanosis - Physical Exam Vital Signs Temp Pulse Resp BP Pulse Ox 98.3 F 77 26 H 159/59 H 96 08/16/18 04:00 08/16/18 06:10 08/16/18 06:10 08/16/18 06:00 08/16/18 06:10 Oxygen Flow Rate (L/min) 8 Oxygen Delivery Method Bi-pap Weight: 164 lb 14.492 oz Body Mass Index (BMI) 25.7 Intake and Output for Last 24 Hours 0208/15/18 08/16/18 23:59 23:59 23:59 Intake Total 1557 / 1557 1259 / 1259 509 / 509 Output Total 1025 / 1025 1150 / 1150 750 / 750 Balance 532 / 532 109 / 109 -241 / -241 Microbiology Past 72 Hours 08/11/18 17:55 Blood Culture - Preliminary Blood Culture (Wb) #2 - Right Hand No growth in 48 hours. 08/11/18 17:45 Blood Culture - Preliminary Blood Culture (Wb) - Anticubital Right No growth in 48 hours. 08/11/18 21:50 Gram Stain - Final Sputum, Expectorated/Coughed Respiratory Culture - Final 08/12/18 11:37 Gram Stain - Final Sputum, Expectorated/Coughed Respiratory Culture - Final Laboratory Tests Past 24 Hrs 08/16/18 03:45 Sodium 146 H Potassium 5.4 H Chloride 109 H Carbon Dioxide 32.0 Anion Gap 5 BUN 42 H Creatinine 1.16 Estim Creat Clear Calc 52.23 Est GFR (MDRD) Af Amer 79 Est GFR (MDRD) Non-Af 65 BUN/Creatinine Ratio 36.2 H Glucose 125 H Calcium 9.2 Medical Necessity - Tobacco Use Smoking Status: Former smoker Tobacco Use: Cigarettes Assessment/Plan All Active Problems (Last Reviewed 08/11/18 @ 19:33 by Carlos Garcia DO) Community acquired pneumonia (Acute) COPD exacerbation (Acute) Pneumococcal pneumonia (Ruled-out) Acute respiratory failure with hypoxia and hypercapnia (Acute) Sepsis (Acute) CATHERINE (acute kidney injury) (Acute) Shortness of breath (Acute) Pseudomonas pneumonia (Resolved) Impressions 1. severe sepsis secondary to CAP with tachycardia and acute on chronic respiratory failure requiring BIPAP 2. Community-acquired pneumonia -sputum culture had mixed normal respiratory karla with 3+ white blood cells 3. Acute combined respiratory failure on chronic respiratory failure with hypoxia 4. Acute exacerbation of COPD 5. Chronic kidney failure stage III 6. Hypertension 7. Chronic diastolic congestive heart failure 8. Constipation 9. Hyperglycemia with no history of diabetes mellitus-likely secondary to high- dose intravenous steroids 10. NSVT and PAT 11. hyperkalemia with improved creat D/W Dr. Hood....pt is stable even though he is still requiring BIPAP......transfer to PCU Increase the Metoprolol to 75 mg daily Continue the high dose steroids and Zosyn Recheck lab in the AM Reinforce the need to wear the BIPAP all night every night and any time he is napping He has severe chronic lung disease and now most of the R lung is involved with PNA......he may require a prolonged admission and I suspect will need SNF at [place] Code Visit Inpatient E&M: 85722 Subs Hosp L3
[2018-08-16] MEDS: Pantoprazole Sodium 40 MG Tablet PO (09:29)
[2018-08-16] MEDS: guaiFENesin 1,200 MG Tablet 1200 MG PO ×2 (09:29→21:24)
[2018-08-16] MEDS: Acetaminophen 325 MG Tablet 650 MG PO ×2 (09:29→18:07)
[2018-08-16] MEDS: Senna/Docusate Sodium 1 Tablet 2 TABLET PO (09:29)
[2018-08-16] MEDS: Polyethylene Glycol 3350 17 GM PACKET PO (09:30)
[2018-08-16] MEDS: Enoxaparin 40 MG/0.4 ML Syringe SC (09:30)
[2018-08-16] MEDS: Metoprolol(XL)Succ 25 MG Tablet 75 MG PO (10:24)
--- NOTE | 2018-08-16 10:55 | PCM.PN.ID ---
Patient Problems: Active and Suspected Problems (Last Reviewed 08/11/18 @ 19:33 by Carlos Garcia DO) COPD exacerbation (Acute) Acute respiratory failure with hypoxia and hypercapnia (Acute) Sepsis (Acute) Subjective: Feeling better, off bipap this AM, no fever, no n/v/d. - Physical Exam General: Alert, Cooperative, No apparent distress Lungs: Diminished, Rhonchi, Wheezes Cardiovascular: Regular rate, Regular Rhythm Abdomen: Soft, Non Tender, Non-Distended Skin: No rashes Vital Signs Temp Pulse Resp BP Pulse Ox 97.7 F L 101 H 28 H 140/83 H 90 08/16/18 08:00 08/16/18 10:24 08/16/18 08:00 08/16/18 10:24 08/16/18 08:00 Oxygen Flow Rate (L/min) 8 Oxygen Delivery Method Nasal Cannula Weight: 74.8 kg Body Mass Index (BMI) 25.7 Intake and Output for Last 24 Hours 08/14/18 08/15/18 08/16/18 23:59 23:59 23:59 Intake Total 1557 / 1557 1259 / 1259 509 / 509 Output Total 1025 / 1025 1150 / 1150 750 / 750 Balance 532 / 532 109 / 109 -241 / -241 Microbiology Past 72 Hours 08/11/18 17:55 Blood Culture - Preliminary Blood Culture (Wb) #2 - Right Hand No growth in 48 hours. 08/11/18 17:45 Blood Culture - Preliminary Blood Culture (Wb) - Anticubital Right No growth in 48 hours. 08/11/18 21:50 Gram Stain - Final Sputum, Expectorated/Coughed Respiratory Culture - Final 08/12/18 11:37 Gram Stain - Final Sputum, Expectorated/Coughed Respiratory Culture - Final Laboratory Tests Past 24 Hrs 08/16/18 03:45 Sodium 146 H Potassium 5.4 H Chloride 109 H Carbon Dioxide 32.0 Anion Gap 5 BUN 42 H Creatinine 1.16 Estim Creat Clear Calc 52.23 Est GFR (MDRD) Af Amer 79 Est GFR (MDRD) Non-Af 65 BUN/Creatinine Ratio 36.2 H Glucose 125 H Calcium 9.2 Medical Necessity - Tobacco Use Smoking Status: Former smoker Tobacco Use: Cigarettes Route of nutrition/ use of supplements: [] Nutritional Intake: [] IV Site: [] Mcclure Catheter: [] - Assessment/Plan Antibiotics: [] Assessment/Plan: [] Active and Suspected Problems (Last Reviewed 08/11/18 @ 19:33 by Carlos Garcia DO) COPD exacerbation (Acute) Pneumococcal pneumonia (Acute) Acute respiratory failure with hypoxia and hypercapnia (Acute) Sepsis (Acute) CAP with hypoxic resp failure - resp viral panel neg. Sputum cx, bcx, and UAgs neg. Feeling better since admission. No fever, wbc stable. On zosyn. No clear exposure risk for atypical/fungal infections. Pending fungal sputum cx. Will follow, d/w Dr. Hood
--- NOTE | 2018-08-16 12:08 | CASEMGMT ---
RN CM Note. Per Dr. Hood, pt will need continued hospitalization for respiratory status and anticipate home with high flow oxygen needed. Pt is presently on 8L NC alternating with Bipap therapy. anticipate may need 6L NC on dc, and per physician, do not anticipate needing Bipap on dc. -Pt uses 4L NC @ home; does not have Bipap @ home and has regular oxygen concentrator. -call to [email or web address] to verify present script is for 4L NC. If high flow concentrator is needed, pt will need to have Oxygen testing on 4L NC showing need for increased oxygen and new script for flow liter required. -Spoke with pt again re: dc planning, activity intolerance and need for activity strengthening. Pt is agreeable to have referral faxed to [place]. Pt will likely need higher flow oxygen on discharge. -Referral to be faxed by SW. Rosanna RussoN RN ACM
--- NOTE | 2018-08-16 12:28 | CASEMGMT ---
Social Work Per Remberto RN CM, pt is agreeable to placement at the [facility] for short term skilled care. JOSE RAMON Tyson made aware and will fax referral. ASH to follow for SNF placement. ALAN Forbes
--- NOTE | 2018-08-16 13:02 | CASEMGMT ---
Per ASH Russo, referral needs sent to [facility] at [place]. Voicemail left for Luci, admissions at [facility]. Referral information faxed to [phone]. Fax confirmation received. Marbella Wiley LPN Clinical Support
[2018-08-16] MEDS: oxyCODONE 5 MG Tablet 10 MG PO (13:46)
[2018-08-17] VITALS (22 sets, daily range): BP systolic 140–157; BP diastolic 58–69; PULSE 61–90; RESP 12–32; TEMP 36.2–36.8; O2SAT 90–96
[2018-08-17] MEDS: Ipratropium/Albuterol Sulfate 3 ML AMPUL.NEB INHALATION ×5 (05:27→19:46)
[2018-08-17 06:40] LABS: Hematocrit 45.7 % (40-54); Hemoglobin 14.6 g/dl (13.0-16.5); Mean Corp Hgb Conc 31.9 g/gl (32-36); Mean Corpuscular Hgb 32.1 pg (27.0-32.0); Mean Corpuscular Volume 100.4 fL (80-94); Mean Platelet Vol. 9.5 fl (6.2-12.0); Platelet Count 277 K/mm3 (150-450); RBC Distribution Width CV 13.9 % (11.6-14.6); RBC Distribution Width SD 50.7 fl (35.1-43.9); Red Blood Count 4.55 M/mm3 (4.6-6.2); White Blood Count 12.4 K/mm3 (4.4-11.0)
[2018-08-17 06:41] LABS: Scan Indicated on CBC? Y/N NO
[2018-08-17 07:10] LABS: Anion Gap 8 (5-15); BUN 39 mg/dL (7-18); BUN/Creat Ratio 39.1 RATIO (10-20); Calcium,Total 9.3 mg/dL (8.5-10.1); Chloride 108 mmol/L (98-107); EST Glomerular Filtration Rate 78 mL/min (>60); Est Glom Filt Rate - Afr Amer 94 mL/min (>60); Estimated Creatinine Clearance 60.59 ml/min; Glucose 109 mg/dL (74-106); Sodium Level 146 mmol/L (136-145)
--- NOTE | 2018-08-17 07:47 | RAD_ITS ---
STUDY: X-RAY CHEST REASON FOR EXAM: Male, 72 years old. SOB, RESP FAILURE, COPD TECHNIQUE: Single AP portable view of the chest. COMPARISON: 08/14/2018. FINDINGS: Normal lung volumes. Stable extensive airspace and interstitial infiltrate throughout the right lung. Mild infiltrate, scarring or atelectasis, lower left lung, also stable. Cannot exclude small right pleural effusion. Normal size heart. Normal mediastinum and audi. Normal visualized pulmonary arteries. Normal visualized aortic arch and descending thoracic aorta. Normal visualized thoracic spine. Normal visualized ribs, clavicles, and shoulders. There is no demonstrated abnormality of the visualized soft tissue structures of the upper abdomen. RAD/Chest 1 View (Portable) IMPRESSION: No significant change. Extensive infiltrates throughout the right lung. Electronically Signed: Yong Guo MD at 18:12 EST , Service support ,
--- NOTE | 2018-08-17 07:47 | PN_ITS ---
Patient Problems: Active and Suspected Problems (Last Reviewed 08/11/18 @ 19:33 by Carlos Garcia DO) COPD exacerbation (Acute) Acute respiratory failure with hypoxia and hypercapnia (Acute) Sepsis (Acute) Subjective: The patient was seen and examined at the bedside this morning. Events from the last 24 hours have been reviewed. The patient is currently afebrile and hemodynamically stable. The patient did report to me that he had a difficult night, stating that he felt more short of breath. Upon entering his room this morning, the patient was on 9 L/min of supplemental oxygen. I personally checked his oxygen saturation and noted to be 92%. I decreased his supplemental oxygen flow rate slowly to 6 L/min. Throughout my interaction with the patient, he remained in the mid 90s from an oxygenation standpoint. The patient still gets extremely short of breath with even minimal amounts of physical exertion. Objective: The patient's most recent lab work, culture data and imaging studies have all been personally reviewed. Respiratory viral panel was negative. Strep and urine Legionella antigens were both negative. Blood cultures have shown no growth to date. Sputum culture is currently pending. Plain film chest x-ray revealed diffuse infiltrates throughout the right hemithorax. Surface echocardiogram dated January 2018 revealed evidence of stage I diastolic dysfunction with an ejection fraction of 65%. The RV was noted to be mildly dilated. Right ventricular systolic pressure was estimated to be 59 mmHg. - Physical Exam General: Alert, Cooperative, - - The patient does appear to be more short of breath than he was yesterday. He does have pursed lip breathing this morning. HEENT: Atraumatic, PERRLA, Normocephalic Oral: No Gingival or Mucosal Lesions/ Ulcerations Neck: Supple, No Nodes, Trachea Midline Lungs: No rhonchi, No wheeze, No rales, Diminished, Tachypneic Cardiovascular: Regular rate, Regular Rhythm, Normal S1, Normal S2, No murmurs Abdomen: Bowel Sounds Present, Soft, Non Tender Extremities: No cyanosis, No edema, Clubbing Skin: No breakdown Musculoskeletal: No Tenderness to Palpation of Joints or Extremities Lymphatic: No Cervical, Supraclavicular, or Inguinal Adenopathy Neurological: Cranial nerves II-XII grossly intact, Neuro grossly intact Psych/Mental Status: Normal Affect, Appropriate Vital Signs Temp Pulse Resp BP Pulse Ox 36.6 C 86 32 H 157/64 H 95 08/17/18 03:00 08/17/18 05:27 08/17/18 05:27 08/17/18 03:00 08/17/18 04:22 Oxygen Flow Rate (L/min) 9 Oxygen Delivery Method Bi-pap Weight: 162 lb 7.691 oz Body Mass Index (BMI) 25.7 Intake and Output for Last 24 Hours 08/15/18 08/16/18 08/17/18 23:59 23:59 23:59 Intake Total 1259 / 1259 1401 / 1401 353 / 353 Output Total 1150 / 1150 1275 / 1275 475 / 475 Balance 109 / 109 126 / 126 -122 / -122 Microbiology Past 72 Hours 08/11/18 17:55 Blood Culture - Preliminary Blood Culture (Wb) #2 - Right Hand No growth in 48 hours. 08/11/18 17:45 Blood Culture - Preliminary Blood Culture (Wb) - Anticubital Right No growth in 48 hours. 08/11/18 21:50 Gram Stain - Final Sputum, Expectorated/Coughed Respiratory Culture - Final 08/12/18 11:37 Gram Stain - Final Sputum, Expectorated/Coughed Respiratory Culture - Final Laboratory Tests Past 24 Hrs 08/17/18 08/17/18 06:00 06:00 WBC 12.4 H RBC 4.55 L Hgb 14.6 Hct 45.7 MCV 100.4 H MCH 32.1 H MCHC 31.9 L RDW 13.9 RDW Differential 50.7 H Plt Count 277 MPV 9.5 Sodium 146 H Potassium 5.0 Chloride 108 H Carbon Dioxide 30.0 Anion Gap 8 BUN 39 H Creatinine 1.00 Estim Creat Clear Calc 60.59 Est GFR (MDRD) Af Amer 94 Est GFR (MDRD) Non-Af 78 BUN/Creatinine Ratio 39.1 H Glucose 109 H Calcium 9.3 Clinical Impression(s) from Imaging Studies Chest X-Ray 08/11/18 17:42 IMPRESSION: Multilobar right pulmonary infiltrates worrisome for pneumonia, new. Follow-up recommended. Electronically Signed: Tristin Chopra MD at 17:59 EST , Service support , Chest X-Ray 08/14/18 06:24 IMPRESSION: Since prior study, there has been mild improved aeration at the right lung base. The remainder of the examination is unchanged. Electronically Signed: Irwin Hong MD at 9:23 EST , Service support , Medical Necessity - Tobacco Use Smoking Status: Former smoker Tobacco Use: Cigarettes Assessment/Plan All Active Problems (Last Reviewed 08/11/18 @ 19:33 by Carlos Garcia DO) Community acquired pneumonia (Acute) COPD exacerbation (Acute) Pneumococcal pneumonia (Ruled-out) Acute respiratory failure with hypoxia and hypercapnia (Acute) Sepsis (Acute) CATHERINE (acute kidney injury) (Acute) Shortness of breath (Acute) Pseudomonas pneumonia (Resolved) RECOMMENDATIONS: 1. Obtain repeat plain film chest x-ray this morning 2. Continue scheduled bronchodilators, antibiotics and steroids as ordered. 3. Continue supplemental oxygen with a goal to maintain a saturation at or above 88%. 4. Continue BiPAP utilization as needed. 5. Encourage incentive spirometer use and mobilize patient as tolerated. IMPRESSIONS: 1. Acute on chronic combined respiratory failure secondary to severe community- acquired pneumonia The patient has known end-stage COPD along with a 4 L/min baseline supplemental oxygen requirement. He does have radiographic evidence of severe community- acquired pneumonia with diffuse right-sided infiltrates. He will be continued on scheduled bronchodilators, IV steroids and antibiotics as ordered. Infectious workup has unfortunately been unrevealing to date. Fungal cultures are currently pending. Supplemental oxygen will be weaned as tolerated. Continue BiPAP as needed. Given the advanced age of the patient's underlying pulmonary disease, anticipated prolonged recovery period. Given the patient's increased report of shortness of breath this morning, will obtain repeat plain film chest x-ray. 2. End-stage COPD with exacerbation secondary to #1 Continue current supportive measures with bronchodilators, steroids and antibiotics as noted above. 3. Heart failure with preserved ejection fraction/pulmonary hypertension The patient does not appear to be overtly volume overloaded at this time. We will continue to monitor volume status closely. No indication for any additional diuretics at this time. 4. Tobacco dependency currently in remission/hypertension/GERD/chronic pain syndrome Complicates care, management, recovery and prognosis. Continue as needed oxycodone for pain. Physical therapy to continue to work with patient. UPDATE: After review of the patient's plain film chest x-ray, I proceeded with obtaining a CT chest, given the patient's overall lack of clinical improvement. That i maging study did reveal significant airspace disease with focal areas of consolidation throughout the right hemithorax along with a moderate-sized pleural effusion. I did discuss the case with Dr. Johnson and advised that perhaps obtaining an ultrasound-guided thoracentesis to facilitate drainage of the patient's right pleural space may aid in his recovery. Orders have been placed accordingly. This note was generated with [employer] dictation software. It may contain incorrect words, spelling, and punctuation that were not noted in checking the note before signing. Code Visit Inpatient E&M: 69535 Subs Hosp L3
[2018-08-17] MEDS: Acetaminophen 325 MG Tablet 650 MG PO ×3 (08:04→22:16)
--- NOTE | 2018-08-17 08:55 | CT_ITS ---
We are attempting to reach JEANNE LERNER DO to discuss findings. An addendum with communication details will be sent when the communication is complete. STUDY: CT CHEST WITH CONTRAST REASON FOR EXAM: Male, 72 years old. Cough. Shortness of breath. RADIATION DOSAGE (If Supplied By Facility): CTDIvol = ( 15.46 ) mGy, DLP = ( 550.99 ) mGycm TECHNIQUE: Transaxial imaging was performed following intravenous administration of Isovue 300 100 IV. Multiplanar coronal and sagittal images were reformatted. Individualized dose optimization techniques were used for this CT. COMPARISON: Chest x-ray. FINDINGS: There is emphysema of the lungs. There are groundglass and airspace opacities of the right upper lobe more than the lower lobe. There is confluent 6.3 cm right upper lobe mass density, series 2 image 45/132. There is moderate right pleural effusion. There is pleural thickening and mass of the upper medial chest. There are calcifications of the coronary arteries. There are calcified mediastinal and right hilar lymph nodes. There are enlarged noncalcified hilar lymph nodes measuring 2.5 cm. There are noncalcified paratracheal lymph nodes and anterior mediastinal lymph nodes measuring 2.5 cm. Normal enhanced pulmonary arteries. There is atherosclerotic calcification of the aortic arch with tortuosity and elongation of the aortic arch and descending thoracic aorta. There is an increased kyphosis of the thoracic spine. There are multi-level degenerative changes of the thoracic spine. There is no demonstrated abnormality of the visualized upper abdomen. CT/Chest WITH Contrast IMPRESSION: Right lung mass and infiltrates. Right pleural based masses and effusion. Mediastinal lymphadenopathy. Old granulomatous disease also noted. There is atherosclerosis. Electronically Signed: Leland Brantley MD at 10:47 EST , Service support ,
[2018-08-17] MEDS: Pantoprazole Sodium 40 MG Tablet PO (09:06)
[2018-08-17] MEDS: Enoxaparin 40 MG/0.4 ML Syringe SC (09:06)
[2018-08-17] MEDS: guaiFENesin 1,200 MG Tablet 1200 MG PO ×2 (09:06→21:03)
[2018-08-17] MEDS: Metoprolol(XL)Succ 25 MG Tablet 75 MG PO (09:07)
[2018-08-17] MEDS: 0.9% NaCl Peripheral Flush Adult/Peds IV ×3 (09:07→21:06)
--- NOTE | 2018-08-17 11:36 | CASEMGMT ---
ASH spoke with Luci from [facility] and they can take patient. She started the pre-cert yesterday. ASH spoke with patient and let him know that [facility] can take him. ASH explained we are waiting on insurance and for him to be medically ready. He thanked ASH and said his will be happy. ASH asked him if he would like SW to call his and he said he would let her know. Plan: [facility] [place] pending patient being medically ready and insurance approval. Guerline YAP MSW
[2018-08-17 11:57] LABS: Prothrombin Time (Protime)PT. 13.1 SECONDS (11.7-14.9)
[2018-08-17 13:11] LABS: AST(SGOT) 34 U/L (15-37); Alanine Aminotransfer ALT/SGPT 31 U/L (16-61); Albumin, Serum 3.1 g/dL (3.2-5.0); Alkaline Phosphatase 64 U/L (45-117); Globulin 3.9 g/dL (2.2-4.2)
[2018-08-17] MEDS: oxyCODONE 5 MG Tablet 10 MG PO (13:15)
--- NOTE | 2018-08-17 13:25 | PCM.PN.ID ---
Patient Problems: Active and Suspected Problems (Last Reviewed 08/11/18 @ 19:33 by Carlos Garcia DO) COPD exacerbation (Acute) Acute respiratory failure with hypoxia and hypercapnia (Acute) Sepsis (Acute) Subjective: Feeling better, still some sputum and SOB, no fever, no n/v/d. - Physical Exam General: Alert, Cooperative, No apparent distress Lungs: Diminished, Rhonchi, Wheezes Cardiovascular: Regular rate, Regular Rhythm Abdomen: Soft, Non Tender, Non-Distended Skin: No rashes Vital Signs Temp Pulse Resp BP Pulse Ox 98.3 F 90 22 H 148/69 H 94 08/17/18 09:00 08/17/18 11:09 08/17/18 11:09 08/17/18 09:07 08/17/18 09:00 Oxygen Flow Rate (L/min) 6 Oxygen Delivery Method Nasal Cannula Weight: 73.7 kg Body Mass Index (BMI) 25.7 Intake and Output for Last 24 Hours 08/15/18 08/16/18 08/17/18 23:59 23:59 23:59 Intake Total 1259 / 1259 1401 / 1401 353 / 353 Output Total 1150 / 1150 1275 / 1275 475 / 475 Balance 109 / 109 126 / 126 -122 / -122 Microbiology Past 72 Hours 08/11/18 17:55 Blood Culture - Final Blood Culture (Wb) #2 - Right Hand No growth in 5 days. 08/11/18 17:45 Blood Culture - Final Blood Culture (Wb) - Anticubital Right No growth in 5 days. Laboratory Tests Past 24 Hrs 08/17/18 08/17/18 08/17/18 06:00 06:00 11:20 WBC 12.4 H RBC 4.55 L Hgb 14.6 Hct 45.7 MCV 100.4 H MCH 32.1 H MCHC 31.9 L RDW 13.9 RDW Differential 50.7 H Plt Count 277 MPV 9.5 PT 13.1 INR 1.0 APTT 32.0 Sodium 146 H Potassium 5.0 Chloride 108 H Carbon Dioxide 30.0 Anion Gap 8 BUN 39 H Creatinine 1.00 Estim Creat Clear Calc 60.59 Est GFR (MDRD) Af Amer 94 Est GFR (MDRD) Non-Af 78 BUN/Creatinine Ratio 39.1 H Glucose 109 H Calcium 9.3 Total Bilirubin Direct Bilirubin AST ALT Alkaline Phosphatase Total Protein Albumin Globulin 08/17/18 12:30 WBC RBC Hgb Hct MCV MCH MCHC RDW RDW Differential Plt Count MPV PT INR APTT Sodium Potassium Chloride Carbon Dioxide Anion Gap BUN Creatinine Estim Creat Clear Calc Est GFR (MDRD) Af Amer Est GFR (MDRD) Non-Af BUN/Creatinine Ratio Glucose Calcium Total Bilirubin 0.40 Direct Bilirubin 0.10 AST 34 ALT 31 Alkaline Phosphatase 64 Total Protein 7.0 Albumin 3.1 L Globulin 3.9 Medical Necessity - Tobacco Use Smoking Status: Former smoker Tobacco Use: Cigarettes Route of nutrition/ use of supplements: [] Nutritional Intake: [] IV Site: [] Mcclure Catheter: [] - Assessment/Plan Antibiotics: [] Assessment/Plan: [] Active and Suspected Problems (Last Reviewed 08/11/18 @ 19:33 by Carlos Garcia DO) COPD exacerbation (Acute) Pneumococcal pneumonia (Acute) Acute respiratory failure with hypoxia and hypercapnia (Acute) Sepsis (Acute) CAP with hypoxic resp failure - resp viral panel neg. Sputum cx, bcx, and UAgs neg. Feeling better since admission. No fever, wbc stable. On zosyn since 08/14. No clear exposure risk for atypical/fungal infections. Pending fungal sputum cx. Plan on 10 day course of abx, stop date 08/21/18. Plan on po abx at discharge. Will follow
--- NOTE | 2018-08-17 19:50 | PN_ITS ---
Patient Problems: Active and Suspected Problems (Last Reviewed 08/11/18 @ 19:33 by Carlos Garcia DO) COPD exacerbation (Acute) Acute respiratory failure with hypoxia and hypercapnia (Acute) Sepsis (Acute) Subjective: All events of the past 24 hours of been reviewed. Afebrile, vital signs stable Has been on and off BIPAP White blood cell count is increasing and is 12.4 today despite no changes in the steroid dose. Tells me that he had a rough time breathing last night and he felt the mask was too tight. He tells me they adjusted the mask and then he was able to get some rest. He has been on and off BiPAP throughout the day. Objective: General: Alert, oriented ?3, cooperative, pleasant and appropriate Neck: Supple, trachea midline, no enlarged cervical nodes, no enlarged supraclavicular nodes Lungs: diminished BS's, expiratory wheezing in the R lung only, the left side is CTA, symmetric chest expansion, tachypneic, no conversational dyspnea, no accessory muscle use Heart: Regular rate and rhythm, normal S1, normal S2, no murmur, no gallop, no rub Telemetry: NSR with PAC's PAT, PVC's and short runs NSVT Abdomen: Soft, NT, ND, bowel sounds present Extremities: clubbing, no peripheral edema, no cyanosis - Physical Exam Vital Signs Temp Pulse Resp BP Pulse Ox 97.2 F L 82 32 H 152/63 H 94 08/17/18 15:59 08/17/18 19:46 08/17/18 19:46 08/17/18 15:59 08/17/18 19:47 Oxygen Flow Rate (L/min) 9 Oxygen Delivery Method Nasal Cannula Weight: 162 lb 7.691 oz Body Mass Index (BMI) 25.7 Intake and Output for Last 24 Hours 08/15/18 08/16/18 08/17/18 23:59 23:59 23:59 Intake Total 1259 / 1259 1401 / 1401 1555 / 1555 Output Total 1150 / 1150 1275 / 1275 1525 / 1525 Balance 109 / 109 126 / 126 30 / 30 Microbiology Past 72 Hours 08/11/18 17:55 Blood Culture - Final Blood Culture (Wb) #2 - Right Hand No growth in 5 days. 08/11/18 17:45 Blood Culture - Final Blood Culture (Wb) - Anticubital Right No growth in 5 days. Laboratory Tests Past 24 Hrs 08/17/18 08/17/18 08/17/18 06:00 06:00 11:20 WBC 12.4 H RBC 4.55 L Hgb 14.6 Hct 45.7 MCV 100.4 H MCH 32.1 H MCHC 31.9 L RDW 13.9 RDW Differential 50.7 H Plt Count 277 MPV 9.5 PT 13.1 INR 1.0 APTT 32.0 Sodium 146 H Potassium 5.0 Chloride 108 H Carbon Dioxide 30.0 Anion Gap 8 BUN 39 H Creatinine 1.00 Estim Creat Clear Calc 60.59 Est GFR (MDRD) Af Amer 94 Est GFR (MDRD) Non-Af 78 BUN/Creatinine Ratio 39.1 H Glucose 109 H Calcium 9.3 Total Bilirubin Direct Bilirubin AST ALT Alkaline Phosphatase Total Protein Albumin Globulin 08/17/18 12:30 WBC RBC Hgb Hct MCV MCH MCHC RDW RDW Differential Plt Count MPV PT INR APTT Sodium Potassium Chloride Carbon Dioxide Anion Gap BUN Creatinine Estim Creat Clear Calc Est GFR (MDRD) Af Amer Est GFR (MDRD) Non-Af BUN/Creatinine Ratio Glucose Calcium Total Bilirubin 0.40 Direct Bilirubin 0.10 AST 34 ALT 31 Alkaline Phosphatase 64 Total Protein 7.0 Albumin 3.1 L Globulin 3.9 Medical Necessity - Tobacco Use Smoking Status: Former smoker Tobacco Use: Cigarettes Assessment/Plan All Active Problems (Last Reviewed 08/11/18 @ 19:33 by Carlos Garcia DO) Community acquired pneumonia (Acute) COPD exacerbation (Acute) Pneumococcal pneumonia (Ruled-out) Acute respiratory failure with hypoxia and hypercapnia (Acute) Sepsis (Acute) CATHERINE (acute kidney injury) (Acute) Shortness of breath (Acute) Pseudomonas pneumonia (Resolved) Impressions 1. severe sepsis secondary to CAP with tachycardia and acute on chronic respiratory failure requiring BIPAP - continues to require BIPAP 2. Community-acquired pneumonia -sputum culture had mixed normal respiratory karla with 3+ white blood cells, resp panel was negative 3. Acute combined respiratory failure on chronic respiratory failure with hypoxia 4. Acute exacerbation of COPD 5. Chronic kidney failure stage III 6. Hypertension 7. Chronic diastolic congestive heart failure 8. Constipation 9. Hyperglycemia with no history of diabetes mellitus-likely secondary to high- dose intravenous steroids 10. NSVT and PAT 11. hyperkalemia with improved creat 12. R pleural effusion Discussed with Dr. Hood Continue scheduled aerosolized bronchodilators, antibiotics and intravenous steroids, BiPAP as needed and always at night, supplemental oxygen to maintain the pulse ox at 88% or above Encourage the patient to get up and move around Code Visit Inpatient E&M: 58153 Subs Hosp L2
[2018-08-18] VITALS (16 sets, daily range): BP systolic 135–171; BP diastolic 47–62; PULSE 64–89; RESP 12–34; TEMP 36.6–36.8; O2SAT 92–96
[2018-08-18] MEDS: 0.9% NaCl Peripheral Flush Adult/Peds IV ×3 (03:11→22:02)
[2018-08-18] MEDS: Ipratropium/Albuterol Sulfate 3 ML AMPUL.NEB INHALATION ×3 (07:08→19:22)
--- NOTE | 2018-08-18 07:19 | PN_ITS ---
Patient Problems: Active and Suspected Problems (Last Reviewed 08/11/18 @ 19:33 by Carlos Garcia DO) COPD exacerbation (Acute) Acute respiratory failure with hypoxia and hypercapnia (Acute) Sepsis (Acute) Subjective: The patient was seen and examined at the bedside this morning. Events from the last 24 hours have been reviewed. The patient is currently afebrile, hemodynamically stable and maintaining appropriate oxygen saturations on 8 L/min via nasal cannula. He is currently eating breakfast and states that he feels better than yesterday. Objective: The patient's most recent lab work, culture data and imaging studies have all been personally reviewed. Respiratory viral panel was negative. Strep and urine Legionella antigens were both negative. Blood cultures have shown no growth to date. Sputum culture is currently pending. Plain film chest x-ray revealed diffuse infiltrates throughout the right hemithorax. Surface echocardiogram dated January 2018 revealed evidence of stage I diastolic dysfunction with an ejection fraction of 65%. The RV was noted to be mildly dilated. Right ventricular systolic pressure was estimated to be [address] chest did reveal significant airspace disease with focal areas of consolidation throughout the right hemithorax along with a moderate sized pleural effusion. Fungal cultures remain pending. - Physical Exam General: Alert, Cooperative HEENT: Atraumatic, PERRLA, Normocephalic Oral: No Gingival or Mucosal Lesions/ Ulcerations Neck: Supple, No Nodes, Trachea Midline Lungs: No rhonchi, No wheeze, No rales, Diminished, Tachypneic Cardiovascular: Regular rate, Regular Rhythm, Normal S1, Normal S2, No murmurs Abdomen: Bowel Sounds Present, Soft, Non Tender Extremities: No cyanosis, No edema, Clubbing Skin: No breakdown Musculoskeletal: No Tenderness to Palpation of Joints or Extremities Lymphatic: No Cervical, Supraclavicular, or Inguinal Adenopathy Neurological: Cranial nerves II-XII grossly intact, Neuro grossly intact Psych/Mental Status: Alert and oriented to time, place, person, mood and affect Vital Signs Temp Pulse Resp BP Pulse Ox 36.8 C 66 20 H 171/62 H 92 08/18/18 03:04 08/18/18 03:34 08/18/18 03:04 08/18/18 03:04 08/18/18 03:04 Oxygen Flow Rate (L/min) 9 Oxygen Delivery Method Nasal Cannula Weight: 160 lb 14.999 oz Body Mass Index (BMI) 25.7 Intake and Output for Last 24 Hours 08/16/18 08/17/18 08/18/18 23:59 23:59 23:59 Intake Total 1401 / 1401 1675 / 1675 355 / 355 Output Total 1275 / 1275 1525 / 1525 300 / 300 Balance 126 / 126 150 / 150 55 / 55 Microbiology Past 72 Hours 08/11/18 17:55 Blood Culture - Final Blood Culture (Wb) #2 - Right Hand No growth in 5 days. 08/11/18 17:45 Blood Culture - Final Blood Culture (Wb) - Anticubital Right No growth in 5 days. Laboratory Tests Past 24 Hrs 08/17/18 08/17/18 11:20 12:30 PT 13.1 INR 1.0 APTT 32.0 Total Bilirubin 0.40 Direct Bilirubin 0.10 AST 34 ALT 31 Alkaline Phosphatase 64 Total Protein 7.0 Albumin 3.1 L Globulin 3.9 Clinical Impression(s) from Imaging Studies Chest X-Ray 08/11/18 17:42 IMPRESSION: Multilobar right pulmonary infiltrates worrisome for pneumonia, new. Follow-up recommended. Electronically Signed: Tristin Chopra MD at 17:59 EST , Service support , Chest X-Ray 08/14/18 06:24 IMPRESSION: Since prior study, there has been mild improved aeration at the right lung base. The remainder of the examination is unchanged. Electronically Signed: Irwin Hong MD at 9:23 EST , Service support , Chest X-Ray 08/17/18 07:47 IMPRESSION: No significant change. Extensive infiltrates throughout the right lung. Electronically Signed: Yong Guo MD at 18:12 EST , Service support , Chest CT 08/17/18 08:55 IMPRESSION: Right lung mass and infiltrates. Right pleural based masses and effusion. Mediastinal lymphadenopathy. Old granulomatous disease also noted. There is atherosclerosis. Electronically Signed: Leland Brantley MD at 10:47 EST , Service support , ADDENDUM: 08/17/18 1100 IMPRESSION: Right lung mass and infiltrates. Right pleural based masses and effusion. Mediastinal lymphadenopathy. Old granulomatous disease also noted. There is atherosclerosis. N.B. : The above information has been verbally conveyed by Leland Brantley MD to LANDEN Parikh RN, on 08/17/2018 10:53:07 (ET). Electronically Signed: Leland Brantley MD at 10:47 EST , Service support , Medical Necessity - Tobacco Use Smoking Status: Former smoker Tobacco Use: Cigarettes Assessment/Plan All Active Problems (Last Reviewed 08/11/18 @ 19:33 by Carlos Garcia DO) Community acquired pneumonia (Acute) COPD exacerbation (Acute) Pneumococcal pneumonia (Ruled-out) Acute respiratory failure with hypoxia and hypercapnia (Acute) Sepsis (Acute) CATHERINE (acute kidney injury) (Acute) Shortness of breath (Acute) Pseudomonas pneumonia (Resolved) RECOMMENDATIONS: 1. Continue scheduled bronchodilators, antibiotics and steroids as ordered. 2. Obtain ultrasound-guided thoracentesis of right-sided pleural effusion. 3. Continue supplemental oxygen with a goal to maintain a saturation at or above 88%. 4. Continue BiPAP utilization as needed. 5. Encourage incentive spirometer use and mobilize patient as tolerated. IMPRESSIONS: 1. Acute on chronic combined respiratory failure secondary to severe community- acquired pneumonia The patient has known end-stage COPD along with a 4 L/min baseline supplemental oxygen requirement. He does have radiographic evidence of severe community- acquired pneumonia with diffuse right-sided infiltrates. He will be continued on scheduled bronchodilators, IV steroids and antibiotics as ordered. Infectious workup has unfortunately been unrevealing to date. Fungal cultures are currently pending. Supplemental oxygen will be weaned as tolerated. Continue BiPAP as needed. Given the advanced age of the patient's underlying pulmonary disease, anticipated prolonged recovery period. CT chest completed on August 17 did reveal significant right-sided airspace disease along with multifocal consolidation and moderate-sized pleural effusion. In order to improve the patient's respiratory status further, I advocated for the patient to obtain an ultrasound-guided thoracentesis. This is tentatively scheduled for Monday. 2. End-stage COPD with exacerbation secondary to #1 Continue current supportive measures with bronchodilators, steroids and antibiotics as noted above. 3. Heart failure with preserved ejection fraction/pulmonary hypertension The patient does not appear to be overtly volume overloaded at this time. We will continue to monitor volume status closely. No indication for any additional diuretics at this time. 4. Tobacco dependency currently in remission/hypertension/GERD/chronic pain syndrome Complicates care, management, recovery and prognosis. Continue as needed oxycodone for pain. Physical therapy to continue to work with patient. This note was generated with [employer] dictation software. It may contain incorrect words, spelling, and punctuation that were not noted in checking the note before signing. Code Visit Inpatient E&M: 91049 Subs Hosp L2
[2018-08-18] MEDS: Acetaminophen 325 MG Tablet 650 MG PO ×2 (08:37→18:39)
[2018-08-18] MEDS: guaiFENesin 1,200 MG Tablet 1200 MG PO ×2 (09:45→21:59)
[2018-08-18] MEDS: Enoxaparin 40 MG/0.4 ML Syringe SC (09:45)
[2018-08-18] MEDS: Metoprolol(XL)Succ 25 MG Tablet 75 MG PO (09:46)
[2018-08-18] MEDS: Pantoprazole Sodium 40 MG Tablet PO (09:46)
--- NOTE | 2018-08-18 10:18 | PCM.PROGNOTE ---
Patient Problems: Active and Suspected Problems (Last Reviewed 08/11/18 @ 19:33 by Carlos Garcia DO) COPD exacerbation (Acute) Acute respiratory failure with hypoxia and hypercapnia (Acute) Sepsis (Acute) Subjective: Day #8 antibiotics-Zosyn day No. 5 All events the past 24 hours been reviewed. Remains afebrile since admission Vital signs are stable. Intermittently on BiPAP and on BiPAP overnight. Pulse ox on BiPAP this morning was 96%. Fluid balance on 08/17/2018 was +150. Urine output. Weight today is 160 pounds and 15 ounces, down from 167 and 5 ounces on 08/14/2018. CT scan of the chest on 08/17/2018 showed moderate right pleural effusion. Radiology was consulted for therapeutic and diagnostic thoracentesis but deferred because he had received subcutaneous Lovenox that morning. It will be rescheduled for Monday. The right upper lobe mass was reported however I discussed this with Dr. Hood and this is more likely confluent infiltrate/consolidation Fungal sputum smear is pending Objective: PHYSICAL EXAM: GENERAL: alert, oriented X 3, Cooperative, NAD ORAL: moist mucosa, no mucosal lesions NECK: No JVD, supple, trachea midline LUNGS: CTA, very diminished, no wheezes, no rhonchi, no rales symmetric chest expansion, tachypneic, no accessory muscle use HEART: RRR, Normal S1 and S2, no rub, no gallop ABDOMEN: soft, NT, ND, BS present, no guarding with palpation EXTREMITIES: no edema, no cyanosis, no calf tenderness, clubbing SKIN: No rashes, no breakdown NEUROLOGIC: no focal neurologic deficits PSYCH: appropriate, normal affect, pleasant - Physical Exam Vital Signs Temp Pulse Resp BP Pulse Ox 98.2 F 83 24 H 135/62 H 96 08/18/18 09:04 08/18/18 09:46 08/18/18 09:04 08/18/18 09:46 08/18/18 09:04 Oxygen Flow Rate (L/min) 9 Oxygen Delivery Method Bi-pap Weight: 160 lb 14.999 oz Body Mass Index (BMI) 25.7 Intake and Output for Last 24 Hours 08/16/18 08/17/18 08/18/18 23:59 23:59 23:59 Intake Total 1401 / 1401 1675 / 1675 355 / 355 Output Total 1275 / 1275 1525 / 1525 300 / 300 Balance 126 / 126 150 / 150 55 / 55 Microbiology Past 72 Hours 08/11/18 17:55 Blood Culture - Final Blood Culture (Wb) #2 - Right Hand No growth in 5 days. 08/11/18 17:45 Blood Culture - Final Blood Culture (Wb) - Anticubital Right No growth in 5 days. Laboratory Tests Past 24 Hrs 08/17/18 08/17/18 11:20 12:30 PT 13.1 INR 1.0 APTT 32.0 Total Bilirubin 0.40 Direct Bilirubin 0.10 AST 34 ALT 31 Alkaline Phosphatase 64 Total Protein 7.0 Albumin 3.1 L Globulin 3.9 Medical Necessity - Tobacco Use Smoking Status: Former smoker Tobacco Use: Cigarettes Assessment/Plan All Active Problems (Last Reviewed 08/11/18 @ 19:33 by Carlos Garcia DO) Community acquired pneumonia (Acute) COPD exacerbation (Acute) Pneumococcal pneumonia (Ruled-out) Acute respiratory failure with hypoxia and hypercapnia (Acute) Sepsis (Acute) CATHERINE (acute kidney injury) (Acute) Shortness of breath (Acute) Pseudomonas pneumonia (Resolved) Impressions 1. severe sepsis secondary to CAP with tachycardia and acute on chronic respiratory failure requiring BIPAP 2. Community-acquired pneumonia -sputum culture had mixed normal respiratory karla with 3+ white blood cells 3. Acute combined respiratory failure on chronic respiratory failure with hypoxia 4. Acute exacerbation of COPD 5. Chronic kidney failure stage III 6. Hypertension 7. Chronic diastolic congestive heart failure 8. Constipation 9. Hyperglycemia with no history of diabetes mellitus-likely secondary to high-dose intravenous steroids 10. NSVT and PAT 11. hyperkalemia with improved creat Hold Lovenox Monday night and resume on Monday for planned diagnostic and therapeutic thoracentesis on Monday Plan discharge to [facility] when medically stable Continue Zosyn Recheck lab in the a.m. Will discuss with Erwin Burch tapering the steroids - OK to transition to prednisone Code Visit Inpatient E&M: 06143 Subs Hosp L2
--- NOTE | 2018-08-18 10:24 | PN_ITS ---
Patient Problems: Active and Suspected Problems (Last Reviewed 08/11/18 @ 19:33 by Carlos Garcia DO) COPD exacerbation (Acute) Acute respiratory failure with hypoxia and hypercapnia (Acute) Sepsis (Acute) Subjective: Day #8 antibiotics-Zosyn day No. 5 All events the past 24 hours been reviewed. Remains afebrile since admission Vital signs are stable. Intermittently on BiPAP and on BiPAP overnight. Pulse ox on BiPAP this morning was 96%. Fluid balance on 08/17/2018 was +150. Urine output. Weight today is 160 pounds and 15 ounces, down from 167 and 5 ounces on 08/14/2018. CT scan of the chest on 08/17/2018 showed moderate right pleural effusion. Radiology was consulted for therapeutic and diagnostic thoracentesis but defe rred because he had received subcutaneous Lovenox that morning. It will be rescheduled for Monday. The right upper lobe mass was reported however I discussed this with Dr. Hood and this is more likely confluent infiltrate/consolidation Fungal sputum smear is pending Objective: PHYSICAL EXAM: GENERAL: alert, oriented X 3, Cooperative, NAD ORAL: moist mucosa, no mucosal lesions NECK: No JVD, supple, trachea midline LUNGS: CTA, very diminished, no wheezes, no rhonchi, no rales symmetric chest expansion, tachypneic, no accessory muscle use HEART: RRR, Normal S1 and S2, no rub, no gallop ABDOMEN: soft, NT, ND, BS present, no guarding with palpation EXTREMITIES: no edema, no cyanosis, no calf tenderness, clubbing SKIN: No rashes, no breakdown NEUROLOGIC: no focal neurologic deficits PSYCH: appropriate, normal affect, pleasant - Physical Exam Vital Signs Temp Pulse Resp BP Pulse Ox 98.2 F 83 24 H 135/62 H 96 08/18/18 09:04 08/18/18 09:46 08/18/18 09:04 08/18/18 09:46 08/18/18 09:04 Oxygen Flow Rate (L/min) 9 Oxygen Delivery Method Bi-pap Weight: 160 lb 14.999 oz Body Mass Index (BMI) 25.7 Intake and Output for Last 24 Hours 08/16/18 08/17/18 08/18/18 23:59 23:59 23:59 Intake Total 1401 / 1401 1675 / 1675 355 / 355 Output Total 1275 / 1275 1525 / 1525 300 / 300 Balance 126 / 126 150 / 150 55 / 55 Microbiology Past 72 Hours 08/11/18 17:55 Blood Culture - Final Blood Culture (Wb) #2 - Right Hand No growth in 5 days. 08/11/18 17:45 Blood Culture - Final Blood Culture (Wb) - Anticubital Right No growth in 5 days. Laboratory Tests Past 24 Hrs 08/17/18 08/17/18 11:20 12:30 PT 13.1 INR 1.0 APTT 32.0 Total Bilirubin 0.40 Direct Bilirubin 0.10 AST 34 ALT 31 Alkaline Phosphatase 64 Total Protein 7.0 Albumin 3.1 L Globulin 3.9 Medical Necessity - Tobacco Use Smoking Status: Former smoker Tobacco Use: Cigarettes Assessment/Plan All Active Problems (Last Reviewed 08/11/18 @ 19:33 by Carlos Garcia DO) Community acquired pneumonia (Acute) COPD exacerbation (Acute) Pneumococcal pneumonia (Ruled-out) Acute respiratory failure with hypoxia and hypercapnia (Acute) Sepsis (Acute) CATHERINE (acute kidney injury) (Acute) Shortness of breath (Acute) Pseudomonas pneumonia (Resolved) Impressions 1. severe sepsis secondary to CAP with tachycardia and acute on chronic respiratory failure requiring BIPAP 2. Community-acquired pneumonia -sputum culture had mixed normal respiratory karla with 3+ white blood cells 3. Acute combined respiratory failure on chronic respiratory failure with hypoxia 4. Acute exacerbation of COPD 5. Chronic kidney failure stage III 6. Hypertension 7. Chronic diastolic congestive heart failure 8. Constipation 9. Hyperglycemia with no history of diabetes mellitus-likely secondary to high- dose intravenous steroids 10. NSVT and PAT 11. hyperkalemia with improved creat Hold Lovenox Monday night and resume on Monday for planned diagnostic and therapeutic thoracentesis on Monday Plan discharge to [facility] when medically stable Continue Zosyn Recheck lab in the a.m. Will discuss with Erwin Burch tapering the steroids - OK to transition to prednisone Code Visit Inpatient E&M: [id number] Subs Hosp L2
[2018-08-19] VITALS (20 sets, daily range): BP systolic 139–157; BP diastolic 55–68; PULSE 58–96; RESP 12–35; TEMP 36.5–36.8; O2SAT 92–96
[2018-08-19 05:29] LABS: Hematocrit 48.2 % (40-54); Hemoglobin 15.4 g/dl (13.0-16.5); Mean Corpuscular Hgb 32.3 pg (27.0-32.0); Mean Platelet Vol. 9.6 fl (6.2-12.0); Platelet Count 271 K/mm3 (150-450); RBC Distribution Width CV 13.8 % (11.6-14.6); RBC Distribution Width SD 50.9 fl (35.1-43.9); Red Blood Count 4.77 M/mm3 (4.6-6.2); White Blood Count 15.8 K/mm3 (4.4-11.0)
[2018-08-19 05:34] LABS: Scan Indicated on CBC? Y/N NO
[2018-08-19 05:42] LABS: Anion Gap 5 (5-15); BUN 43 mg/dL (7-18); BUN/Creat Ratio 42.6 RATIO (10-20); Calcium,Total 8.8 mg/dL (8.5-10.1); Chloride 106 mmol/L (98-107); Creatinine, Serum 1.01 mg/dL (0.70-1.30); EST Glomerular Filtration Rate 77 mL/min (>60); Est Glom Filt Rate - Afr Amer 93 mL/min (>60); Estimated Creatinine Clearance 59.99 ml/min; Glucose 113 mg/dL (74-106); Magnesium 3.1 mg/dL (1.6-2.6); Phosphorus 4.2 mg/dL (2.5-4.9); Potassium 5.2 mmol/L (3.5-5.1); Sodium Level 146 mmol/L (136-145)
[2018-08-19] MEDS: Ipratropium/Albuterol Sulfate 3 ML AMPUL.NEB INHALATION ×3 (06:49→14:56)
[2018-08-19] MEDS: Acetaminophen 325 MG Tablet 650 MG PO ×3 (08:32→22:02)
[2018-08-19] MEDS: Enoxaparin 40 MG/0.4 ML Syringe SC (10:11)
[2018-08-19] MEDS: guaiFENesin 1,200 MG Tablet 1200 MG PO ×2 (10:11→21:59)
[2018-08-19] MEDS: Pantoprazole Sodium 40 MG Tablet PO (10:12)
[2018-08-19] MEDS: Metoprolol(XL)Succ 25 MG Tablet 75 MG PO (10:12)
--- NOTE | 2018-08-19 11:17 | PCM.PROGNOTE ---
Patient Problems: Active and Suspected Problems (Last Reviewed 08/11/18 @ 19:33 by Carlos Garcia DO) COPD exacerbation (Acute) Acute respiratory failure with hypoxia and hypercapnia (Acute) Sepsis (Acute) Subjective: The patient was seen and examined at the bedside this morning. Events from the last 24 hours have been reviewed. The patient is currently afebrile, hemodynamically stable and maintaining appropriate oxygen saturations on 9 L/min via nasal cannula. The patient is awaiting ultrasound-guided thoracentesis tomorrow. His respiratory status is largely unchanged. Objective: The patient's most recent lab work, culture data and imaging studies have all been personally reviewed. Respiratory viral panel was negative. Strep and urine Legionella antigens were both negative. Blood cultures have shown no growth to date. Sputum culture is currently pending. Plain film chest x-ray revealed diffuse infiltrates throughout the right hemithorax. Surface echocardiogram dated January 2018 revealed evidence of stage I diastolic dysfunction with an ejection fraction of 65%. The RV was noted to be mildly dilated. Right ventricular systolic pressure was estimated to be [address] chest did reveal significant airspace disease with focal areas of consolidation throughout the right hemithorax along with a moderate sized pleural effusion. Fungal cultures remain pending. - Physical Exam General: Alert, Cooperative HEENT: Atraumatic, PERRLA, Normocephalic Oral: Dry Mucosa Neck: Supple, No Nodes, Trachea Midline Lungs: No rhonchi, No wheeze, No rales, Diminished, Tachypneic Cardiovascular: Regular rate, Regular Rhythm, Normal S1, Normal S2, No murmurs Abdomen: Bowel Sounds Present, Soft, Non Tender Extremities: No cyanosis, No edema, Clubbing Skin: No breakdown Musculoskeletal: No Tenderness to Palpation of Joints or Extremities Lymphatic: No Cervical, Supraclavicular, or Inguinal Adenopathy Neurological: Neuro grossly intact Psych/Mental Status: Normal Affect, Appropriate Vital Signs Temp Pulse Resp BP Pulse Ox 36.6 C 81 22 H 139/60 H 95 08/19/18 10:19 08/19/18 10:35 08/19/18 10:08/19/18 10:08/19/18 10: Oxygen Flow Rate (L/min) 10 Oxygen Delivery Method Bi-pap Weight: 159 lb 6.307 oz Body Mass Index (BMI) 25.7 Intake and Output for Last 24 Hours 08/17/18 08/18/18 08/19/18 23:59 23:59 23:59 Intake Total 1675 / 1675 1350 / 1350 451 / 451 Output Total 1525 / 1525 550 / 550 Balance 150 / 150 800 / 800 451 / 451 Microbiology Past 72 Hours 08/11/18 17:55 Blood Culture - Final Blood Culture (Wb) #2 - Right Hand No growth in 5 days. 08/11/18 17:45 Blood Culture - Final Blood Culture (Wb) - Anticubital Right No growth in 5 days. Laboratory Tests Past 24 Hrs 08/19/18 08/19/18 04:54 04:54 WBC 15.8 H RBC 4.77 Hgb 15.4 Hct 48.2 MCV 101.0 H MCH 32.3 H MCHC 32.0 RDW 13.8 RDW Differential 50.9 H Plt Count 271 MPV 9.6 Sodium 146 H Potassium 5.2 H Chloride 106 Carbon Dioxide 35.0 H Anion Gap 5 BUN 43 H Creatinine 1.01 Estim Creat Clear Calc 59.99 Est GFR (MDRD) Af Amer 93 Est GFR (MDRD) Non-Af 77 BUN/Creatinine Ratio 42.6 H Glucose 113 H Calcium 8.8 Phosphorus 4.2 Magnesium 3.1 H Clinical Impression(s) from Imaging Studies Chest X-Ray 08/11/18 17:42 IMPRESSION: Multilobar right pulmonary infiltrates worrisome for pneumonia, new. Follow-up recommended. Electronically Signed: Tristin Chopra MD at 17:59 EST , Service support , Chest X-Ray 08/14/18 06:24 IMPRESSION: Since prior study, there has been mild improved aeration at the right lung base. The remainder of the examination is unchanged. Electronically Signed: Irwin Hong MD at 9:23 EST , Service support , Chest X-Ray 08/17/18 07:47 IMPRESSION: No significant change. Extensive infiltrates throughout the right lung. Electronically Signed: Yong Guo MD at 18:12 EST , Service support , Chest CT 08/17/18 08:55 IMPRESSION: Right lung mass and infiltrates. Right pleural based masses and effusion. Mediastinal lymphadenopathy. Old granulomatous disease also noted. There is atherosclerosis. Electronically Signed: Leland Brantley MD at 10:47 EST , Service support , ADDENDUM: 08/17/18 1100 IMPRESSION: Right lung mass and infiltrates. Right pleural based masses and effusion. Mediastinal lymphadenopathy. Old granulomatous disease also noted. There is atherosclerosis. N.B. : The above information has been verbally conveyed by Leland Brantley MD to LANDEN Parikh RN, on 08/17/2018 10:53:07 (ET). Electronically Signed: Leland Brantley MD at 10:47 EST , Service support , Medical Necessity - Tobacco Use Smoking Status: Former smoker Tobacco Use: Cigarettes Assessment/Plan All Active Problems (Last Reviewed 08/11/18 @ 19:33 by Carlos Garcia DO) Community acquired pneumonia (Acute) COPD exacerbation (Acute) Pneumococcal pneumonia (Ruled-out) Acute respiratory failure with hypoxia and hypercapnia (Acute) Sepsis (Acute) CATHERINE (acute kidney injury) (Acute) Shortness of breath (Acute) Pseudomonas pneumonia (Resolved) RECOMMENDATIONS: 1. Continue scheduled bronchodilators, antibiotics and steroids as ordered. 2. Obtain ultrasound-guided thoracentesis of right-sided pleural effusion. 3. Continue supplemental oxygen with a goal to maintain a saturation at or above 88%. 4. Continue BiPAP utilization as needed. 5. Encourage incentive spirometer use and mobilize patient as tolerated. IMPRESSIONS: 1. Acute on chronic combined respiratory failure secondary to severe community-acquired pneumonia The patient has known end-stage COPD along with a 4 L/min baseline supplemental oxygen requirement. He does have radiographic evidence of severe community-acquired pneumonia with diffuse right-sided infiltrates. He will be continued on scheduled bronchodilators, IV steroids and antibiotics as ordered. Infectious workup has unfortunately been unrevealing to date. Fungal cultures are currently pending. Supplemental oxygen will be weaned as tolerated. Continue BiPAP as needed. Given the advanced age of the patient's underlying pulmonary disease, anticipated prolonged recovery period. CT chest completed on August 17 did reveal significant right-sided airspace disease along with multifocal consolidation and moderate-sized pleural effusion. In order to improve the patient's respiratory status further, I advocated for the patient to obtain an ultrasound-guided thoracentesis. This is tentatively scheduled for Monday. 2. End-stage COPD with exacerbation secondary to #1 Continue current supportive measures with bronchodilators, steroids and antibiotics as noted above. 3. Heart failure with preserved ejection fraction/pulmonary hypertension The patient does not appear to be overtly volume overloaded at this time. We will continue to monitor volume status closely. No indication for any additional diuretics at this time. 4. Tobacco dependency currently in remission/hypertension/GERD/chronic pain syndrome Complicates care, management, recovery and prognosis. Continue as needed oxycodone for pain. Physical therapy to continue to work with patient. This note was generated with [employer] dictation software. It may contain incorrect words, spelling, and punctuation that were not noted in checking the note before signing. Code Visit Inpatient E&M: [id number] Subs Hosp L2
--- NOTE | 2018-08-19 11:20 | PN_ITS ---
Patient Problems: Active and Suspected Problems (Last Reviewed 08/11/18 @ 19:33 by Carlos Garcia DO) COPD exacerbation (Acute) Acute respiratory failure with hypoxia and hypercapnia (Acute) Sepsis (Acute) Subjective: The patient was seen and examined at the bedside this morning. Events from the last 24 hours have been reviewed. The patient is currently afebrile, hemodynamically stable and maintaining appropriate oxygen saturations on 9 L/min via nasal cannula. The patient is awaiting ultrasound-guided thoracentesis tomorrow. His respiratory status is largely unchanged. Objective: The patient's most recent lab work, culture data and imaging studies have all been personally reviewed. Respiratory viral panel was negative. Strep and urine Legionella antigens were both negative. Blood cultures have shown no growth to date. Sputum culture is currently pending. Plain film chest x-ray revealed diffuse infiltrates throughout the right hemithorax. Surface echocardiogram dated January 2018 revealed evidence of stage I diastolic dysfunction with an ejection fraction of 65%. The RV was noted to be mildly dilated. Right ventricular systolic pressure was estimated to be [address] chest did reveal significant airspace disease with focal areas of consolidation throughout the right hemithorax along with a moderate sized pleural effusion. Fungal cultures remain pending. - Physical Exam General: Alert, Cooperative HEENT: Atraumatic, PERRLA, Normocephalic Oral: Dry Mucosa Neck: Supple, No Nodes, Trachea Midline Lungs: No rhonchi, No wheeze, No rales, Diminished, Tachypneic Cardiovascular: Regular rate, Regular Rhythm, Normal S1, Normal S2, No murmurs Abdomen: Bowel Sounds Present, Soft, Non Tender Extremities: No cyanosis, No edema, Clubbing Skin: No breakdown Musculoskeletal: No Tenderness to Palpation of Joints or Extremities Lymphatic: No Cervical, Supraclavicular, or Inguinal Adenopathy Neurological: Neuro grossly intact Psych/Mental Status: Normal Affect, Appropriate Vital Signs Temp Pulse Resp BP Pulse Ox 36.6 C 81 22 H 139/60 H 95 08/19/18 10:19 08/19/18 10:35 08/19/18 10:08/19/18 10:08/19/18 10: Oxygen Flow Rate (L/min) 10 Oxygen Delivery Method Bi-pap Weight: 159 lb 6.307 oz Body Mass Index (BMI) 25.7 Intake and Output for Last 24 Hours 08/17/18 08/18/18 08/19/18 23:59 23:59 23:59 Intake Total 1675 / 1675 1350 / 1350 451 / 451 Output Total 1525 / 1525 550 / 550 Balance 150 / 150 800 / 800 451 / 451 Microbiology Past 72 Hours 08/11/18 17:55 Blood Culture - Final Blood Culture (Wb) #2 - Right Hand No growth in 5 days. 08/11/18 17:45 Blood Culture - Final Blood Culture (Wb) - Anticubital Right No growth in 5 days. Laboratory Tests Past 24 Hrs 08/19/18 08/19/18 04:54 04:54 WBC 15.8 H RBC 4.77 Hgb 15.4 Hct 48.2 MCV 101.0 H MCH 32.3 H MCHC 32.0 RDW 13.8 RDW Differential 50.9 H Plt Count 271 MPV 9.6 Sodium 146 H Potassium 5.2 H Chloride 106 Carbon Dioxide 35.0 H Anion Gap 5 BUN 43 H Creatinine 1.01 Estim Creat Clear Calc 59.99 Est GFR (MDRD) Af Amer 93 Est GFR (MDRD) Non-Af 77 BUN/Creatinine Ratio 42.6 H Glucose 113 H Calcium 8.8 Phosphorus 4.2 Magnesium 3.1 H Clinical Impression(s) from Imaging Studies Chest X-Ray 08/11/18 17:42 IMPRESSION: Multilobar right pulmonary infiltrates worrisome for pneumonia, new. Follow-up recommended. Electronically Signed: rTistin Chopra MD at 17:59 EST , Service support , Chest X-Ray 08/14/18 06:24 IMPRESSION: Since prior study, there has been mild improved aeration at the right lung base. The remainder of the examination is unchanged. Electronically Signed: Irwin Hong MD at 9:23 EST , Service support , Chest X-Ray 08/17/18 07:47 IMPRESSION: No significant change. Extensive infiltrates throughout the right lung. Electronically Signed: Yong Guo MD at 18:12 EST , Service support , Chest CT 08/17/18 08:55 IMPRESSION: Right lung mass and infiltrates. Right pleural based masses and effusion. Mediastinal lymphadenopathy. Old granulomatous disease also noted. There is atherosclerosis. Electronically Signed: Leland Brantley MD at 10:47 EST , Service support , ADDENDUM: 08/17/18 1100 IMPRESSION: Right lung mass and infiltrates. Right pleural based masses and effusion. Mediastinal lymphadenopathy. Old granulomatous disease also noted. There is atherosclerosis. N.B. : The above information has been verbally conveyed by Leland Brantley MD to LANDEN Parikh RN, on 08/17/2018 10:53:07 (ET). Electronically Signed: Leland Brantley MD at 10:47 EST , Service support , Medical Necessity - Tobacco Use Smoking Status: Former smoker Tobacco Use: Cigarettes Assessment/Plan All Active Problems (Last Reviewed 08/11/18 @ 19:33 by Carlos Garcia DO) Community acquired pneumonia (Acute) COPD exacerbation (Acute) Pneumococcal pneumonia (Ruled-out) Acute respiratory failure with hypoxia and hypercapnia (Acute) Sepsis (Acute) CATHERINE (acute kidney injury) (Acute) Shortness of breath (Acute) Pseudomonas pneumonia (Resolved) RECOMMENDATIONS: 1. Continue scheduled bronchodilators, antibiotics and steroids as ordered. 2. Obtain ultrasound-guided thoracentesis of right-sided pleural effusion. 3. Continue supplemental oxygen with a goal to maintain a saturation at or above 88%. 4. Continue BiPAP utilization as needed. 5. Encourage incentive spirometer use and mobilize patient as tolerated. IMPRESSIONS: 1. Acute on chronic combined respiratory failure secondary to severe community- acquired pneumonia The patient has known end-stage COPD along with a 4 L/min baseline supplemental oxygen requirement. He does have radiographic evidence of severe community- acquired pneumonia with diffuse right-sided infiltrates. He will be continued on scheduled bronchodilators, IV steroids and antibiotics as ordered. Infectious workup has unfortunately been unrevealing to date. Fungal cultures are currently pending. Supplemental oxygen will be weaned as tolerated. Continue BiPAP as needed. Given the advanced age of the patient's underlying pulmonary disease, anticipated prolonged recovery period. CT chest completed on August 17 did reveal significant right-sided airspace disease along with multifocal consolidation and moderate-sized pleural effusion. In order to improve the patient's respiratory status further, I advocated for the patient to obtain an ultrasound-guided thoracentesis. This is tentatively scheduled for Monday. 2. End-stage COPD with exacerbation secondary to #1 Continue current supportive measures with bronchodilators, steroids and antibiotics as noted above. 3. Heart failure with preserved ejection fraction/pulmonary hypertension The patient does not appear to be overtly volume overloaded at this time. We will continue to monitor volume status closely. No indication for any additional diuretics at this time. 4. Tobacco dependency currently in remission/hypertension/GERD/chronic pain syndrome Complicates care, management, recovery and prognosis. Continue as needed oxycodone for pain. Physical therapy to continue to work with patient. This note was generated with [employer] dictation software. It may contain incorrect words, spelling, and punctuation that were not noted in checking the note before signing. Code Visit Inpatient E&M: 89677 Subs Hosp L2
--- NOTE | 2018-08-19 16:32 | PN_ITS ---
Patient Problems: Active and Suspected Problems (Last Reviewed 08/11/18 @ 19:33 by Carlos Garcia DO) COPD exacerbation (Acute) Acute respiratory failure with hypoxia and hypercapnia (Acute) Sepsis (Acute) Subjective: Mr. Mccollum is a 72-year-old male with a past medical history of chronic respiratory failure with hypoxemia on 3-4 L of oxygen chronically, COPD, hypertension, alcohol abuse, nicotine dependence, chronic renal failure stage III and chronic diastolic congestive heart failure presented to the emergency room at [facility] on 08/11/2018 complaining of shortness of breath and cough productive of brown sputum. Chest x-ray showed multilobar pneumonia in the right lung and he was admitted to the hospital with a diagnosis of community-acquired pneumonia and acute on chronic respiratory failure. Respiratory panel was negative. Streptococcal and Legionella antigens in the urine were negative. Blood cultures were negative. Sputum grew normal respiratory karla. Sputum fungal culture is pending. He was transitioned to prednisone on 08/18/2018. Day #9 antibiotics, Zosyn day #6 Afebrile since admission. Vital signs are stable. He is 92% on BiPAP today with a respiratory rate of 20. He wear the BIPAP at night and also during the day when he gets tired and SOB. White blood cell count is 15.8....this is up from 08/18 despite transitioning to Prednisone. Hemoglobin is stable at 15.4 and platelets are normal. Sodium is stable at 146 and the potassium is 5.2 today. Serum bicarb is elevated at 35. BUN is 43 with a creatinine of 1.01. Phosphorus is normal and the magnesium is 3.1. Tells me today that his breathing is a little rough.....he usually tells me it is better. Denies chest pain, denies dysuria. I obtained a PA and LAT CXR and the PNA in the R lung is less consolidated......there is still a R pleural effusion....he is going to have a diagnostic and therapeutic thoracentesis in the AM Objective: General: Alert, oriented ?3, cooperative, pleasant and appropriate Neck: Supple, trachea midline, no enlarged cervical nodes, no enlarged supr aclavicular nodes Lungs: Very diminished, symmetric chest expansion, tachypneic, no conversational dyspnea, no accessory muscle use, scattered mild expiratory wheezes Heart: Regular rate and rhythm, normal S1, normal S2, no murmur, no gallop, no rub Abdomen: Soft, NT, ND, bowel sounds present Extremities: No clubbing, no peripheral edema, no cyanosis - Physical Exam Vital Signs Temp Pulse Resp BP Pulse Ox 97.8 F 84 28 H 154/64 H 92 08/19/18 12:40 08/19/18 15:22 08/19/18 15:22 08/19/18 12:40 08/19/18 12:40 Oxygen Flow Rate (L/min) 10 Oxygen Delivery Method Bi-pap Weight: 159 lb 6.307 oz Body Mass Index (BMI) 25.7 Intake and Output for Last 24 Hours 08/17/18 08/18/18 08/19/18 23:59 23:59 23:59 Intake Total 1675 / 1675 1350 / 1350 451 / 451 Output Total 1525 / 1525 550 / 550 Balance 150 / 150 800 / 800 451 / 451 Microbiology Past 72 Hours 08/11/18 17:55 Blood Culture - Final Blood Culture (Wb) #2 - Right Hand No growth in 5 days. 08/11/18 17:45 Blood Culture - Final Blood Culture (Wb) - Anticubital Right No growth in 5 days. Laboratory Tests Past 24 Hrs 08/19/18 08/19/18 04:54 04:54 WBC 15.8 H RBC 4.77 Hgb 15.4 Hct 48.2 MCV 101.0 H MCH 32.3 H MCHC 32.0 RDW 13.8 RDW Differential 50.9 H Plt Count 271 MPV 9.6 Sodium 146 H Potassium 5.2 H Chloride 106 Carbon Dioxide 35.0 H Anion Gap 5 BUN 43 H Creatinine 1.01 Estim Creat Clear Calc 59.99 Est GFR (MDRD) Af Amer 93 Est GFR (MDRD) Non-Af 77 BUN/Creatinine Ratio 42.6 H Glucose 113 H Calcium 8.8 Phosphorus 4.2 Magnesium 3.1 H Medical Necessity - Tobacco Use Smoking Status: Former smoker Tobacco Use: Cigarettes Assessment/Plan All Active Problems (Last Reviewed 08/11/18 @ 19:33 by Carlos Garcia DO) Community acquired pneumonia (Acute) COPD exacerbation (Acute) Pneumococcal pneumonia (Ruled-out) Acute respiratory failure with hypoxia and hypercapnia (Acute) Sepsis (Acute) CATHERINE (acute kidney injury) (Acute) Shortness of breath (Acute) Pseudomonas pneumonia (Resolved) Impressions 1. severe sepsis secondary to CAP with tachycardia and acute on chronic respiratory failure requiring BIPAP - continues to require BIPAP 2. Community-acquired pneumonia -sputum culture had mixed normal respiratory karla with 3+ white blood cells, resp panel was negative 3. Acute combined respiratory failure on chronic respiratory failure with hypoxia 4. Acute exacerbation of COPD 5. Chronic kidney failure stage III 6. Hypertension 7. Chronic diastolic congestive heart failure 8. Constipation 9. Hyperglycemia with no history of diabetes mellitus-likely secondary to high- dose intravenous steroids 10. NSVT and PAT 11. hyperkalemia with improved creat 12. R pleural effusion ABG now UA with urine culture PA and LAT CXR now. Sputum for GM stain, C&S 20 mg Lasix X 1 In light of the increased WBC and the increasing serum bicarb I am concerned that he may be developing an Empyema. Orders for the pleural fluid testing have been entered. Code Visit Inpatient E&M: 80189 Subs Hosp L3
--- NOTE | 2018-08-19 16:47 | RAD_ITS ---
STUDY: X-RAY CHEST REASON FOR EXAM: Male, 72 years old. Short of breath TECHNIQUE: PA and lateral COMPARISON: None. FINDINGS: There is right perihilar interstitial infiltrate or pulmonary edema and mild interstitial thickening in left lower lobe. There is a small right pleural effusion and tiny effusion on the left. Normal size heart. Normal mediastinum and audi. Normal visualized pulmonary arteries. Normal visualized aortic arch and descending thoracic aorta. Dorsal spine demonstrates spondylosis... Normal visualized ribs, clavicles, and shoulders. There is no demonstrated abnormality of the visualized soft tissue structures of the upper abdomen. There has been very slight increased interstitial thickening in left lower lobe since prior exam RAD/Chest PA and Lateral IMPRESSION: Persistent extensive interstitial infiltrate in the right lung and increasing infiltrate in left lower lobe with bilateral effusions Electronically Signed: Arnulfo Marcelino MD at 18:49 EST , Service support ,
[2018-08-19 19:38] LABS: Bacteria 0 SEEN /hpf (None Seen); Mucous, Urine 0 SEEN /hpf (<or=2+); Red Blood Cells-Urine 0 SEEN /hpf (0-5); Squamous Epithelial Cells - UA 0 SEEN /hpf (0-5)
[2018-08-19 19:49] LABS: Color, Urine Yellow (Yellow); Glucose, Dipstick Normal (Normal); Ketone-Dipstick Negative (Negative); Leukocyte Esterase-Dipstick Negative /ul (Negative); Nitrite-Dipstick Negative (Negative); Occult Blood-Urine Negative /ul (Negative); Protein-Dipstick 30 mg/dl (Negative); Urine Bilirubin Dipstick Negative (Negative); Urine Clarity Sl. Cloudy (Clear); Urine Urobilinogen Normal (Normal)
[2018-08-19 20:06] LABS: Hyaline Cast 0-5 SEEN /lpf (0-5); Uric Acid Crystals Ur 1+ /hpf (<or=1+)
[2018-08-19 20:09] LABS: White Blood Cells 0 SEEN /hpf (0-5)
[2018-08-19 22:06] LABS: Allen Test POS; Base Excess 11 mmol/L (-2 to +2); Bicarbonate 36.4 mmol/L (22-26); Blood Gas Specimen Type ART; EPAP 5; FI02 45; IPAP 10; PO2 60 mmHG (75-100); RR 35; SITE R Radial; SO2 89 % (95-99); Total Carbon Dioxide 38 mmol/L; pCO2 62.5 mmHg (35-45); pH 7.37 (7.35-7.45)
[2018-08-19] MEDS: Furosemide 20 MG/2 ML VIAL IV (22:40)
[2018-08-20] VITALS (24 sets, daily range): BP systolic 107–153; BP diastolic 54–82; PULSE 60–94; RESP 12–40; TEMP 36.3–36.8; O2SAT 90–96
--- NOTE | 2018-08-20 | FLU_PTH ---
PATIENT: ERIBERTO MITCHELL LOC: [facility] U#:[id number] AGE/SX: 72/M ROOM: [facility] RE08/11/[address]: Dr. Joce Martínez DO : 1945 BED: 1 DIS: 08/22/2018 SPEC #: [id number] RECD: 08/20/18 12:45 STATUS: GHASSAN REQ #: [id number] ALYSIA: 08/20/18 00:[address]: Joce Martínez DEPT: CYTOLOGY RECD BY: Vinod Rose ENTERED: 08/20/18 12:46 SP TYPE: Fluid OTHR DR: MD Dr. Mignon Argueta MD Dr. Eric Jopperi, DO Dr. 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 See comment. SJ:rg 08/21/18 COMMENT Immunohistochemistry ([id number]) supports the above diagnosis. Mucin stain with matched control is also used in the evaluation of the specimen and the tumor cells are negative for mucin. Correlation with clinical, radiologic findings and appropriate follow up are necessary. This case is discussed with Dr. Martínez on 08/22/18. Case has been reviewed in consultation with Dr. Tapia who concurs with the above diagnosis. IDC:AM CYTOLOGY STUDY Slides are reviewed. CYTOLOGY GROSS Received is 160 ml of red cloudy fluid labeled with the patient's name and and designated per the requisition as thoracentesis. Submitted for cytology preparation including cell block. / 08/20/18 TC:0 CPT: 40599, 16754, 80169
--- NOTE | 2018-08-20 | IMM_PTH ---
PATIENT: ERIBERTO MITCHELL LOC: [facility] U#:[id number] AGE/SX: 72/M ROOM: [facility] RE08/11/[address]: Dr. Joce Martínez DO : 1945 BED: 1 DIS: 08/22/2018 SPEC #: [id number] RECD: 08/21/18 13:06 STATUS: GHASSAN REQ #: [id number] ALYSIA: 08/20/18 00:[address]: Joce Martínez DEPT: IMMUNOHISTOCHEMISTRY RECD BY: Ariella Arenas ENTERED: 08/21/18 13:09 SP TYPE: IMMUNO OTHR DR: MD Dr. Mignon Argueta MD Dr. Eric Jopperi, DO Dr. Robert Leininger, MD Chitra Ganta, MD Tissues: THORACIC FLUID Procedures: Synapto (add) RCC (add) NAPSIN A (add) Alvarez Ret (add) CD45 (add) CD56 (add) CHROMO (add) CK20 (add) CK5-6 (add) CK7 (add) CK8 (add) HEP PAR (add) KI-67 (add) MACRO (add) P53 (add) TTF1 (add) Pankeratin (add) P40 (add) PSAP (add) Vimentin (initial) PHYSICIAN & [place] [id number] SPECIMEN INFORMATION: Tissue Source: Thoracentesis fluid Clinical Info: Right pleural effusion Specimen Number: [id number] CPT code: 10583, 23806 x19 METHODOLOGY: Deparaffinized sections of prefer/formalin-fixed tissue or PAP/DQ stained slides are incubated with monoclonal/polyclonal antibodies/oligonucleotide probes. Localization is made via biotin free immunoperoxidase method. Appropriate controls are performed and reacted as expected. Results on target cell population are indicated in the following table: RESULTS: ANTIBODY / CLONE RESULT Vimentin (V9) negative AE1-3 (AE1/AE3/PCK26) positive, punctate staining CK7 (OV-TL12/30) positive, punctate staining CK8 (08ioudA70) positive, punctate staining CK20 (KS20.8) negative CD45 (RP2/18) negative TTF-1 (8G7G3/1) positive, weak Napsin A (Rabbit Polyclonal) negative HepPar (OCh1E5) negative RCC (PN-15) negative PSAP (PASE/4LJ) negative CK5-6 (D5 & 1684) negative CALRET (polyclonal) negative P40 (BC28) negative Macro (HAM-56) negative Ki-67 (30-9) positive, high P53 (DO-7) positive CD56 (123C3.D5) positive Chromo (LK2H10) positive Synapto (polyclonal) positive These tests were developed and their performance characteristics determined by [facility]. They may not have been cleared or approved by the U.S. Food and Drug Administration. The FDA has determined that such clearance or approval is not necessary. INTERPRETATION: Thoracentesis fluid, cell block: Poorly differentiated neuroendocrine carcinoma, favor small cell carcinoma. SJ:mahesh 08/22/18 Case has been reviewed in consultation with Dr. Tapia who concurs with the above diagnosis. IDC:AM
--- NOTE | 2018-08-20 02:30 | US_ITS ---
PROCEDURE: ULTRASOUND GUIDED THORACENTESIS. DATE: August 20, 2018.. INDICATION: Male, 72 years old. Right pleural effusion. PHYSICIAN: Irwin Hong M.D. PROCEDURE: The risks, benefits, and alternatives to the procedure were explained to the patient. The specific risks of bleeding, infection, and pneumothorax requiring chest tube insertion were discussed and accepted. Written informed consent was obtained. Ultrasonographic evaluation of the right lower pleural space was carried out. An adequate pocket was identified. The patient was placed in the sitting, upright position. The overlying skin was prepped and draped in sterile fashion. 1% lidocaine was administered subcutaneously for local anesthesia. Under ultrasound guidance, a 5 Luxembourgish thoracentesis needle/catheter system was advanced into the right posterior lower pleural fluid collection. Approximately 480 mL of blood tinged fluid was drained. The catheter was removed, and a sterile dressing was applied. A specimen was collected and sent to the laboratory for analysis, as requested by the referring clinician. The patient tolerated the procedure well. A chest x-ray was ordered. US/Thoracentesis W US IMPRESSION: Ultrasound-guided right thoracentesis. Electronically Signed: Irwin Hong MD at 11:28 EST , Service support ,
[2018-08-20 06:04] LABS: Anion Gap 5 (5-15); BUN 49 mg/dL (7-18); BUN/Creat Ratio 42.2 RATIO (10-20); Chloride 105 mmol/L (98-107); Creatinine, Serum 1.16 mg/dL (0.70-1.30); EST Glomerular Filtration Rate 65 mL/min (>60); Est Glom Filt Rate - Afr Amer 79 mL/min (>60); Estimated Creatinine Clearance 52.23 ml/min; Glucose 100 mg/dL (74-106); Potassium 4.7 mmol/L (3.5-5.1); Sodium Level 146 mmol/L (136-145)
[2018-08-20 06:05] LABS: Absolute Lymphocyte Count 1.57 X10^3/ul (0.83-4.51); Absolute Neutrophil Count 14.4 X10^3/uL (2.0-7.7); Basophil# 0.01 X10^3/uL; Basophil% 0.1 % (0-1); Eosinophil# 0.02 X10^3/uL; Eosinophils% 0.1 % (0-5); Hematocrit 48.6 % (40-54); Hemoglobin 15.2 g/dl (13.0-16.5); Lymphocyte # 1.57 X10^3/ul (4.0); Lymphocyte % 9.1 % (19-41); Mean Corp Hgb Conc 31.3 g/gl (32-36); Mean Corpuscular Hgb 31.7 pg (27.0-32.0); Mean Corpuscular Volume 101.5 fL (80-94); Monocyte# 1.33 X10^3/uL; Monocyte% 7.7 % (0-10); Neutrophil # 14.35 X10^3/uL (2.7-7.7); Neutrophil % 82.7 % (47-70); Platelet Count 244 K/mm3 (150-450); RBC Distribution Width CV 14.1 % (11.6-14.6); RBC Distribution Width SD 52.4 fl (35.1-43.9); Red Blood Count 4.79 M/mm3 (4.6-6.2); White Blood Count 17.3 K/mm3 (4.4-11.0)
[2018-08-20 07:01] LABS: POSITIVE COUNT NO; POSITIVE DIFFERENTIAL NO; POSITIVE MORPHOLOGY NO
[2018-08-20] MEDS: Ipratropium/Albuterol Sulfate 3 ML AMPUL.NEB INHALATION ×5 (07:16→23:13)
[2018-08-20] MEDS: Acetaminophen 325 MG Tablet 650 MG PO ×2 (08:17→20:47)
[2018-08-20] MEDS: predniSONE 20 MG Tablet 40 MG PO (08:17)
[2018-08-20 08:27] LABS: International Normalized Ratio 0.9; Prothrombin Time (Protime)PT. 12.6 SECONDS (11.7-14.9)
[2018-08-20 08:31] LABS: Partial Thromboplast Time 27.2 Seconds (24.1-36.2)
--- NOTE | 2018-08-20 10:07 | RAD_ITS ---
STUDY: X-RAY CHEST REASON FOR EXAM: Male, 72 years old. Status post thoracocentesis. TECHNIQUE: Inspiration and expiration AP views. COMPARISON: Comparison is made with prior examination dated August 19, 2018. FINDINGS: The patient is status post right thoracentesis. There is no evidence of pneumothorax. Stable diffuse increased interstitial infiltrate in the right lung with areas of confluence. Findings suggestive of possible right paratracheal soft tissue mass. RAD/Chest Insp/Exp 2 View IMPRESSION: Status post right thoracentesis. There is no evidence of pneumothorax. Electronically Signed: Irwin Hong MD at 10:41 EST , Service support ,
[2018-08-20 10:44] LABS: Cytology, Body Fluid / CSF SEE PATHOLOGY REPORT
[2018-08-20] MEDS: Pantoprazole Sodium 40 MG Tablet PO (10:58)
[2018-08-20] MEDS: Metoprolol(XL)Succ 25 MG Tablet 75 MG PO (10:58)
[2018-08-20] MEDS: guaiFENesin 1,200 MG Tablet 1200 MG PO ×2 (10:58→22:34)
[2018-08-20 11:13] LABS: Body Fluid Mononuclear WBC # 0.916 10^3/uL; Body Fluid Mononuclear WBC % 91.8 %; Body Fluid Polynuclear WBC # 0.082 10^3/uL; Body Fluid Polynuclear WBC % 8.2 %; Body Fluid Total Cells Counted 1.875 10^3/ul; White Blood Count/Body Fluid 0.998 10^3/uL
--- NOTE | 2018-08-20 11:14 | CASEMGMT ---
ASH left a message for wildland fire operations specialist at [facility] as Luci is out today asking if patient's pre-cert is still good as well as how high of O2 they can manage. ASH also faxed updates to [facility]. Guerline YAP MSW
--- NOTE | 2018-08-20 11:17 | PCM.PROGNOTE ---
Patient Problems: Active and Suspected Problems (Last Reviewed 08/11/18 @ 19:33 by Carlos Garcia DO) COPD exacerbation (Acute) Acute respiratory failure with hypoxia and hypercapnia (Acute) Sepsis (Acute) Subjective: Patient did well overnight. Patient felt subjectively unchanged compared to previous on my evaluation. Patient was still requiring significant nasal cannula oxygen to maintain saturations, but no fevers were reported overnight. Objective: After my evaluation, patient was seen coming back from thoracentesis. Reportedly just over 400 cc was removed. Patient reported subjective improvement following the procedure. - Physical Exam General: Alert, Oriented x3, Cooperative, - - Appears older than stated age. Speaking in full sentences. HEENT: Atraumatic, PERRLA, EOMI, Normocephalic, - - Scleral icterus or injection noted. Oral: No Gingival or Mucosal Lesions/ Ulcerations, Dry Mucosa Neck: Supple, No JVD, No Nodes, Trachea Midline Lungs: No rhonchi, No wheeze, Diminished, Rales - Right chest, - - Symmetric expansion. Cardiovascular: Regular rate, Regular Rhythm, Normal S1, Normal S2, No murmurs, No rub noted, No Gallop Abdomen: Bowel Sounds Present, Soft, Non Tender, Non-Distended Extremities: No cyanosis, No edema, Capillary Refill Less than 3 Seconds, Clubbing Skin: No breakdown, - - Multiple tattoos noted Musculoskeletal: No Tenderness to Palpation of Joints or Extremities Lymphatic: No Cervical, Supraclavicular, or Inguinal Adenopathy Neurological: Cranial nerves II-XII grossly intact, Neuro grossly intact Psych/Mental Status: Normal Affect, Appropriate Vital Signs Temp Pulse Resp BP Pulse Ox 36.4 C L 89 14 139/73 H 93 08/20/18 09:17 08/20/18 10:58 08/20/18 09:17 08/20/18 10:58 08/20/18 09:17 Oxygen Flow Rate (L/min) 11 Oxygen Delivery Method Nasal Cannula Weight: 71.4 kg Body Mass Index (BMI) 25.7 Intake and Output for Last 24 Hours 08/18/18 08/19/18 08/20/18 23:59 23:59 23:59 Intake Total 1350 / 1350 1177 / 1177 452.2 / 452.2 Output Total 550 / 550 100 / 100 475 / 475 Balance 800 / 800 1077 / 1077 -22.8 / -22.8 Microbiology Past 72 Hours 08/11/18 17:55 Blood Culture - Final Blood Culture (Wb) #2 - Right Hand No growth in 5 days. 08/11/18 17:45 Blood Culture - Final Blood Culture (Wb) - Anticubital Right No growth in 5 days. Laboratory Tests Past 24 Hrs 08/19/18 08/19/18 08/20/18 18:30 22:01 05:20 WBC 17.3 H RBC 4.79 Hgb 15.2 Hct 48.6 MCV 101.5 H MCH 31.7 MCHC 31.3 L RDW 14.1 RDW Differential 52.4 H Plt Count 244 MPV 10.0 Immature Gran % (Auto) 0.300 Neut % (Auto) 82.7 H Lymph % (Auto) 9.1 L [place] % (Auto) 7.7 Eos % (Auto) 0.1 Baso % (Auto) 0.1 Absolute Neuts (auto) 14.4 H Absolute Lymphs (auto) 1.57 Total Counted Not Reportable PT INR APTT Specimen Type ART Sample Site R Radial pH 7.37 Bicarbonate Actual 36.4 H POC Total CO2 38 Base Excess 11 H O2 Saturation 89 L O2 % 45 ABG pCO2 62.5 H ABG pO2 60 L Elonardo Test POS Respiration Rate 35 O2 Delivery Device Bi / C PAP EPAP 5 IPAP 10 Blood Gas Notified Whom HOSP Sodium Potassium Chloride Carbon Dioxide Anion Gap BUN Creatinine Estim Creat Clear Calc Est GFR (MDRD) Af Amer Est GFR (MDRD) Non-Af BUN/Creatinine Ratio Glucose Calcium Urine Color Yellow Urine Clarity Sl. Cloudy Urine pH 5.0 Ur Specific [place] 1.020 Urine Protein 30 H Urine Glucose (UA) Normal Urine Ketones Negative Urine Occult Blood Negative Urine Nitrite Negative Urine Bilirubin Negative Urine Urobilinogen Normal Ur Leukocyte Esterase Negative Urine RBC 0 SEEN Urine WBC 0 SEEN Ur Squamous Epith Cells 0 SEEN Uric Acid Crystals 1+ Urine Bacteria 0 SEEN Hyaline Casts 0-5 SEEN Urine Mucus 0 SEEN Fluid Source Fluid Color Fluid Appearance Fluid pH Fluid WBC Fluid RBC Fluid Tot Cell Count Fld Polynuclear WBCs # Fld Polynuclear WBCs % Fluid Mononuclear WBCs Fld Mononuclear WBCs % Fl Pathologist Comment Fluid Total Protein Fluid LDH Fluid Comment 2 Miscellaneous Cytology 08/20/18 08/20/18 08/20/18 05:20 05:20 10:05 WBC RBC Hgb Hct MCV MCH MCHC RDW RDW Differential Plt Count MPV Immature Gran % (Auto) Neut % (Auto) Lymph % (Auto) [place] % (Auto) Eos % (Auto) Baso % (Auto) Absolute Neuts (auto) Absolute Lymphs (auto) Total Counted PT 12.6 INR 0.9 APTT 27.2 Specimen Type Sample Site pH Bicarbonate Actual POC Total CO2 Base Excess O2 Saturation O2 % ABG pCO2 ABG pO2 Leonardo Test Respiration Rate O2 Delivery Device EPAP IPAP Blood Gas Notified Whom Sodium 146 H Potassium 4.7 Chloride 105 Carbon Dioxide 36.0 H Anion Gap 5 BUN 49 H Creatinine 1.16 Estim Creat Clear Calc 52.23 Est GFR (MDRD) Af Amer 79 Est GFR (MDRD) Non-Af 65 BUN/Creatinine Ratio 42.2 H Glucose 100 Calcium 9.0 Urine Color Urine Clarity Urine pH Ur Specific [place] Urine Protein Urine Glucose (UA) Urine Ketones Urine Occult Blood Urine Nitrite Urine Bilirubin Urine Urobilinogen Ur Leukocyte Esterase Urine RBC Urine WBC Ur Squamous Epith Cells Uric Acid Crystals Urine Bacteria Hyaline Casts Urine Mucus Fluid Source Fluid Color Fluid Appearance Fluid pH Fluid WBC Fluid RBC Fluid Tot Cell Count Fld Polynuclear WBCs # Fld Polynuclear WBCs % Fluid Mononuclear WBCs Fld Mononuclear WBCs % Fl Pathologist Comment Fluid Total Protein Pending Fluid LDH Pending Fluid Comment 2 Miscellaneous Cytology 08/20/18 08/20/18 08/20/18 10:05 10:05 10:05 WBC RBC Hgb Hct MCV MCH MCHC RDW RDW Differential Plt Count MPV Immature Gran % (Auto) Neut % (Auto) Lymph % (Auto) [place] % (Auto) Eos % (Auto) Baso % (Auto) Absolute Neuts (auto) Absolute Lymphs (auto) Total Counted PT INR APTT Specimen Type Sample Site pH Bicarbonate Actual POC Total CO2 Base Excess O2 Saturation O2 % ABG pCO2 ABG pO2 Leonardo Test Respiration Rate O2 Delivery Device EPAP IPAP Blood Gas Notified Whom Sodium Potassium Chloride Carbon Dioxide Anion Gap BUN Creatinine Estim Creat Clear Calc Est GFR (MDRD) Af Amer Est GFR (MDRD) Non-Af BUN/Creatinine Ratio Glucose Calcium Urine Color Urine Clarity Urine pH Ur Specific [place] Urine Protein Urine Glucose (UA) Urine Ketones Urine Occult Blood Urine Nitrite Urine Bilirubin Urine Urobilinogen Ur Leukocyte Esterase Urine RBC Urine WBC Ur Squamous Epith Cells Uric Acid Crystals Urine Bacteria Hyaline Casts Urine Mucus Fluid Source Pending Fluid Color Pending Fluid Appearance Pending Fluid pH Pending Fluid WBC 0.998 Fluid RBC 0.30950 Fluid Tot Cell Count 1.875 Fld Polynuclear WBCs # 0.082 Fld Polynuclear WBCs % 8.2 Fluid Mononuclear WBCs 0.916 Fld Mononuclear WBCs % 91.8 Fl Pathologist Comment Pending Fluid Total Protein Fluid LDH Fluid Comment 2 Pending Miscellaneous Cytology Pending Clinical Impression(s) from Imaging Studies Chest X-Ray 08/19/18 16:47 IMPRESSION: Persistent extensive interstitial infiltrate in the right lung and increasing infiltrate in left lower lobe with bilateral effusions Electronically Signed: Arnulfo Marcelino MD at 18:49 EST , Service support , Chest X-Ray 08/20/18 10:07 IMPRESSION: Status post right thoracentesis. There is no evidence of pneumothorax. Electronically Signed: Irwin Hong MD at 10:41 EST , Service support , Medical Necessity - Tobacco Use Smoking Status: Former smoker Tobacco Use: Cigarettes Assessment/Plan All Active Problems (Last Reviewed 08/11/18 @ 19:33 by Carlos Garcia DO) Community acquired pneumonia (Acute) COPD exacerbation (Acute) Pneumococcal pneumonia (Ruled-out) Acute respiratory failure with hypoxia and hypercapnia (Acute) Sepsis (Acute) CATHERINE (acute kidney injury) (Acute) Shortness of breath (Acute) Pseudomonas pneumonia (Resolved) RECOMMENDATIONS: 1. Continue scheduled bronchodilators, antibiotics and steroids as ordered. 2. Await results from ultrasound-guided thoracentesis of right-sided pleural effusion. 3. Continue supplemental oxygen with a goal to maintain a saturation at or above 88%. 4. Continue BiPAP utilization as needed. 5. Encourage incentive spirometer use and mobilize patient as tolerated. IMPRESSIONS: 1. Acute on chronic combined respiratory failure secondary to severe community-acquired pneumonia The patient has known end-stage COPD along with a 4 L/min baseline supplemental oxygen requirement. He does have radiographic evidence of severe community-acquired pneumonia with diffuse right-sided infiltrates. He will be continued on scheduled bronchodilators, IV steroids and antibiotics as ordered. Infectious workup has unfortunately been unrevealing to date. Fungal cultures are currently pending. Supplemental oxygen will be weaned as tolerated. Continue BiPAP as needed. Given the advanced age of the patient's underlying pulmonary disease, anticipated prolonged recovery period. Patient has undergone thoracentesis. Patient did not have blood protein or LDH ordered. This was added. Await assessment for transudate versus exudate. Continue to wean oxygen as tolerated. 2. End-stage COPD with exacerbation secondary to #1 Continue current supportive measures with bronchodilators, steroids and antibiotics as noted above. 3. Heart failure with preserved ejection fraction/pulmonary hypertension The patient does not appear to be overtly volume overloaded at this time. We will continue to monitor volume status closely. No indication for any additional diuretics at this time. If patient was found to have a transudative effusion, diuresis for probable CHF would be appropriate. 4. Tobacco dependency currently in remission/hypertension/GERD/chronic pain syndrome Complicates care, management, recovery and prognosis. Continue as needed oxycodone for pain. Physical therapy to continue to work with patient. Code Visit Inpatient E&M: 44462 [facility] Hosp L3
--- NOTE | 2018-08-20 11:23 | PN_ITS ---
Patient Problems: Active and Suspected Problems (Last Reviewed 08/11/18 @ 19:33 by Carlos Garcia DO) COPD exacerbation (Acute) Acute respiratory failure with hypoxia and hypercapnia (Acute) Sepsis (Acute) Subjective: Patient did well overnight. Patient felt subjectively unchanged compared to previous on my evaluation. Patient was still requiring significant nasal cannula oxygen to maintain saturations, but no fevers were reported overnight. Objective: After my evaluation, patient was seen coming back from thoracentesis. Reportedly just over 400 cc was removed. Patient reported subjective improvement following the procedure. - Physical Exam General: Alert, Oriented x3, Cooperative, - - Appears older than stated age. Speaking in full sentences. HEENT: Atraumatic, PERRLA, EOMI, Normocephalic, - - Scleral icterus or injection noted. Oral: No Gingival or Mucosal Lesions/ Ulcerations, Dry Mucosa Neck: Supple, No JVD, No Nodes, Trachea Midline Lungs: No rhonchi, No wheeze, Diminished, Rales - Right chest, - - Symmetric expansion. Cardiovascular: Regular rate, Regular Rhythm, Normal S1, Normal S2, No murmurs, No rub noted, No Gallop Abdomen: Bowel Sounds Present, Soft, Non Tender, Non-Distended Extremities: No cyanosis, No edema, Capillary Refill Less than 3 Seconds, Clu bbing Skin: No breakdown, - - Multiple tattoos noted Musculoskeletal: No Tenderness to Palpation of Joints or Extremities Lymphatic: No Cervical, Supraclavicular, or Inguinal Adenopathy Neurological: Cranial nerves II-XII grossly intact, Neuro grossly intact Psych/Mental Status: Normal Affect, Appropriate Vital Signs Temp Pulse Resp BP Pulse Ox 36.4 C L 89 14 139/73 H 93 08/20/18 09:17 08/20/18 10:58 08/20/18 09:17 08/20/18 10:58 08/20/18 09:17 Oxygen Flow Rate (L/min) 11 Oxygen Delivery Method Nasal Cannula Weight: 71.4 kg Body Mass Index (BMI) 25.7 Intake and Output for Last 24 Hours 08/18/18 08/19/18 08/20/18 23:59 23:59 23:59 Intake Total 1350 / 1350 1177 / 1177 452.2 / 452.2 Output Total 550 / 550 100 / 100 475 / 475 Balance 800 / 800 1077 / 1077 -22.8 / -22.8 Microbiology Past 72 Hours 08/11/18 17:55 Blood Culture - Final Blood Culture (Wb) #2 - Right Hand No growth in 5 days. 08/11/18 17:45 Blood Culture - Final Blood Culture (Wb) - Anticubital Right No growth in 5 days. Laboratory Tests Past 24 Hrs 08/19/18 08/19/18 08/20/18 18:30 22:01 05:20 WBC 17.3 H RBC 4.79 Hgb 15.2 Hct 48.6 MCV 101.5 H MCH 31.7 MCHC 31.3 L RDW 14.1 RDW Differential 52.4 H Plt Count 244 MPV 10.0 Immature Gran % (Auto) 0.300 Neut % (Auto) 82.7 H Lymph % (Auto) 9.1 L [place] % (Auto) 7.7 Eos % (Auto) 0.1 Baso % (Auto) 0.1 Absolute Neuts (auto) 14.4 H Absolute Lymphs (auto) 1.57 Total Counted Not Reportable PT INR APTT Specimen Type ART Sample Site R Radial pH 7.37 Bicarbonate Actual 36.4 H POC Total CO2 38 Base Excess 11 H O2 Saturation 89 L O2 % 45 ABG pCO2 62.5 H ABG pO2 60 L Leonardo Test POS Respiration Rate 35 O2 Delivery Device Bi / C PAP EPAP 5 IPAP 10 Blood Gas Notified Whom HOSP MD Sodium Potassium Chloride Carbon Dioxide Anion Gap BUN Creatinine Estim Creat Clear Calc Est GFR (MDRD) Af Amer Est GFR (MDRD) Non-Af BUN/Creatinine Ratio Glucose Calcium Urine Color Yellow Urine Clarity Sl. Cloudy Urine pH 5.0 Ur Specific [place] 1.020 Urine Protein 30 H Urine Glucose (UA) Normal Urine Ketones Negative Urine Occult Blood Negative Urine Nitrite Negative Urine Bilirubin Negative Urine Urobilinogen Normal Ur Leukocyte Esterase Negative Urine RBC 0 SEEN Urine WBC 0 SEEN Ur Squamous Epith Cells 0 SEEN Uric Acid Crystals 1+ Urine Bacteria 0 SEEN Hyaline Casts 0-5 SEEN Urine Mucus 0 SEEN Fluid Source Fluid Color Fluid Appearance Fluid pH Fluid WBC Fluid RBC Fluid Tot Cell Count Fld Polynuclear WBCs # Fld Polynuclear WBCs % Fluid Mononuclear WBCs Fld Mononuclear WBCs % Fl Pathologist Comment Fluid Total Protein Fluid LDH Fluid Comment 2 Miscellaneous Cytology 08/20/18 08/20/18 08/20/18 05:20 05:20 10:05 WBC RBC Hgb Hct MCV MCH MCHC RDW RDW Differential Plt Count MPV Immature Gran % (Auto) Neut % (Auto) Lymph % (Auto) [place] % (Auto) Eos % (Auto) Baso % (Auto) Absolute Neuts (auto) Absolute Lymphs (auto) Total Counted PT 12.6 INR 0.9 APTT 27.2 Specimen Type Sample Site pH Bicarbonate Actual POC Total CO2 Base Excess O2 Saturation O2 % ABG pCO2 ABG pO2 Leonardo Test Respiration Rate O2 Delivery Device EPAP IPAP Blood Gas Notified Whom Sodium 146 H Potassium 4.7 Chloride 105 Carbon Dioxide 36.0 H Anion Gap 5 BUN 49 H Creatinine 1.16 Estim Creat Clear Calc 52.23 Est GFR (MDRD) Af Amer 79 Est GFR (MDRD) Non-Af 65 BUN/Creatinine Ratio 42.2 H Glucose 100 Calcium 9.0 Urine Color Urine Clarity Urine pH Ur Specific [place] Urine Protein Urine Glucose (UA) Urine Ketones Urine Occult Blood Urine Nitrite Urine Bilirubin Urine Urobilinogen Ur Leukocyte Esterase Urine RBC Urine WBC Ur Squamous Epith Cells Uric Acid Crystals Urine Bacteria Hyaline Casts Urine Mucus Fluid Source Fluid Color Fluid Appearance Fluid pH Fluid WBC Fluid RBC Fluid Tot Cell Count Fld Polynuclear WBCs # Fld Polynuclear WBCs % Fluid Mononuclear WBCs Fld Mononuclear WBCs % Fl Pathologist Comment Fluid Total Protein Pending Fluid LDH Pending Fluid Comment 2 Miscellaneous Cytology 08/20/18 08/20/18 08/20/18 10:05 10:05 10:05 WBC RBC Hgb Hct MCV MCH MCHC RDW RDW Differential Plt Count MPV Immature Gran % (Auto) Neut % (Auto) Lymph % (Auto) [place] % (Auto) Eos % (Auto) Baso % (Auto) Absolute Neuts (auto) Absolute Lymphs (auto) Total Counted PT INR APTT Specimen Type Sample Site pH Bicarbonate Actual POC Total CO2 Base Excess O2 Saturation O2 % ABG pCO2 ABG pO2 Leonardo Test Respiration Rate O2 Delivery Device EPAP IPAP Blood Gas Notified Whom Sodium Potassium Chloride Carbon Dioxide Anion Gap BUN Creatinine Estim Creat Clear Calc Est GFR (MDRD) Af Amer Est GFR (MDRD) Non-Af BUN/Creatinine Ratio Glucose Calcium Urine Color Urine Clarity Urine pH Ur Specific [place] Urine Protein Urine Glucose (UA) Urine Ketones Urine Occult Blood Urine Nitrite Urine Bilirubin Urine Urobilinogen Ur Leukocyte Esterase Urine RBC Urine WBC Ur Squamous Epith Cells Uric Acid Crystals Urine Bacteria Hyaline Casts Urine Mucus Fluid Source Pending Fluid Color Pending Fluid Appearance Pending Fluid pH Pending Fluid WBC 0.998 Fluid RBC 0.58644 Fluid Tot Cell Count 1.875 Fld Polynuclear WBCs # 0.082 Fld Polynuclear WBCs % 8.2 Fluid Mononuclear WBCs 0.916 Fld Mononuclear WBCs % 91.8 Fl Pathologist Comment Pending Fluid Total Protein Fluid LDH Fluid Comment 2 Pending Miscellaneous Cytology Pending Clinical Impression(s) from Imaging Studies Chest X-Ray 08/19/18 16:47 IMPRESSION: Persistent extensive interstitial infiltrate in the right lung and increasing infiltrate in left lower lobe with bilateral effusions Electronically Signed: Arnulfo Marcelino MD at 18:49 EST , Service support , Chest X-Ray 08/20/18 10:07 IMPRESSION: Status post right thoracentesis. There is no evidence of pneumothorax. Electronically Signed: Irwin Hong MD at 10:41 EST , Service support , Medical Necessity - Tobacco Use Smoking Status: Former smoker Tobacco Use: Cigarettes Assessment/Plan All Active Problems (Last Reviewed 08/11/18 @ 19:33 by Carlos Garcia DO) Community acquired pneumonia (Acute) COPD exacerbation (Acute) Pneumococcal pneumonia (Ruled-out) Acute respiratory failure with hypoxia and hypercapnia (Acute) Sepsis (Acute) CATHERINE (acute kidney injury) (Acute) Shortness of breath (Acute) Pseudomonas pneumonia (Resolved) RECOMMENDATIONS: 1. Continue scheduled bronchodilators, antibiotics and steroids as ordered. 2. Await results from ultrasound-guided thoracentesis of right-sided pleural effusion. 3. Continue supplemental oxygen with a goal to maintain a saturation at or above 88%. 4. Continue BiPAP utilization as needed. 5. Encourage incentive spirometer use and mobilize patient as tolerated. IMPRESSIONS: 1. Acute on chronic combined respiratory failure secondary to severe community-acquired pneumonia The patient has known end-stage COPD along with a 4 L/min baseline supplemental oxygen requirement. He does have radiographic evidence of severe community-acquired pneumonia with diffuse right-sided infiltrates. He will be continued on scheduled bronchodilators, IV steroids and antibiotics as ordered. Infectious workup has unfortunately been unrevealing to date. Fungal cultures are currently pending. Supplemental oxygen will be weaned as tolerated. Continue BiPAP as needed. Given the advanced age of the patient's underlying pulmonary disease, anticipated prolonged recovery period. Patient has undergone thoracentesis. Patient did not have blood protein or LDH ordered. This was added. Await assessment for transudate versus exudate. Continue to wean oxygen as tolerated. 2. End-stage COPD with exacerbation secondary to #1 Continue current supportive measures with bronchodilators, steroids and antibiotics as noted above. 3. Heart failure with preserved ejection fraction/pulmonary hypertension The patient does not appear to be overtly volume overloaded at this time. We will continue to monitor volume status closely. No indication for any additional diuretics at this time. If patient was found to have a transudative effusion, diuresis for probable CHF would be appropriate. 4. Tobacco dependency currently in remission/hypertension/GERD/chronic pain syndrome Complicates care, management, recovery and prognosis. Continue as needed oxycodone for pain. Physical therapy to continue to work with patient. Code Visit Inpatient E&M: [id number] [facility] Hosp L3
[2018-08-20 11:27] LABS: LDH,Body Fluid 1993 Units/l (Not Establ.); Protein, Body Fluid 3.4 g/dL (Not Establ.)
[2018-08-20 11:32] LABS: Auto B Fluid Analyzer BKGD Ct COUNTS W/IN LIMITS (W/IN LIMITS); Color/Body Fluid SLIGHTLY PINK; Source- Body Fluid THORACENTESIS
[2018-08-20 11:33] LABS: Appearance/Body Fluid SL CLDY
[2018-08-20 11:45] LABS: ALB/GLOB Ratio 0.8 RATIO (0.9-2.4); Globulin 3.7 g/dL (2.2-4.2); LDH 612 U/L (87-241); Protein, Total 6.8 g/dL (6.4-8.2)
[2018-08-20 13:07] LABS: Body Fluid QC Type(s) BF1Q; Lymphocytes 41 %; Neutrophil (Segs) 7 %; Other Cell Type/BF 52 %
[2018-08-20] MEDS: 0.9% NaCl Peripheral Flush Adult/Peds IV (13:14)
[2018-08-20] MEDS: oxyCODONE 5 MG Tablet 10 MG PO (13:22)
--- NOTE | 2018-08-20 14:29 | PCM.PROGNOTE ---
Patient Problems: Active and Suspected Problems (Last Reviewed 08/11/18 @ 19:33 by Carlos Garcia DO) COPD exacerbation (Acute) Acute respiratory failure with hypoxia and hypercapnia (Acute) Sepsis (Acute) Subjective: Patient seen and examined. Reports breathing is fairly unchanged. To undergo thoracentesis today. - Physical Exam General: Alert, Oriented x3, Cooperative HEENT: Atraumatic, PERRLA, EOMI, Normocephalic Neck: Supple, No JVD, Negative Carotid Bruits Lungs: Diminished, Rales Cardiovascular: Regular rate, Regular Rhythm, Normal S1, Normal S2, No murmurs Abdomen: Bowel Sounds Present, Soft, Non Tender, Non-Distended Extremities: No clubbing, No cyanosis, No edema, Capillary Refill Less than 3 Seconds Skin: No rashes, No breakdown Musculoskeletal: No Tenderness to Palpation of Joints or Extremities Neurological: Cranial nerves II-XII grossly intact, Neuro grossly intact Psych/Mental Status: Normal Affect, Appropriate Vital Signs Temp Pulse Resp BP Pulse Ox 97.6 F L 91 16 137/66 H 93 08/20/18 14:24 08/20/18 14:24 08/20/18 14:24 08/20/18 14:24 08/20/18 14:24 Oxygen Flow Rate (L/min) [2] 8 Oxygen Flow Rate (L/min) [1 ( 8 Initial Baseline)] Oxygen Flow Rate (L/min) 7 Oxygen Delivery Method [4] Nasal Cannula Oxygen Delivery Method [3] Nasal Cannula Oxygen Delivery Method [2] Nasal Cannula Oxygen Delivery Method [1 ( Nasal Cannula Initial Baseline)] Oxygen Delivery Method Nasal Cannula Weight: 157 lb 6.561 oz Body Mass Index (BMI) 25.7 Intake and Output for Last 24 Hours 08/18/18 08/19/18 08/20/18 23:59 23:59 23:59 Intake Total 1350 / 1350 1177 / 1177 452.2 / 452.2 Output Total 550 / 550 100 / 100 475 / 475 Balance 800 / 800 1077 / 1077 -22.8 / -22.8 Microbiology Past 72 Hours 08/20/18 08:30 Gram Stain - Final Sputum, Expectorated/Coughed 08/20/18 10:05 Gram Stain - Final Fluid - Thoracentesis Fluid Laboratory Tests Past 24 Hrs 08/19/18 08/19/18 08/20/18 18:30 22:01 05:20 WBC 17.3 H RBC 4.79 Hgb 15.2 Hct 48.6 MCV 101.5 H MCH 31.7 MCHC 31.3 L RDW 14.1 RDW Differential 52.4 H Plt Count 244 MPV 10.0 Immature Gran % (Auto) 0.300 Neut % (Auto) 82.7 H Lymph % (Auto) 9.1 L [place] % (Auto) 7.7 Eos % (Auto) 0.1 Baso % (Auto) 0.1 Absolute Neuts (auto) 14.4 H Absolute Lymphs (auto) 1.57 Total Counted Not Reportable PT INR APTT Specimen Type ART Sample Site R Radial pH 7.37 Bicarbonate Actual 36.4 H POC Total CO2 38 Base Excess 11 H O2 Saturation 89 L O2 % 45 ABG pCO2 62.5 H ABG pO2 60 L Leonardo Test POS Respiration Rate 35 O2 Delivery Device Bi / C PAP EPAP 5 IPAP 10 Blood Gas Notified Whom HOSP Sodium Potassium Chloride Carbon Dioxide Anion Gap BUN Creatinine Estim Creat Clear Calc Est GFR (MDRD) Af Amer Est GFR (MDRD) Non-Af BUN/Creatinine Ratio Glucose Calcium Lactate Dehydrogenase Total Protein Globulin Albumin/Globulin Ratio Urine Color Yellow Urine Clarity Sl. Cloudy Urine pH 5.0 Ur Specific [place] 1.020 Urine Protein 30 H Urine Glucose (UA) Normal Urine Ketones Negative Urine Occult Blood Negative Urine Nitrite Negative Urine Bilirubin Negative Urine Urobilinogen Normal Ur Leukocyte Esterase Negative Urine RBC 0 SEEN Urine WBC 0 SEEN Ur Squamous Epith Cells 0 SEEN Uric Acid Crystals 1+ Urine Bacteria 0 SEEN Hyaline Casts 0-5 SEEN Urine Mucus 0 SEEN Fluid Source Fluid Color Fluid Appearance Fluid pH Fluid WBC Fluid RBC Fluid Tot Cell Count Fld Polynuclear WBCs # Fld Polynuclear WBCs % Fluid Mononuclear WBCs Fld Mononuclear WBCs % Fluid Neutrophils Fluid Lymphocytes Fluid Other Cells Fl Pathologist Comment Fluid Total Protein Fluid LDH Fluid Comment 2 Miscellaneous Cytology 08/20/18 08/20/18 08/20/18 05:20 05:20 05:20 WBC RBC Hgb Hct MCV MCH MCHC RDW RDW Differential Plt Count MPV Immature Gran % (Auto) Neut % (Auto) Lymph % (Auto) [place] % (Auto) Eos % (Auto) Baso % (Auto) Absolute Neuts (auto) Absolute Lymphs (auto) Total Counted PT 12.6 INR 0.9 APTT 27.2 Specimen Type Sample Site pH Bicarbonate Actual POC Total CO2 Base Excess O2 Saturation O2 % ABG pCO2 ABG pO2 Leonardo Test Respiration Rate O2 Delivery Device EPAP IPAP Blood Gas Notified Whom Sodium 146 H Potassium 4.7 Chloride 105 Carbon Dioxide 36.0 H Anion Gap 5 BUN 49 H Creatinine 1.16 Estim Creat Clear Calc 52.23 Est GFR (MDRD) Af Amer 79 Est GFR (MDRD) Non-Af 65 BUN/Creatinine Ratio 42.2 H Glucose 100 Calcium 9.0 Lactate Dehydrogenase 612 H Total Protein 6.8 Globulin 3.7 Albumin/Globulin Ratio 0.8 L Urine Color Urine Clarity Urine pH Ur Specific [place] Urine Protein Urine Glucose (UA) Urine Ketones Urine Occult Blood Urine Nitrite Urine Bilirubin Urine Urobilinogen Ur Leukocyte Esterase Urine RBC Urine WBC Ur Squamous Epith Cells Uric Acid Crystals Urine Bacteria Hyaline Casts Urine Mucus Fluid Source Fluid Color Fluid Appearance Fluid pH Fluid WBC Fluid RBC Fluid Tot Cell Count Fld Polynuclear WBCs # Fld Polynuclear WBCs % Fluid Mononuclear WBCs Fld Mononuclear WBCs % Fluid Neutrophils Fluid Lymphocytes Fluid Other Cells Fl Pathologist Comment Fluid Total Protein Fluid LDH Fluid Comment 2 Miscellaneous Cytology 08/20/18 08/20/18 08/20/18 10:05 10:05 10:05 WBC RBC Hgb Hct MCV MCH MCHC RDW RDW Differential Plt Count MPV Immature Gran % (Auto) Neut % (Auto) Lymph % (Auto) [place] % (Auto) Eos % (Auto) Baso % (Auto) Absolute Neuts (auto) Absolute Lymphs (auto) Total Counted PT INR APTT Specimen Type Sample Site pH Bicarbonate Actual POC Total CO2 Base Excess O2 Saturation O2 % ABG pCO2 ABG pO2 Leonardo Test Respiration Rate O2 Delivery Device EPAP IPAP Blood Gas Notified Whom Sodium Potassium Chloride Carbon Dioxide Anion Gap BUN Creatinine Estim Creat Clear Calc Est GFR (MDRD) Af Amer Est GFR (MDRD) Non-Af BUN/Creatinine Ratio Glucose Calcium Lactate Dehydrogenase Total Protein Globulin Albumin/Globulin Ratio Urine Color Urine Clarity Urine pH Ur Specific [place] Urine Protein Urine Glucose (UA) Urine Ketones Urine Occult Blood Urine Nitrite Urine Bilirubin Urine Urobilinogen Ur Leukocyte Esterase Urine RBC Urine WBC Ur Squamous Epith Cells Uric Acid Crystals Urine Bacteria Hyaline Casts Urine Mucus Fluid Source THORACENTESIS Fluid Color SLIGHTLY PINK Fluid Appearance SL CLDY Fluid pH Pending Fluid WBC 0.998 Fluid RBC 0.93468 Fluid Tot Cell Count 1.875 Fld Polynuclear WBCs # 0.082 Fld Polynuclear WBCs % 8.2 Fluid Mononuclear WBCs 0.916 Fld Mononuclear WBCs % 91.8 Fluid Neutrophils 7 Fluid Lymphocytes 41 Fluid Other Cells 52 Fl Pathologist Comment May follow Fluid Total Protein 3.4 Fluid LDH 1993 Fluid Comment 2 SEE COMMENT Miscellaneous Cytology 08/20/18 10:05 WBC RBC Hgb Hct MCV MCH MCHC RDW RDW Differential Plt Count MPV Immature Gran % (Auto) Neut % (Auto) Lymph % (Auto) [place] % (Auto) Eos % (Auto) Baso % (Auto) Absolute Neuts (auto) Absolute Lymphs (auto) Total Counted PT INR APTT Specimen Type Sample Site pH Bicarbonate Actual POC Total CO2 Base Excess O2 Saturation O2 % ABG pCO2 ABG pO2 Leonardo Test Respiration Rate O2 Delivery Device EPAP IPAP Blood Gas Notified Whom Sodium Potassium Chloride Carbon Dioxide Anion Gap BUN Creatinine Estim Creat Clear Calc Est GFR (MDRD) Af Amer Est GFR (MDRD) Non-Af BUN/Creatinine Ratio Glucose Calcium Lactate Dehydrogenase Total Protein Globulin Albumin/Globulin Ratio Urine Color Urine Clarity Urine pH Ur Specific [place] Urine Protein Urine Glucose (UA) Urine Ketones Urine Occult Blood Urine Nitrite Urine Bilirubin Urine Urobilinogen Ur Leukocyte Esterase Urine RBC Urine WBC Ur Squamous Epith Cells Uric Acid Crystals Urine Bacteria Hyaline Casts Urine Mucus Fluid Source Fluid Color Fluid Appearance Fluid pH Fluid WBC Fluid RBC Fluid Tot Cell Count Fld Polynuclear WBCs # Fld Polynuclear WBCs % Fluid Mononuclear WBCs Fld Mononuclear WBCs % Fluid Neutrophils Fluid Lymphocytes Fluid Other Cells Fl Pathologist Comment Fluid Total Protein Fluid LDH Fluid Comment 2 Miscellaneous Cytology Pending Medical Necessity - Tobacco Use Smoking Status: Former smoker Tobacco Use: Cigarettes Assessment/Plan All Active Problems (Last Reviewed 08/11/18 @ 19:33 by Carlos Garcia DO) Community acquired pneumonia (Acute) COPD exacerbation (Acute) Pneumococcal pneumonia (Ruled-out) Acute respiratory failure with hypoxia and hypercapnia (Acute) Sepsis (Acute) CATHERINE (acute kidney injury) (Acute) Shortness of breath (Acute) Pseudomonas pneumonia (Resolved) 1. Acute on chronic hypoxic and hypercapnic respiratory failure secondary to severe community-acquired pneumonia with associated severe sepsis-patient chronically wears 4 L nasal cannula at baseline. Continue supplement oxygen to maintain O2 at or above 90%. Continue albuterol and DuoNeb aerosols. IV Zosyn. Sputum culture pending. Respiratory panel negative. ID following. BIPAP Q HS and PRN. Pulmonary medicine following. 2. Acute exacerbation of end-stage COPD secondary to #1-albuterol and DuoNeb aerosols. Prednisone taper. Pulmonary following. 3. Right pleural effusion status post diagnostic and therapeutic thoracentesis 08/20/18. Labs pending. 480 mL fluid was drained. 4. Chronic diastolic CHF-no acute exacerbation. 5. Hypertension-stable, continue metoprolol regimen. 6. Chronic kidney disease stage III- stable. 7. GERD-continue PPI. 8. Chronic pain syndrome- PRN pain regimen. 9. History of tobacco dependence-encouraged continued cessation. DVT prophylaxis-Lovenox Discharge planning- SNF pending pre-cert. This patient was seen by ALFIE Waller under the supervision of Dr. Martínez.
--- NOTE | 2018-08-20 15:02 | PCM.PN.ID ---
Patient Problems: Active and Suspected Problems (Last Reviewed 08/11/18 @ 19:33 by Carlos Garcia DO) COPD exacerbation (Acute) Acute respiratory failure with hypoxia and hypercapnia (Acute) Sepsis (Acute) Subjective: Feeling a little better s/p thora. Breathing stable, no fever, no n/v/d. - Physical Exam General: Alert, Cooperative, No apparent distress Lungs: Diminished, Rhonchi - scattered Cardiovascular: Regular rate, Regular Rhythm Abdomen: Soft, Non Tender, Non-Distended Skin: No rashes Vital Signs Temp Pulse Resp BP Pulse Ox 97.6 F L 91 16 137/66 H 93 08/20/18 14:24 08/20/18 14:24 08/20/18 14:24 08/20/18 14:24 08/20/18 14:24 Oxygen Flow Rate (L/min) [2] 8 Oxygen Flow Rate (L/min) [1 ( 8 Initial Baseline)] Oxygen Flow Rate (L/min) 7 Oxygen Delivery Method [4] Nasal Cannula Oxygen Delivery Method [3] Nasal Cannula Oxygen Delivery Method [2] Nasal Cannula Oxygen Delivery Method [1 ( Nasal Cannula Initial Baseline)] Oxygen Delivery Method Nasal Cannula Weight: 71.4 kg Body Mass Index (BMI) 25.7 Intake and Output for Last 24 Hours 08/18/18 08/19/18 08/20/18 23:59 23:59 23:59 Intake Total 1350 / 1350 1177 / 1177 452.2 / 452.2 Output Total 550 / 550 100 / 100 475 / 475 Balance 800 / 800 1077 / 1077 -22.8 / -22.8 Microbiology Past 72 Hours 08/20/18 08:30 Gram Stain - Final Sputum, Expectorated/Coughed 08/20/18 10:05 Gram Stain - Final Fluid - Thoracentesis Fluid Laboratory Tests Past 24 Hrs 08/19/18 08/19/18 08/20/18 18:30 22:01 05:20 WBC 17.3 H RBC 4.79 Hgb 15.2 Hct 48.6 MCV 101.5 H MCH 31.7 MCHC 31.3 L RDW 14.1 RDW Differential 52.4 H Plt Count 244 MPV 10.0 Immature Gran % (Auto) 0.300 Neut % (Auto) 82.7 H Lymph % (Auto) 9.1 L Ulster % (Auto) 7.7 Eos % (Auto) 0.1 Baso % (Auto) 0.1 Absolute Neuts (auto) 14.4 H Absolute Lymphs (auto) 1.57 Total Counted Not Reportable PT INR APTT Specimen Type ART Sample Site R Radial pH 7.37 Bicarbonate Actual 36.4 H POC Total CO2 38 Base Excess 11 H O2 Saturation 89 L O2 % 45 ABG pCO2 62.5 H ABG pO2 60 L Leonardo Test POS Respiration Rate 35 O2 Delivery Device Bi / C PAP EPAP 5 IPAP 10 Blood Gas Notified Whom HOSP MD Sodium Potassium Chloride Carbon Dioxide Anion Gap BUN Creatinine Estim Creat Clear Calc Est GFR (MDRD) Af Amer Est GFR (MDRD) Non-Af BUN/Creatinine Ratio Glucose Calcium Lactate Dehydrogenase Total Protein Globulin Albumin/Globulin Ratio Urine Color Yellow Urine Clarity Sl. Cloudy Urine pH 5.0 Ur Specific [place] 1.020 Urine Protein 30 H Urine Glucose (UA) Normal Urine Ketones Negative Urine Occult Blood Negative Urine Nitrite Negative Urine Bilirubin Negative Urine Urobilinogen Normal Ur Leukocyte Esterase Negative Urine RBC 0 SEEN Urine WBC 0 SEEN Ur Squamous Epith Cells 0 SEEN Uric Acid Crystals 1+ Urine Bacteria 0 SEEN Hyaline Casts 0-5 SEEN Urine Mucus 0 SEEN Fluid Source Fluid Color Fluid Appearance Fluid pH Fluid WBC Fluid RBC Fluid Tot Cell Count Fld Polynuclear WBCs # Fld Polynuclear WBCs % Fluid Mononuclear WBCs Fld Mononuclear WBCs % Fluid Neutrophils Fluid Lymphocytes Fluid Other Cells Fl Pathologist Comment Fluid Total Protein Fluid LDH Fluid Comment 2 Miscellaneous Cytology 08/20/18 08/20/18 08/20/18 05:20 05:20 05:20 WBC RBC Hgb Hct MCV MCH MCHC RDW RDW Differential Plt Count MPV Immature Gran % (Auto) Neut % (Auto) Lymph % (Auto) Ulster % (Auto) Eos % (Auto) Baso % (Auto) Absolute Neuts (auto) Absolute Lymphs (auto) Total Counted PT 12.6 INR 0.9 APTT 27.2 Specimen Type Sample Site pH Bicarbonate Actual POC Total CO2 Base Excess O2 Saturation O2 % ABG pCO2 ABG pO2 Leonardo Test Respiration Rate O2 Delivery Device EPAP IPAP Blood Gas Notified Whom Sodium 146 H Potassium 4.7 Chloride 105 Carbon Dioxide 36.0 H Anion Gap 5 BUN 49 H Creatinine 1.16 Estim Creat Clear Calc 52.23 Est GFR (MDRD) Af Amer 79 Est GFR (MDRD) Non-Af 65 BUN/Creatinine Ratio 42.2 H Glucose 100 Calcium 9.0 Lactate Dehydrogenase 612 H Total Protein 6.8 Globulin 3.7 Albumin/Globulin Ratio 0.8 L Urine Color Urine Clarity Urine pH Ur Specific [place] Urine Protein Urine Glucose (UA) Urine Ketones Urine Occult Blood Urine Nitrite Urine Bilirubin Urine Urobilinogen Ur Leukocyte Esterase Urine RBC Urine WBC Ur Squamous Epith Cells Uric Acid Crystals Urine Bacteria Hyaline Casts Urine Mucus Fluid Source Fluid Color Fluid Appearance Fluid pH Fluid WBC Fluid RBC Fluid Tot Cell Count Fld Polynuclear WBCs # Fld Polynuclear WBCs % Fluid Mononuclear WBCs Fld Mononuclear WBCs % Fluid Neutrophils Fluid Lymphocytes Fluid Other Cells Fl Pathologist Comment Fluid Total Protein Fluid LDH Fluid Comment 2 Miscellaneous Cytology 08/20/18 08/20/18 08/20/18 10:05 10:05 10:05 WBC RBC Hgb Hct MCV MCH MCHC RDW RDW Differential Plt Count MPV Immature Gran % (Auto) Neut % (Auto) Lymph % (Auto) Ulster % (Auto) Eos % (Auto) Baso % (Auto) Absolute Neuts (auto) Absolute Lymphs (auto) Total Counted PT INR APTT Specimen Type Sample Site pH Bicarbonate Actual POC Total CO2 Base Excess O2 Saturation O2 % ABG pCO2 ABG pO2 Leonardo Test Respiration Rate O2 Delivery Device EPAP IPAP Blood Gas Notified Whom Sodium Potassium Chloride Carbon Dioxide Anion Gap BUN Creatinine Estim Creat Clear Calc Est GFR (MDRD) Af Amer Est GFR (MDRD) Non-Af BUN/Creatinine Ratio Glucose Calcium Lactate Dehydrogenase Total Protein Globulin Albumin/Globulin Ratio Urine Color Urine Clarity Urine pH Ur Specific [place] Urine Protein Urine Glucose (UA) Urine Ketones Urine Occult Blood Urine Nitrite Urine Bilirubin Urine Urobilinogen Ur Leukocyte Esterase Urine RBC Urine WBC Ur Squamous Epith Cells Uric Acid Crystals Urine Bacteria Hyaline Casts Urine Mucus Fluid Source THORACENTESIS Fluid Color SLIGHTLY PINK Fluid Appearance SL CLDY Fluid pH Pending Fluid WBC 0.998 Fluid RBC 0.09763 Fluid Tot Cell Count 1.875 Fld Polynuclear WBCs # 0.082 Fld Polynuclear WBCs % 8.2 Fluid Mononuclear WBCs 0.916 Fld Mononuclear WBCs % 91.8 Fluid Neutrophils 7 Fluid Lymphocytes 41 Fluid Other Cells 52 Fl Pathologist Comment May follow Fluid Total Protein 3.4 Fluid LDH 1993 Fluid Comment 2 SEE COMMENT Miscellaneous Cytology 08/20/18 10:05 WBC RBC Hgb Hct MCV MCH MCHC RDW RDW Differential Plt Count MPV Immature Gran % (Auto) Neut % (Auto) Lymph % (Auto) Ul[place] % (Auto) Eos % (Auto) Baso % (Auto) Absolute Neuts (auto) Absolute Lymphs (auto) Total Counted PT INR APTT Specimen Type Sample Site pH Bicarbonate Actual POC Total CO2 Base Excess O2 Saturation O2 % ABG pCO2 ABG pO2 Leonardo Test Respiration Rate O2 Delivery Device EPAP IPAP Blood Gas Notified Whom Sodium Potassium Chloride Carbon Dioxide Anion Gap BUN Creatinine Estim Creat Clear Calc Est GFR (MDRD) Af Amer Est GFR (MDRD) Non-Af BUN/Creatinine Ratio Glucose Calcium Lactate Dehydrogenase Total Protein Globulin Albumin/Globulin Ratio Urine Color Urine Clarity Urine pH Ur Specific [place] Urine Protein Urine Glucose (UA) Urine Ketones Urine Occult Blood Urine Nitrite Urine Bilirubin Urine Urobilinogen Ur Leukocyte Esterase Urine RBC Urine WBC Ur Squamous Epith Cells Uric Acid Crystals Urine Bacteria Hyaline Casts Urine Mucus Fluid Source Fluid Color Fluid Appearance Fluid pH Fluid WBC Fluid RBC Fluid Tot Cell Count Fld Polynuclear WBCs # Fld Polynuclear WBCs % Fluid Mononuclear WBCs Fld Mononuclear WBCs % Fluid Neutrophils Fluid Lymphocytes Fluid Other Cells Fl Pathologist Comment Fluid Total Protein Fluid LDH Fluid Comment 2 Miscellaneous Cytology Pending Medical Necessity - Tobacco Use Smoking Status: Former smoker Tobacco Use: Cigarettes Route of nutrition/ use of supplements: [] Nutritional Intake: [] IV Site: [] Mcclure Catheter: [] - Assessment/Plan Antibiotics: [] Assessment/Plan: [] Active and Suspected Problems (Last Reviewed 08/11/18 @ 19:33 by Carlos Garcia DO) COPD exacerbation (Acute) Pneumococcal pneumonia (Acute) Acute respiratory failure with hypoxia and hypercapnia (Acute) Sepsis (Acute) CAP with hypoxic resp failure - resp viral panel neg. Sputum cx, bcx, and UAgs neg. Feeling better since admission. No fever, wbc stable. On zosyn since 08/14. No clear exposure risk for atypical/fungal infections. Thoracentesis done today, minimal PMNs, cx pending. Will follow
[2018-08-21] VITALS (20 sets, daily range): BP systolic 118–146; BP diastolic 48–71; PULSE 57–91; RESP 12–28; TEMP 36.4–36.8; O2SAT 92–94
[2018-08-21] MEDS: Acetaminophen 325 MG Tablet 650 MG PO ×3 (03:14→20:45)
[2018-08-21] MEDS: Ipratropium/Albuterol Sulfate 3 ML AMPUL.NEB INHALATION ×4 (06:54→19:36)
[2018-08-21 07:44] LABS: Anion Gap 6 (5-15); BUN 50 mg/dL (7-18); BUN/Creat Ratio 44.2 RATIO (10-20); Chloride 106 mmol/L (98-107); Creatinine, Serum 1.13 mg/dL (0.70-1.30); EST Glomerular Filtration Rate 67 mL/min (>60); Est Glom Filt Rate - Afr Amer 81 mL/min (>60); Estimated Creatinine Clearance 53.62 ml/min; Glucose 91 mg/dL (74-106); Potassium 4.9 mmol/L (3.5-5.1); Sodium Level 146 mmol/L (136-145)
--- NOTE | 2018-08-21 08:29 | PCM.PROGNOTE ---
Patient Problems: Active and Suspected Problems (Last Reviewed 08/11/18 @ 19:33 by Carlos Garcia DO) COPD exacerbation (Acute) Acute respiratory failure with hypoxia and hypercapnia (Acute) Sepsis (Acute) Subjective: Patient did okay overnight. Patient is reporting subjective improvement following thoracentesis. Still requiring significant supplemental oxygen to maintain saturations. Patient does have a cough, but no real production. Objective: Or centesis completed yesterday with just over 400 cc removed. No complications from the procedure. Labs are consistent with an exudative effusion. - Physical Exam General: Alert, Oriented x3, Cooperative, No apparent distress, - - Appears older than stated age. No conversational dyspnea noted. HEENT: Atraumatic, PERRLA, EOMI, Normocephalic, - - No scleral icterus or injection noted. Oral: Moist Mucosa, No Gingival or Mucosal Lesions/ Ulcerations Neck: Supple, No JVD, No Nodes, Trachea Midline Lungs: No rhonchi, No wheeze, No rales, Diminished Cardiovascular: Regular rate, Regular Rhythm, Normal S1, Normal S2, No murmurs, No rub noted, No Gallop Abdomen: Bowel Sounds Present, Soft, Non Tender, Non-Distended Extremities: No cyanosis, No edema, Capillary Refill Less than 3 Seconds, Clubbing Skin: - - No significant change from previous Musculoskeletal: No Tenderness to Palpation of Joints or Extremities Lymphatic: No Cervical, Supraclavicular, or Inguinal Adenopathy Neurological: Cranial nerves II-XII grossly intact, Neuro grossly intact, Motor Exam 5/5 strength throughout Psych/Mental Status: Alert and oriented to time, place, person, mood and affect Vital Signs Temp Pulse Resp BP Pulse Ox 36.6 C 84 16 146/67 H 94 08/21/18 05:33 08/21/18 07:55 08/21/18 06:54 08/21/18 05:33 08/21/18 06:54 Oxygen Flow Rate (L/min) [2] 8 Oxygen Flow Rate (L/min) [1 ( 8 Initial Baseline)] Oxygen Flow Rate (L/min) 8 Oxygen Delivery Method [4] Nasal Cannula Oxygen Delivery Method [3] Nasal Cannula Oxygen Delivery Method [2] Nasal Cannula Oxygen Delivery Method [1 ( Nasal Cannula Initial Baseline)] Oxygen Delivery Method Nasal Cannula Weight: 69.8 kg Body Mass Index (BMI) 25.7 Intake and Output for Last 24 Hours 08/19/18 08/20/18 08/21/18 23:59 23:59 23:59 Intake Total 1177 / 1177 773.2 / 773.2 725 / 725 Output Total 100 / 100 825 / 825 475 / 475 Balance 1077 / 1077 -51.8 / -51.8 250 / 250 Microbiology Past 72 Hours 08/20/18 08:30 Gram Stain - Final Sputum, Expectorated/Coughed 08/20/18 10:05 Gram Stain - Final Fluid - Thoracentesis Fluid Laboratory Tests Past 24 Hrs 08/20/18 08/20/18 08/20/18 05:20 05:20 10:05 PT 12.6 INR 0.9 APTT 27.2 Sodium Potassium Chloride Carbon Dioxide Anion Gap BUN Creatinine Estim Creat Clear Calc Est GFR (MDRD) Af Amer Est GFR (MDRD) Non-Af BUN/Creatinine Ratio Glucose Calcium Lactate Dehydrogenase 612 H Total Protein 6.8 Globulin 3.7 Albumin/Globulin Ratio 0.8 L Fluid Source Fluid Color Fluid Appearance Fluid pH Fluid WBC Fluid RBC Fluid Tot Cell Count Fld Polynuclear WBCs # Fld Polynuclear WBCs % Fluid Mononuclear WBCs Fld Mononuclear WBCs % Fluid Neutrophils Fluid Lymphocytes Fluid Other Cells Fl Pathologist Comment Fluid Total Protein 3.4 Fluid LDH 1993 Fluid Comment 2 Miscellaneous Cytology 08/20/18 08/20/18 08/20/18 10:05 10:05 10:05 PT INR APTT Sodium Potassium Chloride Carbon Dioxide Anion Gap BUN Creatinine Estim Creat Clear Calc Est GFR (MDRD) Af Amer Est GFR (MDRD) Non-Af BUN/Creatinine Ratio Glucose Calcium Lactate Dehydrogenase Total Protein Globulin Albumin/Globulin Ratio Fluid Source THORACENTESIS Fluid Color SLIGHTLY PINK Fluid Appearance SL CLDY Fluid pH Pending Fluid WBC 0.998 Fluid RBC 0.17978 Fluid Tot Cell Count 1.875 Fld Polynuclear WBCs # 0.082 Fld Polynuclear WBCs % 8.2 Fluid Mononuclear WBCs 0.916 Fld Mononuclear WBCs % 91.8 Fluid Neutrophils 7 Fluid Lymphocytes 41 Fluid Other Cells 52 Fl Pathologist Comment May follow Fluid Total Protein Fluid LDH Fluid Comment 2 SEE COMMENT Miscellaneous Cytology Pending 08/21/18 06:30 PT INR APTT Sodium 146 H Potassium 4.9 Chloride 106 Carbon Dioxide 34.0 H Anion Gap 6 BUN 50 H Creatinine 1.13 Estim Creat Clear Calc 53.62 Est GFR (MDRD) Af Amer 81 Est GFR (MDRD) Non-Af 67 BUN/Creatinine Ratio 44.2 H Glucose 91 Calcium 9.0 Lactate Dehydrogenase Total Protein Globulin Albumin/Globulin Ratio Fluid Source Fluid Color Fluid Appearance Fluid pH Fluid WBC Fluid RBC Fluid Tot Cell Count Fld Polynuclear WBCs # Fld Polynuclear WBCs % Fluid Mononuclear WBCs Fld Mononuclear WBCs % Fluid Neutrophils Fluid Lymphocytes Fluid Other Cells Fl Pathologist Comment Fluid Total Protein Fluid LDH Fluid Comment 2 Miscellaneous Cytology Clinical Impression(s) from Imaging Studies Thoracentesis Ultrasound 08/20/18 02:30 IMPRESSION: Ultrasound-guided right thoracentesis. Electronically Signed: Irwin Hong MD at 11:28 EST , Service support , Chest X-Ray 08/20/18 10:07 IMPRESSION: Status post right thoracentesis. There is no evidence of pneumothorax. Electronically Signed: Irwin Hong MD at 10:41 EST , Service support , Medical Necessity - Tobacco Use Smoking Status: Former smoker Tobacco Use: Cigarettes Assessment/Plan All Active Problems (Last Reviewed 08/11/18 @ 19:33 by Carlos Garcia DO) Community acquired pneumonia (Acute) COPD exacerbation (Acute) Pneumococcal pneumonia (Ruled-out) Acute respiratory failure with hypoxia and hypercapnia (Acute) Sepsis (Acute) CATHERINE (acute kidney injury) (Acute) Shortness of breath (Acute) Pseudomonas pneumonia (Resolved) RECOMMENDATIONS: 1. Continue scheduled bronchodilators, antibiotics and wean steroids over the next 12-14 days 2. Continue supplemental oxygen with a goal to maintain a saturation at or above 88%. 3. Continue BiPAP utilization as needed. 4. Encourage incentive spirometer use and mobilize patient as tolerated. IMPRESSIONS: 1. Acute on chronic combined respiratory failure secondary to severe community-acquired pneumonia with exudative effusion The patient has known end-stage COPD along with a 4 L/min baseline supplemental oxygen requirement. He does have radiographic evidence of severe community-acquired pneumonia with diffuse right-sided infiltrates. He will be continued on scheduled bronchodilators, PO steroids and antibiotics as ordered. Patient can likely be weaned on steroids over the next 12-14 days. Supplemental oxygen will be weaned as tolerated. Continue BiPAP as needed. Given the advanced age of the patient's underlying pulmonary disease, anticipated prolonged recovery period. Patient has undergone thoracentesis and this appears to be exudative by labs. Significant other cells may be secondary to malignancy versus parapneumonic effusion. Await cytology evaluation. Radiographic evidence could be seen in bronchioloalveolar carcinoma. 2. End-stage COPD with exacerbation secondary to #1 Continue current supportive measures with bronchodilators, steroids and antibiotics as noted above. 3. Heart failure with preserved ejection fraction/pulmonary hypertension The patient does not appear to be overtly volume overloaded at this time. We will continue to monitor volume status closely. No indication for any additional diuretics at this time. Pleural effusion is not consistent with a transudate, so further diuresis is likely not necessary. 4. Tobacco dependency currently in remission/hypertension/GERD/chronic pain syndrome Complicates care, management, recovery and prognosis. Continue as needed oxycodone for pain. Physical therapy to continue to work with patient. Code Visit Inpatient E&M: 21895 Subs Hosp L2
[2018-08-21] MEDS: predniSONE 20 MG Tablet 40 MG PO (08:52)
[2018-08-21] MEDS: Metoprolol(XL)Succ 25 MG Tablet 75 MG PO (08:54)
[2018-08-21] MEDS: Pantoprazole Sodium 40 MG Tablet PO (08:54)
[2018-08-21] MEDS: guaiFENesin 1,200 MG Tablet 1200 MG PO ×2 (08:54→20:45)
[2018-08-21] MEDS: Enoxaparin 40 MG/0.4 ML Syringe SC (08:55)
--- NOTE | 2018-08-21 11:18 | PCM.PN.ID ---
Patient Problems: Active and Suspected Problems (Last Reviewed 08/11/18 @ 19:33 by Carlos Garcia DO) COPD exacerbation (Acute) Acute respiratory failure with hypoxia and hypercapnia (Acute) Sepsis (Acute) Subjective: Feeling better, still some cough and SOB, no fever. - Physical Exam General: Alert, Cooperative, No apparent distress Lungs: Rhonchi - bilateral Cardiovascular: Regular rate, Regular Rhythm Abdomen: Soft, Non Tender, Non-Distended Skin: No rashes Vital Signs Temp Pulse Resp BP Pulse Ox 97.8 F 83 22 H 123/61 H 94 08/21/18 08:43 08/21/18 08:54 08/21/18 08:43 08/21/18 08:43 08/21/18 08:43 Oxygen Flow Rate (L/min) [2] 8 Oxygen Flow Rate (L/min) [1 ( 8 Initial Baseline)] Oxygen Flow Rate (L/min) 8 Oxygen Delivery Method [4] Nasal Cannula Oxygen Delivery Method [3] Nasal Cannula Oxygen Delivery Method [2] Nasal Cannula Oxygen Delivery Method [1 ( Nasal Cannula Initial Baseline)] Oxygen Delivery Method Nasal Cannula Weight: 69.8 kg Body Mass Index (BMI) 25.7 Intake and Output for Last 24 Hours 08/19/18 08/20/18 08/21/18 23:59 23:59 23:59 Intake Total 1177 / 1177 773.2 / 773.2 725 / 725 Output Total 100 / 100 825 / 825 475 / 475 Balance 1077 / 1077 -51.8 / -51.8 250 / 250 Microbiology Past 72 Hours 08/20/18 08:30 Gram Stain - Final Sputum, Expectorated/Coughed Respiratory Culture - Preliminary Appears to be normal respiratory karla. Further studies to follow. 08/19/18 18:30 Urine Culture - Final Urine, Clean Catch Culture exhibits no growth. 08/20/18 10:05 Gram Stain - Final Fluid - Thoracentesis Fluid Laboratory Tests Past 24 Hrs 08/20/18 08/20/18 08/20/18 05:20 10:05 10:05 Sodium Potassium Chloride Carbon Dioxide Anion Gap BUN Creatinine Estim Creat Clear Calc Est GFR (MDRD) Af Amer Est GFR (MDRD) Non-Af BUN/Creatinine Ratio Glucose Calcium Lactate Dehydrogenase 612 H Total Protein 6.8 Globulin 3.7 Albumin/Globulin Ratio 0.8 L Fluid Source THORACENTESIS Fluid Color SLIGHTLY PINK Fluid Appearance SL CLDY Fluid Neutrophils 7 Fluid Lymphocytes 41 Fluid Other Cells 52 Fl Pathologist Comment May follow Fluid Total Protein 3.4 Fluid LDH 1993 Fluid Comment 2 SEE COMMENT 08/21/18 06:30 Sodium 146 H Potassium 4.9 Chloride 106 Carbon Dioxide 34.0 H Anion Gap 6 BUN 50 H Creatinine 1.13 Estim Creat Clear Calc 53.62 Est GFR (MDRD) Af Amer 81 Est GFR (MDRD) Non-Af 67 BUN/Creatinine Ratio 44.2 H Glucose 91 Calcium 9.0 Lactate Dehydrogenase Total Protein Globulin Albumin/Globulin Ratio Fluid Source Fluid Color Fluid Appearance Fluid Neutrophils Fluid Lymphocytes Fluid Other Cells Fl Pathologist Comment Fluid Total Protein Fluid LDH Fluid Comment 2 Medical Necessity - Tobacco Use Smoking Status: Former smoker Tobacco Use: Cigarettes Route of nutrition/ use of supplements: [] Nutritional Intake: [] IV Site: [] Mcclure Catheter: [] - Assessment/Plan Antibiotics: [] Assessment/Plan: [] Active and Suspected Problems (Last Reviewed 08/11/18 @ 19:33 by Carlos Garcia DO) COPD exacerbation (Acute) Pneumococcal pneumonia (Acute) Acute respiratory failure with hypoxia and hypercapnia (Acute) Sepsis (Acute) CAP with hypoxic resp failure - resp viral panel neg. Sputum cx, bcx, and UAgs neg. Feeling better since admission. No fever, wbc stable. On zosyn since 08/14. No clear exposure risk for atypical/fungal infections. Thoracentesis done 08/20, exudative, minimal PMNs, cx neg so far. Cytology pending. Will follow
--- NOTE | 2018-08-21 13:51 | PCM.PROGNOTE ---
Patient Problems: Active and Suspected Problems (Last Reviewed 08/11/18 @ 19:33 by Carlos Garcia DO) COPD exacerbation (Acute) Acute respiratory failure with hypoxia and hypercapnia (Acute) Sepsis (Acute) Subjective: Patient seen and examined. Reports improvement in breathing. Denies other complaints. - Physical Exam General: Alert, Oriented x3, Cooperative, No apparent distress HEENT: Atraumatic, PERRLA, EOMI, Normocephalic Neck: Supple, No JVD, Negative Carotid Bruits Lungs: Diminished, Rales Cardiovascular: Regular rate, Regular Rhythm, Normal S1, Normal S2, No murmurs Abdomen: Bowel Sounds Present, Soft, Non Tender, Non-Distended Extremities: No clubbing, No cyanosis, No edema, Capillary Refill Less than 3 Seconds Skin: No rashes, No breakdown Musculoskeletal: No Tenderness to Palpation of Joints or Extremities Neurological: Cranial nerves II-XII grossly intact, Neuro grossly intact Psych/Mental Status: Normal Affect, Appropriate Vital Signs Temp Pulse Resp BP Pulse Ox 98.2 F 80 23 H 120/48 L 94 08/21/18 13:40 08/21/18 13:40 08/21/18 13:40 08/21/18 13:40 08/21/18 13:40 Oxygen Flow Rate (L/min) [2] 8 Oxygen Flow Rate (L/min) [1 ( 8 Initial Baseline)] Oxygen Flow Rate (L/min) 8 Oxygen Delivery Method [4] Nasal Cannula Oxygen Delivery Method [3] Nasal Cannula Oxygen Delivery Method [2] Nasal Cannula Oxygen Delivery Method [1 ( Nasal Cannula Initial Baseline)] Oxygen Delivery Method Nasal Cannula Weight: 153 lb 14.122 oz Body Mass Index (BMI) 25.7 Intake and Output for Last 24 Hours 08/19/18 08/20/18 08/21/18 23:59 23:59 23:59 Intake Total 1177 / 1177 773.2 / 773.2 1350 / 1350 Output Total 100 / 100 825 / 825 500 / 500 Balance 1077 / 1077 -51.8 / -51.8 850 / 850 Microbiology Past 72 Hours 08/20/18 08:30 Gram Stain - Final Sputum, Expectorated/Coughed Respiratory Culture - Preliminary Appears to be normal respiratory karla. Further studies to follow. 08/19/18 18:30 Urine Culture - Final Urine, Clean Catch Culture exhibits no growth. 08/20/18 10:05 Gram Stain - Final Fluid - Thoracentesis Fluid Laboratory Tests Past 24 Hrs 08/21/18 06:30 Sodium 146 H Potassium 4.9 Chloride 106 Carbon Dioxide 34.0 H Anion Gap 6 BUN 50 H Creatinine 1.13 Estim Creat Clear Calc 53.62 Est GFR (MDRD) Af Amer 81 Est GFR (MDRD) Non-Af 67 BUN/Creatinine Ratio 44.2 H Glucose 91 Calcium 9.0 Medical Necessity - Tobacco Use Smoking Status: Former smoker Tobacco Use: Cigarettes Assessment/Plan All Active Problems (Last Reviewed 08/11/18 @ 19:33 by Carlos Garcia DO) Community acquired pneumonia (Acute) COPD exacerbation (Acute) Pneumococcal pneumonia (Ruled-out) Acute respiratory failure with hypoxia and hypercapnia (Acute) Sepsis (Acute) CATHERINE (acute kidney injury) (Acute) Shortness of breath (Acute) Pseudomonas pneumonia (Resolved) . Acute on chronic hypoxic and hypercapnic respiratory failure secondary to severe community-acquired pneumonia with associated severe sepsis-patient chronically wears 4 L nasal cannula at baseline. Continue supplement oxygen to maintain O2 at or above 90%. Continue albuterol and DuoNeb aerosols. IV Zosyn. Sputum culture shows normal respiratory kalra. Respiratory panel negative. ID following. BIPAP Q HS and PRN. Pulmonary medicine following. 2. Acute exacerbation of end-stage COPD secondary to #1-albuterol and DuoNeb aerosols. Prednisone taper. Pulmonary following. 3. Right pleural effusion status post diagnostic and therapeutic thoracentesis 08/20/18. 480 mL fluid was drained. Exudative fluid. Culture and cytology pending. 4. Chronic diastolic CHF-no acute exacerbation. 5. Hypertension-stable, continue metoprolol regimen. 6. Chronic kidney disease stage III- stable. 7. GERD-continue PPI. 8. Chronic pain syndrome- PRN pain regimen. 9. History of tobacco dependence-encouraged continued cessation. DVT prophylaxis-Lovenox Discharge planning- SNF pending pre-cert. This patient was seen by ALFIE Waller under the supervision of Dr. Martínez.
--- NOTE | 2018-08-21 16:23 | CASEMGMT ---
ASH spoke with Luci at [facility] this am. She said that patient will need another pre-cert. SW asked her what flow of O2 they can accept. She said they have a concentrator that goes up to 10L. SW let her know patient has been on 7-8L here and she was fine with this. Plan: [facility] under skilled level of care pending insurance approval. Guerline YAP MSW
[2018-08-21] MEDS: Senna/Docusate Sodium 1 Tablet 2 TABLET PO (20:45)
--- NOTE | 2018-08-21 23:18 | NURSING ---
this RN is taking over care for this patient at this time.
--- NOTE | 2018-08-21 23:37 | CPS ---
pt did not want to go on bipap at this time
[2018-08-22] VITALS (11 sets, daily range): BP systolic 122–140; BP diastolic 66–74; PULSE 66–98; RESP 12–35; TEMP 36.4–36.5; O2SAT 90–98
[2018-08-22] MEDS: Acetaminophen 325 MG Tablet 650 MG PO ×2 (05:10→13:10)
[2018-08-22 06:40] LABS: Hematocrit 48.5 % (40-54); Hemoglobin 14.8 g/dl (13.0-16.5); Mean Corp Hgb Conc 30.5 g/gl (32-36); Mean Corpuscular Hgb 31.2 pg (27.0-32.0); Mean Corpuscular Volume 102.1 fL (80-94); Mean Platelet Vol. 10.1 fl (6.2-12.0); Platelet Count 207 K/mm3 (150-450); RBC Distribution Width CV 14.1 % (11.6-14.6); RBC Distribution Width SD 53.1 fl (35.1-43.9); Red Blood Count 4.75 M/mm3 (4.6-6.2); White Blood Count 15.3 K/mm3 (4.4-11.0)
[2018-08-22 06:41] LABS: Scan Indicated on CBC? Y/N NO
[2018-08-22 07:01] LABS: Anion Gap 3 (5-15); BUN 44 mg/dL (7-18); BUN/Creat Ratio 42.3 RATIO (10-20); Calcium,Total 8.6 mg/dL (8.5-10.1); Chloride 105 mmol/L (98-107); Creatinine, Serum 1.04 mg/dL (0.70-1.30); EST Glomerular Filtration Rate 74 mL/min (>60); Est Glom Filt Rate - Afr Amer 90 mL/min (>60); Estimated Creatinine Clearance 58.26 ml/min; Glucose 89 mg/dL (74-106); Potassium 4.7 mmol/L (3.5-5.1); Sodium Level 142 mmol/L (136-145)
[2018-08-22] MEDS: Ipratropium/Albuterol Sulfate 3 ML AMPUL.NEB INHALATION ×2 (07:03→10:55)
[2018-08-22] MEDS: predniSONE 20 MG Tablet 40 MG PO (09:14)
[2018-08-22] MEDS: Enoxaparin 40 MG/0.4 ML Syringe SC (09:14)
[2018-08-22] MEDS: Pantoprazole Sodium 40 MG Tablet PO (09:15)
[2018-08-22] MEDS: guaiFENesin 1,200 MG Tablet 1200 MG PO (09:15)
[2018-08-22] MEDS: Metoprolol(XL)Succ 25 MG Tablet 75 MG PO (09:16)
--- NOTE | 2018-08-22 10:33 | CASEMGMT ---
ASH faxed bi-pap settings to [facility]. ASH spoke with Lcui at [facility] and they have a bi-pap for patient. She also said patient can come whenever he is ready. ASH let physician know this information. Guerline CASTRO
--- NOTE | 2018-08-22 11:33 | PCM.PROGNOTE ---
Patient Problems: Active and Suspected Problems (Last Reviewed 08/11/18 @ 19:33 by Carlos Garcia DO) COPD exacerbation (Acute) Acute respiratory failure with hypoxia and hypercapnia (Acute) Sepsis (Acute) Subjective: Patient did well overnight. Patient feels mild subjective improvement compared to previous. Patient has been maintained on 8 L nasal cannula. Patient continues to have a cough with production, but feels this is improving. - Physical Exam General: Alert, Oriented x3, Cooperative, No apparent distress, - - Appears older than stated age. Mild conversational dyspnea. HEENT: Atraumatic, PERRLA, EOMI, Normocephalic, - - Scleral icterus or injection noted. Oral: Moist Mucosa, No Gingival or Mucosal Lesions/ Ulcerations Neck: Supple, No JVD, No Nodes Lungs: No rhonchi, No wheeze, No rales, Diminished, - - Symmetric expansion. No dullness to percussion. Cardiovascular: Regular rate, Regular Rhythm, Normal S1, Normal S2, No murmurs, No rub noted, No Gallop Abdomen: Bowel Sounds Present, Soft, Non Tender, Non-Distended Extremities: No cyanosis, No edema, Capillary Refill Less than 3 Seconds, Clubbing Skin: - - No significant change compared to previous Musculoskeletal: No Tenderness to Palpation of Joints or Extremities Lymphatic: No Cervical, Supraclavicular, or Inguinal Adenopathy Neurological: Cranial nerves II-XII grossly intact, Neuro grossly intact, Motor Exam 5/5 strength throughout Psych/Mental Status: Alert and oriented to time, place, person, mood and affect Vital Signs Temp Pulse Resp BP Pulse Ox 36.4 C L 72 24 H 122/74 H 97 08/22/18 09:07 08/22/18 10:57 08/22/18 09:07 08/22/18 09:07 08/22/18 09:07 Oxygen Flow Rate (L/min) [2] 8 Oxygen Flow Rate (L/min) [1 ( 8 Initial Baseline)] Oxygen Flow Rate (L/min) 10 Oxygen Delivery Method [4] Nasal Cannula Oxygen Delivery Method [3] Nasal Cannula Oxygen Delivery Method [2] Nasal Cannula Oxygen Delivery Method [1 ( Nasal Cannula Initial Baseline)] Oxygen Delivery Method Nasal Cannula Weight: 70.1 kg Body Mass Index (BMI) 25.7 Intake and Output for Last 24 Hours 08/20/18 08/21/18 08/22/18 23:59 23:59 23:59 Intake Total 773.2 / 773.2 2580 / 2580 360.7 / 360.7 Output Total 825 / 825 900 / 900 Balance -51.8 / -51.8 1680 / 1680 360.7 / 360.7 Microbiology Past 72 Hours 08/20/18 08:30 Gram Stain - Final Sputum, Expectorated/Coughed Respiratory Culture - Final 08/19/18 18:30 Urine Culture - Final Urine, Clean Catch Culture exhibits no growth. 08/20/18 10:05 Gram Stain - Final Fluid - Thoracentesis Fluid Laboratory Tests Past 24 Hrs 08/22/18 08/22/18 06:10 06:10 WBC 15.3 H RBC 4.75 Hgb 14.8 Hct 48.5 MCV 102.1 H MCH 31.2 MCHC 30.5 L RDW 14.1 RDW Differential 53.1 H Plt Count 207 MPV 10.1 Sodium 142 Potassium 4.7 Chloride 105 Carbon Dioxide 34.0 H Anion Gap 3 L BUN 44 H Creatinine 1.04 Estim Creat Clear Calc 58.26 Est GFR (MDRD) Af Amer 90 Est GFR (MDRD) Non-Af 74 BUN/Creatinine Ratio 42.3 H Glucose 89 Calcium 8.6 Medical Necessity - Tobacco Use Smoking Status: Former smoker Tobacco Use: Cigarettes Assessment/Plan All Active Problems (Last Reviewed 08/11/18 @ 19:33 by Carlos Garcia DO) Community acquired pneumonia (Acute) COPD exacerbation (Acute) Pneumococcal pneumonia (Ruled-out) Acute respiratory failure with hypoxia and hypercapnia (Acute) Sepsis (Acute) CATHERINE (acute kidney injury) (Acute) Shortness of breath (Acute) Pseudomonas pneumonia (Resolved) RECOMMENDATIONS: 1. Continue scheduled bronchodilators, antibiotics and wean PO steroids over the next 12-14 days 2. Continue supplemental oxygen with a goal to maintain a saturation at or above 88%. 3. Continue BiPAP utilization as needed. 4. Encourage incentive spirometer use and mobilize patient as tolerated. 5. Okay to discharge from a pulmonary perspective 6. Follow-up in our office in 2 weeks IMPRESSIONS: 1. Acute on chronic combined respiratory failure secondary to severe community-acquired pneumonia with exudative effusion The patient has known end-stage COPD along with a 4 L/min baseline supplemental oxygen requirement. He does have radiographic evidence of severe community-acquired pneumonia with diffuse right-sided infiltrates. He will be continued on scheduled bronchodilators, PO steroids and antibiotics as ordered. Patient can likely be weaned on steroids over the next 12-14 days. Supplemental oxygen will be weaned as tolerated. Continue BiPAP as needed. Given the advanced age of the patient's underlying pulmonary disease, anticipated prolonged recovery period. Patient has undergone thoracentesis and this appears to be exudative by labs. Significant other cells may be secondary to malignancy versus parapneumonic effusion. Await cytology evaluation. Radiographic evidence could be seen in bronchioloalveolar carcinoma. That being said, patient appears to be relatively stable and can leave from a pulmonary perspective. Patient should follow-up in our office in 2 weeks for evaluation. 2. End-stage COPD with exacerbation secondary to #1 Continue current supportive measures with bronchodilators, steroids and antibiotics as noted above. 3. Heart failure with preserved ejection fraction/pulmonary hypertension The patient does not appear to be overtly volume overloaded at this time. We will continue to monitor volume status closely. No indication for any additional diuretics at this time. Pleural effusion is not consistent with a transudate, so further diuresis is likely not necessary. 4. Tobacco dependency currently in remission/hypertension/GERD/chronic pain syndrome Complicates care, management, recovery and prognosis. Continue as needed oxycodone for pain. Physical therapy to continue to work with patient. Code Visit Inpatient E&M: [id number] [facility] Hosp L2
--- NOTE | 2018-08-22 11:49 | TREXTCA.CO_ITS ---
Addendum entered and electronically signed by ALFIE Waller 08/22/18 12:31: Code Visit Follow up with Dr. Casey-office to call for appt. Original Note: - Diet 08/11/18 20:58 Diet: Cardiac/Low Cholesterol Food consistency:: Regular Liquid Consistency:: Regular/Thin - Routine Orders/Code Status Enema Type: Fleetz Enema Frequency: Daily PRN Suppository Type: Dulcolax 10mg Suppository Frequency: Daily PRN O2 Liters per Minute: 10 O2 Frequency: Continuous Keep PO Greater than or Equal to (%): 90 - Ween as tolerated Routine Lab Work: CBC, BMP, - - In 3 days Code Status: Full Code - Wound(s) rt lower back' Wound Type: Puncture - Suggestions for Active Care Change Position every (hours): 2 Times a day to sit in chair: 3 - Therapies Physical Therapy: Eval and Treat Occupational Therapy: Eval and Treat - Problem/Diagnosis (1) Community acquired pneumonia Status: Acute Current Visit: Yes (2) COPD exacerbation Status: Acute Current Visit: Yes (3) Acute respiratory failure with hypoxia and hypercapnia Status: Acute Current Visit: Yes (4) Pleural effusion Status: Acute Current Visit: Yes (5) Diastolic CHF Status: Chronic Current Visit: No (6) Hypertension Status: Chronic Current Visit: No (7) Tobacco abuse Status: Chronic Current Visit: No - Allergies/Procedures Done in Hospital Allergies/Adverse Reactions: Allergies aspirin Adverse Reaction (Verified 08/11/18 17:43) Other Procedures: Thoracentesis - Type of Care/Length of Stay Estimated LOS: Convalescent Care Less Than 30 days Type of Care Needed: Skilled Rehab Potential: Fair Prognosis: Fair - Additional Orders/Day of Discharge H&P will serve as current which was dated: 08/11/18 Day of Discharge: 08/22/18 - Dietary and Speech Recommendations Dietitian Recommendations/Changes: Rec liberalize to regular diet d/t poor po intake and recent wt loss. Will offer ensure pudding/magic cup w/ meals for increased po intake if consumed. - Follow Up Care Primary Care Physician: Mignon Pa MD [Primary Care Provider] - Please follow up with your Primary Care Physician in: 1 Week Please Follow Up With: Vladimir Hilario MD When: 2 Weeks
[2018-08-22 12:31] LABS: Pathologist Comment/Body Fluid Reviewed
--- NOTE | 2018-08-22 12:31 | PCM.DC.SUM ---
Discharge Date and Diagnosis Date of Admission: 08/11/18 Date of Discharge: 08/22/18 - Primary Discharge Diagnosis Active and Suspected Problems (Last Reviewed 08/11/18 @ 19:33 by Carlos Garcia DO) 1. Acute on chronic hypoxic and hypercapnic respiratory failure secondary to severe community-acquired pneumonia with associated severe sepsis 2. Acute exacerbation of end-stage COPD secondary to #1 3. Right pleural effusion status post diagnostic and therapeutic thoracentesis 08/20/18 secondary to new diagnosis small cell lung lung cancer 4. Chronic diastolic CHF 5. Hypertension 6. Chronic kidney disease stage III 7. GERD 8. Chronic pain syndrome 9. History of tobacco dependence - Secondary Discharge Diagnosis Chronic Problems (Last Reviewed 08/11/18 @ 19:33 by Carlos Garcia DO) Diastolic CHF (Chronic) Stage 4 very severe COPD by GOLD classification (Chronic) FEV1 33% Bilateral leg edema (Chronic) COPD (chronic obstructive pulmonary disease) (Chronic) Hypertension (Chronic) Alcohol abuse (Chronic) Tobacco abuse (Chronic) Hospital Course and Treatment Imaging Results: Diagnostic Data Chest CT 08/17/18 08:55 IMPRESSION: Right lung mass and infiltrates. Right pleural based masses and effusion. Mediastinal lymphadenopathy. Old granulomatous disease also noted. There is atherosclerosis. Electronically Signed: Leland Brantley MD at 10:47 EST , Service support , ADDENDUM: 08/17/18 1100 IMPRESSION: Right lung mass and infiltrates. Right pleural based masses and effusion. Mediastinal lymphadenopathy. Old granulomatous disease also noted. There is atherosclerosis. N.B. : The above information has been verbally conveyed by Leland Brantley MD to LANDEN Parikh RN, on 08/17/2018 10:53:07 (ET). Electronically Signed: Leland Brantley MD at 10:47 EST , Service support , Thoracentesis Ultrasound 08/20/18 02:30 IMPRESSION: Ultrasound-guided right thoracentesis. Electronically Signed: Irwin Hong MD at 11:28 EST , Service support , Chest X-Ray 08/20/18 10:07 IMPRESSION: Status post right thoracentesis. There is no evidence of pneumothorax. Electronically Signed: Irwin Hong MD at 10:41 EST , Service support , Dr. Saha- ID Dr. Hilario-Pulmonary Operations: None Procedures: Thoracentesis Summary of Care Provided: The patient is a 72 year old M admitted 08/11/18 due to shortness of breath and cough. 1. Acute on chronic hypoxic and hypercapnic respiratory failure secondary to severe community-acquired pneumonia with associated severe sepsis-patient chronically wears 4 L nasal cannula at baseline. Now requiring high flow oxygen. Continue supplement oxygen to maintain O2 at or above 90%. Sputum culture shows normal respiratory karla. Respiratory panel negative. ID consulted. BIPAP Q HS and PRN. Pulmonary medicine consulted. Patient received IV Zosyn during admission. Discharged on Omnicef 300 mg twice daily for 3 days. Follow up with Dr. Hilario in 2 weeks. 2. Acute exacerbation of end-stage COPD secondary to #1-albuterol and DuoNeb aerosols. Prednisone taper at [place]. 3. Right pleural effusion status post diagnostic and therapeutic thoracentesis 08/20/18- diagnosed with small cell lung cancer. Patient will follow up with Dr. Casey at discharge. 4. Chronic diastolic CHF-no acute exacerbation. 5. Hypertension-stable, continue metoprolol regimen. 6. Chronic kidney disease stage III- stable. 7. GERD-continue PPI. 8. Chronic pain syndrome- PRN pain regimen. 9. History of tobacco dependence-encouraged continued cessation. General: Alert, Oriented x3, Cooperative, No apparent distress HEENT: Atraumatic, PERRLA, EOMI, Normocephalic Neck: Supple, No JVD, Negative Carotid Bruits Lungs: Diminished, Rales Cardiovascular: Regular rate, Regular Rhythm, Normal S1, Normal S2, No murmurs Abdomen: Bowel Sounds Present, Soft, Non Tender, Non-Distended Extremities: No clubbing, No cyanosis, No edema, Capillary Refill Less than 3 Seconds Skin: No rashes, No breakdown Musculoskeletal: No Tenderness to Palpation of Joints or Extremities Neurological: Cranial nerves II-XII grossly intact, Neuro grossly intact Psych/Mental Status: Normal Affect, Appropriate Patient seen and examined prior to discharge. Physical assessment as noted above. Patient is stable for discharge with follow up recommendations as noted above. This patient was seen by ALFIE Waller under the supervision of Dr. Martínez. - Physical Exam Vital Signs Temp Pulse Resp BP Pulse Ox 97.6 F L 72 24 H 122/74 H 97 08/22/18 09:07 08/22/18 10:57 08/22/18 09:07 08/22/18 09:07 08/22/18 09:07 Oxygen Flow Rate (L/min) [2] 8 Oxygen Flow Rate (L/min) [1 ( 8 Initial Baseline)] Oxygen Flow Rate (L/min) 10 Oxygen Delivery Method [4] Nasal Cannula Oxygen Delivery Method [3] Nasal Cannula Oxygen Delivery Method [2] Nasal Cannula Oxygen Delivery Method [1 ( Nasal Cannula Initial Baseline)] Oxygen Delivery Method Nasal Cannula Weight: 154 lb 8.705 oz Body Mass Index (BMI) 25.7 Intake and Output for Last 24 Hours 08/20/18 08/21/18 08/22/18 23:59 23:59 23:59 Intake Total 773.2 / 773.2 2580 / 2580 960.7 / 960.7 Output Total 825 / 825 900 / 900 Balance -51.8 / -51.8 1680 / 1680 960.7 / 960.7 Microbiology Past 72 Hours 08/20/18 10:05 Gram Stain - Final Fluid - Thoracentesis Fluid Anaerobic Culture - Preliminary No growth in 48 hours. 08/20/18 08:30 Gram Stain - Final Sputum, Expectorated/Coughed Respiratory Culture - Final 08/19/18 18:30 Urine Culture - Final Urine, Clean Catch Culture exhibits no growth. Laboratory Tests Past 24 Hrs 08/20/18 08/22/18 08/22/18 10:05 06:10 06:10 WBC 15.3 H RBC 4.75 Hgb 14.8 Hct 48.5 MCV 102.1 H MCH 31.2 MCHC 30.5 L RDW 14.1 RDW Differential 53.1 H Plt Count 207 MPV 10.1 Sodium 142 Potassium 4.7 Chloride 105 Carbon Dioxide 34.0 H Anion Gap 3 L BUN 44 H Creatinine 1.04 Estim Creat Clear Calc 58.26 Est GFR (MDRD) Af Amer 90 Est GFR (MDRD) Non-Af 74 BUN/Creatinine Ratio 42.3 H Glucose 89 Calcium 8.6 Fl Pathologist Comment Reviewed Home Medications: Medications to take at Discharge Omeprazole 40 mg PO DAILY 11/26/17 Tizanidine HCl 2 mg PO BID PRN PRN 11/26/17 fluticasone 100 mcg-umeclid 62.5 mcg-vilant 25 mcg powd for inhalation 1 inh INHALATION QDAY #3 device 04/09/18 mometasone-formoterol HFA 200 mcg-5 mcg/actuation aerosol inhaler 2 puff INHALATION BID #13 g 05/30/18 tiotropium bromide 2.5 mcg/actuation mist for inhalation 2 puff INHALATION QDAY #1 ea 05/30/18 albuterol sulfate 2.5 mg/3 mL (0.083 %) solution for nebulization 2.5 mg INHALATION Q4H PRN #180 ml 06/01/18 Cefdinir [Omnicef [equiv]] 300 mg PO Q12 capsule 08/22/18 Guaifenesin [Mucinex] 1,200 mg PO BID tablet 08/22/18 Metoprolol(XL)Succ [Toprol Xl (Beta Nichole)] 75 mg PO DAILY tablet 08/22/18 Oxycodone [Oxyir] 10 mg PO Q6H PRN PRN #10 tab 08/22/18 Polyethylene Glycol 3350 [Miralax] 17 gm PO DAILY packet 08/22/18 predniSONE tablet See Taper PO DAILY@0800 tablet 08/22/18 Following Prescrptions Were Given to Patient: Oxycodone [Oxyir] 10 mg PO Q6H PRN PRN #10 tab PRN Reason: Pain Primary Care Physician: Mignon Pa MD [Primary Care Provider] - Please follow up with your Primary Care Physician in: 1 Week Please Follow Up With: Vladimir Hilario MD When: 2 Weeks Please Follow Up With: Angel Casey DO When: Office to call for appt Disposition: Assisted facility Minutes spent on discharge:: 35 Patient Condition:: Fair Medical Necessity - Tobacco Use Smoking Status: Former smoker Tobacco Use: Cigarettes Meaningful Use Info Meaningful Use Diagnoses (Choose all that apply): None applicable
--- NOTE | 2018-08-22 12:35 | DS.PCM_ITS ---
Discharge Date and Diagnosis Date of Admission: 08/11/18 Date of Discharge: 08/22/18 - Primary Discharge Diagnosis Active and Suspected Problems (Last Reviewed 08/11/18 @ 19:33 by Carlos Gracia DO) 1. Acute on chronic hypoxic and hypercapnic respiratory failure secondary to severe community-acquired pneumonia with associated severe sepsis 2. Acute exacerbation of end-stage COPD secondary to #1 3. Right pleural effusion status post diagnostic and therapeutic thoracentesis 08/20/18 secondary to new diagnosis small cell lung lung cancer 4. Chronic diastolic CHF 5. Hypertension 6. Chronic kidney disease stage III 7. GERD 8. Chronic pain syndrome 9. History of tobacco dependence - Secondary Discharge Diagnosis Chronic Problems (Last Reviewed 08/11/18 @ 19:33 by Carlos Garcia DO) Diastolic CHF (Chronic) Stage 4 very severe COPD by GOLD classification (Chronic) FEV1 33% Bilateral leg edema (Chronic) COPD (chronic obstructive pulmonary disease) (Chronic) Hypertension (Chronic) Alcohol abuse (Chronic) Tobacco abuse (Chronic) Hospital Course and Treatment Imaging Results: Diagnostic Data Chest CT 08/17/18 08:55 IMPRESSION: Right lung mass and infiltrates. Right pleural based masses and effusion. Mediastinal lymphadenopathy. Old granulomatous disease also noted. There is atherosclerosis. Electronically Signed: Leland Brantley MD at 10:47 EST , Service support , ADDENDUM: 08/17/18 1100 IMPRESSION: Right lung mass and infiltrates. Right pleural based masses and effusion. Mediastinal lymphadenopathy. Old granulomatous disease also noted. There is atherosclerosis. N.B. : The above information has been verbally conveyed by Leland Brantley MD to LANDEN Parikh RN, on 08/17/2018 10:53:07 (ET). Electronically Signed: Leland Brantley MD at 10:47 EST , Service support , Thoracentesis Ultrasound 08/20/18 02:30 IMPRESSION: Ultrasound-guided right thoracentesis. Electronically Signed: Irwin Hong MD at 11:28 EST , Service support , Chest X-Ray 08/20/18 10:07 IMPRESSION: Status post right thoracentesis. There is no evidence of pneumothorax. Electronically Signed: Irwin Hong MD at 10:41 EST , Service support , Dr. Saha- ID Dr. Hilario-Pulmonary Operations: None Procedures: Thoracentesis Summary of Care Provided: The patient is a 72 year old M admitted 08/11/18 due to shortness of breath and cough. 1. Acute on chronic hypoxic and hypercapnic respiratory failure secondary to severe community-acquired pneumonia with associated severe sepsis-patient chronically wears 4 L nasal cannula at baseline. Now requiring high flow oxygen. Continue supplement oxygen to maintain O2 at or above 90%. Sputum culture shows normal respiratory karla. Respiratory panel negative. ID consulted. BIPAP Q HS and PRN. Pulmonary medicine consulted. Patient received IV Zosyn during admission. Discharged on Omnicef 300 mg twice daily for 3 days. Follow up with Dr. Hilario in 2 weeks. 2. Acute exacerbation of end-stage COPD secondary to #1-albuterol and DuoNeb aerosols. Prednisone taper at [place]. 3. Right pleural effusion status post diagnostic and therapeutic thoracentesis 08/20/18- diagnosed with small cell lung cancer. Patient will follow up with Dr. Casey at discharge. 4. Chronic diastolic CHF-no acute exacerbation. 5. Hypertension-stable, continue metoprolol regimen. 6. Chronic kidney disease stage III- stable. 7. GERD-continue PPI. 8. Chronic pain syndrome- PRN pain regimen. 9. History of tobacco dependence-encouraged continued cessation. General: Alert, Oriented x3, Cooperative, No apparent distress HEENT: Atraumatic, PERRLA, EOMI, Normocephalic Neck: Supple, No JVD, Negative Carotid Bruits Lungs: Diminished, Rales Cardiovascular: Regular rate, Regular Rhythm, Normal S1, Normal S2, No murmurs Abdomen: Bowel Sounds Present, Soft, Non Tender, Non-Distended Extremities: No clubbing, No cyanosis, No edema, Capillary Refill Less than 3 Seconds Skin: No rashes, No breakdown Musculoskeletal: No Tenderness to Palpation of Joints or Extremities Neurological: Cranial nerves II-XII grossly intact, Neuro grossly intact Psych/Mental Status: Normal Affect, Appropriate Patient seen and examined prior to discharge. Physical assessment as noted above. Patient is stable for discharge with follow up recommendations as noted above. This patient was seen by ALFIE Waller under the supervision of Dr. Martínez. - Physical Exam Vital Signs Temp Pulse Resp BP Pulse Ox 97.6 F L 72 24 H 122/74 H 97 08/22/18 09:07 08/22/18 10:57 08/22/18 09:07 08/22/18 09:07 08/22/18 09:07 Oxygen Flow Rate (L/min) [2] 8 Oxygen Flow Rate (L/min) [1 ( 8 Initial Baseline)] Oxygen Flow Rate (L/min) 10 Oxygen Delivery Method [4] Nasal Cannula Oxygen Delivery Method [3] Nasal Cannula Oxygen Delivery Method [2] Nasal Cannula Oxygen Delivery Method [1 ( Nasal Cannula Initial Baseline)] Oxygen Delivery Method Nasal Cannula Weight: 154 lb 8.705 oz Body Mass Index (BMI) 25.7 Intake and Output for Last 24 Hours 08/20/18 08/21/18 08/22/18 23:59 23:59 23:59 Intake Total 773.2 / 773.2 2580 / 2580 960.7 / 960.7 Output Total 825 / 825 900 / 900 Balance -51.8 / -51.8 1680 / 1680 960.7 / 960.7 Microbiology Past 72 Hours 08/20/18 10:05 Gram Stain - Final Fluid - Thoracentesis Fluid Anaerobic Culture - Preliminary No growth in 48 hours. 08/20/18 08:30 Gram Stain - Final Sputum, Expectorated/Coughed Respiratory Culture - Final 08/19/18 18:30 Urine Culture - Final Urine, Clean Catch Culture exhibits no growth. Laboratory Tests Past 24 Hrs 08/20/18 08/22/18 08/22/18 10:05 06:10 06:10 WBC 15.3 H RBC 4.75 Hgb 14.8 Hct 48.5 MCV 102.1 H MCH 31.2 MCHC 30.5 L RDW 14.1 RDW Differential 53.1 H Plt Count 207 MPV 10.1 Sodium 142 Potassium 4.7 Chloride 105 Carbon Dioxide 34.0 H Anion Gap 3 L BUN 44 H Creatinine 1.04 Estim Creat Clear Calc 58.26 Est GFR (MDRD) Af Amer 90 Est GFR (MDRD) Non-Af 74 BUN/Creatinine Ratio 42.3 H Glucose 89 Calcium 8.6 Fl Pathologist Comment Reviewed Home Medications: Medications to take at Discharge Omeprazole 40 mg PO DAILY 11/26/17 Tizanidine HCl 2 mg PO BID PRN PRN 11/26/17 fluticasone 100 mcg-umeclid 62.5 mcg-vilant 25 mcg powd for inhalation 1 inh INHALATION QDAY #3 device 04/09/18 mometasone-formoterol HFA 200 mcg-5 mcg/actuation aerosol inhaler 2 puff INHALATION BID #13 g 05/30/18 tiotropium bromide 2.5 mcg/actuation mist for inhalation 2 puff INHALATION QDAY #1 ea 05/30/18 albuterol sulfate 2.5 mg/3 mL (0.083 %) solution for nebulization 2.5 mg INHALATION Q4H PRN #180 ml 06/01/18 Cefdinir [Omnicef [equiv]] 300 mg PO Q12 capsule 08/22/18 Guaifenesin [Mucinex] 1,200 mg PO BID tablet 08/22/18 Metoprolol(XL)Succ [Toprol Xl (Beta Nichole)] 75 mg PO DAILY tablet 08/22/18 Oxycodone [Oxyir] 10 mg PO Q6H PRN PRN #10 tab 08/22/18 Polyethylene Glycol 3350 [Miralax] 17 gm PO DAILY packet 08/22/18 predniSONE tablet See Taper PO DAILY@0800 tablet 08/22/18 Following Prescrptions Were Given to Patient: Oxycodone [Oxyir] 10 mg PO Q6H PRN PRN #10 tab PRN Reason: Pain Primary Care Physician: Mignon Pa MD [Primary Care Provider] - Please follow up with your Primary Care Physician in: 1 Week Please Follow Up With: Vladimir Hilario MD When: 2 Weeks Please Follow Up With: Angel Casey DO When: Office to call for appt Disposition: Correction facility Minutes spent on discharge:: 35 Patient Condition:: Fair Medical Necessity - Tobacco Use Smoking Status: Former smoker Tobacco Use: Cigarettes Meaningful Use Info Meaningful Use Diagnoses (Choose all that apply): None applicable
[2018-08-22] MEDS: Cefdinir 300 MG Capsule PO (13:10)
--- NOTE | 2018-08-22 13:28 | CASEMGMT ---
Call from pt's [facility] CM and updated her on discharge plan for pt at this time, voices understanding. Jaclyn SCHUSTER CM
--- NOTE | 2018-08-22 14:09 | CASEMGMT ---
Addendum entered by Guerline Levine 08/22/18 14:17: RN informed SW that patient will be on PO Omnicef not IV. Guerline CASTRO Original Note: SW spoke with Luci at [facility] and let her know that patient will be coming today. SW also let her know he will be on IV Omnicef for 3 days. This was fine. SW faxed orders. Waiting to set up transport per physician's request. He would like to talk with patient and his when she comes to [facility] about a new diagnosis. Guerline CASTRO
--- NOTE | 2018-08-22 14:28 | PCM.PN.ID ---
Subjective: Feeling better, no fever, no n/v/d. Breathing better. - Physical Exam General: Alert, Cooperative, No apparent distress Lungs: Rhonchi, Wheezes Cardiovascular: Regular rate, Regular Rhythm Abdomen: Soft, Non Tender, Non-Distended Skin: No rashes Vital Signs Temp Pulse Resp BP Pulse Ox 97.6 F L 79 25 H 130/66 H 91 08/22/18 13:08 08/22/18 13:08 08/22/18 13:08 08/22/18 13:08 08/22/18 13:08 Oxygen Flow Rate (L/min) [2] 8 Oxygen Flow Rate (L/min) [1 ( 8 Initial Baseline)] Oxygen Flow Rate (L/min) 10 Oxygen Delivery Method [4] Nasal Cannula Oxygen Delivery Method [3] Nasal Cannula Oxygen Delivery Method [2] Nasal Cannula Oxygen Delivery Method [1 ( Nasal Cannula Initial Baseline)] Oxygen Delivery Method Nasal Cannula Weight: 70.1 kg Body Mass Index (BMI) 25.7 Intake and Output for Last 24 Hours 08/20/18 08/21/18 08/22/18 23:59 23:59 23:59 Intake Total 773.2 / 773.2 2580 / 2580 960.7 / 960.7 Output Total 825 / 825 900 / 900 Balance -51.8 / -51.8 1680 / 1680 960.7 / 960.7 Microbiology Past 72 Hours 08/20/18 10:05 Gram Stain - Final Fluid - Thoracentesis Fluid Anaerobic Culture - Preliminary No growth in 48 hours. 08/20/18 08:30 Gram Stain - Final Sputum, Expectorated/Coughed Respiratory Culture - Final 08/19/18 18:30 Urine Culture - Final Urine, Clean Catch Culture exhibits no growth. Laboratory Tests Past 24 Hrs 08/20/18 08/22/18 08/22/18 10:05 06:10 06:10 WBC 15.3 H RBC 4.75 Hgb 14.8 Hct 48.5 MCV 102.1 H MCH 31.2 MCHC 30.5 L RDW 14.1 RDW Differential 53.1 H Plt Count 207 MPV 10.1 Sodium 142 Potassium 4.7 Chloride 105 Carbon Dioxide 34.0 H Anion Gap 3 L BUN 44 H Creatinine 1.04 Estim Creat Clear Calc 58.26 Est GFR (MDRD) Af Amer 90 Est GFR (MDRD) Non-Af 74 BUN/Creatinine Ratio 42.3 H Glucose 89 Calcium 8.6 Fl Pathologist Comment Reviewed Medical Necessity - Tobacco Use Smoking Status: Former smoker Tobacco Use: Cigarettes Route of nutrition/ use of supplements: [] Nutritional Intake: [] IV Site: [] Mcclure Catheter: [] - Assessment/Plan Antibiotics: [] Assessment/Plan: [] Active and Suspected Problems (Last Reviewed 08/11/18 @ 19:33 by Carlos Garcia DO) COPD exacerbation (Acute) Pneumococcal pneumonia (Acute) Acute respiratory failure with hypoxia and hypercapnia (Acute) Sepsis (Acute) CAP with hypoxic resp failure - resp viral panel neg. Sputum cx, bcx, and UAgs neg. Feeling better since admission. No fever, wbc stable. On zosyn since 08/14. No clear exposure risk for atypical/fungal infections. Thoracentesis done 08/20, exudative, minimal PMNs, cx neg so far. Cytology pending. Ok for d/c to ECF on 3 more days of omnicef. Will follow
--- NOTE | 2018-08-22 15:40 | CASEMGMT ---
ASH called [facility] and arranged for patient to get picked up at 6p via cot due to the high flow O2. ASH notified patient, RN, Luci at [facility], and dental secretary. Completed convalescent on HENS. Plan: d/c to [facility] at [place] under skilled level of care on a convalescent stay. [facility] transported him via cot due to high flow O2. Guerline YAP MSW
[2018-08-23 09:28] LABS: pH, Body Fluid 11254 7.3 (Not Estab.)
== END 2018-08-22 18:24 | disposition skilled nursing facility (03) | DRG 720 ==
LOC: ED 19:15 → ICU 19:48 → PCU 08-17 10:58 → ICU 08-17 13:31
PROVIDERS: Internal Medicine; Internal Medicine Critical Care Medicine; Nurse Practitioner Family; Emergency Provider Emergency Medicine; Family Provider Internal Medicine; PCP Internal Medicine; Visit Provider Internal Medicine
DX: A41.9 Sepsis, unspecified organism (principal); R65.20 Severe sepsis without septic shock; J96.22 Acute and chronic respiratory failure with hypercapnia; J96.21 Acute and chronic respiratory failure with hypoxia; J18.9 Pneumonia, unspecified organism; J44.1 Chronic obstructive pulmonary disease with (acute) exacerbation; J44.0 Chronic obstructive pulmonary disease with (acute) lower respiratory infection; I13.0 Hypertensive heart and chronic kidney disease with heart failure and stage 1 through stage 4 chronic kidney disease, or unspecified chronic kidney disease; N18.3 Chronic kidney disease, stage 3 (moderate); I50.32 Chronic diastolic (congestive) heart failure; K21.9 Gastro-esophageal reflux disease without esophagitis; G89.4 Chronic pain syndrome; Z87.891 Personal history of nicotine dependence; C34.90 Malignant neoplasm of unspecified part of unspecified bronchus or lung; J90 Pleural effusion, not elsewhere classified; E87.5 Hyperkalemia; I47.2 Ventricular tachycardia; Z99.81 Dependence on supplemental oxygen
CPT/HCPCS: 32555; 36415; 36600; 71045; 71046; 71260; 80048; 80076; 81001; 82803; 83605; 83615; 83735; 83880; 83986; 84100; 84156; 84157; 84484; 85025; 85027; 85610; 85730; 87040; 87070; 87075; 87086; 87102; 87205; 87206; 87449; 87633; 88108; 88305; 88313; 88341; 88342; 89050; 93005; 94002; 94003; 94640; 94667; 94668; 97110; 97162; 97165; 97530; 97535; 97802; 99285; J7030; Q9967; A4216; J1940; J2405; J7799

== ENCOUNTER → 2018-08-25 07:35 | Outpatient (REF) | payer MEDICAID, SELFPAY ==
[2018-08-11 20:59] VITALS: BMI 25.7
[2018-08-25 08:29] LABS: Hematocrit 45.7 % (40-54); Hemoglobin 14.7 g/dl (13.0-16.5); Mean Corp Hgb Conc 32.2 g/gl (32-36); Mean Corpuscular Hgb 32.7 pg (27.0-32.0); Mean Corpuscular Volume 101.8 fL (80-94); Mean Platelet Vol. 10.3 fl (6.2-12.0); Platelet Count 227 K/mm3 (150-450); RBC Distribution Width CV 13.9 % (11.6-14.6); RBC Distribution Width SD 52.4 fl (35.1-43.9); Red Blood Count 4.49 M/mm3 (4.6-6.2); Scan Indicated on CBC? Y/N NO; White Blood Count 19.7 K/mm3 (4.4-11.0)
[2018-08-25 08:52] LABS: Anion Gap 6 (5-15); BUN 51 mg/dL (7-18); BUN/Creat Ratio 34.9 RATIO (10-20); Calcium,Total 8.7 mg/dL (8.5-10.1); Chloride 104 mmol/L (98-107); Creatinine, Serum 1.46 mg/dL (0.70-1.30); EST Glomerular Filtration Rate 50 mL/min (>60); Est Glom Filt Rate - Afr Amer 61 mL/min (>60); Glucose 107 mg/dL (74-106); Potassium 4.4 mmol/L (3.5-5.1); Sodium Level 143 mmol/L (136-145)
[2018-08-26 16:45] VITALS: BMI 19.8
== END ==
LOC: OLS.AVEB 07:35
PROVIDERS: Visit Provider Family Medicine
DX: J44.9 Chronic obstructive pulmonary disease, unspecified (principal)
CPT/HCPCS: 36415; 80048; 85027

== ENCOUNTER 2018-08-26 13:39 | Inpatient (IN) | payer MEDICAID, SELFPAY ==
[2018-08-26] VITALS (40 sets, daily range): BP systolic 78–166; BP diastolic 31–60; PULSE 60–741; RESP 12–40; TEMP 36–37.8; O2SAT 84–98; BMI 24.3; BMI 27.4; BMI 19.8; BMI 27.5
--- NOTE | 2018-08-26 13:48 | RAD_ITS ---
STUDY: X-RAY CHEST REASON FOR EXAM: Male, 72 years old. Respiratory distress TECHNIQUE: AP COMPARISON: 08/19/2018, 08/20/2018. FINDINGS: Significant interval change since 08/20/2018 with increased opacity throughout the right mid to lower lung zone with obscuration of the right hemidiaphragm. Parenchymal airspace opacity of the right upper lobe is also seen, better seen on post thoracentesis image of 08/20/2018. No pneumothorax. Normal size heart. Normal mediastinum and audi. Normal visualized pulmonary arteries. Normal visualized aortic arch and descending thoracic aorta. No acute bony process. There is no demonstrated abnormality of the visualized soft tissue structures of the upper abdomen. RAD/Chest 1 View (Portable) IMPRESSION: 1. Large right pleural effusion has reaccumulated since thoracentesis of 08/20/2017 (and larger than prior to thoracentesis). Right upper lobe consolidation partially visualized. Electronically Signed: Tristin Chopra MD at 14:23 EST , Service support ,
--- NOTE | 2018-08-26 13:49 | EKG12_ITS ---
Test Reason : SOB Blood Pressure : / mmHG Vent. Rate : 083 BPM Atrial Rate : 083 BPM P-R Int : 126 ms QRS Dur : 070 ms QT Int : 370 ms P-R-T Axes : 035 047 079 degrees QTc Int : 434 ms Sinus rhythm with Premature atrial complexes with Aberrant conduction Otherwise normal ECG Confirmed by JUDE SCHULTZ, SUKUMAR ([id number]), production editor BHARAT BRIAN ([id number] on 08/28/2018 5:03:26 PM Referred By: DOMENICA Confirmed By:SUKUMAR ROQUE MD
--- NOTE | 2018-08-26 13:51 | ED.VISSUMM ---
- ER Visit Summary Date of Service: 08/26/18 Chief Complaint: Severe respiratory distress and hypoxic History of Present Illness: The patient is a 72 M history of O2 requiring COPD with a prior history of alcoholism, hypertension and stage III renal insufficiency. Patient is a full code. Patient from extended care facility that called the squad due to hypoxia. He has had a recent admission to the hospital for respiratory failure and reported pneumonia. His son is present and I have spoken with him. Patient is a limited informant due to his respiratory distress. Physical Examination: Elderly male in respiratory distress. Initial blood pressure 116/58. Respirations 40. 94% on percent oxygen BiPAP. HEENT exam unremarkable. Moist weeks membranes. Neck nontender no lymphadenopathy. Lungs prolonged expiratory phase. Diminished breath sounds bilaterally. Heart regular rhythm. No murmur. Abdomen is soft and nontender. Normal bowel sounds no peritoneal signs. Extremities calves are nontender without edema or cords. Neurologically his eyes are open he is responding to questioning. He is moving all 4 extremities. Test Results: Initial blood gases a pH of 7.14, PCO2 of 95 and PO2 of 4600%. His sat is 65%. CBC shows a white count 26,000 which is worsened prior. Hemoglobin 14. 96 segs no bands. Electrolytes potassium of 5.6. Creatinine 1.63 worsening renal insufficiency from prior. PT/INR normal. Troponin normal. Lactic acid 1.7. EKG sinus rhythm rate 83 with no acute signs of MD or ischemia. Chest x-ray has almost complete white out of the right lung consistent with a large right pleural effusion previously discussed the pleural effusion on prior chest x-ray is also possible lung masses and/or pneumonia these are all possibilities. A repeat blood gas was obtained which shows an improving pH of 7.2 with a PCO2 of 81 which again is improving and a PO2 of 53 with a sat of 77 all these numbers are better patient initially looked like he was improving but on my last exam in approximately 9:45 PM he seems to have worsening mental status. She Emergency Department Course and Treatment: BiPAP with IV Solu-Medrol and DuoNeb and albuterol aerosols. Patient treated with IV fluids. IV Solu-Medrol. DuoNeb and albuterol aerosols. After reviewing his chest x-ray he will be started on Zosyn IV and Vanco stable healthcare acquired pneumonia. Given the patient's blood gas seem to be getting slightly better his mental status seemed to be getting worse and he seemed to be more lethargic. I discussed with the family and they were strongly in favor of him being intubated. Patient was given etomidate 20 mg I V and 100 of succinylcholine. He was intubated on the first attempt with a 7-1/2 ET tube at approximately 23 to lips. He had bilateral breath sounds. And his pulse ox was 97% post intubation. There was no distention of his abdomen. And good color change of the CO2 monitor with good vapor in the ET tube. Treatment Plan: Intubated and admitted to the ICU. I have spoken to the hospitalist and I have the fretted string instrument repairer on page. Disposition: Admitted to the ICU for respiratory failure Impression: Acute respiratory failure with hypoxia Acute exacerbation COPD Respiratory acidosis with CO2 retention ET intubation by ER Right lung white out consistent with a large right pleural effusion. Cannot rule out pneumonia and/or lung masses. Acute on chronic renal insufficiency with hyperkalemia at 5.6. Critical care time 35 minutes This note was generated with [employer] dictation software. It may contain incorrect words, spelling, and punctuation that were not noted in review of the chart prior to signing ED Disposition - Plan for ED Patient: Referrals: Mignon Pa MD [Primary Care Provider] -
[2018-08-26] MEDS: MethylPREDNISolone 125 MG/2 ML Vial IV (13:52)
--- NOTE | 2018-08-26 13:57 | ED.DCSUM_ITS ---
- ER Visit Summary Date of Service: 08/26/18 Chief Complaint: Severe respiratory distress and hypoxic History of Present Illness: The patient is a 72 M history of O2 requiring COPD with a prior history of alcoholism, hypertension and stage III renal insufficiency. Patient is a full code. Patient from extended care facility that called the squad due to hypoxia. He has had a recent admission to the hospital for respiratory failure and reported pneumonia. His son is present and I have spoken with him. Patient is a limited informant due to his respiratory distress. Physical Examination: Elderly male in respiratory distress. Initial blood pressure 116/58. Respirations 40. 94% on percent oxygen BiPAP. HEENT exam unremarkable. Moist weeks membranes. Neck nontender no lymphadenopathy. Lungs prolonged expiratory phase. Diminished breath sounds bilaterally. Heart regula r rhythm. No murmur. Abdomen is soft and nontender. Normal bowel sounds no peritoneal signs. Extremities calves are nontender without edema or cords. Neurologically his eyes are open he is responding to questioning. He is moving all 4 extremities. Test Results: Initial blood gases a pH of 7.14, PCO2 of 95 and PO2 of 4600%. His sat is 65%. CBC shows a white count 26,000 which is worsened prior. Hemoglobin 14. 96 segs no bands. Electrolytes potassium of 5.6. Creatinine 1.63 worsening renal insufficiency from prior. PT/INR normal. Troponin normal. Lactic acid 1.7. EKG sinus rhythm rate 83 with no acute signs of HI or ischemia. Chest x-ray has almost complete white out of the right lung consistent with a large right pleural effusion previously discussed the pleural effusion on prior chest x-ray is also possible lung masses and/or pneumonia these are all possibilities. A repeat blood gas was obtained which shows an improving pH of 7.2 with a PCO2 of 81 which again is improving and a PO2 of 53 with a sat of 77 all these numbers are better patient initially looked like he was improving but on my last exam in approximately 9:45 PM he seems to have worsening mental status. She Emergency Department Course and Treatment: BiPAP with IV Solu-Medrol and DuoNeb and albuterol aerosols. Patient treated with IV fluids. IV Solu-Medrol. DuoNeb and albuterol aerosols. After reviewing his chest x-ray he will be started on Zosyn IV and Vanco stable healthcare acquired pneumonia. Given the patient's blood gas seem to be getting slightly better his mental status seemed to be getting worse and he seemed to be more lethargic. I discussed with the family and they were strongly in favor of him being intubated. Patient was given etomidate 20 mg I V and 100 of succinylcholine. He was intubated on the first attempt with a 7-1/2 ET tube at approximately 23 to lips. He had bilateral breath sounds. And his pulse ox was 97% post intubation. There was no distention of his abdomen. And good color change of the CO2 monitor with good vapor in the ET tube. Treatment Plan: Intubated and admitted to the ICU. I have spoken to the hospitalist and I have the detail maker and fitter on page. Disposition: Admitted to the ICU for respiratory failure Impression: Acute respiratory failure with hypoxia Acute exacerbation COPD Respiratory acidosis with CO2 retention ET intubation by ER Right lung white out consistent with a large right pleural effusion. Cannot rule out pneumonia and/or lung masses. Acute on chronic renal insufficiency with hyperkalemia at 5.6. Critical care time 35 minutes This note was generated with [employer] dictation software. It may contain incorrect words, spelling, and punctuation that were not noted in review of the chart prior to signing ED Disposition - Plan for ED Patient: Referrals: Mignon Pa MD [Primary Care Provider] -
[2018-08-26 14:06] LABS: Base Excess 4 mmol/L (-2 to +2); Bicarbonate 32.8 mmol/L (22-26); Blood Gas Specimen Type ART; EPAP 10; FI02 100; PO2 46 mmHG (75-100); SITE L Radial; SO2 65 % (95-99); Time Given 1353; Total Carbon Dioxide 36 mmol/L; pCO2 95.2 mmHg (35-45); pH 7.15 (7.35-7.45)
[2018-08-26 14:09] LABS: Absolute Lymphocyte Count 0.79 X10^3/ul (0.83-4.51); Absolute Neutrophil Count 25.1 X10^3/uL (2.0-7.7); Basophil# 0.01 X10^3/uL; Differential Indicated SCAN CRITERIA MET; Hematocrit 48.9 % (40-54); Hemoglobin 14.8 g/dl (13.0-16.5); Lymphocyte # 0.79 X10^3/ul (4.0); Mean Corp Hgb Conc 30.3 g/gl (32-36); Mean Corpuscular Hgb 31.4 pg (27.0-32.0); Mean Corpuscular Volume 103.8 fL (80-94); Mean Platelet Vol. 10.1 fl (6.2-12.0); Monocyte# 0.05 X10^3/uL; Monocyte% 0.2 % (0-10); Neutrophil # 25.11 X10^3/uL (2.7-7.7); Neutrophil % 96.3 % (47-70); POSITIVE COUNT NO; POSITIVE DIFFERENTIAL YES; POSITIVE MORPHOLOGY NO; Platelet Count 244 K/mm3 (150-450); RBC Distribution Width SD 53.2 fl (35.1-43.9); Red Blood Count 4.71 M/mm3 (4.6-6.2); White Blood Count 26.1 K/mm3 (4.4-11.0)
[2018-08-26] MEDS: Ipratropium/Albuterol Sulfate 3 ML AMPUL.NEB INHALATION ×3 (14:13→22:30)
[2018-08-26] MEDS: Albuterol 2.5 MG/3 ML VIAL.NEB. INHALATION ×2 (14:13→15:00)
[2018-08-26 14:24] LABS: Prothrombin Time (Protime)PT. 12.6 SECONDS (11.7-14.9)
[2018-08-26] MEDS: 0.9% Normal Saline 1,000 ML 1000 ML IV (14:27)
[2018-08-26 14:30] LABS: Anion Gap 2 (5-15); BUN 53 mg/dL (7-18); BUN/Creat Ratio 32.5 RATIO (10-20); Calcium,Total 8.8 mg/dL (8.5-10.1); Chloride 103 mmol/L (98-107); Creatinine, Serum 1.63 mg/dL (0.70-1.30); EST Glomerular Filtration Rate 44 mL/min (>60); Est Glom Filt Rate - Afr Amer 53 mL/min (>60); Estimated Creatinine Clearance 35.88 ml/min; Glucose 151 mg/dL (74-106); Lactic Acid 1.7 mmol/L (0.4-2.0); Potassium 5.6 mmol/L (3.5-5.1); Sodium Level 137 mmol/L (136-145)
[2018-08-26 14:41] LABS: Base Excess 4 mmol/L (-2 to +2); Blood Gas Specimen Type ART; EPAP 6; FI02 60; IPAP 20; PO2 53 mmHG (75-100); RR 12; SITE R Radial; SO2 77 % (95-99); Time Given 1431; Total Carbon Dioxide 34 mmol/L; pCO2 81.8 mmHg (35-45)
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
--- NOTE | 2018-08-26 15:20 | CPS ---
Critical values in ABG, Dr. Krishna was notified
--- NOTE | 2018-08-26 15:28 | PCM.HP.STD ---
Problem List (1) Small cell lung cancer Status: Acute (2) Pleural effusion Status: Acute (3) Diastolic CHF Status: Chronic (4) Acute respiratory failure with hypoxia and hypercapnia Status: Acute (5) Stage 4 very severe COPD by GOLD classification Status: Chronic Comment: FEV1 33% (6) CATHERINE (acute kidney injury) Status: Acute (7) Hypertension Status: Chronic History of Present Illness Date of Admission: 08/26/18 Chief Complaint: SOB The patient is a 72 year old M with PMH as below [facility] of breath and hypoxia. Unfortunately the patient is currently intubated and history was obtained from the medical record. He was recently admitted for hypoxic and hypercapnic respiratory failure secondary to pneumonia and COPD exacerbation. During his stay he was treated appropriately with antibiotics and will had a thoracentesis on the right. That fluid came back positive for small cell carcinoma. He had a thoracentesis on 08/20/2018 and almost 500 cc was removed. He did complete treatment for his previous bacterial pneumonia, and he currently does not have a fever. His white count is likely secondary to the steroids for his COPD exacerbation. Past Medical History Past Medical History (Chronic Problems): Chronic Problems (Last Reviewed 08/11/18 @ 19:33 by Carlos Garcia DO) Diastolic CHF (Chronic) Stage 4 very severe COPD by GOLD classification (Chronic) FEV1 33% Bilateral leg edema (Chronic) COPD (chronic obstructive pulmonary disease) (Chronic) Hypertension (Chronic) Alcohol abuse (Chronic) Tobacco abuse (Chronic) Medical History: Medical History (Last Reviewed 08/11/18 @ 19:33 by Carlos Garcia DO) Bilateral leg edema (Chronic) R60.0 COPD (chronic obstructive pulmonary disease) (Chronic) J44.9 CATHERINE (acute kidney injury) (Acute) N17.9 Shortness of breath (Acute) R06.02 Pseudomonas pneumonia (Resolved) J15.1 Hypertension (Chronic) I10 Alcohol abuse (Chronic) F10.10 Tobacco abuse (Chronic) F17.200 Allergies aspirin Adverse Reaction (Verified 08/11/18 17:43) Other Home Medications: Ambulatory Orders Medication Instructions Recorded Omeprazole 40 mg PO DAILY 11/26/17 Tizanidine HCl 2 mg PO BID PRN PRN 11/26/17 fluticasone 100 mcg-umeclid 62.5 1 inh INHALATION QDAY #3 device 04/09/18 mcg-vilant 25 mcg powd for inhalation mometasone-formoterol HFA 200 2 puff INHALATION BID #13 g 05/30/18 mcg-5 mcg/actuation aerosol inhaler tiotropium bromide 2.5 2 puff INHALATION QDAY #1 ea 05/30/18 mcg/actuation mist for inhalation albuterol sulfate 2.5 mg/3 mL 2.5 mg INHALATION Q4H PRN #180 ml 06/01/18 (0.083 %) solution for nebulization Guaifenesin [Mucinex] 1,200 mg PO BID tablet 08/22/18 Metoprolol(XL)Succ [Toprol Xl 75 mg PO DAILY tablet 08/22/18 (Beta Nichole)] Oxycodone [Oxyir] 10 mg PO Q6H PRN PRN #10 tab 08/22/18 Polyethylene Glycol 3350 [Miralax] 17 gm PO DAILY packet 08/22/18 predniSONE tablet See Taper PO DAILY@0800 tablet 08/22/18 Fluticasone/Umeclidin/Vilanter 1 each IH DAILY 08/26/18 [Trelegy Ellipta 100-62.5-25] Ipratropium Isaban 0.2 mg IH 4X/DAY 08/26/18 Symbicort 160/4.5 Mcg Inhaler (SP) 2 inhaler INHALATION BID 08/26/18 Surgical History: - - Surgery for stomach ulcers 20-30 years ago. Psychiatric History: No pertinent psych hx Smoking Status: Former smoker - *Family History Maternal History Items: No pertinent history, - - No COPD Paternal History Items: No pertinent history Review of Systems Unable to obtain accurate/complete ROS d/t: Intubation and sedation VTE Information - Inpt Only VTE Present on Admission: No Patient Problems: Active and Suspected Problems (Last Reviewed 08/11/18 @ 19:33 by Carlos Garcia DO) Small cell lung cancer (Acute) - Physical Exam General: - - Bated and sedated HEENT: Atraumatic, EOMI Oral: Dry Mucosa Neck: Supple, No JVD, Trachea Midline Lungs: Diminished - Significantly diminished on the right, Rhonchi, Wheezes, - - Coarse breath sounds bilaterally Cardiovascular: Regular rate, Regular Rhythm, Normal S1, Normal S2, No murmurs Abdomen: Soft, Non-Distended, No Hepato-splenomegaly Extremities: No edema, Capillary Refill Less than 3 Seconds Skin: No rashes, No breakdown Comment: Complete examination limited by sedation and intubation Vital Signs Temp Pulse Resp BP Pulse Ox 96.8 F L 72 22 H 100/40 L 94 08/26/18 13:40 08/26/18 15:00 08/26/18 15:00 08/26/18 15:00 08/26/18 15:00 Oxygen Delivery Method Bi-pap Weight: 170 lb 3.15 oz Body Mass Index (BMI) 27.4 Laboratory Tests Past 24 Hrs 08/26/18 08/26/18 08/26/18 13:45 13:45 13:45 WBC 26.1 H RBC 4.71 Hgb 14.8 Hct 48.9 MCV 103.8 H MCH 31.4 MCHC 30.3 L RDW 14.0 RDW Differential 53.2 H Plt Count 244 MPV 10.1 Immature Gran % (Auto) 0.500 Neut % (Auto) 96.3 H Lymph % (Auto) 3.0 L [place] % (Auto) 0.2 Eos % (Auto) 0.0 Baso % (Auto) 0.0 Absolute Neuts (auto) 25.1 H Absolute Lymphs (auto) 0.79 L Total Counted Not Reportable PT 12.6 INR 1.0 Specimen Type Sample Site pH Bicarbonate Actual POC Total CO2 Base Excess O2 Saturation O2 % ABG pCO2 ABG pO2 Leonardo Test Respiration Rate O2 Delivery Device EPAP IPAP Blood Gas Notified Whom Blood Gas Notified Time Sodium 137 Potassium 5.6 H Chloride 103 Carbon Dioxide 32.0 Anion Gap 2 L BUN 53 H Creatinine 1.63 H Estim Creat Clear Calc 35.88 Est GFR (MDRD) Af Amer 53 L Est GFR (MDRD) Non-Af 44 L BUN/Creatinine Ratio 32.5 H Glucose 151 H Lactic Acid Calcium 8.8 Troponin I 0.030 08/26/18 08/26/18 08/26/18 13:45 13:54 14:32 WBC RBC Hgb Hct MCV MCH MCHC RDW RDW Differential Plt Count MPV Immature Gran % (Auto) Neut % (Auto) Lymph % (Auto) [place] % (Auto) Eos % (Auto) Baso % (Auto) Absolute Neuts (auto) Absolute Lymphs (auto) Total Counted PT INR Specimen Type ART ART Sample Site L Radial R Radial pH 7.15 L* 7.20 L Bicarbonate Actual 32.8 H 32.0 H POC Total CO2 36 34 Base Excess 4 H 4 H O2 Saturation 65 L 77 L O2 % 100 60 ABG pCO2 95.2 H* 81.8 H* ABG pO2 46 L 53 L Leonardo Test NA NA Respiration Rate 12 O2 Delivery Device Bi / C PAP Bi / C PAP EPAP 10 6 IPAP 20 Blood Gas Notified Whom ED MD ED Blood Gas Notified Time 1353 1431 Sodium Potassium Chloride Carbon Dioxide Anion Gap BUN Creatinine Estim Creat Clear Calc Est GFR (MDRD) Af Amer Est GFR (MDRD) Non-Af BUN/Creatinine Ratio Glucose Lactic Acid 1.7 Calcium Troponin I Assessment/Plan All Active Problems (Last Reviewed 08/11/18 @ 19:33 by Carlos Garcia DO) Small cell lung cancer (Acute) Pleural effusion (Acute) Community acquired pneumonia (Acute) COPD exacerbation (Acute) Pneumococcal pneumonia (Ruled-out) Acute respiratory failure with hypoxia and hypercapnia (Acute) CATHERINE (acute kidney injury) (Acute) Shortness of breath (Acute) Pseudomonas pneumonia (Resolved) 1. Acute hypoxic and hypercapnic respiratory failure secondary to either pleural effusion or mucous plugging/COPD -Patient was intubated in the ER and will be transferred to the ICU -Propofol and fentanyl for sedation -Consult commercial sewing instructor -No antibiotics at this time as his white count is likely secondary to the steroids he received for COPD exacerbation -Per the family he is a full code -Continue with IV fluids at 100 2. Small cell lung cancer -Honestly given his debility unsure as to how well he would tolerate any form of chemotherapy -He is unable to obtain chemotherapy at the moment since [facility] and they are unable to pay for transportation to and from the oncology office 3. Chronic diastolic CHF/HTN/acute kidney injury -Does not appear to be an acute exacerbation of his CHF -Blood pressure is a little bit low with systolics in the low 100s -We will hold his blood pressure medications and continue to monitor -His creatinine on discharge was 1.04, now 1.63 4. GERD -He is on a PPI at home -Will transition to Pepcid while on the vent 5. Chronic pain -He is on tizanidine and oxycodone at home -We will continue with the fentanyl drip while sedated and intubated DVT: Lovenox/SCDs Code Visit Inpatient E&M: 55578 Init Hosp L3
[2018-08-26] MEDS: Succinylcholine Chloride 200 MG/10 ML Vial 100 MG IV (15:30)
--- NOTE | 2018-08-26 15:37 | RAD_ITS ---
STUDY: X-RAY CHEST REASON FOR EXAM: Male, 72 years old. Endotracheal tube insertion TECHNIQUE: Single AP portable view of the chest. COMPARISON: Earlier today FINDINGS: Enteric tube is seen extending to the left upper abdomen with tip in the gastric fundus. Endotracheal tube is present with tip terminating 4.2 cm above the christina. Persistent opacification of most of the right hemithorax with minimally aerated, partially consolidated right upper lobe. No pneumothorax. Mild opacity in the left lung base is now evident. Normal size heart. Normal mediastinum and audi. Normal visualized pulmonary arteries. There is atherosclerotic calcification of the aortic arch with tortuosity. No acute bony process. There is no demonstrated abnormality of the visualized soft tissue structures of the upper abdomen. RAD/Chest 1 View (Portable) IMPRESSION: Satisfactory position of endotracheal and enteric tubes. Large right pleural effusion with parenchymal consolidation/airspace disease. Electronically Signed: Tristin Chopra MD at 16:29 EST , Service support ,
--- NOTE | 2018-08-26 15:59 | CPS ---
Critical values on arterial blood gas given to Dr. Krishna at 1400.
[2018-08-26] MEDS: 0.9% Normal Saline 1,000 ML 999 ML IV (16:03)
[2018-08-26 16:04] LABS: Bacteria 0 SEEN /hpf (None Seen); Mucous, Urine 0 SEEN /hpf (<or=2+); Red Blood Cells-Urine 0 SEEN /hpf (0-5); Squamous Epithelial Cells - UA 0 SEEN /hpf (0-5)
[2018-08-26 16:07] LABS: Color, Urine Yellow (Yellow); Glucose, Dipstick Normal (Normal); Ketone-Dipstick 5 mg/dl (Negative); Leukocyte Esterase-Dipstick Negative /ul (Negative); Nitrite-Dipstick Negative (Negative); Occult Blood-Urine Negative /ul (Negative); Protein-Dipstick 30 mg/dl (Negative); Specific Gravity, Urine 1.025 (1.002-1.030); Urine Bilirubin Dipstick Negative (Negative); Urine Clarity Clear (Clear); Urine Urobilinogen Normal (Normal)
[2018-08-26] MEDS: LORazepam 2 MG/ML Syringe IV (16:09)
[2018-08-26 16:15] LABS: Hyaline Cast 5-10 SEEN /lpf (0-5); White Blood Cells 0-5 SEEN /hpf (0-5)
[2018-08-26] MEDS: fentaNYL drip 100 ML 2.5 MCG IV (17:52)
[2018-08-26] MEDS: Propofol 10MG/Ml 1,000 MG/100 ML Bottle 4.632 MG CONT INF (17:53)
[2018-08-26] MEDS: 0.9% Normal Saline 1,000 ML 100 ML IV (19:42)
[2018-08-26 19:55] LABS: Base Excess 2 mmol/L (-2 to +2); Bicarbonate 27.8 mmol/L (22-26); Blood Gas Specimen Type ART; FI02 40; Mode A-C; O2 Delivery Device Vent; PEEP 5; PO2 53 mmHG (75-100); RR 16; SITE OTHER; SO2 85 % (95-99); Time Given 1945; Total Carbon Dioxide 29 mmol/L; Vt 450; pCO2 48.8 mmHg (35-45); pH 7.36 (7.35-7.45)
[2018-08-26] MEDS: Chlorhexidine 15 ML PO (21:30)
[2018-08-27] VITALS (34 sets, daily range): BP systolic 72–129; BP diastolic 41–74; PULSE 59–103; RESP 12–26; TEMP 37.3–37.6; O2SAT 85–100
[2018-08-27] MEDS: Ipratropium/Albuterol Sulfate 3 ML AMPUL.NEB INHALATION ×6 (03:30→23:00)
[2018-08-27] MEDS: 0.9% Normal Saline 1,000 ML 100 ML IV ×2 (05:55→16:20)
[2018-08-27 06:00] LABS: Absolute Lymphocyte Count 0.66 X10^3/ul (0.83-4.51); Absolute Neutrophil Count 12.7 X10^3/uL (2.0-7.7); Hematocrit 32.6 % (40-54); Hemoglobin 9.9 g/dl (13.0-16.5); Lymphocyte # 0.66 X10^3/ul (4.0); Lymphocyte % 4.6 % (19-41); Mean Corp Hgb Conc 30.4 g/gl (32-36); Mean Corpuscular Hgb 31.1 pg (27.0-32.0); Mean Corpuscular Volume 102.5 fL (80-94); Mean Platelet Vol. 10.1 fl (6.2-12.0); Monocyte# 0.98 X10^3/uL; Monocyte% 6.8 % (0-10); Neutrophil # 12.66 X10^3/uL (2.7-7.7); Neutrophil % 88.3 % (47-70); Platelet Count 166 K/mm3 (150-450); RBC Distribution Width CV 13.7 % (11.6-14.6); RBC Distribution Width SD 49.3 fl (35.1-43.9); Red Blood Count 3.18 M/mm3 (4.6-6.2); White Blood Count 14.4 K/mm3 (4.4-11.0)
[2018-08-27 06:11] LABS: POSITIVE COUNT NO; POSITIVE DIFFERENTIAL NO; POSITIVE MORPHOLOGY NO
[2018-08-27 06:16] LABS: Anion Gap 10 (5-15); BUN 50 mg/dL (7-18); BUN/Creat Ratio 43.1 RATIO (10-20); Calcium,Total 7.1 mg/dL (8.5-10.1); Chloride 114 mmol/L (98-107); Creatinine, Serum 1.16 mg/dL (0.70-1.30); EST Glomerular Filtration Rate 65 mL/min (>60); Est Glom Filt Rate - Afr Amer 79 mL/min (>60); Estimated Creatinine Clearance 58.56 ml/min; Glucose 140 mg/dL (74-106); Potassium 4.3 mmol/L (3.5-5.1); Sodium Level 147 mmol/L (136-145)
[2018-08-27] MEDS: Propofol 10MG/Ml 1,000 MG/100 ML Bottle 4.632 MG CONT INF ×2 (06:28→16:21)
--- NOTE | 2018-08-27 07:10 | CON.PCM_ITS ---
Reason for Consult Date of Consultation: 08/27/18 Reason for Consultation: Acute on chronic respiratory failure History of Present Illness: The patient is a 72-year-old male, with a history as outlined below, who presented to the emergency department from his intermediate facility on August 26 in respiratory distress. On presentation to the emergency department, the patient was noted to be afebrile and hemodynamically stable. He was notably tachypneic and hypoxic. Initial laboratory evaluation revealed elevated white blood cell count to 26,000. INR was normal at 1.0. Arterial blood gas revealed a pH of 7.2 with a corresponding PCO2 of 82 and PO2 of 53. Chemistry profile was notable for a potassium of 5.6 along with evidence of acute kidney injury with a creatinine of 1.63. Lactate was within normal limits. Troponin was negative. Urinalysis was largely unremarkable. Initial plain film chest x-ray revealed near complete opacification of the right hemithorax with sparing of the right upper lobe with underlying effusion and compressive atelectasis likely. Unfortunately, the patient did not respond to the use of noninvasive positive pressure ventilation. He was noted to become more lethargic and following a discussion with the patient's family, the decision was made to proceed with intubation. He was subsequently treated with supplemental IV fluids, steroids, aerosol treatments and antibiotics. He was then admitted to the medical intensive care unit for ongoing management. The patient had just been admitted to the hospital August 11-, during which time, he was treated for acute on chronic respiratory failure secondary to community-acquired pneumonia. During the patient's hospitalization, a CT chest was obtained, which did reveal right-sided masslike lesions along with a moderate sized pleural effusion. A subsequent ultrasound-guided thoracentesis revealed evidence of small cell lung cancer. The patient currently follows in the pulmonary medicine clinic and was last seen in May 2018. He has a documented smoking history of 120 pack years. He is currently prescribed Trelegy along with an albuterol rescue inhaler. During his last office visit, he was noted to have a 3 L/min baseline supplemental oxygen requirement. Pulmonary function studies completed in March 2018 revealed evidence of a partially reversible very severe large airways obstructive ventilatory defect with associated air trapping and symmetric reduction in diffusing capacity. Past Medical History Past Medical History (Chronic Problems): Chronic Problems (Last Reviewed 08/11/18 @ 19:33 by Carlos Garcia DO) Diastolic CHF (Chronic) Stage 4 very severe COPD by GOLD classification (Chronic) FEV1 33% Bilateral leg edema (Chronic) COPD (chronic obstructive pulmonary disease) (Chronic) Hypertension (Chronic) Alcohol abuse (Chronic) Tobacco abuse (Chronic) Medical History: Medical History (Last Reviewed 08/11/18 @ 19:33 by Carlos Garcia DO) Bilateral leg edema (Chronic) R60.0 COPD (chronic obstructive pulmonary disease) (Chronic) J44.9 CATHERINE (acute kidney injury) (Acute) N17.9 Shortness of breath (Acute) R06.02 Pseudomonas pneumonia (Resolved) J15.1 Hypertension (Chronic) I10 Alcohol abuse (Chronic) F10.10 Tobacco abuse (Chronic) F17.200 Allergies aspirin Adverse Reaction (Verified 08/11/18 17:43) Other Home Medications: Ambulatory Orders Medication Instructions Recorded Omeprazole 40 mg PO DAILY 11/26/17 Tizanidine HCl 2 mg PO BID PRN PRN 11/26/17 fluticasone 100 mcg-umeclid 62.5 1 inh INHALATION QDAY #3 device 04/09/18 mcg-vilant 25 mcg powd for inhalation mometasone-formoterol HFA 200 2 puff INHALATION BID #13 g 05/30/18 mcg-5 mcg/actuation aerosol inhaler tiotropium bromide 2.5 2 puff INHALATION QDAY #1 ea 05/30/18 mcg/actuation mist for inhalation albuterol sulfate 2.5 mg/3 mL 2.5 mg INHALATION Q4H PRN #180 ml 06/01/18 (0.083 %) solution for nebulization Guaifenesin [Mucinex] 1,200 mg PO BID tablet 08/22/18 Metoprolol(XL)Succ [Toprol Xl 75 mg PO DAILY tablet 08/22/18 (Beta Nichole)] Oxycodone [Oxyir] 10 mg PO Q6H PRN PRN #10 tab 08/22/18 Polyethylene Glycol 3350 [Miralax] 17 gm PO DAILY packet 08/22/18 predniSONE tablet See Taper PO DAILY@0800 tablet 08/22/18 Fluticasone/Umeclidin/Vilanter 1 each IH DAILY 08/26/18 [Trelegy Ellipta 100-62.5-25] Ipratropium [place] 0.2 mg IH 4X/DAY 08/26/18 Symbicort 160/4.5 Mcg Inhaler (SP) 2 inhaler INHALATION BID 08/26/18 Surgical History: - - Surgery for stomach ulcers 20-30 years ago. Psychiatric History: No pertinent psych hx Smoking Status: Former smoker - *Family History Maternal History Items: No pertinent history, - - No COPD Paternal History Items: No pertinent history Review of Systems Unable to obtain accurate/complete ROS d/t: Due to current intubation and mechanical ventilation status Patient Problems: Active and Suspected Problems (Last Reviewed 08/11/18 @ 19:33 by Carlos Garcia DO) Small cell lung cancer (Acute) Objective: The patient's most recent lab work, culture data and imaging studies have all been personally reviewed. Surface echocardiogram dated January 2018 revealed evidence of stage I diastolic dysfunction with an ejection fraction of 65%. The RV was noted to be mildly dilated. Right ventricular systolic pressure was estimated to be 59 mmHg. - Physical Exam General: - - Intubated, sedated and mechanically ventilated. HEENT: Atraumatic, PERRLA, Normocephalic Oral: No Gingival or Mucosal Lesions/ Ulcerations, - - Endotracheal and OG tubes currently in place Neck: Supple, No Nodes, Trachea Midline Lungs: Diminished, Rales, - - Dullness to percussion of right mid and lower lung armas Cardiovascular: Regular rate, Regular Rhythm, Normal S1, Normal S2, No murmurs Abdomen: Bowel Sounds Present, Soft, Non Tender Extremities: No cyanosis, No edema, Clubbing Skin: No breakdown Musculoskeletal: No Tenderness to Palpation of Joints or Extremities Lymphatic: No Cervical, Supraclavicular, or Inguinal Adenopathy Neurological: - - No focal neurological deficits. Currently sedated with a RASS of -1 Vital Signs Temp Pulse Resp BP Pulse Ox 37.5 C H 86 14 102/58 L 93 08/27/18 06:00 08/27/18 06:00 08/27/18 06:00 08/27/18 06:00 08/27/18 06:00 Oxygen Delivery Method Mechanical Ventilator Weight: 163 lb 5.8 oz Body Mass Index (BMI) 19.8 Intake and Output for Last 24 Hours 08/25/18 08/26/18 08/27/18 23:59 23:59 23:59 Intake Total 530 / 530 1308 / 1308 Output Total 420 / 420 250 / 250 Balance 110 / 110 1058 / 1058 Laboratory Tests Past 24 Hrs 08/26/18 08/26/18 08/26/18 13:45 13:45 13:45 WBC 26.1 H RBC 4.71 Hgb 14.8 Hct 48.9 MCV 103.8 H MCH 31.4 MCHC 30.3 L RDW 14.0 RDW Differential 53.2 H Plt Count 244 MPV 10.1 Immature Gran % (Auto) 0.500 Neut % (Auto) 96.3 H Lymph % (Auto) 3.0 L Giles % (Auto) 0.2 Eos % (Auto) 0.0 Baso % (Auto) 0.0 Absolute Neuts (auto) 25.1 H Absolute Lymphs (auto) 0.79 L Total Counted Not Reportable PT 12.6 INR 1.0 Specimen Type Sample Site pH Bicarbonate Actual POC Total CO2 Base Excess O2 Saturation O2 % ABG pCO2 ABG pO2 Leonardo Test Respiration Rate O2 Delivery Device Minute Volume Vent Mode Tidal Volume POC PEEP EPAP IPAP Blood Gas Notified Whom Blood Gas Notified Time Sodium 137 Potassium 5.6 H Chloride 103 Carbon Dioxide 32.0 Anion Gap 2 L BUN 53 H Creatinine 1.63 H Estim Creat Clear Calc 35.88 Est GFR (MDRD) Af Amer 53 L Est GFR (MDRD) Non-Af 44 L BUN/Creatinine Ratio 32.5 H Glucose 151 H Lactic Acid Calcium 8.8 Troponin I 0.030 Urine Color Urine Clarity Urine pH Ur Specific Ruffin Urine Protein Urine Glucose (UA) Urine Ketones Urine Occult Blood Urine Nitrite Urine Bilirubin Urine Urobilinogen Ur Leukocyte Esterase Urine RBC Urine WBC Ur Squamous Epith Cells Urine Bacteria Hyaline Casts Urine Mucus 08/26/18 08/26/18 08/26/18 13:45 13:54 14:32 WBC RBC Hgb Hct MCV MCH MCHC RDW RDW Differential Plt Count MPV Immature Gran % (Auto) Neut % (Auto) Lymph % (Auto) Giles % (Auto) Eos % (Auto) Baso % (Auto) Absolute Neuts (auto) Absolute Lymphs (auto) Total Counted PT INR Specimen Type ART ART Sample Site L Radial R Radial pH 7.15 L* 7.20 L Bicarbonate Actual 32.8 H 32.0 H POC Total CO2 36 34 Base Excess 4 H 4 H O2 Saturation 65 L 77 L O2 % 100 60 ABG pCO2 95.2 H* 81.8 H* ABG pO2 46 L 53 L Leonardo Test NA NA Respiration Rate 12 O2 Delivery Device Bi / C PAP Bi / C PAP Minute Volume Vent Mode Tidal Volume POC PEEP EPAP 10 6 IPAP 20 Blood Gas Notified Whom ED ED Blood Gas Notified Time 1353 1431 Sodium Potassium Chloride Carbon Dioxide Anion Gap BUN Creatinine Estim Creat Clear Calc Est GFR (MDRD) Af Amer Est GFR (MDRD) Non-Af BUN/Creatinine Ratio Glucose Lactic Acid 1.7 Calcium Troponin I Urine Color Urine Clarity Urine pH Ur Specific Ruffin Urine Protein Urine Glucose (UA) Urine Ketones Urine Occult Blood Urine Nitrite Urine Bilirubin Urine Urobilinogen Ur Leukocyte Esterase Urine RBC Urine WBC Ur Squamous Epith Cells Urine Bacteria Hyaline Casts Urine Mucus 08/26/18 08/26/18 08/27/18 16:00 19:50 05:30 WBC 14.4 H RBC 3.18 L Hgb 9.9 L Hct 32.6 L MCV 102.5 H MCH 31.1 MCHC 30.4 L RDW 13.7 RDW Differential 49.3 H Plt Count 166 MPV 10.1 Immature Gran % (Auto) 0.300 Neut % (Auto) 88.3 H Lymph % (Auto) 4.6 L Giles % (Auto) 6.8 Eos % (Auto) 0.0 Baso % (Auto) 0.0 Absolute Neuts (auto) 12.7 H Absolute Lymphs (auto) 0.66 L Total Counted Not Reportable PT INR Specimen Type ART Sample Site OTHER pH 7.36 Bicarbonate Actual 27.8 H POC Total CO2 29 Base Excess 2 O2 Saturation 85 L O2 % 40 ABG pCO2 48.8 H ABG pO2 53 L Leonardo Test NA Respiration Rate 16 O2 Delivery Device Vent Minute Volume 8.00 Vent Mode A-C Tidal Volume 450 POC PEEP 5 EPAP IPAP Blood Gas Notified Whom ICU Blood Gas Notified Time 194 Sodium Potassium Chloride Carbon Dioxide Anion Gap BUN Creatinine Estim Creat Clear Calc Est GFR (MDRD) Af Amer Est GFR (MDRD) Non-Af BUN/Creatinine Ratio Glucose Lactic Acid Calcium Troponin I Urine Color Yellow Urine Clarity Clear Urine pH 5.0 Ur Specific Ruffin 1.025 Urine Protein 30 H Urine Glucose (UA) Normal Urine Ketones 5 H Urine Occult Blood Negative Urine Nitrite Negative Urine Bilirubin Negative Urine Urobilinogen Normal Ur Leukocyte Esterase Negative Urine RBC 0 SEEN Urine WBC 0-5 SEEN Ur Squamous Epith Cells 0 SEEN Urine Bacteria 0 SEEN Hyaline Casts 5-10 SEEN Urine Mucus 0 SEEN 08/27/18 05:30 WBC RBC Hgb Hct MCV MCH MCHC RDW RDW Differential Plt Count MPV Immature Gran % (Auto) Neut % (Auto) Lymph % (Auto) Giles % (Auto) Eos % (Auto) Baso % (Auto) Absolute Neuts (auto) Absolute Lymphs (auto) Total Counted PT INR Specimen Type Sample Site pH Bicarbonate Actual POC Total CO2 Base Excess O2 Saturation O2 % ABG pCO2 ABG pO2 Leonardo Test Respiration Rate O2 Delivery Device Minute Volume Vent Mode Tidal Volume POC PEEP EPAP IPAP Blood Gas Notified Whom Blood Gas Notified Time Sodium 147 H Potassium 4.3 Chloride 114 H Carbon Dioxide 23.0 Anion Gap 10 BUN 50 H Creatinine 1.16 Estim Creat Clear Calc 58.56 Est GFR (MDRD) Af Amer 79 Est GFR (MDRD) Non-Af 65 BUN/Creatinine Ratio 43.1 H Glucose 140 H Lactic Acid Calcium 7.1 L Troponin I Urine Color Urine Clarity Urine pH Ur Specific Ruffin Urine Protein Urine Glucose (UA) Urine Ketones Urine Occult Blood Urine Nitrite Urine Bilirubin Urine Urobilinogen Ur Leukocyte Esterase Urine RBC Urine WBC Ur Squamous Epith Cells Urine Bacteria Hyaline Casts Urine Mucus Clinical Impression(s) from Imaging Studies Chest X-Ray 08/26/18 13:48 IMPRESSION: 1. Large right pleural effusion has reaccumulated since thoracentesis of 08/20/2017 (and larger than prior to thoracentesis). Right upper lobe consolidation partially visualized. Electronically Signed: Tristin Chopra MD at 14:23 EST , Service support , Chest X-Ray 08/26/18 15:37 IMPRESSION: Satisfactory position of endotracheal and enteric tubes. Large right pleural effusion with parenchymal consolidation/airspace disease. Electronically Signed: Tristin Chopra MD at 16:29 EST , Service support , Assessment/Plan Active and Suspected Problems (Last Reviewed 08/11/18 @ 19:33 by Cralos Garcia DO) Small cell lung cancer (Acute) RECOMMENDATIONS: 1. Orders have been placed for ultrasound-guided thoracentesis. 2. We will send pleural fluid for cell count, culture and cytology. 3. Continue patient on mechanical ventilation yet today. Plan for spontaneous breathing trial tomorrow morning. 4. Start tube feeds today per nutrition recommendations. 5. Depending on the time of pleural fluid reaccumulation, he may require Pleurx catheter placement during this hospitalization. 6. Continue scheduled bronchodilators 7. Continue Lovenox and Pepcid as ordered. IMPRESSIONS: 1. Acute on chronic combined respiratory failure/end-stage COPD Suspect that the etiology for the patient's acute decompensation is secondary to his enlarging malignant pleural effusion. The patient lasted less than 1 week from the time of his initial thoracentesis until the time he decompensated clinically. He is going to be sent down for an ultrasound-guided thoracentesis this morning. We will send pleural fluid for cell count, cultures and cytology. The patient will need to be monitored clinically following pleural fluid drainage. If his effusion again re-accumulates rapidly, he will likely require Pleurx catheter placement. For now, we will continue antibiotics for an additional 24 hours, pending infectious workup. 2. Newly diagnosed stage IV small cell lung cancer The patient was referred to follow-up with Dr. Casey of oncology. He did have plans to initiate therapy. I did personally call and discussed the case with him this morning. He is in agreement that the patient may likely require Pleurx catheter placement prior to his discharge from the hospital. 3. Acute kidney injury Likely prerenal in etiology. Creatinine has improved with stabilization of hemodynamics and with volume expansion. We will continue to monitor urine output. No indication for renal replacement therapy at this time. 4. Heart failure with preserved ejection fraction/pulmonary hypertension Recommend cautious use of supplemental IV fluids. No need for diuretics at this time. 5. Tobacco dependency currently in remission/hypertension/GERD/chronic pain syndrome Complicates care, management, recovery and prognosis. Tube feeds to be initiated today. TIME: 45 minutes of critical care time, independent of procedures, was spent addressing the patient's acute on chronic combined respiratory failure, end- stage COPD, newly diagnosed stage IV small cell lung cancer, acute kidney injury, review of all data and collaboration with the care team. ([id number]) Code Visit 9xxxx: [id number] Critical care first hour
--- NOTE | 2018-08-27 07:12 | US_ITS ---
PROCEDURE: ULTRASOUND GUIDED THORACENTESIS. DATE: August 27, 2018. INDICATION: Male, 72 years old. Right pleural effusion PHYSICIAN: Irwin Hong M.D. PROCEDURE: The risks, benefits, and alternatives to the procedure were explained to the patient. The specific risks of bleeding, infection, and pneumothorax requiring chest tube insertion were discussed and accepted. Written informed consent was obtained. Ultrasonographic evaluation of the right lower pleural space was carried out. An adequate pocket was identified. The patient was placed in the sitting, upright position. The overlying skin was prepped and draped in sterile fashion. 1% lidocaine was administered subcutaneously for local anesthesia. Under ultrasound guidance, a 5 Nepali thoracentesis needle/catheter system was advanced into the right posterior lower pleural fluid collection. Approximately 2000 mL of blood-tinged fluid was drained. The catheter was removed, and a sterile dressing was applied. The patient tolerated the procedure well. A chest x-ray was ordered. US/Thoracentesis W US IMPRESSION: Ultrasound-guided right thoracentesis. Electronically Signed: Irwin Hong MD at 12:21 EST , Service support ,
[2018-08-27 08:28] LABS: Partial Thromboplast Time 26.9 Seconds (24.1-36.2); Prothrombin Time (Protime)PT. 13.4 SECONDS (11.7-14.9)
[2018-08-27 09:09] LABS: ALB/GLOB Ratio 0.9 RATIO (0.9-2.4); Globulin 2.3 g/dL (2.2-4.2); LDH 455 U/L (87-241); Protein, Total 4.3 g/dL (6.4-8.2)
[2018-08-27] MEDS: fentaNYL drip 100 ML 2.5 MCG IV ×2 (09:20→21:09)
--- NOTE | 2018-08-27 09:45 | NURSING ---
Pt taken for thoracentesis by Lilli SCHUSTER and Olimpia ADAMS.
--- NOTE | 2018-08-27 09:46 | CASEMGMT ---
Patient is from [facility]. Per RN [address] did not use bi-pap or they did not have one for patient. There was also mention of patient not being able to go to appts as he could not afford transport. SW called Luci at [facility]. She said they have a bi-pap and he used it when he got there. She does not know about happenings over the weekend. SW asked her about transport. She said that he had an appt the day after he went to them and they set up transport via [employer] van which his insurance should cover. ASH thanked her for her assistance. ASH will talk with family about d/c plan. Guerline YAP MSW
--- NOTE | 2018-08-27 09:52 | PCM.PN.HOSP ---
Patient Problems: Active and Suspected Problems (Last Reviewed 08/11/18 @ 19:33 by Carlos Garcia DO) Small cell lung cancer (Acute) Subjective: Patient was admitted with a complaint of shortness of breath and hypoxia. He was emergently intubated in the ED on account of ABG which showed hypercapnia and hypoxia. He was recently diagnosed with small cell lung cancer after he was admitted recently for acute hypoxic and hypercapnic respiratory failure which was then thought to be due to pneumonia and COPD exacerbation. He was treated with antibiotics and had right-sided thoracentesis which came positive for small cell cancer. He was readmitted with a complaint of shortness of breath and hypoxia. Per discussion with nurse, patient was not using his BiPAP in the custodial. Patient seen and examined. He is intubated and sedated in restraints. Patient did not answer when called to sternal rub but spontaneously became agitated and thrashing around. Unable to do review of systems on account of patient being unresponsive. Vitals/I&O's: Vital Signs Temp Pulse Resp BP Pulse Ox 99.4 F H 86 17 112/58 L 86 08/27/18 09:00 08/27/18 09:00 08/27/18 09:00 08/27/18 09:00 08/27/18 09:00 Oxygen Delivery Method Mechanical Ventilator Weight: 163 lb 5.8 oz Body Mass Index (BMI) 19.8 Intake and Output for Last 24 Hours 08/25/18 08/26/18 08/27/18 23:59 23:59 23:59 Intake Total 530 / 530 1308 / 1308 Output Total 420 / 420 250 / 250 Balance 110 / 110 1058 / 1058 General: - - intubated, sedated, in restraints. Occasionally gets restless and thrashes around HEENT: PERRLA, EOMI, Normocephalic Oral: Dry Mucosa Neck: Supple, No JVD, Negative Carotid Bruits Lungs: - - markedly decreased breath sounds in right upper, mid and lower lung armas. Cardiovascular: Regular rate, Regular Rhythm, Normal S1, Normal S2, No murmurs Abdomen: Bowel Sounds Present, Soft, Non Tender, Non-Distended, No Hepato-splenomegaly Extremities: No clubbing, No cyanosis, No edema, Capillary Refill Less than 3 Seconds Skin: No rashes, No breakdown Musculoskeletal: No Tenderness to Palpation of Joints or Extremities Lymphatic: No Cervical, Supraclavicular, or Inguinal Adenopathy Neurological: Motor Exam 5/5 strength throughout Psych/Mental Status: - - intubated, thrashes around occasionally, sedated. On levophed Laboratory Results 08/26/18 13:45: WBC 26.1 H, RBC 4.71, Hgb 14.8, Hct 48.9, MCV 103.8 H, MCH 31.4, MCHC 30.3 L, RDW 14.0, RDW Differential 53.2 H, Plt Count 244, MPV 10.1, Immature Gran % (Auto) 0.500, Neut % (Auto) 96.3 H, Lymph % (Auto) 3.0 L, [place] % (Auto) 0.2, Eos % (Auto) 0.0, Baso % (Auto) 0.0, Absolute Neuts (auto) 25.1 H, Absolute Lymphs (auto) 0.79 L, Total Counted Not Reportable 08/26/18 13:45: PT 12.6, INR 1.0 08/26/18 13:45: Sodium 137, Potassium 5.6 H, Chloride 103, Carbon Dioxide 32.0, Anion Gap 2 L, BUN 53 H, Creatinine 1.63 H, Estim Creat Clear Calc 35.88, Est GFR (MDRD) Af Amer 53 L, Est GFR (MDRD) Non-Af 44 L, BUN/Creatinine Ratio 32.5 H, Glucose 151 H, Calcium 8.8, Troponin I 0.030 08/26/18 13:45: Lactic Acid 1.7 08/26/18 13:54: Specimen Type ART, Sample Site L Radial, pH 7.15 L*, Bicarbonate Actual 32.8 H, POC Total CO2 36, Base Excess 4 H, O2 Saturation 65 L, O2 % 100, ABG pCO2 95.2 H*, ABG pO2 46 L, Leonardo Test NA, O2 Delivery Device Bi / C PAP, EPAP 10, Blood Gas Notified Whom ED , Blood Gas Notified Time 1353 08/26/18 14:32: Specimen Type ART, Sample Site R Radial, pH 7.20 L, Bicarbonate Actual 32.0 H, POC Total CO2 34, Base Excess 4 H, O2 Saturation 77 L, O2 % 60, ABG pCO2 81.8 H*, ABG pO2 53 L, Leonardo Test NA, Respiration Rate 12, O2 Delivery Device Bi / C PAP, EPAP 6, IPAP 20, Blood Gas Notified Whom ED , Blood Gas Notified Time 1431 08/26/18 16:00: Urine Color Yellow, Urine Clarity Clear, Urine pH 5.0, Ur Specific [place] 1.025, Urine Protein 30 H, Urine Glucose (UA) Normal, Urine Ketones 5 H, Urine Occult Blood Negative, Urine Nitrite Negative, Urine Bilirubin Negative, Urine Urobilinogen Normal, Ur Leukocyte Esterase Negative, Urine RBC 0 SEEN, Urine WBC 0-5 SEEN, Ur Squamous Epith Cells 0 SEEN, Urine Bacteria 0 SEEN, Hyaline Casts 5-10 SEEN, Urine Mucus 0 SEEN 08/26/18 19:50: Specimen Type ART, Sample Site OTHER, pH 7.36, Bicarbonate Actual 27.8 H, POC Total CO2 29, Base Excess 2, O2 Saturation 85 L, O2 % 40, ABG pCO2 48.8 H, ABG pO2 53 L, Leonardo Test NA, Respiration Rate 16, O2 Delivery Device Vent, Minute Volume 8.00, Vent Mode A-C, Tidal Volume 450, POC PEEP 5, Blood Gas Notified Whom ICU , Blood Gas Notified Time 19408/27/18 05:30: WBC 14.4 H, RBC 3.18 L, Hgb 9.9 L, Hct 32.6 L, MCV 102.5 H, MCH 31.1, MCHC 30.4 L, RDW 13.7, RDW Differential 49.3 H, Plt Count 166, MPV 10.1, Immature Gran % (Auto) 0.300, Neut % (Auto) 88.3 H, Lymph % (Auto) 4.6 L, [place] % (Auto) 6.8, Eos % (Auto) 0.0, Baso % (Auto) 0.0, Absolute Neuts (auto) 12.7 H, Absolute Lymphs (auto) 0.66 L, Total Counted Not Reportable 08/27/18 05:30: Sodium 147 H, Potassium 4.3, Chloride 114 H, Carbon Dioxide 23.0, Anion Gap 10, BUN 50 H, Creatinine 1.16, Estim Creat Clear Calc 58.56, Est GFR (MDRD) Af Amer 79, Est GFR (MDRD) Non-Af 65, BUN/Creatinine Ratio 43.1 H, Glucose 140 H, Calcium 7.1 L 08/27/18 05:30: Lactate Dehydrogenase 455 H, Total Protein 4.3 L, Globulin 2.3, Albumin/Globulin Ratio 0.9 08/27/18 08:00: PT 13.4, INR 1.0, APTT 26.9 Current Medications Albuterol/Ipratropium (Duoneb) 3 ml INHALATION Q4H.RT [facility] Last Admin: 08/27/18 06:39 Dose: 3 ml Chlorhexidine Gluconate () 15 ml PO BID [facility] Last Admin: 08/26/18 21:30 Dose: 15 ml Chlorhexidine Gluconate () 1 each TOPICAL DAILY [facility] Enoxaparin Sodium (Lovenox) 40 mg SC DAILY@1000 [facility] Last Admin: 08/27/18 09:22 Dose: Not Given Sodium Chloride () 1,000 mls @ 100 mls/hr IV .Q10H [facility] Last Admin: 08/27/18 05:55 Dose: 100 mls/hr Famotidine 20 mg/ Sodium (Chloride) 10 mls @ 300 mls/hr IV Q12 [facility] Last Admin: 08/26/18 21:30 Dose: 300 mls/hr Fentanyl () 100 mls @ 2.5 mls/hr IV .Q40H [facility] Last Admin: 08/27/18 09:20 Dose: 2.5 mls/hr Propofol (Diprivan) 1,000 mg in 100 mls @ 4.632 mls/hr CONT INF .Q12H [facility] Last Admin: 08/27/18 06:28 Dose: 4.632 mls/hr Norepinephrine Bitartrate 8 mg (/ Dextrose) 258 mls @ 9.68 mls/hr IV .[id number] [facility] Last Admin: 08/26/18 19:59 Dose: 9.68 mls/hr Magnesium Hydroxide (Milk Of Magnesia) 30 ml PO DAILY PRN PRN PRN Reason: Constipation Ondansetron HCl (Zofran) 4 mg IV Q6H PRN PRN PRN Reason: Nausea Sodium Chloride () 5 - 15 ml IV UD PRN PRN Reason: SALINE FLUSH Medical Necessity - Tobacco Use Smoking Status: Former smoker Assessment/Plan All Active Problems (Last Reviewed 08/11/18 @ 19:33 by Carlos Garcia DO) Small cell lung cancer (Acute) Pleural effusion (Acute) Community acquired pneumonia (Acute) COPD exacerbation (Acute) Pneumococcal pneumonia (Ruled-out) Acute respiratory failure with hypoxia and hypercapnia (Acute) CATHERINE (acute kidney injury) (Acute) Shortness of breath (Acute) Pseudomonas pneumonia (Resolved) 1. Acute hypoxic and hypercapnic respiratory failure due to malignant pleural effusion and COPD Patient remains intubated and sedated. On propofol and fentanyl. transit worker on board. patient is severely debilitated and will have a poor performance status; the likelihood of him coming off the vent or tolerating chemotherapy is minimal per discussion with ICU staff, transit worker to discuss with patient's family about code status as he is currently full code per admitting note ventilation management as per transit worker Did not have any evidence of infection on admission the white cell count was elevated at 26.1 on admission. Now down to 14.6 2.Small cell lung cancer recently diagnosed via pleural effusion cytology pulmonology on board to have thoracentesis today. 3. Chronic diastolic heart failure was not thought to be in CHF exacerbation on admission. BNP was not checked Blood pressure medications held on account of hypotension on admission. To need to monitor patient and hold off on checking BNP now until after discussion with family about CODE STATUS. 4. AK I: Resolved. Creatinine was 1.60 on admission is down to 1.16 with administration of IV fluids. Will monitor. 5. Hypertension: BP meds on hold on account of low blood pressure on admission. 6. Hyperkalemia: Resolved potassium is now 4.3. 7. Hyponatremia: Sodium is 147 from 137 on admission. This is likely due to IV fluid administration. Will cut down on IV fluids and monitor. 8. GERD: On PPI 9. Chronic pain: On oxycodone and tizanidine at home. These on hold as patient is currently on fentanyl drip for sedation. DVT prophylaxis: Lovenox Code Visit Inpatient E&M: [id number] [facility] Hosp L3
--- NOTE | 2018-08-27 10:09 | PN_ITS ---
Patient Problems: Active and Suspected Problems (Last Reviewed 08/11/18 @ 19:33 by Carlos Garcia DO) Small cell lung cancer (Acute) Subjective: Patient was admitted with a complaint of shortness of breath and hypoxia. He was emergently intubated in the ED on account of ABG which showed hypercapnia and hypoxia. He was recently diagnosed with small cell lung cancer after he was admitted recently for acute hypoxic and hypercapnic respiratory failure which was then thought to be due to pneumonia and COPD exacerbation. He was treated with antibiotics and had right-sided thoracentesis which came positive for small cell cancer. He was readmitted with a complaint of shortness of breath and hypoxia. Per discussion with nurse, patient was not using his BiPAP in the [facility]. Patient seen and examined. He is intubated and sedated in restraints. Patient did not answer when called to sternal rub but spontaneously became agitated and thrashing around. Unable to do review of systems on account of patient being unresponsive. Vitals/I&O's: Vital Signs Temp Pulse Resp BP Pulse Ox 99.4 F H 86 17 112/58 L 86 08/27/18 09:00 08/27/18 09:00 08/27/18 09:00 08/27/18 09:00 08/27/18 09:00 Oxygen Delivery Method Mechanical Ventilator Weight: 163 lb 5.8 oz Body Mass Index (BMI) 19.8 Intake and Output for Last 24 Hours 08/25/18 08/26/18 08/27/18 23:59 23:59 23:59 Intake Total 530 / 530 1308 / 1308 Output Total 420 / 420 250 / 250 Balance 110 / 110 1058 / 1058 General: - - intubated, sedated, in restraints. Occasionally gets restless and thrashes around HEENT: PERRLA, EOMI, Normocephalic Oral: Dry Mucosa Neck: Supple, No JVD, Negative Carotid Bruits Lungs: - - markedly decreased breath sounds in right upper, mid and lower lung armas. Cardiovascular: Regular rate, Regular Rhythm, Normal S1, Normal S2, No murmurs Abdomen: Bowel Sounds Present, Soft, Non Tender, Non-Distended, No Hepato-splenomegaly Extremities: No clubbing, No cyanosis, No edema, Capillary Refill Less than 3 Seconds Skin: No rashes, No breakdown Musculoskeletal: No Tenderness to Palpation of Joints or Extremities Lymphatic: No Cervical, Supraclavicular, or Inguinal Adenopathy Neurological: Motor Exam 5/5 strength throughout Psych/Mental Status: - - intubated, thrashes around occasionally, sedated. On levophed Laboratory Results 08/26/18 13:45: WBC 26.1 H, RBC 4.71, Hgb 14.8, Hct 48.9, MCV 103.8 H, MCH 31.4, MCHC 30.3 L, RDW 14.0, RDW Differential 53.2 H, Plt Count 244, MPV 10.1, Immature Gran % (Auto) 0.500, Neut % (Auto) 96.3 H, Lymph % (Auto) 3.0 L, [place] % (Auto) 0.2, Eos % (Auto) 0.0, Baso % (Auto) 0.0, Absolute Neuts (auto) 25.1 H, Absolute Lymphs (auto) 0.79 L, Total Counted Not Reportable 08/26/18 13:45: PT 12.6, INR 1.0 08/26/18 13:45: Sodium 137, Potassium 5.6 H, Chloride 103, Carbon Dioxide 32.0, Anion Gap 2 L, BUN 53 H, Creatinine 1.63 H, Estim Creat Clear Calc 35.88, Est GFR (MDRD) Af Amer 53 L, Est GFR (MDRD) Non-Af 44 L, BUN/Creatinine Ratio 32.5 H , Glucose 151 H, Calcium 8.8, Troponin I 0.030 08/26/18 13:45: Lactic Acid 1.7 08/26/18 13:54: Specimen Type ART, Sample Site L Radial, pH 7.15 L*, Bicarbonate Actual 32.8 H, POC Total CO2 36, Base Excess 4 H, O2 Saturation 65 L, O2 % 100, ABG pCO2 95.2 H*, ABG pO2 46 L, Leonardo Test NA, O2 Delivery Device Bi / C PAP, EPAP 10, Blood Gas Notified Whom ED , Blood Gas Notified Time 1353 08/26/18 14:32: Specimen Type ART, Sample Site R Radial, pH 7.20 L, Bicarbonate Actual 32.0 H, POC Total CO2 34, Base Excess 4 H, O2 Saturation 77 L, O2 % 60, ABG pCO2 81.8 H*, ABG pO2 53 L, Leonardo Test NA, Respiration Rate 12, O2 Delivery Device Bi / C PAP, EPAP 6, IPAP 20, Blood Gas Notified Whom ED , Blood Gas Notified Time 1431 08/26/18 16:00: Urine Color Yellow, Urine Clarity Clear, Urine pH 5.0, Ur Specific [place] 1.025, Urine Protein 30 H, Urine Glucose (UA) Normal, Urine Ketones 5 H, Urine Occult Blood Negative, Urine Nitrite Negative, Urine Bilirubin Negative, Urine Urobilinogen Normal, Ur Leukocyte Esterase Negative, Urine RBC 0 SEEN, Urine WBC 0-5 SEEN, Ur Squamous Epith Cells 0 SEEN, Urine Bacteria 0 SEEN, Hyaline Casts 5-10 SEEN, Urine Mucus 0 SEEN 08/26/18 19:50: Specimen Type ART, Sample Site OTHER, pH 7.36, Bicarbonate Actual 27.8 H, POC Total CO2 29, Base Excess 2, O2 Saturation 85 L, O2 % 40, ABG pCO2 48.8 H, ABG pO2 53 L, Leonardo Test NA, Respiration Rate 16, O2 Delivery Device Vent, Minute Volume 8.00, Vent Mode A-C, Tidal Volume 450, POC PEEP 5, Blood Gas Notified Whom ICU , Blood Gas Notified Time 19408/27/18 05:30: WBC 14.4 H, RBC 3.18 L, Hgb 9.9 L, Hct 32.6 L, MCV 102.5 H, MCH 31.1, MCHC 30.4 L, RDW 13.7, RDW Differential 49.3 H, Plt Count 166, MPV 10.1, Immature Gran % (Auto) 0.300, Neut % (Auto) 88.3 H, Lymph % (Auto) 4.6 L, [place] % (Auto) 6.8, Eos % (Auto) 0.0, Baso % (Auto) 0.0, Absolute Neuts (auto) 12.7 H, Absolute Lymphs (auto) 0.66 L, Total Counted Not Reportable 08/27/18 05:30: Sodium 147 H, Potassium 4.3, Chloride 114 H, Carbon Dioxide 23.0, Anion Gap 10, BUN 50 H, Creatinine 1.16, Estim Creat Clear Calc 58.56, Est GFR (MDRD) Af Amer 79, Est GFR (MDRD) Non-Af 65, BUN/Creatinine Ratio 43.1 H, Glucose 140 H, Calcium 7.1 L 08/27/18 05:30: Lactate Dehydrogenase 455 H, Total Protein 4.3 L, Globulin 2.3, Albumin/Globulin Ratio 0.9 08/27/18 08:00: PT 13.4, INR 1.0, APTT 26.9 Current Medications Albuterol/Ipratropium (Duoneb) 3 ml INHALATION Q4H.RT [facility] Last Admin: 08/27/18 06:39 Dose: 3 ml Chlorhexidine Gluconate () 15 ml PO BID [facility] Last Admin: 08/26/18 21:30 Dose: 15 ml Chlorhexidine Gluconate () 1 each TOPICAL DAILY [facility] Enoxaparin Sodium (Lovenox) 40 mg SC DAILY@1000 [facility] Last Admin: 08/27/18 09:22 Dose: Not Given Sodium Chloride () 1,000 mls @ 100 mls/hr IV .Q10H [facility] Last Admin: 08/27/18 05:55 Dose: 100 mls/hr Famotidine 20 mg/ Sodium (Chloride) 10 mls @ 300 mls/hr IV Q12 [facility] Last Admin: 08/26/18 21:30 Dose: 300 mls/hr Fentanyl () 100 mls @ 2.5 mls/hr IV .Q40H [facility] Last Admin: 08/27/18 09:20 Dose: 2.5 mls/hr Propofol (Diprivan) 1,000 mg in 100 mls @ 4.632 mls/hr CONT INF .Q12H [facility] Last Admin: 08/27/18 06:28 Dose: 4.632 mls/hr Norepinephrine Bitartrate 8 mg (/ Dextrose) 258 mls @ 9.68 mls/hr IV .[id number] [facility] Last Admin: 08/26/18 19:59 Dose: 9.68 mls/hr Magnesium Hydroxide (Milk Of Magnesia) 30 ml PO DAILY PRN PRN PRN Reason: Constipation Ondansetron HCl (Zofran) 4 mg IV Q6H PRN PRN PRN Reason: Nausea Sodium Chloride () 5 - 15 ml IV UD PRN PRN Reason: SALINE FLUSH Medical Necessity - Tobacco Use Smoking Status: Former smoker Assessment/Plan All Active Problems (Last Reviewed 08/11/18 @ 19:33 by Carlos Garcia DO) Small cell lung cancer (Acute) Pleural effusion (Acute) Community acquired pneumonia (Acute) COPD exacerbation (Acute) Pneumococcal pneumonia (Ruled-out) Acute respiratory failure with hypoxia and hypercapnia (Acute) CATHERINE (acute kidney injury) (Acute) Shortness of breath (Acute) Pseudomonas pneumonia (Resolved) 1. Acute hypoxic and hypercapnic respiratory failure due to malignant pleural effusion and COPD * Patient remains intubated and sedated. On propofol and fentanyl. * manager resort on board. * patient is severely debilitated and will have a poor performance status; the likelihood of him coming off the vent or tolerating chemotherapy is minimal * per discussion with ICU staff, manager resort to discuss with patient's family about code status as he is currently full code per admitting note * ventilation management as per manager resort * Did not have any evidence of infection on admission the white cell count was elevated at 26.1 on admission. Now down to 14.6 2.Small cell lung cancer * recently diagnosed via pleural effusion cytology * pulmonology on board * to have thoracentesis today. * 3. Chronic diastolic heart failure * was not thought to be in CHF exacerbation on admission. * BNP was not checked * Blood pressure medications held on account of hypotension on admission. * To need to monitor patient and hold off on checking BNP now until after discussion with family about CODE STATUS. * 4. AK I: Resolved. Creatinine was 1.60 on admission is down to 1.16 with administration of IV fluids. Will monitor. 5. Hypertension: BP meds on hold on account of low blood pressure on admission. 6. Hyperkalemia: Resolved potassium is now 4.3. 7. Hyponatremia: Sodium is 147 from 137 on admission. This is likely due to IV fluid administration. Will cut down on IV fluids and monitor. 8. GERD: On PPI 9. Chronic pain: On oxycodone and tizanidine at home. These on hold as patient is currently on fentanyl drip for sedation. DVT prophylaxis: Lovenox Code Visit Inpatient E&M: [id number] [facility] Hosp L3
--- NOTE | 2018-08-27 10:28 | RAD_ITS ---
STUDY: X-RAY CHEST REASON FOR EXAM: Male, 72 years old. The patient is status post right thoracentesis. TECHNIQUE: Portable inspiration and expiration views. COMPARISON: Comparison is made with prior study of August 26, 2018. FINDINGS: An endotracheal tube is in situ. The tip is a 5.1 cm proximal to the christina. An orogastric tube is seen with the tip below the left hemidiaphragm The patient is status post right thoracentesis. Mild residual blunting of the right costophrenic angle. There is evidence of diffuse interstitial infiltration in the right hemithorax with areas of confluence. RAD/Chest Insp/Exp 2 View IMPRESSION: Status post right thoracentesis. There is no evidence of pneumothorax. Electronically Signed: Irwin Hong MD at 14:04 EST , Service support ,
[2018-08-27] MEDS: Chlorhexidine 15 ML PO ×2 (11:05→22:08)
[2018-08-27] MEDS: CHLORHEXIDINE GLUC 2% CLOTH 1 EACH TOWELETTE TOPICAL (11:05)
--- NOTE | 2018-08-27 14:05 | SUR.HOLD ---
Type of Pastoral Visit _x__ Initial Visit ___ Follow-up Visit ___ On-call Visit ___ General Patient Visit ___ Spiritual Assessment ___ Family Conference ___ Bereavement ___ Rapid Response ___ Code Blue ___ Other (describe below) Pastoral Care Referral From ___ Patient _x__ Family ___ Nurse ___ Physician ___ Systems Mgr ___ Lapper ___ Other (describe below) Sacrament/Intervention ___ Active listening ___ Anointing ___ Pentecostal ___ Bereavement ___ Communion ___ [place] exploration ___ ___ Life review _x__ Prayer ___ Reconciliation ___ Sacrament of Sick _x__ Supportive presence ___ Wedding ___ Other (describe below) Pastoral Comments family member saw this gum worker and asked for spiritual care and support for patient and other family members; presence and prayer given; pt is intubated
--- NOTE | 2018-08-27 14:55 | CASEMGMT ---
RN CM Note: call received from [facility] [employer], Flo. [phone]. Requested dc plan and needs. Let her know pt was admitted yesterday, is in ICU and dc plan not finalized. Anticipate return to SNF unless care needs are too high. Rosanna FUENTESN RN ACM
[2018-08-27] MEDS: Vital AF 1.2 Cal Liquid 1,000 ML 55 ML GT (17:55)
[2018-08-28] VITALS (52 sets, daily range): BP systolic 89–138; BP diastolic 41–74; PULSE 81–114; RESP 14–29; TEMP 37.4–38.3; O2SAT 90–97
[2018-08-28] MEDS: 0.9% Normal Saline 1,000 ML 100 ML IV (01:40)
[2018-08-28] MEDS: Propofol 10MG/Ml 1,000 MG/100 ML Bottle 4.632 MG CONT INF (01:40)
[2018-08-28] MEDS: Ipratropium/Albuterol Sulfate 3 ML AMPUL.NEB INHALATION ×6 (03:35→22:38)
[2018-08-28 04:37] LABS: Absolute Lymphocyte Count 0.96 X10^3/ul (0.83-4.51); Absolute Neutrophil Count 10.8 X10^3/uL (2.0-7.7); Basophil# 0.01 X10^3/uL; Basophil% 0.1 % (0-1); Eosinophil# 0.04 X10^3/uL; Eosinophils% 0.3 % (0-5); Hematocrit 35.7 % (40-54); Hemoglobin 11.4 g/dl (13.0-16.5); Lymphocyte # 0.96 X10^3/ul (4.0); Lymphocyte % 7.3 % (19-41); Mean Corp Hgb Conc 31.9 g/gl (32-36); Mean Corpuscular Hgb 32.3 pg (27.0-32.0); Mean Corpuscular Volume 101.1 fL (80-94); Mean Platelet Vol. 10.1 fl (6.2-12.0); Monocyte# 1.35 X10^3/uL; Monocyte% 10.2 % (0-10); Neutrophil # 10.83 X10^3/uL (2.7-7.7); Neutrophil % 81.8 % (47-70); Platelet Count 144 K/mm3 (150-450); RBC Distribution Width CV 14.2 % (11.6-14.6); Red Blood Count 3.53 M/mm3 (4.6-6.2); White Blood Count 13.2 K/mm3 (4.4-11.0)
[2018-08-28 04:39] LABS: POSITIVE COUNT NO; POSITIVE DIFFERENTIAL NO; POSITIVE MORPHOLOGY NO
[2018-08-28 04:49] LABS: Anion Gap 8 (5-15); BUN 52 mg/dL (7-18); BUN/Creat Ratio 40.9 RATIO (10-20); Calcium,Total 7.8 mg/dL (8.5-10.1); Chloride 112 mmol/L (98-107); Creatinine, Serum 1.27 mg/dL (0.70-1.30); EST Glomerular Filtration Rate 59 mL/min (>60); Est Glom Filt Rate - Afr Amer 71 mL/min (>60); Estimated Creatinine Clearance 53.48 ml/min; Glucose 106 mg/dL (74-106); Potassium 4.6 mmol/L (3.5-5.1); Sodium Level 145 mmol/L (136-145)
--- NOTE | 2018-08-28 07:09 | PCM.PN.INT ---
Subjective: The patient was seen and examined at the bedside this morning. Events from the last 24 hours have been reviewed. The patient is currently afebrile, but is requiring a small amount of levo fed to maintain hemodynamic stability. He remains on assist control mode of mechanical ventilation with an FiO2 requirement of 40%. The patient did undergo successful ultrasound-guided thoracentesis yesterday with 2 L of fluid removed from his right hemithorax. Unfortunately, the patient's fluid was not sent for any analysis. Regardless, the patient does have a known malignant pleural effusion from previous hospitalization. Attempts to perform a spontaneous breathing trial this morning was unsuccessful, as the patient became extremely agitated and restless. He is currently documented to be overall net +3.7 L for the admission. Objective: The patient's most recent lab work, culture data and imaging studies have all been personally reviewed. Sputum culture collected August 26 appears to be normal respiratory karla. Blood cultures have been unrevealing to date. Prior surface echocardiogram dated December 2017 revealed evidence of stage I diastolic dysfunction with mild concentric LVH and an ejection fraction of 65%. Right ventricular systolic pressure was estimated to be 59 mmHg. General: - - Remains intubated, sedated and mechanically ventilated. HEENT: Atraumatic, PERRLA, Normocephalic Oral: No Gingival or Mucosal Lesions/ Ulcerations, - - Endotracheal and OG tubes remain in place. Neck: Supple, No Nodes, Trachea Midline Lungs: - - Coarse rhonchi on the left with significantly diminished air movement throughout the right hemithorax. Cardiovascular: Normal S1, Normal S2, No murmurs, Tachycardic Abdomen: Bowel Sounds Present, Soft, Non Tender, Non-Distended Extremities: No cyanosis, No edema, Clubbing Skin: - - No significant change from previous. Musculoskeletal: No Tenderness to Palpation of Joints or Extremities Lymphatic: No Cervical, Supraclavicular, or Inguinal Adenopathy Neurological: - - No focal neurological deficits. The patient is currently sedated. Vital Signs Temp Pulse Resp BP Pulse Ox 37.4 C H 100 16 116/50 L 95 08/28/18 04:00 08/28/18 06:00 08/28/18 06:00 08/28/18 06:00 08/28/18 06:00 Oxygen Flow Rate (L/min) [4] 15 Oxygen Flow Rate (L/min) [3] 15 Oxygen Flow Rate (L/min) [2] 15 Oxygen Flow Rate (L/min) [1 ( 15 Initial Baseline)] Oxygen Delivery Method [4] Ambu-Bag Oxygen Delivery Method [3] Ambu-Bag Oxygen Delivery Method [2] Ambu-Bag Oxygen Delivery Method [1 ( Ambu-Bag Initial Baseline)] Oxygen Delivery Method Mechanical Ventilator Weight: 163 lb 5.8 oz Body Mass Index (BMI) 19.8 Intake and Output for Last 24 Hours 08/26/18 08/27/18 08/28/18 23:59 23:59 23:59 Intake Total 530 / 530 2377 / 2377 2439 / 2439 Output Total 420 / 420 850 / 850 350 / 350 Balance 110 / 110 1527 / 1527 208 / 2089 Labs (Last 48 Hours) 08/26/18 08/26/18 08/26/18 13:45 13:45 13:45 WBC 26.1 H RBC 4.71 Hgb 14.8 Hct 48.9 MCV 103.8 H MCH 31.4 MCHC 30.3 L RDW 14.0 RDW Differential 53.2 H Plt Count 244 MPV 10.1 Immature Gran % (Auto) 0.500 Neut % (Auto) 96.3 H Lymph % (Auto) 3.0 L [place] % (Auto) 0.2 Eos % (Auto) 0.0 Baso % (Auto) 0.0 Absolute Neuts (auto) 25.1 H Absolute Lymphs (auto) 0.79 L Total Counted Not Reportable PT 12.6 INR 1.0 APTT Specimen Type Sample Site pH Bicarbonate Actual POC Total CO2 Base Excess O2 Saturation O2 % ABG pCO2 ABG pO2 Leonardo Test Respiration Rate O2 Delivery Device Minute Volume Vent Mode Tidal Volume POC PEEP EPAP IPAP Blood Gas Notified Whom Blood Gas Notified Time Sodium 137 Potassium 5.6 H Chloride 103 Carbon Dioxide 32.0 Anion Gap 2 L BUN 53 H Creatinine 1.63 H Estim Creat Clear Calc 35.88 Est GFR (MDRD) Af Amer 53 L Est GFR (MDRD) Non-Af 44 L BUN/Creatinine Ratio 32.5 H Glucose 151 H Lactic Acid Calcium 8.8 Lactate Dehydrogenase Troponin I 0.030 Total Protein Globulin Albumin/Globulin Ratio Urine Color Urine Clarity Urine pH Ur Specific [place] Urine Protein Urine Glucose (UA) Urine Ketones Urine Occult Blood Urine Nitrite Urine Bilirubin Urine Urobilinogen Ur Leukocyte Esterase Urine RBC Urine WBC Ur Squamous Epith Cells Urine Bacteria Hyaline Casts Urine Mucus 08/26/18 08/26/18 08/26/18 13:45 13:54 14:32 WBC RBC Hgb Hct MCV MCH MCHC RDW RDW Differential Plt Count MPV Immature Gran % (Auto) Neut % (Auto) Lymph % (Auto) Marathon % (Auto) Eos % (Auto) Baso % (Auto) Absolute Neuts (auto) Absolute Lymphs (auto) Total Counted PT INR APTT Specimen Type ART ART Sample Site L Radial R Radial pH 7.15 L* 7.20 L Bicarbonate Actual 32.8 H 32.0 H POC Total CO2 36 34 Base Excess 4 H 4 H O2 Saturation 65 L 77 L O2 % 100 60 ABG pCO2 95.2 H* 81.8 H* ABG pO2 46 L 53 L Leonardo Test NA NA Respiration Rate 12 O2 Delivery Device Bi / C PAP Bi / C PAP Minute Volume Vent Mode Tidal Volume POC PEEP EPAP 10 6 IPAP 20 Blood Gas Notified Whom ED MD ED MD Blood Gas Notified Time 1353 1431 Sodium Potassium Chloride Carbon Dioxide Anion Gap BUN Creatinine Estim Creat Clear Calc Est GFR (MDRD) Af Amer Est GFR (MDRD) Non-Af BUN/Creatinine Ratio Glucose Lactic Acid 1.7 Calcium Lactate Dehydrogenase Troponin I Total Protein Globulin Albumin/Globulin Ratio Urine Color Urine Clarity Urine pH Ur Specific [place] Urine Protein Urine Glucose (UA) Urine Ketones Urine Occult Blood Urine Nitrite Urine Bilirubin Urine Urobilinogen Ur Leukocyte Esterase Urine RBC Urine WBC Ur Squamous Epith Cells Urine Bacteria Hyaline Casts Urine Mucus 08/26/18 08/26/18 08/27/18 16:00 19:50 05:30 WBC 14.4 H RBC 3.18 L Hgb 9.9 L Hct 32.6 L MCV 102.5 H MCH 31.1 MCHC 30.4 L RDW 13.7 RDW Differential 49.3 H Plt Count 166 MPV 10.1 Immature Gran % (Auto) 0.300 Neut % (Auto) 88.3 H Lymph % (Auto) 4.6 L Marathon % (Auto) 6.8 Eos % (Auto) 0.0 Baso % (Auto) 0.0 Absolute Neuts (auto) 12.7 H Absolute Lymphs (auto) 0.66 L Total Counted Not Reportable PT INR APTT Specimen Type ART Sample Site OTHER pH 7.36 Bicarbonate Actual 27.8 H POC Total CO2 29 Base Excess 2 O2 Saturation 85 L O2 % 40 ABG pCO2 48.8 H ABG pO2 53 L Leonardo Test NA Respiration Rate 16 O2 Delivery Device Vent Minute Volume 8.00 Vent Mode A-C Tidal Volume 450 POC PEEP 5 EPAP IPAP Blood Gas Notified Whom ICU MD Blood Gas Notified Time 1944 Sodium Potassium Chloride Carbon Dioxide Anion Gap BUN Creatinine Estim Creat Clear Calc Est GFR (MDRD) Af Amer Est GFR (MDRD) Non-Af BUN/Creatinine Ratio Glucose Lactic Acid Calcium Lactate Dehydrogenase Troponin I Total Protein Globulin Albumin/Globulin Ratio Urine Color Yellow Urine Clarity Clear Urine pH 5.0 Ur Specific [place] 1.025 Urine Protein 30 H Urine Glucose (UA) Normal Urine Ketones 5 H Urine Occult Blood Negative Urine Nitrite Negative Urine Bilirubin Negative Urine Urobilinogen Normal Ur Leukocyte Esterase Negative Urine RBC 0 SEEN Urine WBC 0-5 SEEN Ur Squamous Epith Cells 0 SEEN Urine Bacteria 0 SEEN Hyaline Casts 5-10 SEEN Urine Mucus 0 SEEN 08/27/18 08/27/18 08/27/18 05:30 05:30 08:00 WBC RBC Hgb Hct MCV MCH MCHC RDW RDW Differential Plt Count MPV Immature Gran % (Auto) Neut % (Auto) Lymph % (Auto) Marathon % (Auto) Eos % (Auto) Baso % (Auto) Absolute Neuts (auto) Absolute Lymphs (auto) Total Counted PT 13.4 INR 1.0 APTT 26.9 Specimen Type Sample Site pH Bicarbonate Actual POC Total CO2 Base Excess O2 Saturation O2 % ABG pCO2 ABG pO2 Leonardo Test Respiration Rate O2 Delivery Device Minute Volume Vent Mode Tidal Volume POC PEEP EPAP IPAP Blood Gas Notified Whom Blood Gas Notified Time Sodium 147 H Potassium 4.3 Chloride 114 H Carbon Dioxide 23.0 Anion Gap 10 BUN 50 H Creatinine 1.16 Estim Creat Clear Calc 58.56 Est GFR (MDRD) Af Amer 79 Est GFR (MDRD) Non-Af 65 BUN/Creatinine Ratio 43.1 H Glucose 140 H Lactic Acid Calcium 7.1 L Lactate Dehydrogenase 455 H Troponin I Total Protein 4.3 L Globulin 2.3 Albumin/Globulin Ratio 0.9 Urine Color Urine Clarity Urine pH Ur Specific [place] Urine Protein Urine Glucose (UA) Urine Ketones Urine Occult Blood Urine Nitrite Urine Bilirubin Urine Urobilinogen Ur Leukocyte Esterase Urine RBC Urine WBC Ur Squamous Epith Cells Urine Bacteria Hyaline Casts Urine Mucus 08/28/18 08/28/18 04:20 04:20 WBC 13.2 H RBC 3.53 L Hgb 11.4 L Hct 35.7 L MCV 101.1 H MCH 32.3 H MCHC 31.9 L RDW 14.2 RDW Differential 51.0 H Plt Count 144 L MPV 10.1 Immature Gran % (Auto) 0.300 Neut % (Auto) 81.8 H Lymph % (Auto) 7.3 L [place] % (Auto) 10.2 H Eos % (Auto) 0.3 Baso % (Auto) 0.1 Absolute Neuts (auto) 10.8 H Absolute Lymphs (auto) 0.96 Total Counted Not Reportable PT INR APTT Specimen Type Sample Site pH Bicarbonate Actual POC Total CO2 Base Excess O2 Saturation O2 % ABG pCO2 ABG pO2 Leonardo Test Respiration Rate O2 Delivery Device Minute Volume Vent Mode Tidal Volume POC PEEP EPAP IPAP Blood Gas Notified Whom Blood Gas Notified Time Sodium 145 Potassium 4.6 Chloride 112 H Carbon Dioxide 25.0 Anion Gap 8 BUN 52 H Creatinine 1.27 Estim Creat Clear Calc 53.48 Est GFR (MDRD) Af Amer 71 Est GFR (MDRD) Non-Af 59 L BUN/Creatinine Ratio 40.9 H Glucose 106 Lactic Acid Calcium 7.8 L Lactate Dehydrogenase Troponin I Total Protein Globulin Albumin/Globulin Ratio Urine Color Urine Clarity Urine pH Ur Specific [place] Urine Protein Urine Glucose (UA) Urine Ketones Urine Occult Blood Urine Nitrite Urine Bilirubin Urine Urobilinogen Ur Leukocyte Esterase Urine RBC Urine WBC Ur Squamous Epith Cells Urine Bacteria Hyaline Casts Urine Mucus Microbiology 08/26/18 17:10 Sputum, Tracheal Aspirate Gram Stain - Final 08/26/18 17:10 Sputum, Tracheal Aspirate Respiratory Culture - Preliminary Appears to be normal respiratory karla. Further studies to follow. Clinical Impression(s) from Imaging Studies Chest X-Ray 08/26/18 13:48 IMPRESSION: 1. Large right pleural effusion has reaccumulated since thoracentesis of 08/20/2017 (and larger than prior to thoracentesis). Right upper lobe consolidation partially visualized. Electronically Signed: Tristin Chopra MD at 14:23 EST , Service support , Chest X-Ray 08/26/18 15:37 IMPRESSION: Satisfactory position of endotracheal and enteric tubes. Large right pleural effusion with parenchymal consolidation/airspace disease. Electronically Signed: Tristin Chopra MD at 16:29 EST , Service support , Thoracentesis Ultrasound 08/27/18 07:12 IMPRESSION: Ultrasound-guided right thoracentesis. Electronically Signed: Irwin Hong MD at 12:21 EST , Service support , Chest X-Ray 08/27/18 10:28 IMPRESSION: Status post right thoracentesis. There is no evidence of pneumothorax. Electronically Signed: Irwin Hong MD at 14:04 EST , Service support , Medical Necessity - Tobacco Use Smoking Status: Former smoker Assessment/Plan All Active Problems (Last Reviewed 08/11/18 @ 19:33 by Carlos Garcia DO) Pleural effusion (Acute) Community acquired pneumonia (Acute) COPD exacerbation (Acute) Pneumococcal pneumonia (Ruled-out) Acute respiratory failure with hypoxia and hypercapnia (Acute) CATHERINE (acute kidney injury) (Acute) Shortness of breath (Acute) Pseudomonas pneumonia (Resolved) RECOMMENDATIONS: 1. Transition from propofol and fentanyl to Precedex for sedation. 2. We will monitor chest x-ray longitudinally to evaluate for the reaccumulation of the patient's right-sided pleural effusion. 3. Continue tube feeds as ordered. 4. Continue scheduled bronchodilators 5. Continue Pepcid and Lovenox for prophylaxis 6. Wean FiO2 and PEEP as tolerated. Plan for daily paired spontaneous awakening and breathing trials. 7. Plan for goals of care discussion with family once present. IMPRESSIONS: 1. Acute on chronic combined respiratory failure/end-stage COPD Suspect that the etiology for the patient's acute decompensation is secondary to his enlarging malignant pleural effusion. The patient lasted less than 1 week from the time of his initial thoracentesis until the time he decompensated clinically. The patient underwent a repeat ultrasound-guided thoracentesis with 2 L of fluid removed. He remains on invasive mechanical ventilation. We will continue to wean as tolerated. If the patient's cultures remain negative tomorrow, we will plan to discontinue antibiotics completely. I will plan to repeat plain film chest imaging to document reaccumulation of the patient's pleural effusion. If his effusion again re-accumulates rapidly, he will likely require Pleurx catheter placement. In the interim, the patient's sedation will be transition to Precedex to help facilitate weaning from mechanical ventilation. In addition, we will plan to have a goals of care discussion with the family and oncology tomorrow. 2. Newly diagnosed stage IV small cell lung cancer The patient was referred to follow-up with Dr. Casey of oncology. He did have plans to initiate therapy. However, subsequent follow-up by oncology, indicated that the patient is a poor candidate for systemic chemotherapy. Therefore, we will plan to pursue a goals of care discussion with the patient's family once they have presented to the bedside. 3. Acute kidney injury Resolved. Likely prerenal in etiology. Creatinine has improved with stabilization of hemodynamics and with volume expansion. We will continue to monitor urine output. No indication for renal replacement therapy at this time. 4. Heart failure with preserved ejection fraction/pulmonary hypertension Recommend cautious use of supplemental IV fluids. No need for diuretics at this time. 5. Tobacco dependency currently in remission/hypertension/GERD/chronic pain syndrome Complicates care, management, recovery and prognosis. Tube feeds will be continued. Physical therapy to attempt to work with patient. TIME: 40 minutes of critical care time, independent of procedures, was spent addressing the patient's acute on chronic combined respiratory failure, end-stage COPD, newly diagnosed stage IV small cell lung cancer, acute kidney injury, review of all data and collaboration with the care team. ([id number]) Code Visit [id number]: [id number] Critical care first hour
--- NOTE | 2018-08-28 07:13 | PN_ITS ---
Subjective: The patient was seen and examined at the bedside this morning. Events from the last 24 hours have been reviewed. The patient is currently afebrile, but is requiring a small amount of levo fed to maintain hemodynamic stability. He remains on assist control mode of mechanical ventilation with an FiO2 requirement of 40%. The patient did undergo successful ultrasound-guided thoracentesis yesterday with 2 L of fluid removed from his right hemithorax. Unfortunately, the patient's fluid was not sent for any analysis. Regardless, the patient does have a known malignant pleural effusion from previous hospitalization. Attempts to perform a spontaneous breathing trial this morning was unsuccessful, as the patient became extremely agitated and restless. He is currently documented to be overall net +3.7 L for the admission. Objective: The patient's most recent lab work, culture data and imaging studies have all be en personally reviewed. Sputum culture collected August 26 appears to be normal respiratory karla. Blood cultures have been unrevealing to date. Prior surface echocardiogram dated December 2017 revealed evidence of stage I diastolic dysfunction with mild concentric LVH and an ejection fraction of 65%. Right ventricular systolic pressure was estimated to be 59 mmHg. General: - - Remains intubated, sedated and mechanically ventilated. HEENT: Atraumatic, PERRLA, Normocephalic Oral: No Gingival or Mucosal Lesions/ Ulcerations, - - Endotracheal and OG tubes remain in place. Neck: Supple, No Nodes, Trachea Midline Lungs: - - Coarse rhonchi on the left with significantly diminished air movement throughout the right hemithorax. Cardiovascular: Normal S1, Normal S2, No murmurs, Tachycardic Abdomen: Bowel Sounds Present, Soft, Non Tender, Non-Distended Extremities: No cyanosis, No edema, Clubbing Skin: - - No significant change from previous. Musculoskeletal: No Tenderness to Palpation of Joints or Extremities Lymphatic: No Cervical, Supraclavicular, or Inguinal Adenopathy Neurological: - - No focal neurological deficits. The patient is currently sedated. Vital Signs Temp Pulse Resp BP Pulse Ox 37.4 C H 100 16 116/50 L 95 08/28/18 04:00 08/28/18 06:00 08/28/18 06:00 08/28/18 06:00 08/28/18 06:00 Oxygen Flow Rate (L/min) [4] 15 Oxygen Flow Rate (L/min) [3] 15 Oxygen Flow Rate (L/min) [2] 15 Oxygen Flow Rate (L/min) [1 ( 15 Initial Baseline)] Oxygen Delivery Method [4] Ambu-Bag Oxygen Delivery Method [3] Ambu-Bag Oxygen Delivery Method [2] Ambu-Bag Oxygen Delivery Method [1 ( Ambu-Bag Initial Baseline)] Oxygen Delivery Method Mechanical Ventilator Weight: 163 lb 5.8 oz Body Mass Index (BMI) 19.8 Intake and Output for Last 24 Hours 08/26/18 08/27/18 08/28/18 23:59 23:59 23:59 Intake Total 530 / 530 2377 / 2377 2439 / 2439 Output Total 420 / 420 850 / 850 350 / 350 Balance 110 / 110 1527 / 1527 2089 / 2089 Labs (Last 48 Hours) 08/26/18 08/26/18 08/26/18 13:45 13:45 13:45 WBC 26.1 H RBC 4.71 Hgb 14.8 Hct 48.9 MCV 103.8 H MCH 31.4 MCHC 30.3 L RDW 14.0 RDW Differential 53.2 H Plt Count 244 MPV 10.1 Immature Gran % (Auto) 0.500 Neut % (Auto) 96.3 H Lymph % (Auto) 3.0 L Giles % (Auto) 0.2 Eos % (Auto) 0.0 Baso % (Auto) 0.0 Absolute Neuts (auto) 25.1 H Absolute Lymphs (auto) 0.79 L Total Counted Not Reportable PT 12.6 INR 1.0 APTT Specimen Type Sample Site pH Bicarbonate Actual POC Total CO2 Base Excess O2 Saturation O2 % ABG pCO2 ABG pO2 Leonardo Test Respiration Rate O2 Delivery Device Minute Volume Vent Mode Tidal Volume POC PEEP EPAP IPAP Blood Gas Notified Whom Blood Gas Notified Time Sodium 137 Potassium 5.6 H Chloride 103 Carbon Dioxide 32.0 Anion Gap 2 L BUN 53 H Creatinine 1.63 H Estim Creat Clear Calc 35.88 Est GFR (MDRD) Af Amer 53 L Est GFR (MDRD) Non-Af 44 L BUN/Creatinine Ratio 32.5 H Glucose 151 H Lactic Acid Calcium 8.8 Lactate Dehydrogenase Troponin I 0.030 Total Protein Globulin Albumin/Globulin Ratio Urine Color Urine Clarity Urine pH Ur Specific [place] Urine Protein Urine Glucose (UA) Urine Ketones Urine Occult Blood Urine Nitrite Urine Bilirubin Urine Urobilinogen Ur Leukocyte Esterase Urine RBC Urine WBC Ur Squamous Epith Cells Urine Bacteria Hyaline Casts Urine Mucus 08/26/18 08/26/18 08/26/18 13:45 13:54 14:32 WBC RBC Hgb Hct MCV MCH MCHC RDW RDW Differential Plt Count MPV Immature Gran % (Auto) Neut % (Auto) Lymph % (Auto) Giles % (Auto) Eos % (Auto) Baso % (Auto) Absolute Neuts (auto) Absolute Lymphs (auto) Total Counted PT INR APTT Specimen Type ART ART Sample Site L Radial R Radial pH 7.15 L* 7.20 L Bicarbonate Actual 32.8 H 32.0 H POC Total CO2 36 34 Base Excess 4 H 4 H O2 Saturation 65 L 77 L O2 % 100 60 ABG pCO2 95.2 H* 81.8 H* ABG pO2 46 L 53 L Leonardo Test NA NA Respiration Rate 12 O2 Delivery Device Bi / C PAP Bi / C PAP Minute Volume Vent Mode Tidal Volume POC PEEP EPAP 10 6 IPAP 20 Blood Gas Notified Whom ED MD ED MD Blood Gas Notified Time 1353 1431 Sodium Potassium Chloride Carbon Dioxide Anion Gap BUN Creatinine Estim Creat Clear Calc Est GFR (MDRD) Af Amer Est GFR (MDRD) Non-Af BUN/Creatinine Ratio Glucose Lactic Acid 1.7 Calcium Lactate Dehydrogenase Troponin I Total Protein Globulin Albumin/Globulin Ratio Urine Color Urine Clarity Urine pH Ur Specific [place] Urine Protein Urine Glucose (UA) Urine Ketones Urine Occult Blood Urine Nitrite Urine Bilirubin Urine Urobilinogen Ur Leukocyte Esterase Urine RBC Urine WBC Ur Squamous Epith Cells Urine Bacteria Hyaline Casts Urine Mucus 08/26/18 08/26/18 08/27/18 16:00 19:50 05:30 WBC 14.4 H RBC 3.18 L Hgb 9.9 L Hct 32.6 L MCV 102.5 H MCH 31.1 MCHC 30.4 L RDW 13.7 RDW Differential 49.3 H Plt Count 166 MPV 10.1 Immature Gran % (Auto) 0.300 Neut % (Auto) 88.3 H Lymph % (Auto) 4.6 L Giles % (Auto) 6.8 Eos % (Auto) 0.0 Baso % (Auto) 0.0 Absolute Neuts (auto) 12.7 H Absolute Lymphs (auto) 0.66 L Total Counted Not Reportable PT INR APTT Specimen Type ART Sample Site OTHER pH 7.36 Bicarbonate Actual 27.8 H POC Total CO2 29 Base Excess 2 O2 Saturation 85 L O2 % 40 ABG pCO2 48.8 H ABG pO2 53 L Leonardo Test NA Respiration Rate 16 O2 Delivery Device Vent Minute Volume 8.00 Vent Mode A-C Tidal Volume 450 POC PEEP 5 EPAP IPAP Blood Gas Notified Whom ICU MD Blood Gas Notified Time 1944 Sodium Potassium Chloride Carbon Dioxide Anion Gap BUN Creatinine Estim Creat Clear Calc Est GFR (MDRD) Af Amer Est GFR (MDRD) Non-Af BUN/Creatinine Ratio Glucose Lactic Acid Calcium Lactate Dehydrogenase Troponin I Total Protein Globulin Albumin/Globulin Ratio Urine Color Yellow Urine Clarity Clear Urine pH 5.0 Ur Specific [place] 1.025 Urine Protein 30 H Urine Glucose (UA) Normal Urine Ketones 5 H Urine Occult Blood Negative Urine Nitrite Negative Urine Bilirubin Negative Urine Urobilinogen Normal Ur Leukocyte Esterase Negative Urine RBC 0 SEEN Urine WBC 0-5 SEEN Ur Squamous Epith Cells 0 SEEN Urine Bacteria 0 SEEN Hyaline Casts 5-10 SEEN Urine Mucus 0 SEEN 08/27/18 08/27/18 08/27/18 05:30 05:30 08:00 WBC RBC Hgb Hct MCV MCH MCHC RDW RDW Differential Plt Count MPV Immature Gran % (Auto) Neut % (Auto) Lymph % (Auto) Giles % (Auto) Eos % (Auto) Baso % (Auto) Absolute Neuts (auto) Absolute Lymphs (auto) Total Counted PT 13.4 INR 1.0 APTT 26.9 Specimen Type Sample Site pH Bicarbonate Actual POC Total CO2 Base Excess O2 Saturation O2 % ABG pCO2 ABG pO2 Leonardo Test Respiration Rate O2 Delivery Device Minute Volume Vent Mode Tidal Volume POC PEEP EPAP IPAP Blood Gas Notified Whom Blood Gas Notified Time Sodium 147 H Potassium 4.3 Chloride 114 H Carbon Dioxide 23.0 Anion Gap 10 BUN 50 H Creatinine 1.16 Estim Creat Clear Calc 58.56 Est GFR (MDRD) Af Amer 79 Est GFR (MDRD) Non-Af 65 BUN/Creatinine Ratio 43.1 H Glucose 140 H Lactic Acid Calcium 7.1 L Lactate Dehydrogenase 455 H Troponin I Total Protein 4.3 L Globulin 2.3 Albumin/Globulin Ratio 0.9 Urine Color Urine Clarity Urine pH Ur Specific [place] Urine Protein Urine Glucose (UA) Urine Ketones Urine Occult Blood Urine Nitrite Urine Bilirubin Urine Urobilinogen Ur Leukocyte Esterase Urine RBC Urine WBC Ur Squamous Epith Cells Urine Bacteria Hyaline Casts Urine Mucus 08/28/18 08/28/18 04:20 04:20 WBC 13.2 H RBC 3.53 L Hgb 11.4 L Hct 35.7 L MCV 101.1 H MCH 32.3 H MCHC 31.9 L RDW 14.2 RDW Differential 51.0 H Plt Count 144 L MPV 10.1 Immature Gran % (Auto) 0.300 Neut % (Auto) 81.8 H Lymph % (Auto) 7.3 L Giles % (Auto) 10.2 H Eos % (Auto) 0.3 Baso % (Auto) 0.1 Absolute Neuts (auto) 10.8 H Absolute Lymphs (auto) 0.96 Total Counted Not Reportable PT INR APTT Specimen Type Sample Site pH Bicarbonate Actual POC Total CO2 Base Excess O2 Saturation O2 % ABG pCO2 ABG pO2 Leonardo Test Respiration Rate O2 Delivery Device Minute Volume Vent Mode Tidal Volume POC PEEP EPAP IPAP Blood Gas Notified Whom Blood Gas Notified Time Sodium 145 Potassium 4.6 Chloride 112 H Carbon Dioxide 25.0 Anion Gap 8 BUN 52 H Creatinine 1.27 Estim Creat Clear Calc 53.48 Est GFR (MDRD) Af Amer 71 Est GFR (MDRD) Non-Af 59 L BUN/Creatinine Ratio 40.9 H Glucose 106 Lactic Acid Calcium 7.8 L Lactate Dehydrogenase Troponin I Total Protein Globulin Albumin/Globulin Ratio Urine Color Urine Clarity Urine pH Ur Specific [place] Urine Protein Urine Glucose (UA) Urine Ketones Urine Occult Blood Urine Nitrite Urine Bilirubin Urine Urobilinogen Ur Leukocyte Esterase Urine RBC Urine WBC Ur Squamous Epith Cells Urine Bacteria Hyaline Casts Urine Mucus Microbiology 08/26/18 17:10 Sputum, Tracheal Aspirate Gram Stain - Final 08/26/18 17:10 Sputum, Tracheal Aspirate Respiratory Culture - Preliminary Appears to be normal respiratory karla. Further studies to follow. Clinical Impression(s) from Imaging Studies Chest X-Ray 08/26/18 13:48 IMPRESSION: 1. Large right pleural effusion has reaccumulated since thoracentesis of 08/20/2017 (and larger than prior to thoracentesis). Right upper lobe consolidation partially visualized. Electronically Signed: Tristin Chopra MD at 14:23 EST , Service support , Chest X-Ray 08/26/18 15:37 IMPRESSION: Satisfactory position of endotracheal and enteric tubes. Large right pleural effusion with parenchymal consolidation/airspace disease. Electronically Signed: Tristin Chopra MD at 16:29 EST , Service support , Thoracentesis Ultrasound 08/27/18 07:12 IMPRESSION: Ultrasound-guided right thoracentesis. Electronically Signed: Irwin Hong MD at 12:21 EST , Service support , Chest X-Ray 08/27/18 10:28 IMPRESSION: Status post right thoracentesis. There is no evidence of pneumothorax. Electronically Signed: Irwin Hong MD at 14:04 EST , Service support , Medical Necessity - Tobacco Use Smoking Status: Former smoker Assessment/Plan All Active Problems (Last Reviewed 08/11/18 @ 19:33 by Carlos Garcia DO) Pleural effusion (Acute) Community acquired pneumonia (Acute) COPD exacerbation (Acute) Pneumococcal pneumonia (Ruled-out) Acute respiratory failure with hypoxia and hypercapnia (Acute) CATHERINE (acute kidney injury) (Acute) Shortness of breath (Acute) Pseudomonas pneumonia (Resolved) RECOMMENDATIONS: 1. Transition from propofol and fentanyl to Precedex for sedation. 2. We will monitor chest x-ray longitudinally to evaluate for the reaccumulation of the patient's right-sided pleural effusion. 3. Continue tube feeds as ordered. 4. Continue scheduled bronchodilators 5. Continue Pepcid and Lovenox for prophylaxis 6. Wean FiO2 and PEEP as tolerated. Plan for daily paired spontaneous awakening and breathing trials. 7. Plan for goals of care discussion with family once present. IMPRESSIONS: 1. Acute on chronic combined respiratory failure/end-stage COPD Suspect that the etiology for the patient's acute decompensation is secondary to his enlarging malignant pleural effusion. The patient lasted less than 1 week from the time of his initial thoracentesis until the time he decompensated clinically. The patient underwent a repeat ultrasound-guided thoracentesis with 2 L of fluid removed. He remains on invasive mechanical ventilation. We will continue to wean as tolerated. If the patient's cultures remain negative tomorrow, we will plan to discontinue antibiotics completely. I will plan to repeat plain film chest imaging to document reaccumulation of the patient's pleural effusion. If his effusion again re-accumulates rapidly, he will likely require Pleurx catheter placement. In the interim, the patient's sedation will be transition to Precedex to help facilitate weaning from mechanical ventilation. In addition, we will plan to have a goals of care discussion with the family and oncology tomorrow. 2. Newly diagnosed stage IV small cell lung cancer The patient was referred to follow-up with Dr. Casey of oncology. He did have plans to initiate therapy. However, subsequent follow-up by oncology, indicated that the patient is a poor candidate for systemic chemotherapy. Therefore, we will plan to pursue a goals of care discussion with the patient's family once they have presented to the bedside. 3. Acute kidney injury Resolved. Likely prerenal in etiology. Creatinine has improved with stabilization of hemodynamics and with volume expansion. We will continue to monitor urine output. No indication for renal replacement therapy at this time. 4. Heart failure with preserved ejection fraction/pulmonary hypertension Recommend cautious use of supplemental IV fluids. No need for diuretics at this time. 5. Tobacco dependency currently in remission/hypertension/GERD/chronic pain syndrome Complicates care, management, recovery and prognosis. Tube feeds will be continued. Physical therapy to attempt to work with patient. TIME: 40 minutes of critical care time, independent of procedures, was spent addressing the patient's acute on chronic combined respiratory failure, end- stage COPD, newly diagnosed stage IV small cell lung cancer, acute kidney injury, review of all data and collaboration with the care team. ([id number]) Code Visit [id number]: [id number] Critical care first hour
--- NOTE | 2018-08-28 07:52 | PCM.CONS.B ---
Problem List (1) Small cell lung cancer Status: Chronic (2) COPD exacerbation Status: Acute (3) Acute respiratory failure with hypoxia and hypercapnia Status: Acute (4) Malnutrition of moderate degree Status: Chronic (5) shelter resident Status: Chronic (6) shelter resident Status: Chronic - Consult Date of Consult: 08/28/[address] Hood regarding patient with extensive small cell lung cancer and severe COPD who presented in acute respiratory failure. My final recommendation will be communicated to Dr. Hood and the ICU team and by electronic medical records. - Reason for Consult Reason for Consult Date of Consultation: 08/28/18 Reason for Consultation: Terminal lung cancer (extensive small cell lung cancer) Oncologist: Dr. Angel Casey Primary Care Doctor: Dr. Keny Hood Primary site of cancer: Right lung Metastatic site: Lymph node, pleura (not completely stage; CT abdomen pelvis, bone scan and MRI scan of brain pending) History of Present Illness: The patient is a 72-year-old male, with a history as outlined below, who presented to the emergency department from his shelter facility on August 26 in acute respiratory distress. On presentation to the emergency department, the patient was noted to be afebrile and hemodynamically stable. He was notably tachypneic and hypoxic. Initial laboratory evaluation revealed elevated white blood cell count to 26,000. INR was normal at 1.0. Arterial blood gas revealed a pH of 7.2 with a corresponding PCO2 of 82 and PO2 of 53. Chemistry profile was notable for a potassium of 5.6 along with evidence of acute kidney injury with a creatinine of 1.63. Lactate was within normal limits. Troponin was negative. Urinalysis was largely unremarkable. Initial plain film chest x-ray revealed near complete opacification of the right hemithorax with sparing of the right upper lobe with underlying effusion and compressive atelectasis likely. Unfortunately, the patient did not respond to the use of noninvasive positive pressure ventilation. He was noted to become more lethargic and following a discussion with the patient's family, he was intubation. He was subsequently treated with supplemental IV fluids, steroids, aerosol treatments and antibiotics. He was then admitted to the medical intensive care unit for ongoing management. The patient had just been admitted to the hospital August 11-, during which time, he was treated for acute on chronic respiratory failure secondary to community-acquired pneumonia. During the patient's hospitalization, a CT chest was obtained, which did reveal right-sided masslike lesions along with a moderate sized pleural effusion. A subsequent ultrasound-guided thoracentesis revealed evidence of small cell lung cancer. The patient currently follows in the pulmonary medicine clinic and was last seen in May 2018. He has a documented smoking history of 120 pack years. During his last office visit, he was noted to have a 3 L/min baseline supplemental oxygen requirement. Pulmonary function studies completed in March 2018 revealed evidence of a partially reversible very severe large airways obstructive ventilatory defect with associated air trapping and symmetric reduction in diffusing capacity. He saw Dr. Casey last week for evaluation and treatment for extensive small cell lung cancer. He was on 6 L of oxygen at the time and O2 saturation showed he was severely hypoxic (O2 saturation < 80%). Dr. Casey order staging evaluation including CT abdomen pelvis MRI brain scheduled for this week. Patient and family understand that his lung cancer is incurable but like to proceed aggressive treatment. CODE STATUS was not discussed at the time. Past Medical History Past Medical History (Chronic Problems): Chronic Problems (Last Reviewed 08/11/18 @ 19:33 by Carlos Garcia DO) Diastolic CHF (Chronic) Stage 4 very severe COPD by GOLD classification (Chronic) FEV1 33% Bilateral leg edema (Chronic) COPD (chronic obstructive pulmonary disease) (Chronic) Hypertension (Chronic) Alcohol abuse (Chronic) Tobacco abuse (Chronic) Medical History: Medical History (Last Reviewed 08/11/18 @ 19:33 by Carlos Garica DO) Bilateral leg edema (Chronic) R60.0 COPD (chronic obstructive pulmonary disease) (Chronic) J44.9 CATHERINE (acute kidney injury) (Acute) N17.9 Shortness of breath (Acute) R06.02 Pseudomonas pneumonia (Resolved) J15.1 Hypertension (Chronic) I10 Alcohol abuse (Chronic) F10.10 Tobacco abuse (Chronic) F17.200 Allergies aspirin Adverse Reaction (Verified 08/11/18 17:43) Other Home Medications: Ambulatory Orders Medication Instructions Recorded Omeprazole 40 mg PO DAILY 11/26/17 Tizanidine HCl 2 mg PO BID PRN PRN 11/26/17 fluticasone 100 mcg-umeclid 62.5 1 inh INHALATION QDAY #3 device 04/09/18 mcg-vilant 25 mcg powd for inhalation mometasone-formoterol HFA 200 2 puff INHALATION BID #13 g 05/30/18 mcg-5 mcg/actuation aerosol inhaler tiotropium bromide 2.5 2 puff INHALATION QDAY #1 ea 05/30/18 mcg/actuation mist for inhalation albuterol sulfate 2.5 mg/3 mL 2.5 mg INHALATION Q4H PRN #180 ml 06/01/18 (0.083 %) solution for nebulization Guaifenesin [Mucinex] 1,200 mg PO BID tablet 08/22/18 Metoprolol(XL)Succ [Toprol Xl 75 mg PO DAILY tablet 08/22/18 (Beta Nichole)] Oxycodone [Oxyir] 10 mg PO Q6H PRN PRN #10 tab 08/22/18 Polyethylene Glycol 3350 [Miralax] 17 gm PO DAILY packet 08/22/18 predniSONE tablet See Taper PO DAILY@0800 tablet 08/22/18 Fluticasone/Umeclidin/Vilanter 1 each IH DAILY 08/26/18 [Trelegy Ellipta 100-62.5-25] Ipratropium [place]rop 0.2 mg IH 4X/DAY 08/26/18 Symbicort 160/4.5 Mcg Inhaler (SP) 2 inhaler INHALATION BID 08/26/18 Surgical History: - - Surgery for stomach ulcers 20-30 years ago. Psychiatric History: No pertinent psych hx Smoking Status: Former smoker - *Family History Maternal History Items: No pertinent history, - - No COPD Paternal History Items: No pertinent history Review of Systems Unable to obtain accurate/complete ROS d/t: Due to current intubation and mechanical ventilation status Patient Problems: Active and Suspected Problems (Last Reviewed 08/11/18 @ 19:33 by Carlos Garcia DO) Small cell lung cancer (Acute) Objective: The patient's most recent lab work, culture data and imaging studies have all been personally reviewed. Surface echocardiogram dated January 2018 revealed evidence of stage I diastolic dysfunction with an ejection fraction of 65%. The RV was noted to be mildly dilated. Right ventricular systolic pressure was estimated to be 59 mmHg. Vital Signs Temp Pulse Resp BP BP Pulse Ox 08/28/18 07:12 114 H 08/28/18 06:00 100 16 116/50 L 95 08/28/18 05:30 123/53 H 08/28/18 05:17 92 16 96 08/28/18 05:15 129/54 H 08/28/18 05:00 87 20 H 111/51 L 93 08/28/18 04:45 108/52 L 08/28/18 04:30 92/45 L 08/28/18 04:00 99.3 F H 96 20 H 117/52 L 94 08/28/18 03:35 113 H 19 H 08/28/18 03:30 109 H 22 H 90 08/28/18 03:00 94 21 H 107/47 L 93 08/28/18 02:00 96 16 110/46 L 93 08/28/18 01:00 96 15 110/48 L 94 08/28/18 00:15 99 21 H 91 08/28/18 00:00 99.6 F H 100 20 H 112/55 L 112/55 L 94 08/27/18 23:00 94 25 H 107/50 L 96 08/27/18 22:00 103 H 22 H 105/47 L 96 08/27/18 21:00 99 18 104/48 L 97 - Physical Exam General: - - Intubated, sedated and mechanically ventilated. HEENT: Atraumatic, PERRLA, Normocephalic Oral: No Gingival or Mucosal Lesions/ Ulcerations, - - Endotracheal and OG tubes currently in place Neck: Supple, No Nodes, Trachea Midline Lungs: Diminished, Rales, - - Dullness to percussion of right mid and lower lung armas Cardiovascular: Regular rate, Regular Rhythm, Normal S1, Normal S2, No murmurs Abdomen: Bowel Sounds Present, Soft, Non Tender Extremities: No cyanosis, No edema, Clubbing Skin: No breakdown Musculoskeletal: No Tenderness to Palpation of Joints or Extremities Lymphatic: No Cervical, Supraclavicular, or Inguinal Adenopathy Neurological: - - No focal neurological deficits. Currently sedated with a RASS of -1 Laboratory Results - last 24 hr 08/27/18 08/27/18 08/28/18 05:30 08:00 04:20 WBC 13.2 H RBC 3.53 L Hgb 11.4 L Hct 35.7 L MCV 101.1 H MCH 32.3 H MCHC 31.9 L RDW 14.2 RDW Differential 51.0 H Plt Count 144 L MPV 10.1 Immature Gran % (Auto) 0.300 Neut % (Auto) 81.8 H Lymph % (Auto) 7.3 L Gonzales % (Auto) 10.2 H Eos % (Auto) 0.3 Baso % (Auto) 0.1 Absolute Neuts (auto) 10.8 H Absolute Lymphs (auto) 0.96 Total Counted Not Reportable PT 13.4 INR 1.0 APTT 26.9 Sodium Potassium Chloride Carbon Dioxide Anion Gap BUN Creatinine Estim Creat Clear Calc Est GFR (MDRD) Af Amer Est GFR (MDRD) Non-Af BUN/Creatinine Ratio Glucose Calcium Lactate Dehydrogenase 455 H Total Protein 4.3 L Globulin 2.3 Albumin/Globulin Ratio 0.9 08/28/18 04:20 WBC RBC Hgb Hct MCV MCH MCHC RDW RDW Differential Plt Count MPV Immature Gran % (Auto) Neut % (Auto) Lymph % (Auto) Gonzales % (Auto) Eos % (Auto) Baso % (Auto) Absolute Neuts (auto) Absolute Lymphs (auto) Total Counted PT INR APTT Sodium 145 Potassium 4.6 Chloride 112 H Carbon Dioxide 25.0 Anion Gap 8 BUN 52 H Creatinine 1.27 Estim Creat Clear Calc 53.48 Est GFR (MDRD) Af Amer 71 Est GFR (MDRD) Non-Af 59 L BUN/Creatinine Ratio 40.9 H Glucose 106 Calcium 7.8 L Lactate Dehydrogenase Total Protein Globulin Albumin/Globulin Ratio Clinical Impression(s) from Imaging Studies Chest X-Ray 08/26/18 13:48 IMPRESSION: 1. Large right pleural effusion has reaccumulated since thoracentesis of 08/20/2017 (and larger than prior to thoracentesis). Right upper lobe consolidation partially visualized. Electronically Signed: Tristin Chopra MD at 14:23 EST , Service support , Chest X-Ray 08/26/18 15:37 IMPRESSION: Satisfactory position of endotracheal and enteric tubes. Large right pleural effusion with parenchymal consolidation/airspace disease. Electronically Signed: Tristin Chopra MD at 16:29 EST , Service support , Palliative care prognostic index: Performance status < 60 Dyspnea at rest Moderate malnutrition Present of delirium Total score: 6.0; life expectancy < 10- 14 days. Assessment/Plan Active and Suspected Problems (Last Reviewed 08/11/18 @ 19:33 by Carlos Garcia DO) Extensive small cell lung cancer (Acute) Severe COPD (Chronic) Moderate malnutrition (Chronic) Complex socioeconomic/family situation (Chronic) RECOMMENDATIONS: 1. Arrange for family conference and discussion regarding values and goals of care later this week. 2. CODE Status need to be addressed. 3. Inpatient hospice consult after family conference IMPRESSIONS: 1. Acute on chronic combined respiratory failure/end-stage COPD He is currently intubated: Attempt to wean and extubate after thoracentesis and possible Pleurx catheter for recurrent malignant effusion. 2. Newly diagnosed stage IV small cell lung cancer Prognosis is very poor. Patient is not a candidate for palliative chemotherapy or immunotherapy at this point. cc: Dr. Angel Casey; Dr. Keny Hood; Dr. Makayla Quinn
--- NOTE | 2018-08-28 09:30 | PCM.PN.HOSP ---
Subjective: Patient seen and examined. He remains intubated and sedated. He had right-sided thoracentesis yesterday with removal of 2 L of fluid. Fluid was not sent for studies. He remains on a low-dose of Levophed. Patient is deeply sedated and so unable to do review of systems. Labs and vitals reviewed. Vitals/I&O's: Vital Signs Temp Pulse Resp BP Pulse Ox 99.3 F H 114 H 16 116/50 L 95 08/28/18 04:00 08/28/18 07:12 08/28/18 06:00 08/28/18 06:00 08/28/18 06:00 Oxygen Flow Rate (L/min) [4] 15 Oxygen Flow Rate (L/min) [3] 15 Oxygen Flow Rate (L/min) [2] 15 Oxygen Flow Rate (L/min) [1 ( 15 Initial Baseline)] Oxygen Delivery Method [4] Ambu-Bag Oxygen Delivery Method [3] Ambu-Bag Oxygen Delivery Method [2] Ambu-Bag Oxygen Delivery Method [1 ( Ambu-Bag Initial Baseline)] Oxygen Delivery Method Mechanical Ventilator Weight: 163 lb 5.8 oz Body Mass Index (BMI) 19.8 Intake and Output for Last 24 Hours 08/26/18 08/27/18 08/28/18 23:59 23:59 23:59 Intake Total 530 / 530 2377 / 2377 2439 / 2439 Output Total 420 / 420 850 / 850 350 / 350 Balance 110 / 110 1527 / 1527 2089 / 2089 General: - - intubated, sedated, in restraints. HEENT: PERRLA, EOMI, Normocephalic Oral: Dry Mucosa Neck: Supple, No JVD, Negative Carotid Bruits Lungs: - - breath sounds markedly improved in right lung armas after thoracentesis. No wheezes or crackles. Intubated. Cardiovascular: Regular rate, Regular Rhythm, Normal S1, Normal S2, No murmurs Abdomen: Bowel Sounds Present, Soft, Non Tender, Non-Distended, No Hepato-splenomegaly Extremities: No clubbing, No cyanosis, No edema, Capillary Refill Less than 3 Seconds Skin: No rashes, No breakdown Musculoskeletal: No Tenderness to Palpation of Joints or Extremities Lymphatic: No Cervical, Supraclavicular, or Inguinal Adenopathy Neurological: Motor Exam 5/5 strength throughout Psych/Mental Status: - - intubated, sedated. On levophed. RASS score is ~ -4 Microbiology Past 72 Hours 08/26/18 17:10 Sputum, Tracheal Aspirate Gram Stain - Final 08/26/18 17:10 Sputum, Tracheal Aspirate Respiratory Culture - Preliminary Appears to be normal respiratory karla. Further studies to follow. Laboratory Results 08/28/18 04:20: WBC 13.2 H, RBC 3.53 L, Hgb 11.4 L, Hct 35.7 L, MCV 101.1 H, MCH 32.3 H, MCHC 31.9 L, RDW 14.2, RDW Differential 51.0 H, Plt Count 144 L, MPV 10.1, Immature Gran % (Auto) 0.300, Neut % (Auto) 81.8 H, Lymph % (Auto) 7.3 L, [place]ock[place] % (Auto) 10.2 H, Eos % (Auto) 0.3, Baso % (Auto) 0.1, Absolute Neuts (auto) 10.8 H, Absolute Lymphs (auto) 0.96, Total Counted Not Reportable 08/28/18 04:20: Sodium 145, Potassium 4.6, Chloride 112 H, Carbon Dioxide 25.0, Anion Gap 8, BUN 52 H, Creatinine 1.27, Estim Creat Clear Calc 53.48, Est GFR (MDRD) Af Amer 71, Est GFR (MDRD) Non-Af 59 L, BUN/Creatinine Ratio 40.9 H, Glucose 106, Calcium 7.8 L Diagnostic Data Thoracentesis Ultrasound 08/27/18 07:12 IMPRESSION: Ultrasound-guided right thoracentesis. Electronically Signed: Irwin Hong MD at 12:21 EST , Service support , Current Medications Albuterol/Ipratropium (Duoneb) 3 ml INHALATION Q4H.RT ALEA Last Admin: 08/28/18 06:35 Dose: 3 ml Chlorhexidine Gluconate () 15 ml PO BID ALEA Last Admin: 08/27/18 22:08 Dose: 15 ml Chlorhexidine Gluconate () 1 each TOPICAL DAILY ALEA Last Admin: 08/27/18 11:05 Dose: 1 each Enoxaparin Sodium (Lovenox) 40 mg SC DAILY@1000 [facility] Last Admin: 08/27/18 09:22 Dose: Not Given Famotidine 20 mg/ Sodium (Chloride) 10 mls @ 300 mls/hr IV Q12 [facility] Last Admin: 08/27/18 22:08 Dose: 300 mls/hr Enteral Nutritional Formula (Vital Af 1.2 Alvarez Liquid) 1,000 mls @ 55 mls/hr GT .[id number] [facility] Last Admin: 08/27/18 17:55 Dose: 55 mls/hr Norepinephrine Bitartrate 8 mg (/ Dextrose) 258 mls @ 9.68 mls/hr IV .[id number] [facility] Last Admin: 08/28/18 04:26 Dose: 9.68 mls/hr Dexmedetomidine HCl 400 mcg/ (Sodium Chloride) 100 mls @ 9.26 mls/hr IV .[id number] [facility] Last Admin: 08/28/18 08:13 Dose: 9.26 mls/hr Magnesium Hydroxide (Milk Of Magnesia) 30 ml PO DAILY PRN PRN PRN Reason: Constipation Ondansetron HCl (Zofran) 4 mg IV Q6H PRN PRN PRN Reason: Nausea Sodium Chloride () 5 - 15 ml IV UD PRN PRN Reason: SALINE FLUSH Medical Necessity - Tobacco Use Smoking Status: Former smoker Assessment/Plan All Active Problems (Last Reviewed 08/11/18 @ 19:33 by Carlos Garcia DO) Pleural effusion (Acute) Community acquired pneumonia (Acute) COPD exacerbation (Acute) Pneumococcal pneumonia (Ruled-out) Acute respiratory failure with hypoxia and hypercapnia (Acute) CATHERINE (acute kidney injury) (Acute) Shortness of breath (Acute) Pseudomonas pneumonia (Resolved) 1. Acute hypoxic and hypercapnic respiratory failure due to malignant pleural effusion and COPD Patient remains intubated and sedated. propofol and fentanyl being switched to precedex. s/p right sided thoracentesis with removal of 2L of blood-tinged fluid software trainer on board. if fluid reaccumulates, plan is for possible Pleurex catheter placement. software trainer on board failed SBT today after he became very agitated. 2.Small cell lung cancer recently diagnosed via pleural effusion cytology pulmonology on board s/p right thoracentesis with drainage of 2L of blood tinged fluid. oncology consulted; per their notes, patient is not a candidate for palliative chemotherapy or immunotherapy at this point, and prognosis is very poor. 3. Chronic diastolic heart failure stable. Meds were held on admission o/a of hypotension 4. AK I: Resolved. 5. Hypertension: BP meds on hold on account of low blood pressure on admission. BP remains in the 110s systolic. 6. Hyperkalemia: Resolved 7. Hyponatremia: resolved. Na is 145 today. 8. GERD: On PPI 9. Chronic pain: On oxycodone and tizanidine at home. These on hold as patient is currently on fentanyl drip for sedation; fentanul being switched to precedex Nutrition: on tube feeding. DVT prophylaxis: Lovenox Code status: patient remains full code for now. Code Visit Inpatient E&M: 97150 Subs Hosp L3
--- NOTE | 2018-08-28 09:33 | RAD_ITS ---
STUDY: X-RAY CHEST REASON FOR EXAM: Male, 72 years old. Shortness of breath. TECHNIQUE: Single AP portable view of the chest. COMPARISON: Comparison is made with prior study dated August 27, 2018. FINDINGS: An endotracheal tube is in situ. The tip is at 6.1 cm proximal to the christina. An orogastric tube is seen with the tip below the left hemidiaphragm. EKG electrodes are seen. Stable extensive infiltration in the right hemithorax. Minimal blunting of the right costophrenic angle. This is unchanged. The left lung is unchanged as well. There is borderline cardiomegaly. Normal mediastinum and audi. Normal visualized pulmonary arteries. There is atherosclerotic calcification of the aortic arch with tortuosity. There are diffuse degenerative changes of the visualized thoracic spine. Normal visualized ribs, clavicles, and shoulders. There is no demonstrated abnormality of the visualized soft tissue structures of the upper abdomen. RAD/Chest 1 View (Portable) IMPRESSION: Stable examination. The support tubes are in good position. Electronically Signed: Irwin Hong, at 9:56 EST , Service support ,
--- NOTE | 2018-08-28 09:40 | PN_ITS ---
Subjective: Patient seen and examined. He remains intubated and sedated. He had right- sided thoracentesis yesterday with removal of 2 L of fluid. Fluid was not sent for studies. He remains on a low-dose of Levophed. Patient is deeply sedated and so unable to do review of systems. Labs and vitals reviewed. Vitals/I&O's: Vital Signs Temp Pulse Resp BP Pulse Ox 99.3 F H 114 H 16 116/50 L 95 08/28/18 04:00 08/28/18 07:12 08/28/18 06:00 08/28/18 06:00 08/28/18 06:00 Oxygen Flow Rate (L/min) [4] 15 Oxygen Flow Rate (L/min) [3] 15 Oxygen Flow Rate (L/min) [2] 15 Oxygen Flow Rate (L/min) [1 ( 15 Initial Baseline)] Oxygen Delivery Method [4] Ambu-Bag Oxygen Delivery Method [3] Ambu-Bag Oxygen Delivery Method [2] Ambu-Bag Oxygen Delivery Method [1 ( Ambu-Bag Initial Baseline)] Oxygen Delivery Method Mechanical Ventilator Weight: 163 lb 5.8 oz Body Mass Index (BMI) 19.8 Intake and Output for Last 24 Hours 08/26/18 08/27/18 08/28/18 23:59 23:59 23:59 Intake Total 530 / 530 2377 / 2377 2439 / 2439 Output Total 420 / 420 850 / 850 350 / 350 Balance 110 / 110 1527 / 1527 2089 / 2089 General: - - intubated, sedated, in restraints. HEENT: PERRLA, EOMI, Normocephalic Oral: Dry Mucosa Neck: Supple, No JVD, Negative Carotid Bruits Lungs: - - breath sounds markedly improved in right lung armas after thoracentesis. No wheezes or crackles. Intubated. Cardiovascular: Regular rate, Regular Rhythm, Normal S1, Normal S2, No murmurs Abdomen: Bowel Sounds Present, Soft, Non Tender, Non-Distended, No Hepato- splenomegaly Extremities: No clubbing, No cyanosis, No edema, Capillary Refill Less than 3 Se conds Skin: No rashes, No breakdown Musculoskeletal: No Tenderness to Palpation of Joints or Extremities Lymphatic: No Cervical, Supraclavicular, or Inguinal Adenopathy Neurological: Motor Exam 5/5 strength throughout Psych/Mental Status: - - intubated, sedated. On levophed. RASS score is ~ -4 Microbiology Past 72 Hours 08/26/18 17:10 Sputum, Tracheal Aspirate Gram Stain - Final 08/26/18 17:10 Sputum, Tracheal Aspirate Respiratory Culture - Preliminary Appears to be normal respiratory karla. Further studies to follow. Laboratory Results 08/28/18 04:20: WBC 13.2 H, RBC 3.53 L, Hgb 11.4 L, Hct 35.7 L, MCV 101.1 H, MCH 32.3 H, MCHC 31.9 L, RDW 14.2, RDW Differential 51.0 H, Plt Count 144 L, MPV 10.1, Immature Gran % (Auto) 0.300, Neut % (Auto) 81.8 H, Lymph % (Auto) 7.3 L, [place] % (Auto) 10.2 H, Eos % (Auto) 0.3, Baso % (Auto) 0.1, Absolute Neuts (auto) 10.8 H, Absolute Lymphs (auto) 0.96, Total Counted Not Reportable 08/28/18 04:20: Sodium 145, Potassium 4.6, Chloride 112 H, Carbon Dioxide 25.0, Anion Gap 8, BUN 52 H, Creatinine 1.27, Estim Creat Clear Calc 53.48, Est GFR (MDRD) Af Amer 71, Est GFR (MDRD) Non-Af 59 L, BUN/Creatinine Ratio 40.9 H, Glucose 106, Calcium 7.8 L Diagnostic Data Thoracentesis Ultrasound 08/27/18 07:12 IMPRESSION: Ultrasound-guided right thoracentesis. Electronically Signed: Irwin Hong MD at 12:21 EST , Service support , Current Medications Albuterol/Ipratropium (Duoneb) 3 ml INHALATION Q4H.RT [facility] Last Admin: 08/28/18 06:35 Dose: 3 ml Chlorhexidine Gluconate () 15 ml PO BID ALEA Last Admin: 08/27/18 22:08 Dose: 15 ml Chlorhexidine Gluconate () 1 each TOPICAL DAILY [facility] Last Admin: 08/27/18 11:05 Dose: 1 each Enoxaparin Sodium (Lovenox) 40 mg SC DAILY@1000 [facility] Last Admin: 08/27/18 09:22 Dose: Not Given Famotidine 20 mg/ Sodium (Chloride) 10 mls @ 300 mls/hr IV Q12 [facility] Last Admin: 08/27/18 22:08 Dose: 300 mls/hr Enteral Nutritional Formula (Vital Af 1.2 Alvarez Liquid) 1,000 mls @ 55 mls/hr GT .[id number] [facility] Last Admin: 08/27/18 17:55 Dose: 55 mls/hr Norepinephrine Bitartrate 8 mg (/ Dextrose) 258 mls @ 9.68 mls/hr IV .[id number] [facility] Last Admin: 08/28/18 04:26 Dose: 9.68 mls/hr Dexmedetomidine HCl 400 mcg/ (Sodium Chloride) 100 mls @ 9.26 mls/hr IV .[id number] [facility] Last Admin: 08/28/18 08:13 Dose: 9.26 mls/hr Magnesium Hydroxide (Milk Of Magnesia) 30 ml PO DAILY PRN PRN PRN Reason: Constipation Ondansetron HCl (Zofran) 4 mg IV Q6H PRN PRN PRN Reason: Nausea Sodium Chloride () 5 - 15 ml IV UD PRN PRN Reason: SALINE FLUSH Medical Necessity - Tobacco Use Smoking Status: Former smoker Assessment/Plan All Active Problems (Last Reviewed 08/11/18 @ 19:33 by Carlos Garcia DO) Pleural effusion (Acute) Community acquired pneumonia (Acute) COPD exacerbation (Acute) Pneumococcal pneumonia (Ruled-out) Acute respiratory failure with hypoxia and hypercapnia (Acute) CATHERINE (acute kidney injury) (Acute) Shortness of breath (Acute) Pseudomonas pneumonia (Resolved) 1. Acute hypoxic and hypercapnic respiratory failure due to malignant pleural effusion and COPD * Patient remains intubated and sedated. propofol and fentanyl being switched to precedex. * s/p right sided thoracentesis with removal of 2L of blood-tinged fluid * primary teacher on board. * if fluid reaccumulates, plan is for possible Pleurex catheter placement. * primary teacher on board * failed SBT today after he became very agitated. 2.Small cell lung cancer * recently diagnosed via pleural effusion cytology * pulmonology on board s/p right thoracentesis with drainage of 2L of blood tinged fluid. * oncology consulted; per their notes, patient is not a candidate for palliative chemotherapy or immunotherapy at this point, and prognosis is very poor. * 3. Chronic diastolic heart failure * stable. Meds were held on admission o/a of hypotension * 4. AK I: Resolved. 5. Hypertension: BP meds on hold on account of low blood pressure on admission. BP remains in the 110s systolic. 6. Hyperkalemia: Resolved 7. Hyponatremia: resolved. Na is 145 today. 8. GERD: On PPI 9. Chronic pain: On oxycodone and tizanidine at home. These on hold as patient is currently on fentanyl drip for sedation; fentanul being switched to precedex Nutrition: on tube feeding. DVT prophylaxis: Lovenox Code status: patient remains full code for now. Code Visit Inpatient E&M: 30655 Subs Hosp L3
[2018-08-28] MEDS: Chlorhexidine 15 ML PO ×2 (10:28→21:14)
[2018-08-28] MEDS: CHLORHEXIDINE GLUC 2% CLOTH 1 EACH TOWELETTE TOPICAL (10:28)
[2018-08-28] MEDS: Enoxaparin 40 MG/0.4 ML Syringe SC (10:28)
[2018-08-28] MEDS: 0.9% NaCl Peripheral Flush Adult/Peds IV ×2 (10:29→21:14)
[2018-08-28] MEDS: fentaNYL drip 100 ML 5 MCG IV ×2 (13:02→20:21)
--- NOTE | 2018-08-28 15:33 | CASEMGMT ---
ASH spoke with Luci huff [place] and updated her on patient. Per RN Dr Cosme is going to meet with family tomorrow to discuss future plans. Guerline YAP MSW
--- NOTE | 2018-08-28 16:08 | CHAPLAIN ---
Type of Pastoral Visit ___ Initial Visit _x__ Follow-up Visit ___ On-call Visit ___ General Patient Visit ___ Spiritual Assessment ___ Family Conference ___ Bereavement ___ Rapid Response ___ Code Blue ___ Other (describe below) Pastoral Care Referral From ___ Patient _x__ Family ___ Nurse ___ Physician ___ Card Boxer ___ Magistrate ___ Other (describe below) Sacrament/Intervention ___ Active listening ___ Anointing ___ Scientology ___ Bereavement ___ Communion ___ [place] exploration ___ ___ Life review _x__ Prayer ___ Reconciliation ___ Sacrament of Sick _x__ Supportive presence ___ Wedding ___ Other (describe below) Pastoral Comments more family members have gathered around patient in room; family welcomes prayer; offer of support given
[2018-08-28] MEDS: Vital AF 1.2 Cal Liquid 1,000 ML 55 ML GT (17:13)
[2018-08-29] VITALS (42 sets, daily range): BP systolic 53–170; BP diastolic 29–85; PULSE 50–169; RESP 12–35; TEMP 36.6–39.7; O2SAT 81–100
--- NOTE | 2018-08-29 01:46 | EKG12_ITS ---
Test Reason : TACHYCARDIA Blood Pressure : / mmHG Vent. Rate : 131 BPM Atrial Rate : 241 BPM P-R Int : 000 ms QRS Dur : 070 ms QT Int : 320 ms P-R-T Axes : 000 041 092 degrees QTc Int : 472 ms Atrial fibrillation Nonspecific ST and T wave abnormality Abnormal ECG When compared with ECG of 26-AUG-2018 13:48, Atrial fibrillation has replaced Sinus rhythm Vent. rate has increased BY 48 BPM Confirmed by JUDE SCHULTZ, SUKUMAR ([id number]), film or videotape editor GISELL NASH ([id number]) on 09/03/2018 2:49:30 PM Referred By: ALIVIA Confirmed By:SUKUMAR ROQUE MD
--- NOTE | 2018-08-29 02:10 | ECHOD_ITS ---
Reason For Study: Afib/Flutter Procedure This was a 2D Doppler, Color Flow transthoracic echocardiogram. Study done with patient on Vent. Exam performed portable in ICU/CCU. Left Ventricle Moderate concentric left ventricular hypertrophy. The estimated ejection fraction is 65 %. Unable to assess diastolic dysfunction due to arrhythmia. No regional wall motion abnormalities noted. Right Ventricle Normal size and thickness. A moderator band is seen in the right ventricle. Normal systolic function. Atria Normal left atrium. Normal right atrium. Normal atrial septum. Mitral Valve The mitral valve is structurally normal. No prolapse or stenosis seen. Tricuspid Valve Normal tricuspid valve. Trivial tricuspid valve insufficiency. Right ventricular systolic pressure estimated to be 41 mmHg. Mild pulmonary hypertension. Aortic Valve Trisinus/trileaflet aortic valve. Trivial aortic valve insufficiency. Pulmonic Valve Normal pulmonic valve. Great Vessels Normal aortic root. Normal arch. The inferior vena cava is dilated. No collapse of the inferior vena cava. Pericardium/Pleural No pericardial effusion. MMode/2D Measurements & Calculations LVIDd: 3.2 cm IVSd: 1.5 cm Ao root diam: 3.9 cm LVIDs: 2.0 cm LVPWd: 1.5 cm LA dimension: 3.2 cm FS: 36.5 % LAV(MOD-bp): 46.6 ml LA A4 area: 17.6 cm2 RA A4 area: 17.0 cm2 LAV(MOD-bp) Indexed: 25.7 ml/m2 LAV(MOD-sp2): 44.8 ml LAV(MOD-sp4): 42.5 ml Doppler Measurements & Calculations MV E max quita: 96.3 cm/sec Ao V2 max: 134.6 cm/sec LV V1 max: 103.3 cm/sec Ao max P.3 mmHg LV V1 max P.3 mmHg Ao V2 mean: 82.3 cm/sec LV V1 mean P.7 mmHg Ao mean P.2 mmHg LV V1 mean: 57.6 cm/sec Ao V2 VTI: 20.0 cm LV V1 VTI: 16.8 cm PA V2 max: 77.6 cm/sec TR max quita: 264.4 cm/sec TR max P.0 mmHg Interpretation Summary Moderate concentric left ventricular hypertrophy. The estimated ejection fraction is 65 %. Unable to assess diastolic dysfunction due to arrhythmia. Trivial tricuspid valve insufficiency. Right ventricular systolic pressure estimated to be 41 mmHg. Mild pulmonary hypertension. Compared with echo report dated 02/07/2018, LV function has remained the same. Pt now appears to be in atrial fibrillation. RVSP was 59 and now appears to be 41 mm Hg. Ordering Physician: Carlos Garcia Performed By: Washington Stephen RCS
[2018-08-29] MEDS: HEPARIN/D5w 25,000 UNITS 25,000 UNITS/250 ML IV.SOLN. 11 UNITS IV (02:39)
[2018-08-29] MEDS: 0.9% NaCl Peripheral Flush Adult/Peds IV (02:42)
[2018-08-29 02:49] LABS: Absolute Lymphocyte Count 1.01 X10^3/ul (0.83-4.51); Absolute Neutrophil Count 16.5 X10^3/uL (2.0-7.7); Basophil# 0.02 X10^3/uL; Basophil% 0.1 % (0-1); Differential Indicated SCAN CRITERIA MET; Eosinophil# 0.03 X10^3/uL; Eosinophils% 0.2 % (0-5); Hematocrit 36.1 % (40-54); Hemoglobin 11.6 g/dl (13.0-16.5); Lymphocyte # 1.01 X10^3/ul (4.0); Lymphocyte % 5.3 % (19-41); Mean Corp Hgb Conc 32.1 g/gl (32-36); Mean Corpuscular Volume 99.4 fL (80-94); Mean Platelet Vol. 10.1 fl (6.2-12.0); Monocyte# 1.63 X10^3/uL; Monocyte% 8.5 % (0-10); Neutrophil # 16.46 X10^3/uL (2.7-7.7); Neutrophil % 85.7 % (47-70); POSITIVE COUNT NO; POSITIVE DIFFERENTIAL YES; POSITIVE MORPHOLOGY NO; Platelet Count 138 K/mm3 (150-450); RBC Distribution Width CV 14.1 % (11.6-14.6); RBC Distribution Width SD 49.4 fl (35.1-43.9); Red Blood Count 3.63 M/mm3 (4.6-6.2); White Blood Count 19.2 K/mm3 (4.4-11.0)
[2018-08-29 02:52] LABS: Bacteria 0 SEEN /hpf (None Seen); Mucous, Urine 0 SEEN /hpf (<or=2+)
[2018-08-29 02:52] LABS: International Normalized Ratio 1.1; Prothrombin Time (Protime)PT. 14.3 SECONDS (11.7-14.9)
[2018-08-29 02:53] LABS: Partial Thromboplast Time 33.2 Seconds (24.1-36.2)
[2018-08-29 02:54] LABS: Color, Urine Yellow (Yellow); Glucose, Dipstick Normal (Normal); Ketone-Dipstick Negative (Negative); Leukocyte Esterase-Dipstick 25 /ul (Negative); Nitrite-Dipstick Negative (Negative); Occult Blood-Urine 150 /ul (Negative); Protein-Dipstick 30 mg/dl (Negative); Specific Gravity, Urine 1.015 (1.002-1.030); Urine Clarity Sl. Cloudy (Clear); Urine Urobilinogen 1 mg/dl (Normal)
[2018-08-29 03:12] LABS: Anion Gap 14 (5-15); BUN 42 mg/dL (7-18); BUN/Creat Ratio 40.8 RATIO (10-20); Calcium,Total 7.9 mg/dL (8.5-10.1); Chloride 109 mmol/L (98-107); Creatinine, Serum 1.03 mg/dL (0.70-1.30); EST Glomerular Filtration Rate 75 mL/min (>60); Est Glom Filt Rate - Afr Amer 91 mL/min (>60); Estimated Creatinine Clearance 65.95 ml/min; Glucose 137 mg/dL (74-106); Potassium 4.8 mmol/L (3.5-5.1); Sodium Level 144 mmol/L (136-145)
[2018-08-29 03:22] LABS: Urine Bilirubin Dipstick 1 mg/dL (Negative)
[2018-08-29 03:23] LABS: White Blood Cells 0-5 SEEN /hpf (0-5)
[2018-08-29 03:24] LABS: Amorphous Sediment 1+; Red Blood Cells-Urine 50-100 SEEN /hpf (0-5); Squamous Epithelial Cells - UA 0-5 SEEN /hpf (0-5)
[2018-08-29] MEDS: Ipratropium/Albuterol Sulfate 3 ML AMPUL.NEB INHALATION (03:26)
[2018-08-29] MEDS: CHLORHEXIDINE GLUC 2% CLOTH 1 EACH TOWELETTE TOPICAL (03:58)
[2018-08-29] MEDS: Acetaminophen 650 MG/20 ML UDC GT (04:02)
[2018-08-29] MEDS: Vasopressin 20 UNITS/ML Vial IV (04:45)
--- NOTE | 2018-08-29 06:31 | PCM.PN.INT ---
Subjective: The patient was seen and examined at the bedside this morning. Events from the last 24 hours have been reviewed. The patient decompensated clinically overnight. He was noted to have gone into atrial fibrillation with a rapid ventricular rate. He also developed a fever and increased white blood cell count. The patient's hemodynamics have remained tenuous at best. The patient received an amiodarone bolus and was started on a continuous infusion. His Levophed was discontinued and he was transitioned to vasopressin. The Precedex is currently being weaned. The patient continues to become extremely agitated when his sedation is weaned. Cultures were obtained overnight and the patient was restarted on antibiotics this morning. On a side note, the patient was also found to have a bedbug overnight, which may have come from recent visitors. Objective: The patient's most recent lab work, culture data and imaging studies have all been personally reviewed. Initial blood and sputum cultures dated August 26 were negative. Repeat sputum culture, blood culture, urine culture and respiratory viral panel are currently pending. Prior surface echocardiogram dated December 2017 revealed evidence of stage I diastolic dysfunction with mild concentric LVH and an ejection fraction of 65%. Right ventricular systolic pressure was estimated to be 59 mmHg. General: - - Remains intubated, sedated and mechanically ventilated. Quite ill in appearance. HEENT: Atraumatic, Normocephalic, Sluggish Pupils Oral: Dry Mucosa, - - Endotracheal and OG tubes in place. Neck: Supple, No Nodes, Trachea Midline Lungs: Diminished, - - Coarse mechanical breath sounds with scant rhonchi, R>L Cardiovascular: Normal S1, Normal S2, No murmurs, Irregular Rate, Tachycardic Abdomen: Bowel Sounds Present, Soft, Non Tender Extremities: No cyanosis, No edema, Clubbing Skin: - - Some erythema of RUE Musculoskeletal: No Tenderness to Palpation of Joints or Extremities Lymphatic: No Cervical, Supraclavicular, or Inguinal Adenopathy Neurological: - - No focal neurological deficits. Currently sedated with a RASS of -2. Vital Signs Temp Pulse Resp BP Pulse Ox 38.4 C H 92 18 80/52 L 92 08/29/18 03:00 08/29/18 04:54 08/29/18 04:54 08/29/18 03:00 08/29/18 04:54 Oxygen Flow Rate (L/min) [4] 15 Oxygen Flow Rate (L/min) [3] 15 Oxygen Flow Rate (L/min) [2] 15 Oxygen Flow Rate (L/min) [1 ( 15 Initial Baseline)] Oxygen Delivery Method [4] Ambu-Bag Oxygen Delivery Method [3] Ambu-Bag Oxygen Delivery Method [2] Ambu-Bag Oxygen Delivery Method [1 ( Ambu-Bag Initial Baseline)] Oxygen Delivery Method Mechanical Ventilator Weight: 168 lb 6.931 oz Body Mass Index (BMI) 19.8 Intake and Output for Last 24 Hours 08/27/18 08/28/18 08/29/18 23:59 23:59 23:59 Intake Total 2377 / 2377 3447 / 3447 1441.4 / 1441.4 Output Total 850 / 850 900 / 900 500 / 500 Balance 1527 / 1527 2547 / 2547 941.4 / 941.4 Labs (Last 48 Hours) 08/27/18 08/27/18 08/28/18 05:30 08:00 04:20 WBC 13.2 H RBC 3.53 L Hgb 11.4 L Hct 35.7 L MCV 101.1 H MCH 32.3 H MCHC 31.9 L RDW 14.2 RDW Differential 51.0 H Plt Count 144 L MPV 10.1 Immature Gran % (Auto) 0.300 Neut % (Auto) 81.8 H Lymph % (Auto) 7.3 L [place] % (Auto) 10.2 H Eos % (Auto) 0.3 Baso % (Auto) 0.1 Absolute Neuts (auto) 10.8 H Absolute Lymphs (auto) 0.96 Total Counted Not Reportable Diff Path Review PT 13.4 INR 1.0 APTT 26.9 Sodium Potassium Chloride Carbon Dioxide Anion Gap BUN Creatinine Estim Creat Clear Calc Est GFR (MDRD) Af Amer Est GFR (MDRD) Non-Af BUN/Creatinine Ratio Glucose Calcium Lactate Dehydrogenase 455 H Total Protein 4.3 L Globulin 2.3 Albumin/Globulin Ratio 0.9 Urine Color Urine Clarity Urine pH Ur Specific [place] Urine Protein Urine Glucose (UA) Urine Ketones Urine Occult Blood Urine Nitrite Urine Bilirubin Urine Urobilinogen Ur Leukocyte Esterase Urine RBC Urine WBC Ur Squamous Epith Cells Amorphous Sediment Urine Bacteria Urine Mucus 08/28/18 08/29/18 08/29/18 04:20 02:30 02:30 WBC 19.2 H RBC 3.63 L Hgb 11.6 L Hct 36.1 L MCV 99.4 H MCH 32.0 MCHC 32.1 RDW 14.1 RDW Differential 49.4 H Plt Count 138 L MPV 10.1 Immature Gran % (Auto) 0.200 Neut % (Auto) 85.7 H Lymph % (Auto) 5.3 L [place] % (Auto) 8.5 Eos % (Auto) 0.2 Baso % (Auto) 0.1 Absolute Neuts (auto) 16.5 H Absolute Lymphs (auto) 1.01 Total Counted Not Reportable Diff Path Review May foll PT INR APTT Sodium 145 144 Potassium 4.6 4.8 Chloride 112 H 109 H Carbon Dioxide 25.0 21.0 Anion Gap 8 14 BUN 52 H 42 H Creatinine 1.27 1.03 Estim Creat Clear Calc 53.48 65.95 Est GFR (MDRD) Af Amer 71 91 Est GFR (MDRD) Non-Af 59 L 75 BUN/Creatinine Ratio 40.9 H 40.8 H Glucose 106 137 H Calcium 7.8 L 7.9 L Lactate Dehydrogenase Total Protein Globulin Albumin/Globulin Ratio Urine Color Urine Clarity Urine pH Ur Specific [place] Urine Protein Urine Glucose (UA) Urine Ketones Urine Occult Blood Urine Nitrite Urine Bilirubin Urine Urobilinogen Ur Leukocyte Esterase Urine RBC Urine WBC Ur Squamous Epith Cells Amorphous Sediment Urine Bacteria Urine Mucus 08/29/18 08/29/18 02:30 02:40 WBC RBC Hgb Hct MCV MCH MCHC RDW RDW Differential Plt Count MPV Immature Gran % (Auto) Neut % (Auto) Lymph % (Auto) [place] % (Auto) Eos % (Auto) Baso % (Auto) Absolute Neuts (auto) Absolute Lymphs (auto) Total Counted Diff Path Review PT 14.3 INR 1.1 APTT 33.2 Sodium Potassium Chloride Carbon Dioxide Anion Gap BUN Creatinine Estim Creat Clear Calc Est GFR (MDRD) Af Amer Est GFR (MDRD) Non-Af BUN/Creatinine Ratio Glucose Calcium Lactate Dehydrogenase Total Protein Globulin Albumin/Globulin Ratio Urine Color Yellow Urine Clarity Sl. Cloudy Urine pH 5.0 Ur Specific [place] 1.015 Urine Protein 30 H Urine Glucose (UA) Normal Urine Ketones Negative Urine Occult Blood 150 H Urine Nitrite Negative Urine Bilirubin 1 H Urine Urobilinogen 1 H Ur Leukocyte Esterase 25 H Urine RBC 50-100 SEEN Urine WBC 0-5 SEEN Ur Squamous Epith Cells 0-5 SEEN Amorphous Sediment 1+ Urine Bacteria 0 SEEN Urine Mucus 0 SEEN Microbiology 08/26/18 13:45 Blood Culture (Wb) - Left Hand Blood Culture - Preliminary No growth in 48 hours. 08/26/18 13:45 Blood Culture (Wb) - Right Wrist Blood Culture - Preliminary No growth in 48 hours. 08/26/18 17:10 Sputum, Tracheal Aspirate Gram Stain - Final 08/26/18 17:10 Sputum, Tracheal Aspirate Respiratory Culture - Preliminary Appears to be normal respiratory karla. Further studies to follow. Clinical Impression(s) from Imaging Studies Chest X-Ray 08/26/18 13:48 IMPRESSION: 1. Large right pleural effusion has reaccumulated since thoracentesis of 08/20/2017 (and larger than prior to thoracentesis). Right upper lobe consolidation partially visualized. Electronically Signed: Tristin Chopra MD at 14:23 EST , Service support , Chest X-Ray 08/26/18 15:37 IMPRESSION: Satisfactory position of endotracheal and enteric tubes. Large right pleural effusion with parenchymal consolidation/airspace disease. Electronically Signed: Tristin Chopra MD at 16:29 EST , Service support , Thoracentesis Ultrasound 08/27/18 07:12 IMPRESSION: Ultrasound-guided right thoracentesis. Electronically Signed: Irwin Hong MD at 12:21 EST , Service support , Chest X-Ray 08/27/18 10:28 IMPRESSION: Status post right thoracentesis. There is no evidence of pneumothorax. Electronically Signed: Irwin Hong MD at 14:04 EST , Service support , Chest X-Ray 08/28/18 09:33 IMPRESSION: Stable examination. The support tubes are in good position. Electronically Signed: Irwin Hong, at 9:56 EST , Service support , Medical Necessity - Tobacco Use Smoking Status: Former smoker Assessment/Plan All Active Problems (Last Reviewed 08/11/18 @ 19:33 by Carlos Garcia DO) Pleural effusion (Acute) Community acquired pneumonia (Acute) COPD exacerbation (Acute) Pneumococcal pneumonia (Ruled-out) Acute respiratory failure with hypoxia and hypercapnia (Acute) CATHERINE (acute kidney injury) (Acute) Shortness of breath (Acute) Pseudomonas pneumonia (Resolved) RECOMMENDATIONS: 1. Continue amiodarone as ordered. 2. Continue vasopressor support in an attempt to maintain a mean arterial pressure at or above 65 mmHg. 3. Continue scheduled bronchodilators 4. Wean Precedex and continue fentanyl. 5. Restart broad-spectrum antibiotics. Repeat infectious workup is currently pending. 6. Plans for goals of care discussion with family this morning. IMPRESSIONS: 1. Acute on chronic combined respiratory failure/end-stage COPD Suspect that the etiology for the patient's acute decompensation is secondary to his enlarging malignant pleural effusion. The patient lasted less than 1 week from the time of his initial thoracentesis until the time he decompensated clinically. The patient underwent a repeat ultrasound-guided thoracentesis with 2 L of fluid removed. He remains on invasive mechanical ventilation. We will continue to wean as tolerated. I will plan to repeat plain film chest imaging to document reaccumulation of the patient's pleural effusion. If his effusion again re-accumulates rapidly, he will likely require Pleurx catheter placement. 2. Severe sepsis with unclear source of infection Overnight, the patient did develop a high-grade fever and rising white count. While an underlying pulmonary infectious process is certainly a possibility, we will plan to cover the patient broadly with antibiotics, pending an infectious workup. 3. Newly diagnosed stage IV small cell lung cancer The patient was referred to follow-up with Dr. Casey of oncology. He did have plans to initiate therapy. However, subsequent follow-up by oncology, indicated that the patient is a poor candidate for systemic chemotherapy. 4. Atrial fibrillation with rapid ventricular rate Overnight, the patient went into new onset atrial fibrillation with a rapid ventricular rate. He is currently on a heparin drip and did receive an amiodarone bolus. He remains on an amiodarone infusion, which will be continued. Surface echocardiogram is pending. 5. Acute kidney injury Resolved. Likely prerenal in etiology. Creatinine has improved with stabilization of hemodynamics and with volume expansion. We will continue to monitor urine output. No indication for renal replacement therapy at this time. 6. Heart failure with preserved ejection fraction/pulmonary hypertension Recommend cautious use of supplemental IV fluids. No need for diuretics at this time. 7. Tobacco dependency currently in remission/hypertension/GERD/chronic pain syndrome Complicates care, management, recovery and prognosis. Tube feeds will be continued. Physical therapy to attempt to work with patient. UPDATE: Both Dr. Cosme and I met with the patient's entire family this morning to engage in a lengthy goals of care discussion. Patient prognosis was discussed, including options for proceeding with care. All questions were answered. The family subsequently met together and discussed options. The family eventually came to the conclusion that they wished to proceed with palliative withdrawal of life support with initiation of comfort care measures. All family members were in agreement. The patient's code status was updated to DNR CC. Orders were placed for both pain medications and anxiolytics. A referral was placed to [facility] for evaluation. Following extubation, the patient was able to visit with family members at the bedside. The patient's pain and anxiety was controlled. The patient did have a great deal of ectopy on telemetry, bouncing between A. fib and sinus rhythm. At approximately 1345 on August 29, 2018, the patient peacefully with family at the bedside. TIME: 90 minutes of critical care time, independent of procedures, was spent addressing the patient's acute on chronic combined respiratory failure, end-stage COPD, newly diagnosed stage IV small cell lung cancer, acute kidney injury, review of all data and collaboration with the care team. ([id number], [id number], [id number]) Code Visit Procedures: 79087 Critial Care Addl 30 Min 9xxxx: [id number] Critical care first hour
--- NOTE | 2018-08-29 08:59 | PCM.PN.HOSP ---
Subjective: Patient seen and examined. He decompensated overnight and developed A. fib with RVR requiring and been started on amiodarone drip. He became more hypotensive and had to be started on vasopressin as well. Levophed was discontinued. Patient has remained extremely agitated whenever sedation is being weaned. Patient became more febrile with temperature peaking at 101.9 Fahrenheit this morning. He was started on IV vancomycin and Zosyn this morning. Unable to do review of systems on account of patient being heavily sedated. Labs and vitals reviewed. Vitals/I&O's: Vital Signs Temp Pulse Resp BP Pulse Ox 101.9 F H 103 H 15 125/53 H 97 08/29/18 07:15 08/29/18 08:00 08/29/18 08:00 08/29/18 08:00 08/29/18 08:00 Oxygen Flow Rate (L/min) [4] 15 Oxygen Flow Rate (L/min) [3] 15 Oxygen Flow Rate (L/min) [2] 15 Oxygen Flow Rate (L/min) [1 ( 15 Initial Baseline)] Oxygen Delivery Method [4] Ambu-Bag Oxygen Delivery Method [3] Ambu-Bag Oxygen Delivery Method [2] Ambu-Bag Oxygen Delivery Method [1 ( Ambu-Bag Initial Baseline)] Oxygen Delivery Method Mechanical Ventilator Weight: 168 lb 6.931 oz Body Mass Index (BMI) 19.8 Intake and Output for Last 24 Hours 08/27/18 08/28/18 08/29/18 23:59 23:59 23:59 Intake Total 2377 / 2377 3447 / 3447 1441.4 / 1441.4 Output Total 850 / 850 900 / 900 500 / 500 Balance 1527 / 1527 2547 / 2547 941.4 / 941.4 General: - - intubated, sedated, in restraints. HEENT: PERRLA, EOMI, Normocephalic Oral: Dry Mucosa Neck: Supple, No JVD, Negative Carotid Bruits Lungs: - - breath sounds mildly reduced bibasally; still intubated. breath sounds markedly improved in right lung armas after thoracentesis. No wheezes or crackles. Intubated. Cardiovascular: Regular rate, Regular Rhythm, Normal S1, Normal S2, No murmurs; on amiodarone drip Abdomen: Bowel Sounds Present, Soft, Non Tender, Non-Distended, No Hepato-splenomegaly Extremities: No clubbing, No cyanosis, No edema, Capillary Refill Less than 3 Seconds Skin: No rashes, No breakdown Musculoskeletal: No Tenderness to Palpation of Joints or Extremities Lymphatic: No Cervical, Supraclavicular, or Inguinal Adenopathy Neurological: Motor Exam 5/5 strength throughout Psych/Mental Status: - - intubated, sedated. RASS score is ~ -4 Microbiology Past 72 Hours 08/26/18 17:10 Sputum, Tracheal Aspirate Gram Stain - Final 08/26/18 17:10 Sputum, Tracheal Aspirate Respiratory Culture - Final Mixed normal respiratory karla. No Haemophilus, Streptococcus pneumoniae, beta-hemolytic Streptococcus or Staphylococcus aureus isolated. 08/26/18 13:45 Blood Culture (Wb) - Left Hand Blood Culture - Preliminary No growth in 48 hours. 08/26/18 13:45 Blood Culture (Wb) - Right Wrist Blood Culture - Preliminary No growth in 48 hours. Laboratory Results 08/29/18 02:30: WBC 19.2 H, RBC 3.63 L, Hgb 11.6 L, Hct 36.1 L, MCV 99.4 H, MCH 32.0, MCHC 32.1, RDW 14.1, RDW Differential 49.4 H, Plt Count 138 L, MPV 10.1, Immature Gran % (Auto) 0.200, Neut % (Auto) 85.7 H, Lymph % (Auto) 5.3 L, [place] % (Auto) 8.5, Eos % (Auto) 0.2, Baso % (Auto) 0.1, Absolute Neuts (auto) 16.5 H, Absolute Lymphs (auto) 1.01, Total Counted Not Reportable, Diff Path Review October08/29/18 02:30: Sodium 144, Potassium 4.8, Chloride 109 H, Carbon Dioxide 21.0, Anion Gap 14, BUN 42 H, Creatinine 1.03, Estim Creat Clear Calc 65.95, Est GFR (MDRD) Af Amer 91, Est GFR (MDRD) Non-Af 75, BUN/Creatinine Ratio 40.8 H, Glucose 137 H, Calcium 7.9 L 08/29/18 02:30: PT 14.3, INR 1.1, APTT 33.2 08/29/18 02:40: Urine Color Yellow, Urine Clarity Sl. Cloudy, Urine pH 5.0, Ur Specific [place] 1.015, Urine Protein 30 H, Urine Glucose (UA) Normal, Urine Ketones Negative, Urine Occult Blood 150 H, Urine Nitrite Negative, Urine Bilirubin 1 H, Urine Urobilinogen 1 H, Ur Leukocyte Esterase 25 H, Urine RBC 50-100 SEEN, Urine WBC 0-5 SEEN, Ur Squamous Epith Cells 0-5 SEEN, Amorphous Sediment 1+, Urine Bacteria 0 SEEN, Urine Mucus 0 SEEN Diagnostic Data Thoracentesis Ultrasound 08/27/18 07:12 IMPRESSION: Ultrasound-guided right thoracentesis. Electronically Signed: Irwin Hogn MD at 12:21 EST , Service support , Chest X-Ray 08/28/18 09:33 IMPRESSION: Stable examination. The support tubes are in good position. Electronically Signed: Irwin Hong, at 9:56 EST , Service support , Current Medications Acetaminophen (Tylenol Liquid) 650 mg GT Q6H PRN PRN PRN Reason: FEVER Last Admin: 08/29/18 04:02 Dose: 650 mg Albuterol/Ipratropium (Duoneb) 3 ml INHALATION Q4H.RT [facility] Last Admin: 08/29/18 07:18 Dose: Not Given Chlorhexidine Gluconate () 15 ml PO BID [facility] Last Admin: 08/28/18 21:14 Dose: 15 ml Chlorhexidine Gluconate () 1 each TOPICAL DAILY [facility] Last Admin: 08/29/18 03:58 Dose: 1 each Heparin Sodium (Porcine) (Heparin Na) 0 unit IV UD PRN; Protocol Famotidine 20 mg/ Sodium (Chloride) 10 mls @ 300 mls/hr IV Q12 [facility] Last Admin: 08/29/18 08:07 Dose: 300 mls/hr Enteral Nutritional Formula (Vital Af 1.2 Alvarez Liquid) 1,000 mls @ 55 mls/hr GT .[id number] [facility] Last Admin: 08/29/18 06:51 Dose: Not Given Norepinephrine Bitartrate 8 mg (/ Dextrose) 258 mls @ 9.68 mls/hr IV .[id number] [facility] Last Admin: 08/29/18 01:17 Dose: Not Given Fentanyl () 100 mls @ 5 mls/hr IV .Q20H [facility] Last Admin: 08/28/18 20:21 Dose: 5 mls/hr Dexmedetomidine HCl 1,000 mcg/ (Sodium Chloride) 250 mls @ 9.26 mls/hr IV .Q27H [facility] Last Admin: 08/29/18 03:58 Dose: 9.26 mls/hr Heparin Sodium/Dextrose () 25,000 units in 250 mls @ 11 mls/hr IV .[id number] [facility]; Protocol Last Admin: 08/29/18 02:39 Dose: 11 mls/hr Vasopressin 40 units/ Sodium (Chloride) 52 mls @ 3.12 mls/hr IV .[id number] [facility] Last Admin: 08/29/18 05:48 Dose: 3.12 mls/hr Amiodarone HCl 360 mg/ (Dextrose) 200 mls @ 33.33 mls/hr CONT INF .Q6H1M [facility] Stop: 08/29/18 11:30 Last Admin: 08/29/18 06:11 Dose: 33.33 mls/hr Amiodarone HCl 360 mg/ (Dextrose) 200 mls @ 16.67 mls/hr CONT INF .Q12H1M [facility] Stop: 08/30/18 05:29 Piperacillin Sod/Tazobactam (Sod 3.375 gm/ Sodium Chloride) 50 mls @ 12.5 mls/hr IV Q8 [facility] Vancomycin IV Pharmacy to Dose (1 ea/ Sodium Chloride) 500 mls @ 250 mls/hr IV X1 PRN; Protocol PRN Reason: Rx to Dose Vancomycin HCl 2,000 mg/ (Sodium Chloride) 540 mls @ 250 mls/hr IV X1 ONE Stop: 08/29/18 09:39 Last Admin: 08/29/18 07:57 Dose: 250 mls/hr Vancomycin HCl 1,000 mg/ (Dextrose) 200 mls @ 200 mls/hr IV Q12H [facility] Magnesium Hydroxide (Milk Of Magnesia) 30 ml PO DAILY PRN PRN PRN Reason: Constipation Ondansetron HCl (Zofran) 4 mg IV Q6H PRN PRN PRN Reason: Nausea Sodium Chloride () 5 - 15 ml IV UD PRN PRN Reason: SALINE FLUSH Last Admin: 08/29/18 02:42 Dose: 15 ml Medical Necessity - Tobacco Use Smoking Status: Former smoker Assessment/Plan All Active Problems (Last Reviewed 08/11/18 @ 19:33 by Carlos Garcia DO) Pleural effusion (Acute) Community acquired pneumonia (Acute) COPD exacerbation (Acute) Pneumococcal pneumonia (Ruled-out) Acute respiratory failure with hypoxia and hypercapnia (Acute) CATHERINE (acute kidney injury) (Acute) Shortness of breath (Acute) Pseudomonas pneumonia (Resolved) 1. Acute hypoxic and hypercapnic respiratory failure due to malignant pleural effusion and COPD Patient remains intubated and sedated. currently on Precedex for sedation. s/p right sided thoracentesis with removal of 2L of blood-tinged fluid awning spreader on board. if fluid reaccumulates, plan is for possible Pleurex catheter placement. awning spreader on board 2. Afib with RVR developed Afib with RVR overnight and had to be started on amiodarone drip. currently rate and rhythm controlled on heparin drip. Cardiology on board 3. Septic shock, source of infection not clear now SIRS criteria is 3- fever, leucocytosis and tachycardia blood cultures and urine cultures as well as sputum cultures are pending was started on IV vancomycin and IV zosyn on vasopressin. 4.Small cell lung cancer recently diagnosed via pleural effusion cytology pulmonology on board s/p right thoracentesis with drainage of 2L of blood tinged fluid. oncology consulted; per their notes, patient is not a candidate for palliative chemotherapy or immunotherapy at this point, and prognosis is very poor. 5. Heart failure with preserved EF stable. Meds were held on admission o/a of hypotension 6. AK I: Resolved. 7. Hypertension: BP meds on hold on account of low blood pressure on admission. BP remains in the 110s systolic. 8. Hyperkalemia: Resolved 9. Hyponatremia: resolved. 10. GERD: On PPI 11. Chronic pain: On oxycodone and tizanidine at home. These on hold as patient is currently on fentanyl drip for sedation; fentanul being switched to precedex Nutrition: on tube feeding. DVT prophylaxis: Lovenox Code status: patient remains full code for now. Prognosis: very poor. Family updated about the patient's prognosis, and after a meeting with the awning spreader, have switched patient's code status to DNRCC. Patient was extubated on 08/29/18 and at 13:45 Code Visit Inpatient E&M: 45727 Subs Hosp L3
--- NOTE | 2018-08-29 09:09 | PN_ITS ---
Subjective: Patient seen and examined. He decompensated overnight and developed A. fib with RVR requiring and been started on amiodarone drip. He became more hypotensive and had to be started on vasopressin as well. Levophed was discontinued. Patient has remained extremely agitated whenever sedation is being weaned. Patient became more febrile with temperature peaking at 101.9 Fahrenheit this morning. He was started on IV vancomycin and Zosyn this morning. Unable to do review of systems on account of patient being heavily sedated. Labs and vitals reviewed. Vitals/I&O's: Vital Signs Temp Pulse Resp BP Pulse Ox 101.9 F H 103 H 15 125/53 H 97 08/29/18 07:15 08/29/18 08:00 08/29/18 08:00 08/29/18 08:00 08/29/18 08:00 Oxygen Flow Rate (L/min) [4] 15 Oxygen Flow Rate (L/min) [3] 15 Oxygen Flow Rate (L/min) [2] 15 Oxygen Flow Rate (L/min) [1 ( 15 Initial Baseline)] Oxygen Delivery Method [4] Ambu-Bag Oxygen Delivery Method [3] Ambu-Bag Oxygen Delivery Method [2] Ambu-Bag Oxygen Delivery Method [1 ( Ambu-Bag Initial Baseline)] Oxygen Delivery Method Mechanical Ventilator Weight: 168 lb 6.931 oz Body Mass Index (BMI) 19.8 Intake and Output for Last 24 Hours 08/27/18 08/28/18 08/29/18 23:59 23:59 23:59 Intake Total 2377 / 2377 3447 / 3447 1441.4 / 1441.4 Output Total 850 / 850 900 / 900 500 / 500 Balance 1527 / 1527 2547 / 2547 941.4 / 941.4 General: - - intubated, sedated, in restraints. HEENT: PERRLA, EOMI, Normocephalic Oral: Dry Mucosa Neck: Supple, No JVD, Negative Carotid Bruits Lungs: - - breath sounds mildly reduced bibasally; still intubated. breath sounds markedly improved in right lung armas after thoracentesis. No wheezes or crackles. Intubated. Cardiovascular: Regular rate, Regular Rhythm, Normal S1, Normal S2, No murmurs; on amiodarone drip Abdomen: Bowel Sounds Present, Soft, Non Tender, Non-Distended, No Hepato- splenomegaly Extremities: No clubbing, No cyanosis, No edema, Capillary Refill Less than 3 Seconds Skin: No rashes, No breakdown Musculoskeletal: No Tenderness to Palpation of Joints or Extremities Lymphatic: No Cervical, Supraclavicular, or Inguinal Adenopathy Neurological: Motor Exam 5/5 strength throughout Psych/Mental Status: - - intubated, sedated. RASS score is ~ -4 Microbiology Past 72 Hours 08/26/18 17:10 Sputum, Tracheal Aspirate Gram Stain - Final 08/26/18 17:10 Sputum, Tracheal Aspirate Respiratory Culture - Final Mixed normal respiratory karla. No Haemophilus, Streptococcus pneumoniae, beta-hemolytic Streptococcus or Staphylococcus aureus isolated. 08/26/18 13:45 Blood Culture (Wb) - Left Hand Blood Culture - Preliminary No growth in 48 hours. 08/26/18 13:45 Blood Culture (Wb) - Right Wrist Blood Culture - Preliminary No growth in 48 hours. Laboratory Results 08/29/18 02:30: WBC 19.2 H, RBC 3.63 L, Hgb 11.6 L, Hct 36.1 L, MCV 99.4 H, MCH 32.0, MCHC 32.1, RDW 14.1, RDW Differential 49.4 H, Plt Count 138 L, MPV 10.1, Immature Gran % (Auto) 0.200, Neut % (Auto) 85.7 H, Lymph % (Auto) 5.3 L, [place] % (Auto) 8.5, Eos % (Auto) 0.2, Baso % (Auto) 0.1, Absolute Neuts (auto) 16.5 H, Absolute Lymphs (auto) 1.01, Total Counted Not Reportable, Diff Path Review October08/29/18 02:30: Sodium 144, Potassium 4.8, Chloride 109 H, Carbon Dioxide 21.0, Anion Gap 14, BUN 42 H, Creatinine 1.03, Estim Creat Clear Calc 65.95, Est GFR (MDRD) Af Amer 91, Est GFR (MDRD) Non-Af 75, BUN/Creatinine Ratio 40.8 H, Glucose 137 H, Calcium 7.9 L 08/29/18 02:30: PT 14.3, INR 1.1, APTT 33.2 08/29/18 02:40: Urine Color Yellow, Urine Clarity Sl. Cloudy, Urine pH 5.0, Ur Specific [place] 1.015, Urine Protein 30 H, Urine Glucose (UA) Normal, Urine Ketones Negative, Urine Occult Blood 150 H, Urine Nitrite Negative, Urine Bilirubin 1 H, Urine Urobilinogen 1 H, Ur Leukocyte Esterase 25 H, Urine RBC 50- 100 SEEN, Urine WBC 0-5 SEEN, Ur Squamous Epith Cells 0-5 SEEN, Amorphous Sediment 1+, Urine Bacteria 0 SEEN, Urine Mucus 0 SEEN Diagnostic Data Thoracentesis Ultrasound 08/27/18 07:12 IMPRESSION: Ultrasound-guided right thoracentesis. Electronically Signed: Irwin Hong MD at 12:21 EST , Service support , Chest X-Ray 08/28/18 09:33 IMPRESSION: Stable examination. The support tubes are in good position. Electronically Signed: Irwin Hong, at 9:56 EST , Service support , Current Medications Acetaminophen (Tylenol Liquid) 650 mg GT Q6H PRN PRN PRN Reason: FEVER Last Admin: 08/29/18 04:02 Dose: 650 mg Albuterol/Ipratropium (Duoneb) 3 ml INHALATION Q4H.RT [facility] Last Admin: 08/29/18 07:18 Dose: Not Given Chlorhexidine Gluconate () 15 ml PO BID [facility] Last Admin: 08/28/18 21:14 Dose: 15 ml Chlorhexidine Gluconate () 1 each TOPICAL DAILY [facility] Last Admin: 08/29/18 03:58 Dose: 1 each Heparin Sodium (Porcine) (Heparin Na) 0 unit IV UD PRN; Protocol Famotidine 20 mg/ Sodium (Chloride) 10 mls @ 300 mls/hr IV Q12 [facility] Last Admin: 08/29/18 08:07 Dose: 300 mls/hr Enteral Nutritional Formula (Vital Af 1.2 Alvarez Liquid) 1,000 mls @ 55 mls/hr GT .[id number] [facility] Last Admin: 08/29/18 06:51 Dose: Not Given Norepinephrine Bitartrate 8 mg (/ Dextrose) 258 mls @ 9.68 mls/hr IV .[id number] [facility] Last Admin: 08/29/18 01:17 Dose: Not Given Fentanyl () 100 mls @ 5 mls/hr IV .Q20H [facility] Last Admin: 08/28/18 20:21 Dose: 5 mls/hr Dexmedetomidine HCl 1,000 mcg/ (Sodium Chloride) 250 mls @ 9.26 mls/hr IV .Q27H [facility] Last Admin: 08/29/18 03:58 Dose: 9.26 mls/hr Heparin Sodium/Dextrose () 25,000 units in 250 mls @ 11 mls/hr IV .[id number] [facility]; Protocol Last Admin: 08/29/18 02:39 Dose: 11 mls/hr Vasopressin 40 units/ Sodium (Chloride) 52 mls @ 3.12 mls/hr IV .[id number] [facility] Last Admin: 08/29/18 05:48 Dose: 3.12 mls/hr Amiodarone HCl 360 mg/ (Dextrose) 200 mls @ 33.33 mls/hr CONT INF .Q6H1M [facility] Stop: 08/29/18 11:30 Last Admin: 08/29/18 06:11 Dose: 33.33 mls/hr Amiodarone HCl 360 mg/ (Dextrose) 200 mls @ 16.67 mls/hr CONT INF .Q12H1M [facility] Stop: 08/30/18 05:29 Piperacillin Sod/Tazobactam (Sod 3.375 gm/ Sodium Chloride) 50 mls @ 12.5 mls/hr IV Q8 [facility] Vancomycin IV Pharmacy to Dose (1 ea/ Sodium Chloride) 500 mls @ 250 mls/hr IV X1 PRN; Protocol PRN Reason: Rx to Dose Vancomycin HCl 2,000 mg/ (Sodium Chloride) 540 mls @ 250 mls/hr IV X1 ONE Stop: 08/29/18 09:39 Last Admin: 08/29/18 07:57 Dose: 250 mls/hr Vancomycin HCl 1,000 mg/ (Dextrose) 200 mls @ 200 mls/hr IV Q12H [facility] Magnesium Hydroxide (Milk Of Magnesia) 30 ml PO DAILY PRN PRN PRN Reason: Constipation Ondansetron HCl (Zofran) 4 mg IV Q6H PRN PRN PRN Reason: Nausea Sodium Chloride () 5 - 15 ml IV UD PRN PRN Reason: SALINE FLUSH Last Admin: 08/29/18 02:42 Dose: 15 ml Medical Necessity - Tobacco Use Smoking Status: Former smoker Assessment/Plan All Active Problems (Last Reviewed 08/11/18 @ 19:33 by Carlos Garcia DO) Pleural effusion (Acute) Community acquired pneumonia (Acute) COPD exacerbation (Acute) Pneumococcal pneumonia (Ruled-out) Acute respiratory failure with hypoxia and hypercapnia (Acute) ACTHERINE (acute kidney injury) (Acute) Shortness of breath (Acute) Pseudomonas pneumonia (Resolved) 1. Acute hypoxic and hypercapnic respiratory failure due to malignant pleural effusion and COPD * Patient remains intubated and sedated. currently on Precedex for sedation. * s/p right sided thoracentesis with removal of 2L of blood-tinged fluid * galley stripper on board. * if fluid reaccumulates, plan is for possible Pleurex catheter placement. * galley stripper on board * * 2. Afib with RVR * developed Afib with RVR overnight and had to be started on amiodarone drip. * currently rate and rhythm controlled * on heparin drip. Cardiology on board * 3. Septic shock, source of infection not clear now * SIRS criteria is 3- fever, leucocytosis and tachycardia * blood cultures and urine cultures as well as sputum cultures are pending * was started on IV vancomycin and IV zosyn * on vasopressin. 4.Small cell lung cancer * recently diagnosed via pleural effusion cytology * pulmonology on board s/p right thoracentesis with drainage of 2L of blood tinged fluid. * oncology consulted; per their notes, patient is not a candidate for palliative chemotherapy or immunotherapy at this point, and prognosis is very poor. * 5. Heart failure with preserved EF * stable. Meds were held on admission o/a of hypotension 6. AK I: Resolved. 7. Hypertension: BP meds on hold on account of low blood pressure on admission. BP remains in the 110s systolic. 8. Hyperkalemia: Resolved 9. Hyponatremia: resolved. 10. GERD: On PPI 11. Chronic pain: On oxycodone and tizanidine at home. These on hold as patient is currently on fentanyl drip for sedation; fentanul being switched to precedex Nutrition: on tube feeding. DVT prophylaxis: Lovenox Code status: patient remains full code for now. Prognosis: very poor. Family updated about the patient's prognosis, and after a meeting with the galley stripper, have switched patient's code status to DNRCC. Patient was extubated on 08/29/18 and at 13:45 Code Visit Inpatient E&M: 86418 Subs Hosp L3
--- NOTE | 2018-08-29 09:09 | PCM.RX.CS ---
Consult Pharmacy has been consulted to manage selected antiobiotic: Vancomycin Type of Consult: New start Suspected Infection: Other Labs: Sodium 144 mmol/L (136-145) 08/29/18 02:30 Potassium 4.8 mmol/L (3.5-5.1) 08/29/18 02:30 Chloride 109 mmol/L (98-107) H 08/29/18 02:30 Carbon Dioxide 21.0 mmol/L (21.0-32.0) 08/29/18 02:30 Anion Gap 14 (5-15) 08/29/18 02:30 BUN 42 mg/dL (7-18) H 08/29/18 02:30 Creatinine 1.03 mg/dL (0.70-1.30) 08/29/18 02:30 Est GFR (MDRD) Af Amer 91 mL/min (>60) 08/29/18 02:30 Est GFR (MDRD) Non-Af 75 mL/min (>60) 08/29/18 02:30 BUN/Creatinine Ratio 40.8 RATIO (10-20) H 08/29/18 02:30 Glucose 137 mg/dL (74-106) H 08/29/18 02:30 Microbiology: Microbiology 08/26/18 17:10 Sputum, Tracheal Aspirate Gram Stain - Final 08/26/18 17:10 Sputum, Tracheal Aspirate Respiratory Culture - Final Mixed normal respiratory karla. No Haemophilus, Streptococcus pneumoniae, beta-hemolytic Streptococcus or Staphylococcus aureus isolated. 08/26/18 13:45 Blood Culture (Wb) - Left Hand Blood Culture - Preliminary No growth in 48 hours. 08/26/18 13:45 Blood Culture (Wb) - Right Wrist Blood Culture - Preliminary No growth in 48 hours. Weight used for dosin.4 kg Estimated Creatinine Clearance: 66 ML/MIN Goal Trough: 15-20 mcg/mL Pharmacy Plan for Drug Dosing: Give initial loading dose of 2000mg IV x1, then continue at 1000mg IV q12h. Draw a trough before the 4th dose. Pharmacy Service will continue to monitor and adjust dosing as required. Follow-Up Labs: Trough Vancomycin Labs to be done on [date and time ordered]: 08/30/18 at 19:30
--- NOTE | 2018-08-29 10:24 | PCM.PN.BLA ---
Progress Note Oncology consultation progress note: Family discussion today with Dr. Hood and the ICU team. Goals of care and patient's values discussed. Everyone is in agreement that Mr. Mccollum would like to be off the ventilator and be kept comfortable. We also discussed CODE STATUS with the family and possible inpatient hospice referral before attempting to extubate him from the ventilator. We also discussed his prognosis, limited life expectancy (weeks to days) & symptom management issues with family and also with hospice. cc: Dr. Angel Casey, Dr. Keny Hood, Dr. Joel Dow
[2018-08-29 10:54] LABS: Partial Thromboplast Time 164.4 Seconds (24.1-36.2)
[2018-08-29] MEDS: Chlorhexidine 15 ML PO (11:33)
[2018-08-29] MEDS: fentaNYL drip 100 ML 5 MCG IV (11:34)
--- NOTE | 2018-08-29 12:49 | CASEMGMT ---
Family is agreeable to hospice for pt, pt will be extubated shortly. SW spoke w/pt's brother Reagan, he states he is usually the medical decision maker, and hospice can call him. SW called hospice, faxed referral. Mirlande is to call this SW back with a time someone will be here to meet with family. SW reviewed chart, no POA papers on on file here. SW called [facility] in admissions is not in today. SW spoke w/Rose in HR who is covering for [facility] today, inquired about POA forms, they do not have any forms on file, pt's signed the documentation at their facility. SW will continue to follow, will let family know when hospice will be here once they call back. ZIA Wilkerson, RED LEAD BURNER
[2018-08-29] MEDS: Atropine Sulfate 1% 2 ml Bottle 4 DRP PO (13:05)
--- NOTE | 2018-08-29 13:47 | CASEMGMT ---
Addendum entered by Sherri Lal 08/29/18 13:51: Pt just , SW called [facility] and spoke w/Khadra, let her know pt just . SW called [facility] back and let LANDEN Hammonds know that pt did just pass away. ZIA Wilkerson, SOLID TIRE TUBER MACHINE OPERATOR Original Note: ASH let RN at [facility] know (Nasra) that pt will likely be going to the inpt hospice unit. ASH also let Nasra know that we did find a bed bug here associated with this pt, though it is unclear of the bed bug's origin. ZIA Wilkerson, SOLID TIRE TUBER MACHINE OPERATOR
--- NOTE | 2018-08-29 13:57 | EXP.PCM_ITS ---
Preliminary Cause of acute hypoxic and hypercapnic respiratory failure due to pleural effusion Date of Admission: 08/26/18 Date of : 08/29/18 - Principle Diagnosis acute hypoxic respiratory failure due to malignant pleural effusion Afib with RVR small cell lung cancer- recently diagnosed CATHERINE septic shock hyperkalemia Hospital Course Patient is a 72-year-old male with a history of hypertension and stage IV COPD. [facility] with a complaint of shortness of breath and hypoxia. On admission in the ED, he was tachypneic and hypoxic but was afebrile and otherwise hemodynamically stable. Initial labs showed elevated white cell count of 26,000 and chemistry showed potassium of 5.6 with creatinine of 1.63 indicating AK I. Troponin was negative and urinalysis was also largely negative. ABG showed pH of 7.2 with a corresponding PCO2 of 82 and PO2 of 53. Chest x-ray done showed near complete opacification of the right hemithorax with sparing of the right upper lobe with underlying effusion and compressive atelectasis likely. He did not respond to noninvasive positive pressure ventilation and became more lethargic. He was subsequently intubated and treated with supplemental IV steroids, IV fluids and aerosol treatments as well as antibiotics. He was admitted and managed for acute hypoxic and hypercapnic respiratory failure due to pleural effusion. Of note, patient had just been admitted in the hospital from August 11- and was managed for acute on chronic respiratory failure due to community-acquired pneumonia at that time. During that admission, a chest CT was obtained which showed right-sided masslike lesions along with a moderate-sized pleural effusion and a subsequent ultrasound-guided thoracentesis revealed small cell lung cancer. She had a documented smoking history of 120 pack years. During this admission, he had right-sided thoracentesis with removal of 2 L of blood-tinged fluid. Oncology was consulted and they deemed him not to be an appropriate candidate for pall iative chemotherapy or immunotherapy due to very poor performance score noted that his prognosis was very poor. Patient subsequently deteriorated and developed atrial fibrillation with rapid ventricular rate necessitating him being started on amiodarone drip. He had also initially been on Levophed but this was switched to vasopressin. Patient became more febrile as well and went into shock requiring vasopressin for hemodynamic support. Per discussion with family, decision was made to switch patient to DNR CC he was extubated on 08/29/2018. Patient was pronounced at 13:45 on 08/29/28.
--- NOTE | 2018-08-29 14:05 | PCM.DEATH ---
Preliminary Cause of acute hypoxic and hypercapnic respiratory failure due to pleural effusion Date of Admission: 08/26/18 - Principle Diagnosis acute hypoxic respiratory failure due to malignant pleural effusion Afib with RVR small cell lung cancer- recently diagnosed CATHERINE septic shock hyperkalemia Hospital Course Patient is a 72-year-old male with a history of hypertension and stage IV COPD. [facility] was [facility] 08[facility]/2018 with a complaint of shortness of breath and hypoxia. On admission in the ED, he was tachypneic and hypoxic but was afebrile and otherwise hemodynamically stable. Initial labs showed elevated white cell count of 26,000 and chemistry showed potassium of 5.6 with creatinine of 1.63 indicating AK I. Troponin was negative and urinalysis was also largely negative. ABG showed pH of 7.2 with a corresponding PCO2 of 82 and PO2 of 53. Chest x-ray done showed near complete opacification of the right hemithorax with sparing of the right upper lobe with underlying effusion and compressive atelectasis likely. He did not respond to noninvasive positive pressure ventilation and became more lethargic. He was subsequently intubated and treated with supplemental IV steroids, IV fluids and aerosol treatments as well as antibiotics. He was admitted and managed for acute hypoxic and hypercapnic respiratory failure due to pleural effusion. Of note, patient had just been admitted in the hospital from August 11- and was managed for acute on chronic respiratory failure due to community-acquired pneumonia at that time. During that admission, a chest CT was obtained which showed right-sided masslike lesions along with a moderate-sized pleural effusion and a subsequent ultrasound-guided thoracentesis revealed small cell lung cancer. She had a documented smoking history of 120 pack years. During this admission, he had right-sided thoracentesis with removal of 2 L of blood-tinged fluid. Oncology was consulted and they deemed him not to be an appropriate candidate for palliative chemotherapy or immunotherapy due to very poor performance score noted that his prognosis was very poor. Patient subsequently deteriorated and developed atrial fibrillation with rapid ventricular rate necessitating him being started on amiodarone drip. He had also initially been on Levophed but this was switched to vasopressin. Patient became more febrile as well and went into shock requiring vasopressin for hemodynamic support. Per discussion with family, decision was made to switch patient to DNR CC he was extubated on 08/29/2018. Patient was pronounced at 13:45 on 08/29/28. Code Visit Inpatient E&M: 10134 Disch Hosp
--- NOTE | 2018-08-29 15:39 | CHAPLAIN ---
Type of Pastoral Visit ___ Initial Visit ___ Follow-up Visit ___ On-call Visit ___ General Patient Visit ___ Spiritual Assessment ___ Family Conference _x__ Bereavement ___ Rapid Response ___ Code Blue ___ Other (describe below) Pastoral Care Referral From ___ Patient _x__ Family _x__ Nurse ___ Physician ___ Cash Poster ___ [employer] ___ Other (describe below) Sacrament/Intervention ___ Active listening ___ Anointing ___ Scientology _x__ Bereavement ___ Communion ___ [place] exploration ___ ___ Life review _x__ Prayer ___ Reconciliation ___ Sacrament of Sick _x__ Supportive presence ___ Wedding ___ Other (describe below) Pastoral Comments offered presence and support as many family members came into room to give goodbye to patient before he was extubated; gathered family for prayer; was present when pt was extubated and pt was able to breathe on his own; later returned to room and patient had ; family members had left the hospital
[2018-08-30 08:59] LABS: Pathologist Review Reviewed
== END 2018-08-29 13:45 | DRG 136 ==
LOC: ED 14:59 → ICU 15:38
PROVIDERS: Internal Medicine Critical Care Medicine; Admitting Provider Family Medicine; Emergency Provider Emergency Medicine; Family Provider Internal Medicine; PCP Internal Medicine; Visit Provider Student in an Organized Health Care Education/Training Program
DX: C34.91 Malignant neoplasm of unspecified part of right bronchus or lung (principal); J96.01 Acute respiratory failure with hypoxia; E87.5 Hyperkalemia; J96.02 Acute respiratory failure with hypercapnia; N17.9 Acute kidney failure, unspecified; E44.0 Moderate protein-calorie malnutrition; J91.0 Malignant pleural effusion; J44.9 Chronic obstructive pulmonary disease, unspecified; I11.0 Hypertensive heart disease with heart failure; I48.91 Unspecified atrial fibrillation; A41.9 Sepsis, unspecified organism; R65.21 Severe sepsis with septic shock; I50.32 Chronic diastolic (congestive) heart failure; G89.4 Chronic pain syndrome; Z68.1 Body mass index [BMI] 19.9 or less, adult; Z66 Do not resuscitate; Z51.5 Encounter for palliative care; K21.9 Gastro-esophageal reflux disease without esophagitis; Z87.891 Personal history of nicotine dependence
CPT/HCPCS: 31500; 31720; 32555; 36415; 36600; 36620; 71045; 71046; 80048; 81001; 82803; 83605; 83615; 84156; 84484; 85025; 85027; 85610; 85730; 87040; 87070; 87086; 87205; 87633; 93005; 93306; 94002; 94003; 94640; 97802; 99251; 99285; J7030; J7040; J7050; Q9957; A4216; G0463; J3490